=== PATIENT | male | born 1940 | race Caucasian/White ===

== ENCOUNTER 2018-06-19 18:31 | Inpatient (IN) | payer OTHER, BC ==
--- OUTSIDE RECORDS SUMMARY | 2018-06-19 18:34 | XMS REPORT | Clinical Summary ---
:1940 Author Organization [facility] Address [address] [place] [address] Care Team Providers Name Role Phone Asked, No Pcp Primary Care Provider Unavailable Allergies Active Allergy Reactions Severity Noted Date Comments Clindamycin Penicillins Current Medications Prescription Sig. Disp. Refills Start Date End Date Status lisinopril-hydrochlorot PRN Active hiazide (PRINZIDE,ZESTORETIC) 20-12.5 mg per tablet traMADol (ULTRAM) 50 mg tramadol 50 mg tablet Active tablet gabapentin (NEURONTIN) TAKE ONE (1) 2 03/31/2018 Active 300 mg capsule CAPSULE(S) BY MOUTH ONCE A DAY FOR 3 DAYS, THEN INCREASE TO 1 CAPSULE BY MOUTH TWICE A DAY. terbinafine HCl terbinafine HCl 250 Active (LamiSIL) 250 mg tablet mg tablet glimepiride (AMARYL) 4 glimepiride 4 mg Active MG tablet tablet atorvastatin (LIPITOR) atorvastatin 80 mg Active 80 MG tablet tablet lisinopril TAKE ONE (1) 0 12/30/2017 Active (PRINIVIL,ZESTRIL) 40 TABLET(S) BY MOUTH mg tablet ONCE A DAY. riFAMpin (RIFADIN) 300 rifampin 300 mg Active MG capsule capsule metoprolol tartrate metoprolol tartrate Active (LOPRESSOR) 50 mg 50 mg tablet tablet difluprednate (DUREZOL) Durezol 0.05 % eye Active 0.05 % drops drops keTOROlac (ACULAR) 0.5 ketorolac 0.5 % eye Active % ophthalmic solution drops pentoxifylline TAKE ONE (1) 6 03/17/2018 Active (TRENTal) 400 mg CR TABLET(S) BY MOUTH tablet TWICE A DAY WITH MEALS. Active Problems Not on file Encounters Date Type Specialty Care Team Description 04/28/2018 Telephone Cardiovascular AUTUMN Her (peripheral artery Thalia, RN disease) (Primary Dx) 04/23/2018 Office Visit Cardiovascular Gavin Nova, PAD (peripheral artery disease) (Primary Dx); Lymphedema of both lower extremities; Venous insufficiency (chronic) (peripheral) 04/23/2018 Hospital Encounter Radiology Thomas Ferguson, Symptomatic varicose veins of both lower extremities; Symptomatic varicose veins of left lower extremity 04/23/2018 Hospital Encounter Radiology Thomas Ferguson, Symptomatic varicose veins of both lower extremities; Symptomatic varicose veins of left lower extremity 04/14/2018 Transcribe Orders Access Thomas Ferguson, Symptomatic varicose veins of both lower extremities (Primary Dx); Symptomatic varicose veins of left lower extremity 04/02/2018 Office Visit Cardiovascular Gavin Nova, Venous ulcer of both lower extremities with varicose veins (Primary Dx); Bilateral leg pain; Thomas Ferguson, Varicose veins of leg with swelling, bilateral; PAD (peripheral artery disease) after 06/18/2017 Social History Tobacco Use Types Packs/Day Years Used Date Never Smoker Smokeless Tobacco: Never Used Alcohol Use Drinks/Week oz/Week Comments Defer Sex Assigned at Date Recorded Not on file Last Filed Vital Signs Vital Sign Reading Time Taken Blood Pressure 156/84 04/23/2018 11:24 AM CDT Pulse 51 04/23/2018 11:24 AM CDT Temperature 37 C (98.6 F) 04/23/2018 11:24 AM CDT Respiratory Rate 19 04/23/2018 11:24 AM CDT Oxygen Saturation 96% 04/23/2018 11:24 AM CDT Inhaled Oxygen Concentration - - Weight 85.3 kg (188 lb) 04/23/2018 11:24 AM CDT Height 167.6 cm (5' 6") 04/23/2018 11:24 AM CDT Body Mass Index 30.34 04/23/2018 11:24 AM CDT Plan of Treatment Health Maintenance Due Date Last Done Comments SHINGRIX VACCINE (#1) 1990 ZOSTER VACCINE 2000 PNEUMOCOCCAL POLYSACCHARIDE VACCINE AGE 65 AND OVER 2005 PNEUMOCOCCAL-13 2005 INFLUENZA VACCINE 04/07/2018 Procedures Procedure Name Priority Date/Time Associated Diagnosis Comments US DUPLEX VENOUS Routine 04/23/2018 11:30 AM Symptomatic varicose Results for this LOWER EXTREMITY CDT veins of both lower procedure are in REFLUX BILATERAL extremities the results Symptomatic varicose section. veins of left lower extremity US DUPLEX ARTERIAL Routine 04/23/2018 9:30 AM Symptomatic varicose Results for this LOWER EXTREMITY CDT veins of both lower procedure are in BILATERAL extremities the results Symptomatic varicose section. veins of left lower extremity after 06/18/2017 Results Pv duplex venous lower extremity reflux (04/23/2018 11:30 AM) Narrative Performed At EXAM:Bilateral lower extremity venous reflux evaluation [facility] HISTORY:Venous insufficiency TECHNIQUE:Real-time as well as pulsed and color Doppler evaluation of the deep and superficial system of the right and left legs was performed. There is no prior study available for comparison. COMPARISON: None available IMPRESSION: 1.No deep venous or saphenous vein thrombus is present in either lower extremity. The right and left common femoral, profunda femoral, superficial femoral, popliteal, posterior tibial, peroneal, greater saphenous, and short saphenous veins are patent with no visible thrombus. 2.Varicose veins extend from the bilateral greater saphenous veins into the calf regions. 3.No incompetent magazine designer veins are present in either lower extremity. REFLUX EVALUATION *Abnormal reflux criteria: > or equal to 0.5 seconds DEEP VEINS RIGHT LEG CFV: Normal Femoral:0.6 seconds reflux Profunda: Normal Popliteal: Normal PT (prox): Normal PT (dist): Normal LEFT LEG CFV: Normal Femoral:Normal Profunda: Normal Popliteal: Normal PT (prox): Normal PT (dist): Normal SUPERFICIAL VEINS RIGHT LEG GSV junction: 0.8 seconds reflux GSV (prox above knee): Normal GSV (prox below knee): Normal SSV:Normal LEFT LEG GSV junction: Normal GSV (prox above knee): Normal GSV (prox below knee): 1.7 seconds reflux SSV:Normal VEIN MAPPING GSV -- SIZE (mm) -- DEPTH FROM SKIN (mm) RIGHT LEG: Saphenofemoral junction -- 7 -- 26 Upper thigh --N/A -- Mid thigh --N/A-- Distal thigh --2-- 24 Knee ---2- 6 Upper calf --2-- 14 Mid calf ---- 3-- 6 Distal calf ---2-- 6 LEFT LEG: Saphenofemoral junction -- 8 -- 32 Upper thigh --4-- 21 Mid thigh --N/A-- Distal thigh --N/A-- Knee --3-- 8 Upper calf -- 3-- 6 Mid calf --3-- 6 Distal calf -- 3 -- 5 SSV -- SIZE (mm) -- DEPTH FROM SKIN (mm) RIGHT LEG: Upper Calf -- 4-- 9 Mid Calf ---2-- 16 Distal Calf --2-- 12 LEFT LEG: Upper Calf --3-- 12 Mid Calf --2-- 10 Distal Calf -- 2 --8 [id number] Procedure Note Hm Interface, Radiology Results Incoming - 04/23/2018 5:07 PM CDT EXAM: Bilateral lower extremity venous reflux evaluation HISTORY: Venous insufficiency TECHNIQUE: Real-time as well as pulsed and color Doppler evaluation of the deep and superficial system of the right and left legs was performed. There is no prior study available for comparison. COMPARISON: None available IMPRESSION: 1. No deep venous or saphenous vein thrombus is present in either lower extremity. The right and left common femoral, profunda femoral, superficial femoral, popliteal, posterior tibial, peroneal, greater saphenous, and short saphenous veins are patent with no visible thrombus. 2. Varicose veins extend from the bilateral greater saphenous veins into the calf regions. 3. No incompetent magazine designer veins are present in either lower extremity. REFLUX EVALUATION *Abnormal reflux criteria: > or equal to 0.5 seconds DEEP VEINS RIGHT LEG CFV: Normal Femoral: 0.6 seconds reflux Profunda: Normal Popliteal: Normal PT (prox): Normal PT (dist): Normal LEFT LEG CFV: Normal Femoral: Normal Profunda: Normal Popliteal: Normal PT (prox): Normal PT (dist): Normal SUPERFICIAL VEINS RIGHT LEG GSV junction: 0.8 seconds reflux GSV (prox above knee): Normal GSV (prox below knee): Normal SSV: Normal LEFT LEG GSV junction: Normal GSV (prox above knee): Normal GSV (prox below knee): 1.7 seconds reflux SSV: Normal VEIN MAPPING GSV -- SIZE (mm) -- DEPTH FROM SKIN (mm) RIGHT LEG: Saphenofemoral junction -- 7 -- 26 Upper thigh -- N/A -- Mid thigh -- N/A-- Distal thigh -- 2-- 24 Knee -- -2- 6 Upper calf -- 2-- 14 Mid calf -- -- 3 -- 6 Distal calf -- -2-- 6 LEFT LEG: Saphenofemoral junction -- 8 -- 32 Upper thigh -- 4-- 21 Mid thigh -- N/A-- Distal thigh -- N/A-- Knee -- 3-- 8 Upper calf -- 3-- 6 Mid calf -- 3-- 6 Distal calf -- 3 -- 5 SSV -- SIZE (mm) -- DEPTH FROM SKIN (mm) RIGHT LEG: Upper Calf -- 4-- 9 Mid Calf -- -2-- 16 Distal Calf -- 2-- 12 LEFT LEG: Upper Calf -- 3-- 12 Mid Calf -- 2-- 10 Distal Calf -- 2 --8 [id number] Performing Organization Address City/State/Zipcode Phone Number [facility] [address] [place] [address] duplex arterial lower extremity (04/23/2018 9:30 AM) Narrative Performed At EXAM: US DUPLEX ARTERIAL LOWER EXTREMITY BILATERAL [facility] HISTORY: Peripheral arterial disease. Bilateral lower extremity pain. TECHNIQUE: Real-time as well as pulsed and color Doppler evaluation of bilateral common femoral, femoral, popliteal, posterior tibial, anterior tibial, and dorsalis pedis arteries are evaluated. The examination includes a full duplex Doppler scan of the blood vessels (real-time P mode grayscale, Doppler spectral analysis, and Doppler color flow imaging). COMPARISON: None. IMPRESSION: 1.Sequela of at least moderate bilateral peripheral vascular disease. Biphasic waveforms beginning with the MEASURING MACHINE OPERATOR suggest hemodynamically significant inflow disease bilaterally. 2.Monophasic waveforms beginning with the mid left SFA and extending distally suggest a hemodynamically significant stenosis at the proximal left SFA. 3.Irregular systolic waveform interval, compatible with irregular heart rate. If indicated this may further evaluated by cardiology. 4.[place] right SFA is occluded. Patent right femoral-popliteal graft. 5.Mid to distal left SFA is stented with the distal stent appearing occluded. 6.There is retrograde flow within a left popliteal collateral vessel which likely supplies the left popliteal artery. 7.These findings may be further evaluated with catheter directed or CT angiography with runoff. RIGHT LEG: PEAK SYSTOLIC VELOCITIES ARE FOLLOWS: COMMON FEMORAL:74 cm/s FEMORAL: Proximal: Absent Mid: Absent Distal:8 1.38 cm/s POPLITEAL: Proximal:91.35 cm/s Mid: 82.29 cm/s Distal: 84.88 cm/s POSTERIOR TIBIAL: Proximal: 74.30 cm/s Mid: 100.68 cm/s Distal:6 8.04 cm/s ANTERIOR TIBIAL: Proximal: 25.23 cm/s Mid: 34.31 cm/s Distal:2 7.19 cm/s DORSALIS PEDIS: 17.51 cm/s DOPPLER WAVEFORMS: COMMON FEMORAL: Biphasic FEMORAL Proximal: Absent Mid: Absent Distal: Monophasic POPLITEAL Proximal: Biphasic Mid: Biphasic Distal: Biphasic POSTERIOR TIBIAL Proximal: Biphasic Mid: Triphasic Distal: Triphasic ANTERIOR TIBIAL Proximal: Biphasic Mid: Biphasic Distal: Monophasic DORSALIS PEDIS: Monophasic LEFT LEG: PEAK SYSTOLIC VELOCITIES ARE FOLLOWS: COMMON FEMORAL:83.93 cm/s FEMORAL: Proximal: 35.78 cm/s Mid: 39.17 cm/s Distal:4 7.89 cm/s POPLITEAL: Proximal: 30.27 cm/s Mid: 49.68 cm/s Distal: 20.06 cm/s POSTERIOR TIBIAL: Proximal: 29.72 cm/s Mid: 29.72 cm/s Distal:3 0.56 cm/s ANTERIOR TIBIAL: Proximal:17.76 cm/s Mid: 23.10 cm/s Distal: 13.84 cm/s DORSALIS PEDIS:7.08 cm/s DOPPLER WAVEFORMS: COMMON FEMORAL: Biphasic FEMORAL Proximal: Biphasic Mid: Monophasic Distal: Monophasic POPLITEAL Proximal: Monophasic Mid: Monophasic Distal: Monophasic POSTERIOR TIBIAL Proximal: Monophasic Mid: Monophasic Distal: Monophasic ANTERIOR TIBIAL Proximal: Monophasic Mid: Monophasic Distal: Monophasic DORSALIS PEDIS: Monophasic [id number] Procedure Note Hm Interface, Radiology Results Incoming - 04/23/2018 12:31 PM CDT EXAM: US DUPLEX ARTERIAL LOWER EXTREMITY BILATERAL HISTORY: Peripheral arterial disease. Bilateral lower extremity pain. TECHNIQUE: Real-time as well as pulsed and color Doppler evaluation of bilateral common femoral, femoral, popliteal, posterior tibial, anterior tibial , and dorsalis pedis arteries are evaluated. The examination includes a full duplex Doppler scan of the blood vessels (real-time P mode grayscale, Doppler spectral analysis, and Doppler color flow imaging). COMPARISON: None. IMPRESSION: 1. Sequela of at least moderate bilateral peripheral vascular disease. Biphasic waveforms beginning with the MEASURING MACHINE OPERATOR suggest hemodynamically significant inflow disease bilaterally. 2. Monophasic waveforms beginning with the mid left SFA and extending distally suggest a hemodynamically significant stenosis at the proximal left SFA. 3. Irregular systolic waveform interval, compatible with irregular heart rate. If indicated this may further evaluated by cardiology. 4. [place] right SFA is occluded. Patent right femoral-popliteal graft. 5. Mid to distal left SFA is stented with the distal stent appearing occluded. 6. There is retrograde flow within a left popliteal collateral vessel which likely supplies the left popliteal artery. 7. These findings may be further evaluated with catheter directed or CT angiography with runoff. RIGHT LEG: PEAK SYSTOLIC VELOCITIES ARE FOLLOWS: COMMON FEMORAL: 74 cm/s FEMORAL: Proximal: Absent Mid: Absent Distal: 81.38 cm/s POPLITEAL: Proximal: 91.35 cm/s Mid: 82.29 cm/s Distal: 84.88 cm/s POSTERIOR TIBIAL: Proximal: 74.30 cm/s Mid: 100.68 cm/s Distal: 68.04 cm/s ANTERIOR TIBIAL: Proximal: 25.23 cm/s Mid: 34.31 cm/s Distal: 27.19 cm/s DORSALIS PEDIS: 17.51 cm/s DOPPLER WAVEFORMS: COMMON FEMORAL: Biphasic FEMORAL Proximal: Absent Mid: Absent Distal: Monophasic POPLITEAL Proximal: Biphasic Mid: Biphasic Distal: Biphasic POSTERIOR TIBIAL Proximal: Biphasic Mid: Triphasic Distal: Triphasic ANTERIOR TIBIAL Proximal: Biphasic Mid: Biphasic Distal: Monophasic DORSALIS PEDIS: Monophasic LEFT LEG: PEAK SYSTOLIC VELOCITIES ARE FOLLOWS: COMMON FEMORAL: 83.93 cm/s FEMORAL: Proximal: 35.78 cm/s Mid: 39.17 cm/s Distal: 47.89 cm/s POPLITEAL: Proximal: 30.27 cm/s Mid: 49.68 cm/s Distal: 20.06 cm/s POSTERIOR TIBIAL: Proximal: 29.72 cm/s Mid: 29.72 cm/s Distal: 30.56 cm/s ANTERIOR TIBIAL: Proximal: 17.76 cm/s Mid: 23.10 cm/s Distal: 13.84 cm/s DORSALIS PEDIS: 7.08 cm/s DOPPLER WAVEFORMS: COMMON FEMORAL: Biphasic FEMORAL Proximal: Biphasic Mid: Monophasic Distal: Monophasic POPLITEAL Proximal: Monophasic Mid: Monophasic Distal: Monophasic POSTERIOR TIBIAL Proximal: Monophasic Mid: Monophasic Distal: Monophasic ANTERIOR TIBIAL Proximal: Monophasic Mid: Monophasic Distal: Monophasic DORSALIS PEDIS: Monophasic [id number] Performing Organization Address City/State/Zipcode Phone Number [facility] [address] [place] [address] after 06/18/2017 Insurance Payer Benefit Plan / Group Subscriber ID Type Phone Address MEDICARE MEDICARE PART A AND B xxxxxxxxxx Medicare [place], [place] BCBS BCBS CHOICE PPO/FEDERAL EMPL PPO xxxxxxxxxxxx PPO Home: Adi SAHA [phone] [address]
[2018-06-19 19:29] LABS: Arterial Blood Carboxyhemoglob 1.5 % (0-1.5); Blood Gas Oxyhemoglobin 94.8 % (94-97); Blood O2 Saturation 97.1 % (92-98.5)
[2018-06-19 19:42] LABS: Absolute Lymphocytes (CBC) 0.6 K/uL (0.7-4.9); Absolute Monocytes 0.7 K/uL (0.1-1.3); Basophils % 1.3 % (0-1.3); Eosinophils % 1.3 % (0-4.4); Hematocrit 43.9 % (39.6-49.0); Lymphocytes % 10.4 % (15.3-44.8); MCH 31.6 pg (27.0-35.0); MCV 93.6 fL (80-100); Monocytes % 13.3 % (3.3-12.3); RBC Red Blood Cell Count 4.69 M/uL (4.33-5.43)
[2018-06-19 19:44] LABS: Protime INR 1.39
[2018-06-19] MEDS ORDERED: FUROSEMIDE 20 MG/ 2ML VIAL ONE (19:54)
[2018-06-19 20:01] LABS: Albumin 3.5 g/dL (3.4-5.0); Bilirubin Direct 0.5 mg/dL (0-0.2); Bilirubin Total 1.2 mg/dL (0.2-1.0); Magnesium 2.3 mg/dL (1.8-2.4); Protein, Total 7.6 g/dL (6.4-8.2); Troponin (Emerg Dept Use Only) 0.02 ng/mL (0.0-0.045)
--- NOTE | 2018-06-19 20:08 | RAD REPORT ---
EXAM DESCRIPTION: RAD - Chest Single View - 06/19/2018 7:24 pm CLINICAL HISTORY: Dyspnea COMPARISON: December 2016 TECHNIQUE: AP portable chest image was obtained 1918 hours . FINDINGS: Lung volumes are low. No peripheral mass or consolidation. Cardiomegaly is present not sub stantially different from comparison. Sternotomy wires in place. Calcified granuloma in the right jessica g field. Interstitial markings are mildly prominent. No measurable pleural effusion and no pneumothor ax. No acute bony abnormality seen. No acute aortic findings suspected. IMPRESSION: Shallow inspiration portable imaging with mild interstitial prominence and cardiomegaly. Findings are not substantially different from comparison. Minimal interstitial edema or infiltrate ca n be masked.
--- NOTE | 2018-06-19 20:56 | EDPHYS ---
Physician Documentation [facility] Name: Wayne Jaimes Age: 77 yrs Sex: Male : 1940 Arrival Date: 06/19/2018 Time: 18:34 Bed 18 Private MD: ED Physician Yogesh Rdz HPI: 06/19 18:53 This 77 yrs old Male presents to ER via Wheelchair with complaints of jmm Breathing Difficulty. 18:53 The patient has shortness of breath at rest. Onset: The symptoms/episode began/occurred jmm gradually, 3 day(s) ago. Duration: The symptoms are continuous. The patient's shortness of breath is aggravated by light activity, walking. Associated signs and symptoms: Pertinent negatives: chest pain. 18:53 This is a 77 year old male with a history of CHF, DM that presents to the ED with jmm progressively worsening shortness of breath beginning approx 3 days ago. states the patient has had multiple falls which the patient attributes to shortness of breath and nausea. Denies vomiting, denies abdominal pain, denies chest pain. . Historical: - Allergies: 19:07 Erythromycin; iw 19:07 PENICILLINS; iw - Home Meds: 19:07 clotrimazole-betamethasone 1-0.05 % Topical crea 2 times per day [Active]; furosemide iw 80 mg Oral tab once daily [Active]; Humulin 70/30 100 unit/mL (70-30) Sub-Q susp take 32 units in the morning and 18 units at night [Active]; ketoconazole 2 % Topical crea 2 times per day [Active]; lisinopril 20 mg Oral tab once daily [Active]; metoprolol tartrate 50 mg Oral tab 1 tab 2 times per day [Active]; mupirocin 2 % Topical oint [Active]; triamcinolone acetonide 0.1 % Topical oint 2 times per day [Active]; - PMHx: 19:07 Diabetes - IDDM; CHF; iw - Immunization history:: Adult Immunizations up to date. - Ebola Screening: : No symptoms or risks identified at this time. - Social history:: Smoking status: Patient/guardian denies using tobacco. ROS: 18:53 Constitutional: Negative for fever, chills, and weight loss, Eyes: Negative for injury, jmm pain, redness, and discharge, ENT: Negative for injury, pain, and discharge, Cardiovascular: Negative for chest pain, palpitations, and edema. 18:53 MS/Extremity: Negative for injury and deformity, Skin: Negative for injury, rash, and discoloration. 18:53 Respiratory: Positive for shortness of breath. 18:53 Abdomen/GI: Positive for nausea. 18:53 Neuro: Positive for weakness. 18:53 All other systems are negative. Exam: 18:53 Head/Face: atraumatic. Eyes: EOMI, no conjunctival erythema appreciated Chest/axilla: jmm Normal chest wall appearance and motion. Cardiovascular: Regular rate and rhythm. No edema appreciated Respiratory: Normal respirations, no respiratory distress appreciated Abdomen/GI: Non distended, soft Back: Normal ROM Skin: General appearance color normal MS/ Extremity: Moves all extremities, no obvious deformities appreciated, no edema noted to the lower extremities 18:53 Constitutional: The patient appears in no acute distress, alert, awake. 18:53 Respiratory: mild respiratory distress is noted, Respirations: normal, Breath sounds: rhonchi, that are moderate. 18:53 Neuro: Orientation: is normal, Mentation: is normal, Memory: is normal. 18:53 Psych: Behavior/mood is pleasant, cooperative. 18:53 Musculoskeletal/extremity: ROM: intact in all extremities, Mild erythema and swelling jmm noted to the lower legs bilaterally. . Vital Signs: 19:11 BP 163 / 95; Pulse 84; Resp 22 S; Temp 99.6(O); Pulse Ox 88% on R/A; Weight 84.82 kg; iw Height 5 ft. 6 in. (167.64 cm); Pain 0/10; 19:15 Pulse Ox 91% on R/A; lp1 19:30 BP 170 / 93; Pulse 82; Resp 21; Pulse Ox 99% on 2 lpm NC; lp1 20:00 BP 162 / 93; Pulse 81; Resp 24; Pulse Ox 98% on 2 lpm NC; lp1 21:00 BP 154 / 94; Pulse 83; Resp 21; Pulse Ox 94% on 2 lpm NC; lp1 22:00 BP 168 / 89; Pulse 82; Resp 21; Pulse Ox 97% on 2 lpm NC; lp1 19:11 Body Mass Index 30.18 (84.82 kg, 167.64 cm) iw MDM: 18:53 Patient medically screened. [facility] 20:54 Data reviewed: vital signs, nurses notes, lab test result(s), radiologic studies, plain [facility] films. ED course: I discussed the patient with Dr. Ugarte whom accepted admission. . 06/19 18:52 Order name: Basic Metabolic Panel; Complete Time: 20:04 [facility] 06/19 18:52 Order name: CBC with Diff; Complete Time: 20:04 [facility] 06/19 18:52 Order name: LFT's; Complete Time: 20:04 [facility] 06/19 18:52 Order name: Magnesium; Complete Time: 20:04 [facility] 06/19 18:52 Order name: NT PRO-BNP; Complete Time: 20:04 [facility] 06/19 18:52 Order name: PT-INR; Complete Time: 20:04 [facility] 06/19 18:52 Order name: Troponin (emerg Dept Use Only); Complete Time: 20:04 [facility] 06/19 18:52 Order name: XRAY Chest (1 view); Complete Time: 20:12 [facility] 06/19 18:52 Order name: Lipase; Complete Time: 20:04 [facility] 06/19 18:52 Order name: Urine Culture [facility] 06/19 18:52 Order name: Blood Culture Adult (2) [facility] 06/19 19:13 Order name: ABG; Complete Time: 20:[address] [facility] 06/19 20:47 Order name: Urine Dipstick--Ancillary (enter results); Complete Time: 21:44 [place] 06/19 18:52 Order name: EKG; Complete Time: 18:53 [facility] 06/19 18:52 Order name: Cardiac monitoring; Complete Time: 19:40 [facility] 06/19 18:52 Order name: EKG - Nurse/Tech; Complete Time: 19:40 [facility] 06/19 18:52 Order name: IV Saline Lock; Complete Time: 19:40 [facility] 06/19 18:52 Order name: Labs collected and sent; Complete Time: 19:40 [facility] 06/19 18:52 Order name: O2 Per Protocol; Complete Time: 19:40 [facility] 06/19 18:52 Order name: O2 Sat Monitoring; Complete Time: 19:41 [facility] 06/19 18:52 Order name: Urine Dipstick-Ancillary (obtain specimen); Complete Time: 20:29 [facility] Administered Medications: 20:00 Drug: Lasix 20 mg Route: IVP; Site: left antecubital; lp1 20:56 Follow up: Response: No adverse reaction lp1 20:09 Not Given (Physician Discretion): NS 0.9% 1000 ml IV at 75 ml/hr continuous lp1 Point of Care Testing: Blood Glucose: 19:32 Blood Glucose: 328 mg/dL; lp1 Ranges: Critical Glucose Levels:Adult <50 mg/dl or >400 mg/dl <40 mg/dl or >180 mg/dl Disposition: 06/19/18 20:55 Hospitalization ordered by Liz Ugarte for Inpatient Admission. Preliminary diagnosis is CHF Exacerbation. - Bed requested for Telemetry/MedSurg (Inpatient). - Status is Inpatient Admission. lp1 - Condition is Stable. - Problem is new. - Symptoms have worsened. UTI on Admission? No Addendum: 06/21/2018 07:12 Co-signature as Attending Physician, Yogesh Rdz MD I agree with the assessment and c aguilar plan of care. Signatures: Dispatcher [employer] [facility] Yogesh Rdz MD MD cha Mickail, Joel, PA PA Sakina Meredith, RN RN Melody Silvestre ms, Laura, GUERA RN lp1 Corrections: (The following items were deleted from the chart) 06/19 19:12 19:08 BiPap ([employer] Only)+[email or web address] ordered. [facility] 22:10 20:55 Hospitalization Ordered by Liz Ugarte MD for Inpatient Admission. Preliminary ms diagnosis is CHF Exacerbation. Bed requested for Telemetry/MedSurg (Inpatient). Status is Inpatient Admission. Condition is Stable. Problem is new. Symptoms have worsened. UTI on Admission? No. [facility] 22:42 22:10 06/19/2018 20:55 Hospitalization Ordered by Liz Ugarte MD for Inpatient lp1 Admission. Preliminary diagnosis is CHF Exacerbation. Bed requested for Telemetry/MedSurg (Inpatient). Status is Inpatient Admission. Condition is Stable. Problem is new. Symptoms have worsened. UTI on Admission? No. ms
--- NOTE | 2018-06-19 20:56 | ER ---
Nurse's Notes [facility] Name: Wayne Jaimes Age: 77 yrs Sex: Male : 1940 Arrival Date: 06/19/2018 Time: 18:34 Bed 18 Private MD: Diagnosis: CHF Exacerbation Presentation: 06/19 19:04 Presenting complaint: Presenting complaint: states: pt has been having increasing iw SOB and weakness over past few days, states pt fell a few days ago and fell again today, was to weak to get up on his own, pt has hx of CHF on Lasix also has open ulcers on BLE. 19:07 Transition of care: patient was not received from another setting of care. Onset of iw symptoms was June 17, 2018. Risk Assessment: Do you want to hurt yourself or someone else? Patient reports no desire to harm self or others. Initial Sepsis Screen: Does the patient meet any 2 criteria? No. Patient's initial sepsis screen is negative. Does the patient have a suspected source of infection? No. Patient's initial sepsis screen is negative. Care prior to arrival: None. 19:07 Method Of Arrival: Wheelchair iw 19:07 Acuity: ROSEMARY 2 iw Historical: - Allergies: 19:07 Erythromycin; iw 19:07 PENICILLINS; iw - Home Meds: 19:07 clotrimazole-betamethasone 1-0.05 % Topical crea 2 times per day [Active]; furosemide iw 80 mg Oral tab once daily [Active]; Humulin 70/30 100 unit/mL (70-30) Sub-Q susp take 32 units in the morning and 18 units at night [Active]; ketoconazole 2 % Topical crea 2 times per day [Active]; lisinopril 20 mg Oral tab once daily [Active]; metoprolol tartrate 50 mg Oral tab 1 tab 2 times per day [Active]; mupirocin 2 % Topical oint [Active]; triamcinolone acetonide 0.1 % Topical oint 2 times per day [Active]; - PMHx: 19:07 Diabetes - IDDM; CHF; iw - Immunization history:: Adult Immunizations up to date. - Ebola Screening: : No symptoms or risks identified at this time. - Social history:: Smoking status: Patient/guardian denies using tobacco. Screenin:22 Abuse screen: Denies threats or abuse. Denies injuries from another. Nutritional lp1 screening: No deficits noted. Tuberculosis screening: No symptoms or risk factors identified. Fall Risk Total Thrasher Fall Scale indicates High Risk Score (45 or more points). Fall prevention measures have been instituted. Side Rails Up X 2 Family Present and informed to notify staff if the need to leave the bedside As available patient and family educated on Fall Prevention Program and Strategies. Assessment: 19:20 General: Appears in no apparent distress. Behavior is drowsy. Pain: Denies pain. Neuro: lp1 Level of Consciousness is lethargic, Oriented to person, place, situation. Cardiovascular: Patient's skin is warm and dry. Edema pitting to left foot and right foot Rhythm is sinus rhythm. Respiratory: Reports shortness of breath Airway is patent Trachea midline Respiratory effort is even, shallow, Respiratory pattern is tachypnea Breath sounds are diminished bilaterally. Onset: The symptoms/episode began/occurred gradually, the patient has moderate shortness of breath Parent/caregiver reports the patient having shortness of breath on exertion cough that is persistent. GI: Abdomen is non-distended. : No signs and/or symptoms were reported regarding the genitourinary system. EENT: No signs and/or symptoms were reported regarding the EENT system. Derm: Skin is intact, Skin is dry, Wound noted Other: Wounds to bilateral lower legs, dressings clean, dry; done by Wound Care. Musculoskeletal: Circulation, motion, and sensation intact. 20:20 Reassessment: Patient appears in no apparent distress at this time. Patient resting, lp1 eyes closed; family at bedside. 20:55 Reassessment: Patient with large void at this time, linens and gown changed. lp1 22:15 Reassessment: Patient and family aware of pending admission. General: Appears in no lp1 apparent distress. Neuro: Level of Consciousness is awake, alert, obeys commands, Oriented to person, place, situation. Respiratory: Respiratory effort is even, Respiratory pattern is tachypnea. Vital Signs: 19:11 BP 163 / 95; Pulse 84; Resp 22 S; Temp 99.6(O); Pulse Ox 88% on R/A; Weight 84.82 kg; iw Height 5 ft. 6 in. (167.64 cm); Pain 0/10; 19:15 Pulse Ox 91% on R/A; lp1 19:30 BP 170 / 93; Pulse 82; Resp 21; Pulse Ox 99% on 2 lpm NC; lp1 20:00 BP 162 / 93; Pulse 81; Resp 24; Pulse Ox 98% on 2 lpm NC; lp1 21:00 BP 154 / 94; Pulse 83; Resp 21; Pulse Ox 94% on 2 lpm NC; lp1 22:00 BP 168 / 89; Pulse 82; Resp 21; Pulse Ox 97% on 2 lpm NC; lp1 19:11 Body Mass Index 30.18 (84.82 kg, 167.64 cm) iw ED Course: 18:34 Patient arrived in ED. tw3 18:54 Charlie Sanchez PA is PHCP. jmm 18:54 Yogesh Rdz MD is Attending Physician. jmm 19:08 Kayla Faith RN is Primary Nurse. lp1 19:11 Triage completed. iw 19:13 Arm band placed on. iw 19:24 XRAY Chest (1 view) In Process Unspecified. EDMS 19:25 Missed attempt(s): 20 gauge in right antecubital area. Inserted saline lock: 20 gauge lp1 in left antecubital area, using aseptic technique. Blood collected. 19:30 Patient has correct armband on for positive identification. Placed in gown. Bed in low lp1 position. Call light in reach. Side rails up X2. automation control integrator on. Pulse ox on. NIBP on. 20:55 Liz Ugarte MD is Hospitalizing Provider. [facility] 22:17 No provider procedures requiring assistance completed. Patient admitted, IV remains in lp1 place. Administered Medications: 20:00 Drug: Lasix 20 mg Route: IVP; Site: left antecubital; lp1 20:56 Follow up: Response: No adverse reaction lp1 20:09 Not Given (Physician Discretion): NS 0.9% 1000 ml IV at 75 ml/hr continuous lp1 Point of Care Testing: Blood Glucose: 19:32 Blood Glucose: 328 mg/dL; lp1 Ranges: Outcome: 20:55 Decision to Hospitalize by Provider. jmm 22:17 Admitted to Tele accompanied by tech, via wheelchair, room 405, with oxygen, with lp1 chart, Report called to GUERA Pierson 22:17 Condition: stable 22:17 Instructed on the need for admit. 22:42 Patient left the ED. lp1 Signatures: Dispatcher [employer] EDMS Charlie Sanchez PA PA jmm Williams, Irene, RN RN iw Kayla Faith RN RN lp1 Sharon Olmos tw3 Corrections: (The following items were deleted from the chart) 19:11 19:04 Presenting complaint: iw iw 20:23 19:20 Respiratory: Reports shortness of breath Airway is patent Trachea midline lp1 Respiratory effort is even, shallow, Respiratory pattern is tachypnea Breath sounds are diminished bilaterally. Parent/caregiver reports the patient having shortness of breath on exertion cough that is persistent lp1 22:42 19:20 Cardiovascular: Patient's skin is warm and dry. Rhythm is sinus rhythm lp1 lp1
[2018-06-19 21:03] LABS: Urine Blood 2+ (NEG); Urine Glucose 3+ (NEG); Urine Protein 2+ (NEG)
[2018-06-19] MEDS ORDERED: MAGNESIUM HYDROXIDE 8% 30 ML PO PRN (21:20)
[2018-06-19] MEDS ORDERED: ACETAMINOPHEN 500 MG TAB PO PRN (21:20)
[2018-06-19] MEDS ORDERED: ONDANSETRON 4 MG/2 ML VIAL IV PRN (21:20)
[2018-06-20 06:00] LABS: Absolute Neutrophil 4.3 K/uL (1.8-8.0); Basophils % 1.2 % (0-1.3); Eosinophils % 0.3 % (0-4.4); Lymphocytes % 15.1 % (15.3-44.8); MCH 31.8 pg (27.0-35.0); MCV 92.7 fL (80-100); MPV 8.1 fL (7.6-11.3); Monocytes % 15.7 % (3.3-12.3); RBC Red Blood Cell Count 4.64 M/uL (4.33-5.43)
[2018-06-20 06:15] LABS: Albumin 3.3 g/dL (3.4-5.0); Bilirubin Total 1.2 mg/dL (0.2-1.0); Magnesium 2.1 mg/dL (1.8-2.4); Phosphorus 3.2 mg/dL (2.5-4.9); Potassium 4.2 mmol/L (3.5-5.1); Protein, Total 6.8 g/dL (6.4-8.2)
[2018-06-20] MEDS: METOPROLOL TAR 25 MG TAB PO SCH ×2 (06:38→17:14)
[2018-06-20] MEDS ORDERED: ALBUMIN HUMAN 25% 100 ML IV ONE (07:00)
--- NOTE | 2018-06-20 07:02 | P.HP ---
Certification for Inpatient Patient admitted to: Observation With expected LOS: <2 Midnights Patient will require the following post-hospital care: None Practitioner: I am a practitioner with admitting privileges, knowledge of patient current condition, hospital course, and medical plan of care. Services: Services provided to patient in accordance with Admission requirements found in Title 42 Section 412.3 of the Code of Federal Regulations Patient History Date of Service: 06/19/18 Reason for admission: CHF exacerbation History of Present Illness: Patient is a 77-year-old gentleman who came into the hospital short of breath. Patient has history of congestive heart failure. 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 He states he had workup done about a month ago and was told there was nothing wrong with his heart. But shortly after this he tells me that he was told that he has congestive heart failure. He does not know the degree or what type of heart failure. He has had significant cardiology procedures. He has had bypass surgery and stent placement. He states he came into the hospital because he was having a hard time breathing in his lower extremities were edematous. He has also had orthopnea. He has wounds to the lower extremities because of the significant edema. He has follows up in wound healing Center and sees Dr. Calvo for wound care. His primary care provider is a nurse practitioner at Dr. Valdes's office. At this time, patient will be admitted to the hospital for further workup for congestive heart failure exacerbation. Allergies Penicillins Adverse Reaction (Verified 04/23/15 08:08) Itching/Hives/Rash Erythromycin Allergy (Uncoded 03/03/16 09:09) Unknown Mycins Adverse Reaction (Uncoded 04/23/15 08:09) Itching/Hives/Rash Home Medications: Metoprolol Tartrate [Lopressor*] 50 mg PO BID 04/23/15 Furosemide [Lasix] 80 mg PO DAILY 12/11/16 Insulin NPH Hum/Reg Insulin Hm [Humulin 70-30 Vial] 18 unit SQ BEDTIME 12/11/16 Insulin NPH Hum/Reg Insulin Hm [Humulin 70-30 Vial] 32 unit SQ AC 12/11/16 Clopidogrel Bisulfate [Plavix*] 75 mg PO DAILY tablet 12/12/16 Lisinopril [Prinivil*] 40 mg PO DAILY #30 tab 12/12/16 Atorvastatin Calcium [Lipitor] 80 mg PO BEDTIME 01/18/18 Gabapentin [Gralise] 300 mg PO DAILY 01/18/18 - Past Medical/Surgical History Has patient received pneumonia vaccine in the past: Yes Diabetic: Yes -: IDDM -: HTN -: CHF -: Hyperlipidemia -: Lymphedema -: Neuropathy -: acoustic neuroma -: Brain tumor removal -: CABG x 3 -: R knee replacement - Family History Mother Medical History: Diabetes Father Medical History: Heart disease - Social History Smoking Status: Never smoker Alcohol use: Yes CD- Drugs: No Caffeine use: Yes Place of Residence: Home Review of Systems 10-point ROS is otherwise unremarkable Physical Examination - Vital Signs Temperature: 98 F Blood Pressure: 167/88 Pulse: 53 Respirations: 24 Pulse Ox (%): 98 - Physical Exam General: Alert, In no apparent distress, Oriented x3 HEENT: Atraumatic, PERRLA, Mucous membr. moist/pink, EOMI, Sclerae nonicteric Neck: Supple, 2+ carotid pulse no bruit, Without JVD or thyroid abnormality, JVD distended Respiratory: Diminished, Crackles/rales Cardiovascular: Regular rate/rhythm, Normal S1 S2, Systolic murmur Gastrointestinal: Normal bowel sounds, Soft and benign, Non-distended, No tenderness Musculoskeletal: No clubbing, Swelling, Erythema, Tenderness, Warmth Integumentary: Venous stasis ulcer Neurological: Normal gait, Normal speech, Normal tone, Sensation intact, Cranial nerves 3-12 intact, Normal affect, Abnormal strength Lymphatics: No axilla or inguinal lymphadenopathy - Studies Laboratory Data (last 24 hrs) 06/19/18 19:25: PT 16.4 H, INR 1.39 06/19/18 19:25: WBC 5.5, Hgb 14.8, Hct 43.9, Plt Count 173 06/19/18 19:25: Sodium 133 L, Potassium 5.0, BUN 29 H, Creatinine 1.60 H, Glucose 325 H, Magnesium 2.3, Total Bilirubin 1.2 H, AST 45 H, ALT 52, Alkaline Phosphatase 238 H, Lipase 263 Assessment & Plan - Problems (Diagnosis) (1) Systolic CHF, acute Current Visit: Yes Status: Acute (2) Arterial insufficiency with ischemic ulcer Current Visit: No Status: Acute (3) Bilateral edema of lower extremity Onset Date: 12/11/16 Current Visit: No Status: Acute (4) CAD (coronary artery disease) Current Visit: No Status: Acute (5) Diabetes Current Visit: No Status: Acute (6) Dyspnea Onset Date: 12/11/16 Current Visit: No Status: Acute (7) HTN (hypertension) Current Visit: No Status: Acute (8) Hx of CABG Current Visit: No Status: Acute (9) Lymphedema Current Visit: No Status: Acute (10) CKD (chronic kidney disease) Current Visit: Yes Status: Acute - Plan 1. Echocardiogram to evaluate left ventricle ejection fraction as well as to evaluate relaxation 2. Start a low-dose angiotensin receptor yoli 3. Continue on a Beta yoli 4. Cardiology consultation 5. Aggressive diuresis 6. Strict I's and O's, and monitor renal function closely; also check BNP level in a.m. 7. Repeat CXR 8. Daily weights 9. Education regarding diet and treatment of congestive heart failure Discharge Plan: Home Plan to discharge in: Greater than 2 days - Advance Directives Does patient have a Living Will: No Does patient have a Durable POA for Healthcare: No - Code Status/Comfort Care Code Status Assessed: Yes Code Status: Full Code Critical Care: No Time Spent Managing PTS Care (In Minutes): 60
[2018-06-20] MEDS: FUROSEMIDE 40 MG/4 ML VIAL IV SCH ×3 (08:48→17:15)
[2018-06-20] MEDS: ENOXAPARIN 40 MG/0.4 ML SQ SCH (08:48)
[2018-06-20] MEDS: LOSARTAN POTASSIUM 50 MG TABLET PO SCH (08:49)
[2018-06-20] MEDS: ASPIRIN EC 81 MG TAB PO SCH (08:49)
[2018-06-20] MEDS ORDERED: FUROSEMIDE 40 MG/4 ML VIAL IV SCH (09:00)
--- NOTE | 2018-06-20 13:07 | RAD REPORT ---
EXAM DESCRIPTION: CT - Abdomen Pelvis Wo Contrast - 06/20/2018 12:41 pm CLINICAL HISTORY: Abdominal pain. hepatic mets COMPARISON: Abdomen Pelvis W Contrast dated 09/18/2016; Chest Single View dated 06/19/2018 TECHNIQUE: CT imaging of the abdomen and pelvis was performed without contrast. Solid organ and vasc ular assessment is limited due to lack of IV contrast. All CT scans are performed using dose optimization technique as appropriate and may include automated exposure control or mA/KV adjustment according to patient size. FINDINGS: The lower lung rossi are clear. The liver, spleen, pancreas, adrenal glands and kidneys are within normal limits for a limited non-co ntrast examination.Small benign 14 mm left renal cortical cyst. No bowel obstruction, free air, free fluid or abscess. The appendix is normal. The osseous structures are within normal limits.Mild inflammatory changes is noted in the right ingui nal region. IMPRESSION: No acute or aggressive intra-abdominal or pelvic findings. A limited non-contrast examination was performed as detailed.
--- NOTE | 2018-06-20 16:23 | CON ---
CARDIOLOGY CONSULT History Of Present Illness: Mr. Jaimes is 77. He has a previous history of peripheral vascular dise ase with stents, coronary heart disease with stents and bypass surgery. He recently has been [facility] seeing Dr. Calvo, getting treatment for bilateral alcocer wounds. He is getting more edema tous, the legs are getting red, and for several days he was unable to stand up, he would fall and the n be unable to get up, sometimes lying in bed, he was unable to hold himself up. He felt lightheaded . When he came to the emergency room, he was not found to be hypotensive, nor did he have an elevate d white blood cell count, nor any fever. His legs do have the appearance of cellulitis. One of his temperatures was 99.6. His laboratory exam is interesting for worsening renal failure, glucose running of control, had evide nce of hepatic problems with a total bilirubin of 1.2, elevated alkaline phosphatase, and terminal pr oBNP is also pretty elevated. I am suspicious that at least part of Mr. Jaimes's problem is cellulit is and urosepsis. We do not have a procalcitonin level, perhaps it would be useful, perhaps not. Hi s pH was normal. He has a normal white blood cell count, but I think antibiotics will be helpful. I need to get some more information about his liver. I think doing a CAT scan without contrast might reveal something, usually when alkaline phosphatase is very elevated and bilirubin mildly elevated, i t is a sign of metastasis. The patient does not have any known malignancy. I would be in favor of t reating him with antibiotics, getting local wound care, getting some hepatic studies, and of course w e need to do an echocardiogram to see if his cardiac function has really deteriorated and arterial st udies on his legs to see if he has adequate circulation to have any hope to heal the wounds. BERNADETTE/ERNESTO Voice ID: [id number] Report ID: [id number]
[2018-06-20] MEDS ORDERED: D50W 25 GM/50 ML SYRINGE IV PRN ×2 (16:31→19:32)
[2018-06-20] MEDS ORDERED: GLUCAGON 1 MG/VIAL IM PRN ×2 (16:31→19:32)
[2018-06-20] MEDS: INSULIN -REGULAR HUMAN 50 UNIT/0.5 ML ML SQ SCH ×2 (16:41→21:00)
[2018-06-20] MEDS: CLINDAMYCIN PHOSPHATE 600 MG in NA CHLORIDE 0.9% 50 ML IV SCH ×2 (17:32→23:42)
--- NOTE | 2018-06-20 19:11 | RAD REPORT ---
EXAM DESCRIPTION: RAD - Chest Pa And Lat (2 Views) - 06/20/2018 7:05 pm CLINICAL HISTORY: Eval of CHF after diuresis Chest pain. COMPARISON: Chest Single View dated 06/19/2018; Chest Pa And Lat (2 Views) dated 12/10/2016 FINDINGS: Small calcified granuloma seen in the right lower lobe. The lungs are clear of acute infil trate. The heart is upper limit normal in size. No displaced fractures. Sternotomy wires are present. IMPRESSION: Grossly clear lungs.
--- NOTE | 2018-06-20 19:37 | P.PN ---
Subjective Date of Service: 06/20/18 Chief Complaint: CHF exacerbation Patient seen and examined at bedside. at bedside. Patient's reports improvement in symptoms. No new concerns or complaints today Review of Systems 10-point ROS is otherwise unremarkable Physical Examination - Vital Signs Temperature: 97.1 F Blood Pressure: 161/80 Pulse: 83 Respirations: 20 Pulse Ox (%): 95 - Physical Exam General: Alert, In no apparent distress HEENT: Atraumatic, PERRLA, EOMI Neck: Supple, JVD not distended Respiratory: Normal air movement, Crackles/rales Cardiovascular: Regular rate/rhythm, Normal S1 S2 Gastrointestinal: Normal bowel sounds, No tenderness Integumentary: No rashes Neurological: Normal speech, Normal tone, Normal affect Lymphatics: No axilla or inguinal lymphadenopathy - Studies Laboratory Data (last 24 hrs) 06/19/18 19:25: PT 16.4 H, INR 1.39 06/19/18 19:25: WBC 5.5, Hgb 14.8, Hct 43.9, Plt Count 173 06/19/18 19:25: Sodium 133 L, Potassium 5.0, BUN 29 H, Creatinine 1.60 H, Glucose 325 H, Magnesium 2.3, Total Bilirubin 1.2 H, AST 45 H, ALT 52, Alkaline Phosphatase 238 H, Lipase 263 Medications List Reviewed: Yes Assessment And Plan - Plan 1. Echocardiogram to evaluate left ventricle ejection fraction as well as to evaluate relaxation, pending 2. Start a low-dose angiotensin receptor yoli 3. Continue on a Beta yoli 4. Cardiology consultation 5. Aggressive diuresis 6. Strict I's and O's, and monitor renal function closely; also check BNP level in a.m. 7. Repeat CXR 8. Daily weights 9. Education regarding diet and treatment of congestive heart failure
[2018-06-20] MEDS: ATORVASTATIN 80 MG TAB PO SCH (20:48)
[2018-06-20] MEDS: GABAPENTIN 300 MG CAP PO SCH (20:48)
[2018-06-20] MEDS: METOPROLOL TAR 50 MG TAB PO SCH (20:48)
[2018-06-20] MEDS: PENTOXIFYLLINE ER 400 MG TAB PO SCH (20:49)
[2018-06-20] MEDS ORDERED: INSULIN 70/30 100 UNITS/ML SQ SCH (21:00)
[2018-06-20] MEDS: INSULIN 70/30 100 UNITS/ML SQ SCH (21:32)
[2018-06-21] MEDS: CLINDAMYCIN PHOSPHATE 600 MG in NA CHLORIDE 0.9% 50 ML IV SCH ×3 (05:32→18:12)
[2018-06-21] MEDS ORDERED: INSULIN 70/30 100 UNITS/ML SQ SCH ×2 (07:30)
[2018-06-21] MEDS: INSULIN -REGULAR HUMAN 50 UNIT/0.5 ML ML SQ SCH ×4 (07:30→20:49)
[2018-06-21] MEDS ORDERED: LISINOPRIL 20 MG TAB PO SCH (09:00)
[2018-06-21] MEDS: ENOXAPARIN 40 MG/0.4 ML SQ SCH (09:14)
[2018-06-21] MEDS: METOPROLOL TAR 50 MG TAB PO SCH ×2 (09:15→20:47)
[2018-06-21] MEDS: GABAPENTIN 300 MG CAP PO SCH ×2 (09:15→20:47)
[2018-06-21] MEDS: LOSARTAN POTASSIUM 50 MG TABLET PO SCH (09:15)
[2018-06-21] MEDS: FUROSEMIDE 40 MG/4 ML VIAL IV SCH ×2 (09:15→18:12)
[2018-06-21] MEDS: CLOPIDOGREL 75 MG TABLET PO SCH (09:15)
[2018-06-21] MEDS: ASPIRIN EC 81 MG TAB PO SCH (09:15)
[2018-06-21] MEDS: PENTOXIFYLLINE ER 400 MG TAB PO SCH ×2 (09:16→20:47)
--- NOTE | 2018-06-21 10:11 | EKG ---
Test Date: 2018-06-19 Test Time: 19:35:53 Link And Link Knitting Machine Operator: JESÚS MEASUREMENT RESULTS: Intervals: Rate: 83 AK: 128 QRSD: 132 QT: 420 QTc: 493 Talmage: P: 47 AK: 128 QRS: 151 T: -8 INTERPRETIVE STATEMENTS: Sinus rhythm with frequent premature ventricular complexes and premature atrial complexes Right bundle branch block T wave abnormality, consider inferior ischemia Abnormal ECG Compared to ECG 12/10/2016 19:20:54 Ventricular premature complex(es) now present T-wave abnormality now present Possible ischemia now present Sinus bradycardia no longer present Electronically Signed On 06-21-18 10:10:55 CDT by Aidan Weston
[2018-06-21] MEDS ORDERED: PANTOPRAZOLE 40MG TABLET PO ONE (11:10)
[2018-06-21] MEDS: GUAIFENESIN/CODEINE 5ML UCUP PO PRN (11:35)
--- NOTE | 2018-06-21 12:42 | P.PN ---
Subjective Date of Service: 06/21/18 Chief Complaint: CHF exacerbation Patient seen and examined at bedside. at bedside. Patient's reports improvement in symptoms. No new concerns or complaints today Review of Systems 10-point ROS is otherwise unremarkable Physical Examination - Vital Signs Temperature: 97.3 F Blood Pressure: 145/70 Pulse: 57 Respirations: 18 Pulse Ox (%): 96 - Physical Exam General: Alert, In no apparent distress HEENT: Atraumatic, PERRLA, EOMI Neck: Supple, JVD not distended Respiratory: Clear to auscultation bilaterally, Normal air movement Cardiovascular: Regular rate/rhythm, Normal S1 S2 Gastrointestinal: Normal bowel sounds, No tenderness Musculoskeletal: No tenderness Integumentary: Rash(es) (B/L LE, located on shins bilaterally with redness/ slight warmth, present prior to admission, ), Skin breakdown, Erythema, Warmth Neurological: Normal speech, Normal tone, Normal affect Lymphatics: No axilla or inguinal lymphadenopathy - Studies Microbiology Data (last 24 hrs): 06/19/18 19:25 Blood - Blood Anaerobic Blood Culture - Final Medications List Reviewed: Yes Assessment And Plan - Current Problems (Diagnosis) (1) Cellulitis Current Visit: Yes Status: Acute Plan: Pt w/ wound in bilateral LE, possibility of overlying cellulitis Continue clindamycin BCx NGTD, pro-calcitonin pending Continue wound care Qualifiers: Site of cellulitis: extremity Site of cellulitis of extremity: lower extremity (2) Elevated LFTs Current Visit: Yes Status: Acute Plan: w/ elevated Alk phos and Total Bili. Will evaluate further with Hepatitis panel, liver studies and iron studies May get RUQ ultrasound for further evaluation (3) CKD (chronic kidney disease) Current Visit: Yes Status: Acute Plan: Creatinine improved and stable. Monitor (4) Systolic CHF, acute Current Visit: Yes Status: Acute Plan: Symptomatic improvement Card consulted, recommendations appreciated. ECHO pending Continue diuresis w/ lasix 40 IV BID (5) Arterial insufficiency with ischemic ulcer Current Visit: No Status: Acute Plan: Arterial studies of LE pending Continue pentoxyfiline Continue wound care on LE wound, likely 2/2 arterial insufficiency (6) CAD (coronary artery disease) Current Visit: No Status: Acute Plan: Stable Continue BB, ACEI, ASA/Plavix, Discharge Plan: Home (pending symptomatic improvement and test results.)
[2018-06-21 13:25] LABS: Absolute Lymphocytes (CBC) 0.7 K/uL (0.7-4.9); Absolute Monocytes 0.7 K/uL (0.1-1.3); Absolute Neutrophil 3.4 K/uL (1.8-8.0); Basophils % 0.7 % (0-1.3); Eosinophils % 0.1 % (0-4.4); Hematocrit 42.4 % (39.6-49.0); Lymphocytes % 14.3 % (15.3-44.8); MCV 92.6 fL (80-100); MPV 7.7 fL (7.6-11.3); Monocytes % 13.7 % (3.3-12.3); RBC Red Blood Cell Count 4.58 M/uL (4.33-5.43)
[2018-06-21 13:40] LABS: Albumin 3.1 g/dL (3.4-5.0); Bilirubin Direct 0.6 mg/dL (0-0.2); Bilirubin Total 1.2 mg/dL (0.2-1.0); Protein, Total 6.5 g/dL (6.4-8.2)
--- NOTE | 2018-06-21 14:30 | PN ---
Subjective: Mr. Jaimes is really doing much better. I am not sure what I attributed to his cellulit is on his legs. It does look better, and his procalcitonin was only mildly elevated, so I am not ca e about the whole concept of sepsis. He was never orthostatic, but he feels much better. An echocar diogram is pending. He has had a lot of recent vascular interventions by Dr. Nova at [facility] in cluding ultrasounds and angiogram, so I do not think we need to redo that. I am still confused as to why his liver function tests were elevated like they were. We will look at an echocardiogram and se e if we think we are under good therapy for his congestive heart failure. BERNADETTE/MODL Voice ID: [id number] Report ID: [id number]
--- NOTE | 2018-06-21 15:36 | ECHO ---
HEIGHT: 5 ft 6 in WEIGHT: 190 lb 9.6 oz DATE OF STUDY: 06/21/[address]: Liz Ugarte MD 2-DIMENSIONAL: YES M.MODE: YES DOPPLER: YES COLOR FLOW: YES TDS: NO PORTABLE: NO DEFINITY: NO BUBBLE STUDY: NO DIAGNOSIS: CONGESTIVE HEART FAILURE CARDIAC HISTORY: CATHERIZATION: YES SURGERY: NO PROSTHETIC VALVE: NO PACEMAKER: NO MEASUREMENTS (cm) DIASTOLIC (NORMALS) SYSTOLIC (NORMALS) IVSd 1.1 (0.6-1.2) LA Diam 6.0 (1.9-4.0) LVEF 55% LVIDd 5.2 (3.5-5.7) LVIDs 3.7 (2.0-3.5) %FS 29% LVPWd 1.1 (0.6-1.2) Ao Diam 3.0 (2.0-3.7) 2 DIMENSIONAL ASSESSMENT: RIGHT ATRIUM: NORMAL LEFT ATRIUM: DILATED RIGHT VENTRICLE: NORMAL LEFT VENTRICLE: NORMAL TRICUSPID VALVE: NORMAL MITRAL VALVE: NORMAL PULMONIC VALVE: NORMAL AORTIC VALVE: NORMAL PERICARDIAL EFFUSION: NONE AORTIC ROOT: NORMAL LEFT VENTRICULAR WALL MOTION: NORMAL DOPPLER/COLOR FLOW: MILD MITRAL AND TRICUSPID REGURGITATION. MODERATE PULMONARY HYPERTENSION. ESTIMATED RIGHT VENTRICULAR SYSTOLIC PRESSURE 50 mmHg. COMMENTS: NORMAL LEFT VENTRICULAR EJECTION FRACTION. DILATED LEFT ATRIUM. MILD MITRAL AND TRICUSPID REGURGITATION. MODERATE PULMONARY HYPERTENSION. TECHNOLOGIST: Brandon LAYTON
[2018-06-21] MEDS: PROMOD 30 ML DOSE PO SCH (20:46)
[2018-06-21] MEDS: ATORVASTATIN 80 MG TAB PO SCH (20:47)
[2018-06-21] MEDS: INSULIN 70/30 100 UNITS/ML SQ SCH (20:48)
[2018-06-22] MEDS: CLINDAMYCIN PHOSPHATE 600 MG in NA CHLORIDE 0.9% 50 ML IV SCH ×4 (00:47→17:28)
[2018-06-22] MEDS ORDERED: PANTOPRAZOLE 40MG TABLET PO SCH (06:30)
[2018-06-22] MEDS: INSULIN -REGULAR HUMAN 50 UNIT/0.5 ML ML SQ SCH ×3 (07:30→17:24)
[2018-06-22] MEDS: GUAIFENESIN/CODEINE 5ML UCUP PO PRN (07:38)
[2018-06-22] MEDS: CLOPIDOGREL 75 MG TABLET PO SCH (08:50)
[2018-06-22] MEDS: ASPIRIN EC 81 MG TAB PO SCH (08:50)
[2018-06-22] MEDS: PENTOXIFYLLINE ER 400 MG TAB PO SCH (08:50)
[2018-06-22] MEDS: PROMOD 30 ML DOSE PO SCH (08:51)
[2018-06-22] MEDS: ENOXAPARIN 40 MG/0.4 ML SQ SCH (08:51)
[2018-06-22] MEDS: GABAPENTIN 300 MG CAP PO SCH (08:51)
[2018-06-22] MEDS: FUROSEMIDE 40 MG/4 ML VIAL IV SCH ×2 (08:51→17:25)
[2018-06-22] MEDS ORDERED: METOPROLOL TAR 50 MG TAB PO SCH (09:00)
[2018-06-22] MEDS ORDERED: LOSARTAN POTASSIUM 50 MG TABLET PO SCH (09:00)
[2018-06-22] MEDS ORDERED: ALBUTEROL 2.5 MG/3 ML NEB SOL NEB ONE ×2 (10:52→17:00)
[2018-06-22 13:12] LABS: Absolute Lymphocytes (CBC) 1.3 K/uL (0.7-4.9); Absolute Monocytes 0.7 K/uL (0.1-1.3); Absolute Neutrophil 2.9 K/uL (1.8-8.0); Basophils % 1.4 % (0-1.3); Eosinophils % 1.7 % (0-4.4); Hematocrit 43.1 % (39.6-49.0); Lymphocytes % 25.7 % (15.3-44.8); MCH 31.7 pg (27.0-35.0); MCV 92.8 fL (80-100); MPV 8.1 fL (7.6-11.3); Monocytes % 13.2 % (3.3-12.3); RBC Red Blood Cell Count 4.64 M/uL (4.33-5.43)
[2018-06-22 13:28] LABS: Albumin 3.1 g/dL (3.4-5.0); Magnesium 2.2 mg/dL (1.8-2.4); Phosphorus 3.1 mg/dL (2.5-4.9); Potassium 3.5 mmol/L (3.5-5.1); Protein, Total 6.6 g/dL (6.4-8.2)
[2018-06-22 14:25] VITALS: BMI 29.9
[2018-06-22 16:27] VITALS: BP 129/65; TEMP 97.6
[2018-06-22 16:41] VITALS: O2SAT 95
--- NOTE | 2018-06-22 17:22 | P.DS ---
Admission Date: 06/22/18 Discharge Date: 06/22/18 Disposition: ROUTINE DISCHARGE Discharge Condition: GOOD Reason for Admission: CHF exacerbation Consultations: Cardiology, Dr. Weston. - Problems (1) Cellulitis Current Visit: Yes Status: Acute Qualifiers: Site of cellulitis: extremity Site of cellulitis of extremity: lower extremity (2) Elevated LFTs Current Visit: Yes Status: Acute (3) CKD (chronic kidney disease) Current Visit: Yes Status: Acute (4) Systolic CHF, acute Current Visit: Yes Status: Acute (5) Arterial insufficiency with ischemic ulcer Current Visit: No Status: Acute (6) CAD (coronary artery disease) Current Visit: No Status: Acute Brief History of Present Illness: Patient is a 77-year-old gentleman who came into the hospital short of breath. Patient has history of congestive heart failure. He seeing a adding machine mechanic in [place]. He states he had workup done about a month ago and was told there was nothing wrong with his heart. But shortly after this he tells me that he was told that he has congestive heart failure. He does not know the degree or what type of heart failure. He has had significant cardiology procedures. He has had bypass surgery and stent placement. He states he came into the hospital because he was having a hard time breathing in his lower extremities were edematous. He has also had orthopnea. He has wounds to the lower extremities because of the significant edema. He has follows up in wound healing Center and sees Dr. Calvo for wound care. His primary care provider is a nurse practitioner at Dr. Valdes's office. At this time, patient will be admitted to the hospital for further workup for congestive heart failure exacerbation Hospital Course: (1) Systolic CHF, acute He was aggressively diuresed with IV Lasix 40 b.i.d., his beta-yoli was continued, he was started on a low-dose angiotensin receptor yoli. An echocardiogram was ordered. Cardiology was consulted. His ins and outs were strictly monitored and his weight was measured. After diuresis, patient's breathing symptoms improved. His echocardiogram showed 55% ejection fraction with moderate pulmonary hypertension. Per cardiology, this is stable from his last echocardiogram. (2) Arterial insufficiency with ischemic ulcer Wound care was consulted and patient had daily wound care dressing changes. He was shown how to change dressings along with his . Home health was sent instructions on how to change wound care dressings. He was instructed to follow up with the wound care center every Thursday like he previously was doing. He was given a dose of antibiotics while he was here for cellulitis. At the time of discharge, patient's bilateral lower extremities without any evidence of cellulitis. No need for outpatient antibiotics. (3) Bilateral edema of lower extremity: Likely secondary to arterial insufficiency, and heart failure. (4) CAD (coronary artery disease) Continue previous home medications (5) Diabetes remained stable throughout hospitalization on sliding scale insulin. At time of discharge, will restart home medications. (6) Dyspnea: After diuresis, patient's symptoms of dyspnea improved. He was also given breathing treatment here in the hospital which he believes really helped him. At the time of discharge prescriptions were sent for nebulizer machine and albuterol nebulize treatment to his pharmacy. (7) HTN (hypertension) remained stable throughout the hospitalization on his home medications. (8) CKD (chronic kidney disease): Remained stable throughout the hospitalization Vital Signs/Physical Exam: Temp Pulse Resp BP Pulse Ox 97.6 F 57 16 129/65 94 06/22/18 16:00 06/22/18 16:00 06/22/18 16:00 06/22/18 16:00 06/22/18 16:00 General: Alert, In no apparent distress HEENT: Atraumatic, PERRLA, EOMI Neck: Supple, JVD not distended Respiratory: Clear to auscultation bilaterally, Normal air movement Cardiovascular: Regular rate/rhythm, Normal S1 S2 Gastrointestinal: Normal bowel sounds, No tenderness Musculoskeletal: No tenderness, No warmth Integumentary: No tenderness/swelling, No erythema, No warmth, Skin lesion ( Bilateral lower extremity, alcocer area) Neurological: Normal speech, Normal tone, Normal affect Lymphatics: No axilla or inguinal lymphadenopathy Laboratory Data at Discharge: WBC 5.0 K/uL (4.3-10.9) 06/22/18 12:50 Hgb 14.7 g/dL (13.6-17.9) 06/22/18 12:50 Hct 43.1 % (39.6-49.0) 06/22/18 12:50 Plt Count 158 K/uL (152-406) 06/22/18 12:50 PT 16.4 SECONDS (9.5-12.5) H 06/19/18 19:25 INR 1.39 06/19/18 19:25 Sodium 137 mmol/L (136-145) 06/22/18 12:50 Potassium 3.5 mmol/L (3.5-5.1) 06/22/18 12:50 BUN 30 mg/dL (7-18) H 06/22/18 12:50 Creatinine 1.30 mg/dL (0.55-1.3) 06/22/18 12:50 Glucose 199 mg/dL (74-106) H 06/22/18 12:50 Phosphorus 3.1 mg/dL (2.5-4.9) 06/22/18 12:50 Magnesium 2.2 mg/dL (1.8-2.4) 06/22/18 12:50 Total Bilirubin 1.0 mg/dL (0.2-1.0) 06/22/18 12:50 AST 78 U/L (15-37) H 06/22/18 12:50 ALT 63 U/L (12-78) 06/22/18 12:50 Alkaline Phosphatase 164 U/L (45-117) H 06/22/18 12:50 Lipase 263 U/L (73-393) 06/19/18 19:25 Home Medications: Metoprolol Tartrate [Lopressor*] 50 mg PO BID 04/23/15 Furosemide [Lasix] 80 mg PO DAILY 12/11/16 Insulin NPH Hum/Reg Insulin Hm [Humulin 70-30 Vial] 18 unit SQ BEDTIME 12/11/16 Insulin NPH Hum/Reg Insulin Hm [Humulin 70-30 Vial] 32 unit SQ AC 12/11/16 Clopidogrel Bisulfate [Plavix*] 75 mg PO DAILY tablet 12/12/16 Atorvastatin Calcium [Lipitor] 80 mg PO BEDTIME 01/18/18 Gabapentin [Gralise] 300 mg PO BID 01/18/18 Pentoxifylline 1 tab PO BID 06/20/18 Potassium Chloride [Klor-Con 10] 2 tab PO DAILY 06/20/18 Albuterol Neb [Proventil 0.083% Neb Soln] 2.5 mg IH Q4HP PRN #7 amp 06/22/18 Losartan Potassium [Cozaar*] 100 mg PO DAILY #30 tablet 06/22/18 Nebulizer Accessories [Mouthpiece] 1 each 1X #1 each 06/22/18 Nebulizer Accessories [Sootheneb [id number] Adult Mask] 1 each MC 1X #1 each Nebulizer and Compressor [Portable Nebulizer System] 1 each MC 1X #1 each New Medications: Albuterol Neb [Proventil 0.083% Neb Soln] 2.5 mg IH Q4HP PRN #7 amp PRN Reason: Shortness Of Breath Losartan Potassium [Cozaar*] 100 mg PO DAILY #30 tablet Nebulizer Accessories [Sootheneb [id number] Adult Mask] 1 each MC 1X #1 each Nebulizer Accessories [Mouthpiece] 1 each MC 1X #1 each Nebulizer and Compressor [Portable Nebulizer System] 1 each MC 1X #1 each Patient Discharge Instructions: Please follow up with the primary care physician in 1 week. Please follow up with the adding machine mechanic in 1-2 weeks. Please follow up with wound care on Thursday06/28/18. Please follow wound care instructions given to you. by your nurse. Diet: AHA Activity: Ad saleem Followup: Arleth Guerrero, PAC [ALLIED HEALTH PROFESSIONAL] - Chaparro Dailey MD [ACTIVE - CAN ADMIT] -
--- NOTE | 2018-06-23 11:40 | PN ---
Date of Progress Note: 06/22/2018 Mr. Jaimes has been in the hospital since then 06/19/2018. He came in for congestive heart failure, cellulitis, peripheral vascular disease issues. An echocardiogram that was done on him showed modera te pulmonary hypertension with an ejection fraction of 55%, which is his baseline. He is feeling muc h better from a breathing standpoint. The wounds in his leg are getting better. A CT of the abdomen that was done for elevated liver function tests was normal. He remains on antibiotics. Arterial Do ppler was not done because he just had some done by Dr. Nova at [facility]. I am comforta ble with him going home on antibiotics. Continue his home medication. Follow up with us and with Dr Susan Nova as an outpatient. TERRY/ERNESTO Voice ID: [id number] Report ID: [id number]
[2018-06-23 18:37] LABS: HBsAG Nonreactive (Nonreactive); Hepatitis A IgM Antibody Nonreactive
== END 2018-06-22 18:36 | disposition home health service (06) | DRG 291 ==
LOC: ER 18:31 → ERHOLD 20:57 → 4TH 22:28 → OBSVTOIN 06-22 07:31
PROVIDERS: ADMIT Hospitalist; ATTEND Family Medicine
DX: I13.0 Hypertensive heart and chronic kidney disease with heart failure and stage 1 through stage 4 chronic kidney disease, or unspecified chronic kidney disease (principal); I50.23 Acute on chronic systolic (congestive) heart failure; L03.116 Cellulitis of left lower limb; I25.810 Atherosclerosis of coronary artery bypass graft(s) without angina pectoris; L97.829 Non-pressure chronic ulcer of other part of left lower leg with unspecified severity; L97.819 Non-pressure chronic ulcer of other part of right lower leg with unspecified severity; L03.115 Cellulitis of right lower limb; Z95.1 Presence of aortocoronary bypass graft; Z95.5 Presence of coronary angioplasty implant and graft; Z79.4 Long term (current) use of insulin; Z88.0 Allergy status to penicillin; E78.5 Hyperlipidemia, unspecified; Z96.651 Presence of right artificial knee joint; E11.40 Type 2 diabetes mellitus with diabetic neuropathy, unspecified; R60.9 Edema, unspecified; I73.89 Other specified peripheral vascular diseases; N18.9 Chronic kidney disease, unspecified; E11.22 Type 2 diabetes mellitus with diabetic chronic kidney disease; I27.20 Pulmonary hypertension, unspecified
CPT/HCPCS: 36415; 71045; 71046; 74176; 80048; 80053; 80074; 80076; 81003; 82248; 82805; 82962; 83540; 83690; 83735; 83880; 84100; 84145; 84466; 84484; 85025; 85610; 87040; 87086; 87088; 93005; 93306; 94640; 96374; 99285; G0378; J1650; J1940; P9047; S0077

== ENCOUNTER 2019-11-17 09:17 | Emergency (ER) | payer OTHER, BC ==
[2019-11-17] MEDS ORDERED: LIDOCAINE VISCOUS 2% SOLN 15 ML UDC ONE (10:24)
--- NOTE | 2019-11-17 10:53 | RAD REPORT ---
EXAM DESCRIPTION: CT - CTHCSPWOC - 11/17/2019 10:35 am CLINICAL HISTORY: PAINfall with left-sided head and face trauma, neck pain COMPARISON: Head C Spine Mpr Wo Con dated 12/10/2016 TECHNIQUE: Axial 5 mm thick images of the head were obtained. Axial 2 mm thick images of the cervic al spine were obtained with sagittal and coronal reconstruction images generated and reviewed. All CT scans are performed using dose optimization technique as appropriate and may include automated exposure control or mA/KV adjustment according to patient size. FINDINGS: No intracranial hemorrhage, mass, edema or acute intracranial finding. No acute cortical b ased infarction. No cortical edema or sulcal effacement. Atrophy and chronic ischemic changes match t 2017 study. Ventricles are in proportion. Mastoid air cells are clear. Facial bones, orbits and si nuses are separately detailed. Posterior fossa assessment is inherently limited. Postsurgical changes are present in the left occipital bone. Cervical body height and alignment are normal. C5-6 and C6-7 level shows disc space narrowing with po sterior endplate spurring and disc bulge changes. C6-7 is borderline central spinal stenosis. No frac ture or acute bony abnormality. Central canal detail is inherently limited. No paraspinal mass or hematoma. IMPRESSION: Atrophy and chronic ischemic changes similar to comparison. No acute intracranial findin g. Cervical spine degenerative change similar to comparison. No acute finding. Central canal detail is inherently limited. Facial bones, orbits and sinuses are separately detailed.
--- NOTE | 2019-11-17 10:55 | RAD REPORT ---
EXAM DESCRIPTION: CT - Facial Bones W/ Mpr - 11/17/2019 10:36 am CLINICAL HISTORY: Fall, left-sided facial trauma COMPARISON: December 2016 CT facial bones TECHNIQUE: Axial 2 millimeter thick images of the facial bones were obtained with sagittal and coron al reconstruction imaging. All CT scans are performed using dose optimization technique as appropriate and may include automated exposure control or mA/KV adjustment according to patient size. FINDINGS: No fracture of the mandible. Condyles are normally positioned. Mastoid air cells and middl e ears are clear. Paranasal sinuses are clear. No facial bone fracture is identified. No globe or orb ital content injury seen. Contusion and edema changes are seen in the soft tissues overlying the left frontal bone left periorbital region and the left maxilla region. No air or foreign body. IMPRESSION: Left-sided facial soft tissue injury present. No facial bone fracture, acute sinus finding or acute orbital finding.
--- NOTE | 2019-11-17 11:37 | RAD REPORT ---
EXAM DESCRIPTION: RAD - Wrist Right 3 View - 11/17/2019 11:07 am CLINICAL HISTORY: PAINfall, wrist pain COMPARISON: No comparisons FINDINGS: No fracture is identified. There is no dislocation or periosteal reaction noted. Advanced degenerative changes are present at the trapezii M first metacarpal articulation. Less significant de generative changes finn the scaphoid articulation with the trapezii M and trapezoid bones. No foreig n body or other soft tissue abnormality. IMPRESSION: Right wrist degenerative changes are present but no acute fracture found.
--- NOTE | 2019-11-17 11:38 | RAD REPORT ---
EXAM DESCRIPTION: RAD - Hand Right 3 View - 11/17/2019 11:07 am CLINICAL HISTORY: PAIN, fall with hand pain COMPARISON: No comparisons FINDINGS: No fracture is identified. There is no dislocation or periosteal reaction noted. Bandagin g surrounds the right thumb. No foreign body or air in the soft tissues. Patient has prominent right thumb IP joint degenerative change. Patient has significant degenerative changes in the second- fifth IP joints. There is advanced degenerative change at the trapezial first metacarpal articulation. IMPRESSION: Soft tissue injury of the right thumb is evident but no retained foreign body seen and n o air in the soft tissues. Right hand degenerative changes are present without fracture.
--- NOTE | 2019-11-17 12:11 | EDPHYS ---
Physician Documentation [facility] Name: Wayne Jaimes Age: 79 yrs Sex: Male : 1940 Arrival Date: 11/17/2019 Time: 09:19 Bed 26 Private MD: ED Physician Perez Ames HPI: 11/16 12:16 This 79 yrs old Male presents to ER via Wheelchair with complaints of Fall kdr Injury, Head Injury-Adult. 10:21 Details of fall: The patient fell from an upright position, while walking. Onset: The kdr symptoms/episode began/occurred acutely, just prior to arrival. Associated injuries: The patient sustained injury to the head, Left face/sandra-orbital, right hand and wrist. Severity of symptoms: At their worst the symptoms were mild, moderate, just prior to arrival. The patient has not experienced similar symptoms in the past. The patient has not recently seen a physician. Historical: - Allergies: 10:16 Erythromycin; jl7 10:16 PENICILLINS; jl7 - Home Meds: 10:16 clopidogrel oral oral [Active]; jl7 - PMHx: 10:16 CHF; Diabetes - IDDM; jl7 - Immunization history: Last tetanus immunization: unknown. ROS: 10:21 Constitutional: Negative for fever, chills, and weight loss, Eyes: Negative for injury, kdr pain, redness, and discharge, Neck: Negative for injury, pain, and swelling, Cardiovascular: Negative for chest pain, palpitations, and edema, Respiratory: Negative for shortness of breath, cough, wheezing, and pleuritic chest pain, Abdomen/GI: Negative for abdominal pain, nausea, vomiting, diarrhea, and constipation, Back: Negative for injury and pain, : Negative for injury, bleeding, discharge, and swelling, Neuro: Negative for headache, weakness, numbness, tingling, and seizure activity. Psych: Negative for depression, anxiety, suicide ideation, homicidal ideation, and hallucinations. 10:21 Skin: Positive for The patient has degloved portions of his right thenar eminence and thumb. 10:21 Skin: Positive for abrasion(s). Exam: 10:38 Constitutional: This is a well developed, well nourished patient who is awake, alert, kdr and in no acute distress. ENT: Nares patent. No nasal discharge, no septal abnormalities noted. Tympanic membranes are normal and external auditory canals are clear. Oropharynx with no redness, swelling, or masses, exudates, or evidence of obstruction, uvula midline. Mucous membranes moist. Neck: Trachea midline, no thyromegaly or masses palpated, and no cervical lymphadenopathy. Supple, full range of motion without nuchal rigidity, or vertebral point tenderness. No Meningismus. Chest/axilla: Normal chest wall appearance and motion. Nontender with no deformity. No lesions are appreciated. Cardiovascular: Regular rate and rhythm with a normal S1 and S2. No gallops, murmurs, or rubs. Normal PMI, no JVD. No pulse deficits. Respiratory: Lungs have equal breath sounds bilaterally, clear to auscultation and percussion. No rales, rhonchi or wheezes noted. No increased work of breathing, no retractions or nasal flaring. Abdomen/GI: Soft, non-tender, with normal bowel sounds. No distension or tympany. No guarding or rebound. No evidence of tenderness throughout. Back: No spinal tenderness. No costovertebral tenderness. Full range of motion. Neuro: Awake and alert, GCS 15, oriented to person, place, time, and situation. Cranial nerves II-XII grossly intact. Motor strength 5/5 in all extremities. Sensory grossly intact. Cerebellar exam normal. Normal gait. Psych: Awake, alert, with orientation to person, place and time. Behavior, mood, and affect are within normal limits. 10:38 Head/face: Noted is abrasion(s), that are moderate, contusion, ecchymosis, hematoma, swelling, that is mild, of the left eye. 10:38 Musculoskeletal/extremity: Extremities: The is significnat degloving/abrasion to the right hand - thenar eminence and medical aspect of distal thumb. Vital Signs: 10:15 BP 153 / 99; Pulse 90; Resp 16; Temp 98.1; Pulse Ox 95% ; Weight 83.91 kg; Height 5 ft. jl7 6 in. (167.64 cm); Pain 5/10; 11:18 BP 184 / 104; Pulse 87; Resp 18; Pulse Ox 95% on R/A; aj1 13:02 BP 168 / 103; Pulse 88; Resp 18; Pulse Ox 97% on R/A; aj1 10:15 Body Mass Index 29.86 (83.91 kg, 167.64 cm) jl7 Jennifer Coma Score: 10:10 Eye Response: spontaneous(4). Verbal Response: oriented(5). Motor Response: obeys jl7 commands(6). Total: 15. 13:02 Eye Response: spontaneous(4). Verbal Response: oriented(5). Motor Response: obeys aj1 commands(6). Total: 15. Trauma Score (Adult): 10:10 Eye Response: spontaneous(1); Verbal Response: oriented(1); Motor Response: obeys jl7 commands(2); Systolic BP: > 89 mm Hg(4); Respiratory Rate: 10 to 29 per min(4); Concord Score: 15; Trauma Score: 12 11:18 Eye Response: spontaneous(1); Verbal Response: oriented(1); Motor Response: obeys aj1 commands(2); Systolic BP: > 89 mm Hg(4); Respiratory Rate: 10 to 29 per min(4); Concord Score: 15; Trauma Score: 12 MDM: 10:38 Data reviewed: vital signs, nurses notes, lab test result(s), radiologic studies. kdr Counseling: I had a detailed discussion with the patient and/or guardian regarding: the historical points, exam findings, and any diagnostic results supporting the discharge/admit diagnosis, radiology results. 12:11 Patient medically screened. [facility] 11/16 10:20 Order name: CT Head C Spine; Complete Time: 12:09 kdr 11/16 10:20 Order name: CT Facial Bones W/O Con; Complete Time: 12:09 kdr 11/16 10:20 Order name: Hand Right 3 View XRAY; Complete Time: 12:09 kdr 11/16 10:20 Order name: Wrist Right 3 View XRAY; Complete Time: 12:09 kdr 11/16 12:18 Order name: Misc. Order: Clean and dress wounds; Complete Time: 13:07 kdr Administered Medications: 12:44 Drug: E[place] 5 mg-325 mg 1 tabs Route: PO; aj 13:07 Follow up: Response: No adverse reaction aj1 12:45 Drug: Tetanus-Diphtheria Toxoid Adult 0.5 ml {Resident Services Supervisor: Clinc!. Exp: aj09/22/2021. Lot #: [id number]. } Route: IM; Site: right deltoid; 13:07 Follow up: Response: No adverse reaction aj1 Disposition: 11/17/19 12:11 Discharged to Home. Impression: Other slipping, tripping and stumbling and falls, Facial contusions, right and abrasions and contusions. - Condition is Stable. - Discharge Instructions: Hand Contusion, [id number]-Mavd, Contusion, [id number], Abrasion, Ajpy-ep-Ulac, Facial or Scalp Contusion, [id number]-[id number]. - Prescriptions for Tylenol- Codeine #3 300-30 mg Oral Tablet - take 2 tablets by ORAL route every 6 hours As needed; 12 tablet. Bactrim DS 800- 160 mg Oral Tablet - take 1 tablet by ORAL route every 12 hours for 3 days; 6 tablet. - Medication Reconciliation Form, Thank You Letter, Antibiotic Education, Prescription Opioid Use form. - Follow up: Private Physician; When: 2 - 3 days; Reason: If symptoms return, Further diagnostic work-up, Recheck today's complaints, Continuance of care, Re-evaluation by your physician. - Problem is new. - Symptoms have improved. Signatures: Dispatcher [employer] EDMS Jeny Mora RN RN aj1 Perez Ames MD MD kdr Leena Borden RN RN jl7 Corrections: (The following items were deleted from the chart) 13:09 12:11 11/17/2019 12:11 Discharged to Home. Impression: Other slipping, tripping and aj1 stumbling and falls; Facial contusions, right and abrasions and contusions. Condition is Stable. Forms are Medication Reconciliation Form, Thank You Letter, Antibiotic Education, Prescription Opioid Use. Follow up: Private Physician; When: 2 - 3 days; Reason: If symptoms return, Further diagnostic work-up, Recheck today's complaints, Continuance of care, Re-evaluation by your physician. Problem is new. Symptoms have improved. kdr
--- NOTE | 2019-11-17 12:11 | ER ---
Nurse's Notes [facility] Name: Wayne Jaimes Age: 79 yrs Sex: Male : 1940 Arrival Date: 11/17/2019 Time: 09:19 Bed 26 Private MD: Diagnosis: Other slipping, tripping and stumbling and falls;Facial contusions, right and abrasions and contusions Presentation: 11/16 10:10 Chief complaint: Patient states: Left knee gave out, fell and hit left side of face and jl7 right thumb/ hand with large skin tear. Care prior to arrival: None. Mechanism of Injury: Fall from standing position. Trauma event details: Injury occurred in the [facility], Injury occurred: at home. Injury occurred: November 17, 2019 Injury occurred at: 05:30. 10:10 Acuity: ROSEMARY 2 jl7 10:10 Method Of Arrival: Wheelchair jl7 10:15 Coronavirus screen: The patient has NOT traveled to a country currently being monitored jl7 by the [facility] within the last 14 days. Proceed with normal triage procedures. Ebola Screen: No symptoms or risks identified at this time. Initial Sepsis Screen: Does the patient meet any 2 criteria? No. Patient's initial sepsis screen is negative. Does the patient have a suspected source of infection? No. Patient's initial sepsis screen is negative. Risk Assessment: Do you want to hurt yourself or someone else? Patient reports no desire to harm self or others. Historical: - Allergies: 10:16 Erythromycin; jl7 10:16 PENICILLINS; jl7 - Home Meds: 10:16 clopidogrel oral oral [Active]; jl7 - PMHx: 10:16 CHF; Diabetes - IDDM; jl7 - Immunization history: Last tetanus immunization: unknown. Screenin:10 Abuse screen: Denies threats or abuse. Denies injuries from another. Tuberculosis jl7 screening: No symptoms or risk factors identified. 13:04 Nutritional screening: No deficits noted. Fall Risk Fall in past 12 months (25 points). aj1 No secondary diagnosis (0 pts). No IV (0 pts). Ambulatory Aid- None/Bed Rest/Nurse Assist (0 pts). Gait- Impaired (20 pts.). Mental Status- Oriented to own ability (0 pts). Total Thrasher Fall Scale indicates High Risk Score (45 or more points). As available patient and family educated on Fall Prevention Program and Strategies. Primary Survey: 10:10 NO uncontrolled hemorrhage observed. Breathing/Chest: Respiratory pattern: regular, jl7 Respiratory effort: spontaneous, unlabored, Chest inspection: symmetrical rise and fall of the chest. Circulation: Skin color: pink. Disability Alert. Exposure/Environment: There is no evidence of uncontrolled external bleeding. Obvious injury(ies) are noted at this time: swelling to left facial cheek. 11:10 Reassessment Airway Airway Patent Breathing/Chest Respiratory pattern Regular aj1 Circulation Color [place] Disability Alert. Assessment: 10:13 General: Appears in no apparent distress. uncomfortable, Behavior is calm, cooperative, jl7 appropriate for age. Pain: Complains of pain in right thumb and left side of face. Neuro: Level of Consciousness is awake, alert, obeys commands. Cardiovascular: Patient's skin is warm and dry. Respiratory: Airway is patent Respiratory effort is even, unlabored, Respiratory pattern is regular, symmetrical. Derm: Skin is pink, warm \T\ dry. Musculoskeletal: Swelling present in left cheek. 11:18 Reassessment: Patient appears in no apparent distress at this time. No changes from aj1 previously documented assessment. Patient and/or family updated on plan of care and expected duration. Pain level reassessed. Patient is alert, oriented x 3, equal unlabored respirations, skin warm/dry/pink. 12:15 Reassessment: Patient appears in no apparent distress at this time. No changes from aj1 previously documented assessment. Patient and/or family updated on plan of care and expected duration. Pain level reassessed. Patient is alert, oriented x 3, equal unlabored respirations, skin warm/dry/pink. Vital Signs: 10:15 BP 153 / 99; Pulse 90; Resp 16; Temp 98.1; Pulse Ox 95% ; Weight 83.91 kg; Height 5 ft. jl7 6 in. (167.64 cm); Pain 5/10; 11:18 BP 184 / 104; Pulse 87; Resp 18; Pulse Ox 95% on R/A; aj1 13:02 BP 168 / 103; Pulse 88; Resp 18; Pulse Ox 97% on R/A; aj1 10:15 Body Mass Index 29.86 (83.91 kg, 167.64 cm) jl7 Island Coma Score: 10:10 Eye Response: spontaneous(4). Verbal Response: oriented(5). Motor Response: obeys jl7 commands(6). Total: 15. 13:02 Eye Response: spontaneous(4). Verbal Response: oriented(5). Motor Response: obeys aj1 commands(6). Total: 15. Trauma Score (Adult): 10:10 Eye Response: spontaneous(1); Verbal Response: oriented(1); Motor Response: obeys jl7 commands(2); Systolic BP: > 89 mm Hg(4); Respiratory Rate: 10 to 29 per min(4); Island Score: 15; Trauma Score: 12 11:18 Eye Response: spontaneous(1); Verbal Response: oriented(1); Motor Response: obeys aj1 commands(2); Systolic BP: > 89 mm Hg(4); Respiratory Rate: 10 to 29 per min(4); Island Score: 15; Trauma Score: 12 ED Course: 09:19 Patient arrived in ED. ag5 10:12 Triage completed. jl7 10:12 Perez Ames MD is Attending Physician. kdr 10:16 Arm band placed on right wrist. jl7 10:28 Initial lab(s) drawn, sent to lab. Inserted saline lock: 20 gauge in left antecubital dm5 area, using aseptic technique. Blood collected. 10:33 CT completed. Patient tolerated procedure well. Patient moved to CT via stretcher. Patient moved back from CT. 10:39 CT Head C Spine In Process Unspecified. EDMS 10:39 CT Facial Bones W/O Con In Process Unspecified. EDMS 10:58 Jeny Mora, RN is Primary Nurse. aj1 11:10 Hand Right 3 View XRAY In Process Unspecified. EDMS 11:10 Wrist Right 3 View XRAY In Process Unspecified. EDMS 13:03 No provider procedures requiring assistance completed. IV discontinued, intact, aj1 bleeding controlled, No redness/swelling at site. Pressure dressing applied. 13:06 Patient has correct armband on for positive identification. Bed in low position. Call aj1 light in reach. 13:06 Patient maintains SpO2 saturation greater than 95% on room air. Thermoregulation: warm aj1 blanket given to patient. Administered Medications: 12:44 Drug: [place] 5 mg-325 mg 1 tabs Route: PO; aj1 13:07 Follow up: Response: No adverse reaction aj1 12:45 Drug: Tetanus-Diphtheria Toxoid Adult 0.5 ml {Thermodynamicist: [employer]. Exp: aj1 09/22/2021. Lot #: [id number]. } Route: IM; Site: right deltoid; 13:07 Follow up: Response: No adverse reaction aj1 Outcome: 12:11 Discharge ordered by . kdr 13:08 Discharged to home via wheelchair, with family. aj1 13:08 Condition: good 13:08 Discharge instructions given to patient, family, Instructed on discharge instructions, follow up and referral plans. no drinking with medication, no driving heavy equipment, medication usage, Demonstrated understanding of instructions, follow-up care, medications, Prescriptions given X 2. 13:09 Patient left the ED. aj1 Signatures: Dispatcher [employer] EDJeny Dejesus, RN RN aj1 Juany Pizarro RN RN dm5 Perez Ames MD MD kdr Jones, Susan sj Leal, Jahala, RN RN jl7 Paulette Holden [facility]
[2019-11-17 14:23] VITALS: TEMP 98.1
[2019-11-17 14:26] VITALS: BP 168/103; O2SAT 97
--- NOTE | 2019-11-18 12:33 | EKG ---
Test Date: 2019-11-17 Test Time: 12:03:47 Butcher Helper: RAFAEL MEASUREMENT RESULTS: Intervals: Rate: 80 AR: 134 QRSD: 136 QT: 462 QTc: 532 [place]: P: 31 AR: 134 QRS: 117 T: -6 INTERPRETIVE STATEMENTS: Sinus rhythm with occasional premature ventricular complexes Right bundle branch block Abnormal ECG Compared to ECG 06/19/2018 19:35:53 Atrial premature complex(es) no longer present T-wave abnormality no longer present Possible ischemia no longer present Electronically Signed On 11-18-19 12:31:00 CDT by Chaparro Dailey
== END 2019-11-17 13:09 | disposition home or self-care (01) ==
LOC: ER 09:17
DX: S00.81XA Abrasion of other part of head, initial encounter (principal); S60.511A Abrasion of right hand, initial encounter; W01.0XXA Fall on same level from slipping, tripping and stumbling without subsequent striking against object, initial encounter; Y93.01 Activity, walking, marching and hiking; Y92.9 Unspecified place or not applicable; Z23 Encounter for immunization; Z88.0 Allergy status to penicillin; Z88.3 Allergy status to other anti-infective agents; E11.9 Type 2 diabetes mellitus without complications; I50.9 Heart failure, unspecified
CPT/HCPCS: 70450; 70486; 72125; 76377; 90471; 90714; 93005; 99285

== ENCOUNTER 2020-10-20 17:21 | Emergency (ER) | payer OTHER, BC ==
--- NOTE | 2020-10-20 17:57 | RAD REPORT ---
EXAM DESCRIPTION: CT - CTHCSPWOC - 10/20/2020 5:50 pm CLINICAL HISTORY: Trauma, head and neck injury. abrasion back of head, fall injury COMPARISON: Head C Spine Mpr Wo Con dated 11/17/2019; Head C Spine Mpr Wo Con dated 12/10/2016 TECHNIQUE: Axial 5 mm thick images of the head were obtained. Axial 2 mm thick images of the cervical spine were obtained with sagittal and coronal reconstruction images generated and reviewed. All CT scans are performed using dose optimization technique as appropriate and may include automated exposure control or mA/KV adjustment according to patient size. FINDINGS: CT HEAD WITHOUT CONTRAST: No acute hemorrhage, hydrocephalus or extra-axial collection is identified.Mild generalized brain atr ophy is present with mild periventricular and deep white matter chronic microvascular ischemic change s.No areas of brain edema or midline shift. The paranasal sinuses and mastoids are clear.Evidence of prior right posterior fossa craniectomy. CT CERVICAL SPINE WITHOUT CONTRAST: No fracture or subluxation.Mild multilevel cervical degenerative changes are noted.No prevertebral so ft tissues swelling is identified. Heavy bilateral carotid atherosclerosis. IMPRESSION: No acute intracranial or cervical spine findings.
[2020-10-20 17:58] LABS: Absolute Lymphocytes (CBC) 1.2 K/uL (0.7-4.9); Basophils % 1.4 % (0-1.3); Hematocrit 43.7 % (39.6-49.0); Lymphocytes % 24.6 % (15.3-44.8); RBC Red Blood Cell Count 4.65 M/uL (4.33-5.43)
[2020-10-20 18:23] LABS: Potassium 4.7 mmol/L (3.5-5.1)
[2020-10-20] MEDS ORDERED: INSULIN -REGULAR HUMAN 50 UNIT/0.5 ML ML ONE (18:52)
[2020-10-20] MEDS ORDERED: NA CHLORIDE 0.9% 500 ML ONE (18:52)
--- NOTE | 2020-10-20 19:12 | ER ---
Nurse's Notes [facility] Name: Wayne Jaimes Age: 80 yrs Sex: Male : 1940 Arrival Date: 10/20/2020 Time: 17:22 Bed 2 Private MD: Diagnosis: Fall on same level from slipping, tripping and stumbling;Abrasion of unspecified part of head;Unspecified injury of head;Hyperglycemia, unspecified Presentation: 10/20 17:24 Risk Assessment: Do you want to hurt yourself or someone else? Patient reports no sv desire to harm self or others. Onset of symptoms was October 20, 2020. 17:24 Method Of Arrival: EMS: [facility] sv 17:27 Chief complaint: EMS states: Pt tripped and fell in parking lot, abrasions and hematoma ph to occipital area, denies LOC, does take a blood thinner but is unsure which one. Hx of DM, BGL 550, BP 175/111, hx of HTN, pt states that he did not take home medications today, IV established, approx 250 NS given, pt A\T\O x 4. Care prior to arrival: Medication(s) given: Normal saline infusion, IV initiated. 22 GA, in the right forearm, Glucose check: 550. Mechanism of Injury: Fall from standing position. Trauma event details: Injury occurred in the [facility], Injury occurred: in a public building. Injury occurred: October 20, 2020. 17:27 Acuity: ROSEMARY 2 ph 17:35 Coronavirus screen: Client denies travel out of the [place] in the last 14 days. At this ph time, the client does not indicate any symptoms associated with coronavirus-19. Coronavirus screen:. Ebola Screen: No symptoms or risks identified at this time. Initial Sepsis Screen: Does the patient meet any 2 criteria? No. Patient's initial sepsis screen is negative. Does the patient have a suspected source of infection? No. Patient's initial sepsis screen is negative. Trauma Activation: Alert Physician: ED Physician; Name: Dr Rdz; Notified At: 17:21; Arrived At: Physician: General Surgeon; Name: ; Notified At: 17:21; Arrived At: Physician: Radiology; Name: ; Notified At: 17:21; Arrived At: Physician: Respiratory; Name: ; Notified At: 17:21; Arrived At: Physician: Lab; Name: ; Notified At: 17:21; Arrived At: Historical: - Allergies: 17:24 Erythromycin; sv 17:24 PENICILLINS; sv - PMHx: 17:24 CHF; Diabetes - IDDM; sv - Immunization history:: Adult Immunizations unknown. - Immunization history: Last tetanus immunization: unknown. - Social history:: Smoking status: Patient denies any tobacco usage or history of. Screenin:30 Abuse screen: Denies threats or abuse. Denies injuries from another. Nutritional ph screening: No deficits noted. Tuberculosis screening: No symptoms or risk factors identified. Fall Risk Fall in past 12 months (25 points). No secondary diagnosis (0 pts). IV access (20 points). Ambulatory Aid- None/Bed Rest/Nurse Assist (0 pts). Gait- Normal/Bed Rest/Wheelchair (0 pts) Mental Status- Oriented to own ability (0 pts). Total Thrasher Fall Scale indicates Low Risk Score (25-44 pts). Fall prevention measures have been instituted. Side Rails Up X 2 Placed close to Nursing Station Frequent Obs/Assesments occuring As available Patient and Family Educated on Fall Prevention Program and strategies. Primary Survey: 17:34 NO uncontrolled hemorrhage observed. A: The patient is alert. Airway: patent, No ph supplemental oxygen in use on arrival. Oral cavity: clear, Trachea midline. Breathing/Chest: Respiratory pattern: regular, Respiratory effort: spontaneous, unlabored, Chest inspection: symmetrical rise and fall of the chest. Circulation: Skin color: pink, Skin temperature: warm, dry. Disability Alert. Exposure/Environment: There is no evidence of uncontrolled external bleeding. Obvious injury(ies) are noted at this time: abrasion and hematoma to R parietal. 18:41 Reassessment Airway Airway Patent Breathing/Chest Respiratory pattern Regular ph Respiratory effort Spontaneous Unlabored Circulation Color [address] Temperature Warm Dry Disability Alert. Assessment: 17:35 General: Appears in no apparent distress. comfortable, Behavior is calm, cooperative, ph appropriate for age. Pain: Denies pain. Neuro: Level of Consciousness is awake, alert, obeys commands, Oriented to person, place, time, situation, Denies blurred vision dizziness, headache. Cardiovascular: Capillary refill < 3 seconds in bilateral fingers Patient's skin is warm and dry. Edema is 2+ to left midcalf, left ankle, left foot, right midcalf, right ankle and right foot. Respiratory: GI: No signs and/or symptoms were reported involving the gastrointestinal system. Derm: Skin is pink, warm \T\ dry. Musculoskeletal: Circulation, motion, and sensation intact. Range of motion: intact in all extremities. Injury Description: Abrasion sustained to right parietal area. 18:57 Reassessment: Contact info: [phone], son Aidan [phone]. ph Vital Signs: 17:23 BP 160 / 126; Pulse 96; Resp 16; Pulse Ox 98% ; sv 18:40 BP 155 / 100; Pulse 88; Resp 18; Pulse Ox 99% on R/A; ph 19:52 BP 145 / 95; Pulse 85; Resp 18; Temp 98; Pulse Ox 100% on R/A; mg2 Jennifer Coma Score: 17:23 Eye Response: spontaneous(4). Verbal Response: oriented(5). Motor Response: obeys sv commands(6). Total: 15. 18:41 Eye Response: spontaneous(4). Verbal Response: oriented(5). Motor Response: obeys ph commands(6). Total: 15. 19:53 Eye Response: spontaneous(4). Verbal Response: oriented(5). Motor Response: obeys mg2 commands(6). Total: 15. Trauma Score (Adult): 17:23 Eye Response: spontaneous(1); Verbal Response: oriented(1); Motor Response: obeys sv commands(2); Systolic BP: > 89 mm Hg(4); Respiratory Rate: 10 to 29 per min(4); Leland Score: 15; Trauma Score: 12 18:41 Eye Response: spontaneous(1); Verbal Response: oriented(1); Motor Response: obeys ph commands(2); Systolic BP: > 89 mm Hg(4); Respiratory Rate: 10 to 29 per min(4); Jennifer Score: 15; Trauma Score: 12 19:53 Eye Response: spontaneous(1); Verbal Response: oriented(1); Motor Response: obeys mg2 commands(2); Systolic BP: > 89 mm Hg(4); Respiratory Rate: 10 to 29 per min(4); Jennifer Score: 15; Trauma Score: 12 ED Course: 17:22 Patient arrived in ED. sv 17:24 Arm band placed on. sv 17:27 Leilani Field, RN is Primary Nurse. ph 17:28 patient's on Aidan Jaimes called and requested to leave his home number/ [phone]. eb He says he has given his cell number to the medics and forgot to give the house number. 17:29 Maik Em NP is PHCP. pm1 17:29 Yogesh Rdz MD is Attending Physician. pm1 17:30 Triage completed. ph 17:31 Patient has correct armband on for positive identification. Placed in gown. Bed in low ph position. Call light in reach. Side rails up X 1. Pulse ox on. NIBP on. Door closed. Noise minimized. Warm blanket given. 17:31 Patient maintains SpO2 saturation greater than 95% on room air. Thermoregulation: warm ph blanket given to patient. 17:34 Initial lab(s) drawn, by nj, sent to lab. 3 17:49 CT Head C Spine In Process Unspecified. EDMS 18:15 CBC with Diff Sent. sv 18:15 BMP Sent. sv 19:53 No provider procedures requiring assistance completed. IV discontinued, intact, mg2 bleeding controlled, No redness/swelling at site. Pressure dressing applied. Administered Medications: 18:40 Drug: Insulin Regular Human 5 units {Co-Signature: sv (Lin Rodgers RN).} Route: ph IVP; Site: left forearm; 18:40 Drug: NS 0.9% 500 ml Route: IV; Rate: bolus; Site: left forearm; ph Intake: 17:23 PO: 0ml; Total: 0ml. sv Output: 17:23 Urine: 0ml; Total: 0ml. sv Outcome: 19:12 Discharge ordered by MD. pm1 19:53 Discharged to home via wheelchair. mg2 19:53 Condition: stable 19:53 Discharge instructions given to family, Instructed on discharge instructions, follow up and referral plans. Demonstrated understanding of instructions, follow-up care. 19:53 Patient left the ED. mg2 Signatures: Dispatcher [employer] Lin Oliva RN RN Leilani Field RN RN ph Maik Em NP [facility] pm1 Noelle Kinsey dh3 Marita Smith Michele, RN RN mg2 Lin Rodgers RN sv Corrections: (The following items were deleted from the chart) 17:37 17:34 Exposure/Environment: There is no evidence of uncontrolled external bleeding. ph Obvious injury(ies) are noted at this time: abrasion and hematoma to R occipital area ph
--- NOTE | 2020-10-20 19:13 | EDPHYS ---
Physician Documentation [facility] Name: Wayne Jaimes Age: 80 yrs Sex: Male : 1940 Arrival Date: 10/20/2020 Time: 17:22 Bed 2 Private MD: ED Physician Yogesh Rdz HPI: 10/20 17:36 This 80 yrs old Male presents to ER via EMS with complaints of Fall Injury. pm1 17:36 Details of fall: The patient fell from an upright position, while standing. Onset: The pm1 symptoms/episode began/occurred just prior to arrival. Associated injuries: The patient sustained injury to the head, abrasion. The patient has experienced similar episodes in the past, multiple times. It is unknown whether or not the patient has recently seen a physician. Patient was getting out of his car in the parking lot and reports that he put his can into a hole and fell backwards. Presenting with abrasion to the back of his head. No LOC, neck pain, N/V, back, hip pain. no chest pain or shortness of breath. Historical: - Allergies: 17:24 Erythromycin; sv 17:24 PENICILLINS; sv - PMHx: 17:24 CHF; Diabetes - IDDM; sv - Immunization history:: Adult Immunizations unknown. - Immunization history: Last tetanus immunization: unknown. - Social history:: Smoking status: Patient denies any tobacco usage or history of. ROS: 17:39 Constitutional: Negative for fever, chills, and weight loss, Neck: Negative for injury, pm1 pain, and swelling, Cardiovascular: Negative for chest pain, palpitations, and edema, Respiratory: Negative for shortness of breath, cough, wheezing, and pleuritic chest pain, Abdomen/GI: Negative for abdominal pain, nausea, vomiting, diarrhea, and constipation, Back: Negative for injury and pain, MS/Extremity: Negative for injury and deformity. 17:39 Skin: Positive for abrasion(s), of the scalp, Negative for laceration(s). 17:39 Neuro: Negative for headache, loss of consciousness, numbness, tingling, weakness. Exam: 17:39 Constitutional: This is a well developed, well nourished patient who is awake, alert, pm1 and in no acute distress. 17:39 Chest/axilla: Normal chest wall appearance and motion. Nontender with no deformity. No lesions are appreciated. 17:39 Back: No spinal tenderness. No costovertebral tenderness. Full range of motion. Skin: Warm, dry with normal turgor. Normal color with no rashes and no evidence of cellulitis. MS/ Extremity: Pulses equal, no cyanosis. Neurovascular intact. Full, normal range of motion. 17:39 Head/face: Noted is no obvious of injury or deformity except abrasion(s), that are mild, of the back of head. 17:39 Neck: Exam negative for acute changes, External neck: is normal, C-spine: vertebral tenderness, is not appreciated, ROM/movement: is normal, is supple, without pain, no range of motions limitations, no meningismus, no nuchal rigidity. 17:39 Cardiovascular: Exam negative for acute changes, Rate: normal, Rhythm: regular, Pulses: no pulse deficits are appreciated. 17:39 Respiratory: Exam negative for acute changes, respiratory distress, shortness of breath. 17:39 Neuro: Exam negative for acute changes, Orientation: is normal, Mentation: is normal, Motor: is normal, moves all fours. Vital Signs: 17:23 BP 160 / 126; Pulse 96; Resp 16; Pulse Ox 98% ; sv 18:40 BP 155 / 100; Pulse 88; Resp 18; Pulse Ox 99% on R/A; ph 19:52 BP 145 / 95; Pulse 85; Resp 18; Temp 98; Pulse Ox 100% on R/A; mg2 Jennifer Coma Score: 17:23 Eye Response: spontaneous(4). Verbal Response: oriented(5). Motor Response: obeys sv commands(6). Total: 15. 18:41 Eye Response: spontaneous(4). Verbal Response: oriented(5). Motor Response: obeys ph commands(6). Total: 15. 19:53 Eye Response: spontaneous(4). Verbal Response: oriented(5). Motor Response: obeys mg2 commands(6). Total: 15. Trauma Score (Adult): 17:23 Eye Response: spontaneous(1); Verbal Response: oriented(1); Motor Response: obeys sv commands(2); Systolic BP: > 89 mm Hg(4); Respiratory Rate: 10 to 29 per min(4); Jennifer Score: 15; Trauma Score: 12 18:41 Eye Response: spontaneous(1); Verbal Response: oriented(1); Motor Response: obeys ph commands(2); Systolic BP: > 89 mm Hg(4); Respiratory Rate: 10 to 29 per min(4); Jennifer Score: 15; Trauma Score: 12 19:53 Eye Response: spontaneous(1); Verbal Response: oriented(1); Motor Response: obeys mg2 commands(2); Systolic BP: > 89 mm Hg(4); Respiratory Rate: 10 to 29 per min(4); [place] Score: 15; Trauma Score: 12 MDM: 17:33 Patient medically screened. pm1 19:09 Counseling: I had a detailed discussion with the patient and/or guardian regarding: the pm1 historical points, exam findings, and any diagnostic results supporting the discharge/admit diagnosis, lab results, radiology results. 19:09 ED course: Patient said that he is ready to go home and does not want to wait for his pm1 repeat glucose reading or for hyperglycemia improvement. He is not surprised by the hyperglycemia because he did not take any of his medications today. 19:09 Counseling: I had a detailed discussion with the patient and/or guardian regarding: the pm1 need for outpatient follow up, to return to the emergency department if symptoms worsen or persist or if there are any questions or concerns that arise at home. 19:49 Data reviewed: vital signs. pm1 10/20 17:34 Order name: BMP pm1 10/20 17:34 Order name: CBC with Diff pm1 10/20 17:34 Order name: Basic Metabolic Panel; Complete Time: 18:28 EDMS 10/20 17:34 Order name: CBC with Automated Diff; Complete Time: 18:19 EDMS 10/20 17:51 Order name: Glucose, Ancillary Testing; Complete Time: 18:19 EDMS 10/20 19:48 Order name: Glucose, Ancillary Testing; Complete Time: 19:49 EDMS 10/20 17:34 Order name: CT Head C Spine; Complete Time: 18:19 pm1 Administered Medications: 18:40 Drug: Insulin Regular Human 5 units {Co-Signature: sv (Lin Rodgers RN).} Route: ph IVP; Site: left forearm; 18:40 Drug: NS 0.9% 500 ml Route: IV; Rate: bolus; Site: left forearm; ph Disposition: 10/21 14:39 Co-signature as Attending Physician, Yogesh Rdz MD I agree with the assessment and luiza plan of care. Disposition: 10/20/20 19:12 Discharged to Home. Impression: Fall on same level from slipping, tripping and stumbling, Abrasion of unspecified part of head, Unspecified injury of head, Hyperglycemia, unspecified. - Condition is Stable. - Discharge Instructions: Abrasion, Head Injury, Adult, Fall Prevention in the Home, Hyperglycemia. - Medication Reconciliation Form, Thank You Letter, Antibiotic Education, Prescription Opioid Use form. - Follow up: Emergency Department; When: As needed; Reason: Worsening of condition. Follow up: Private Physician; When: 2 - 3 days; Reason: Recheck today's complaints, Continuance of care, Re-evaluation by your physician. - Problem is new. - Symptoms have improved. Signatures: Dispatcher [employer] EDLin Paredes RN RN sv Yogesh Rdz MD MD cha Hall, Patricia RN RN Maik Em, ELECTRONIC ENGRAVER ELECTRONIC ENGRAVER pm1 Devon Brown RN RN mg2 Lin Rodgers RN Corrections: (The following items were deleted from the chart) 10/20 19:13 19:12 10/20/2020 19:12 Discharged to Home. Impression: Fall on same level from pm1 slipping, tripping and stumbling; Abrasion of unspecified part of head; Unspecified injury of head. Condition is Stable. Forms are Medication Reconciliation Form, Thank You Letter, Antibiotic Education, Prescription Opioid Use. Follow up: Emergency Department; When: As needed; Reason: Worsening of condition. Follow up: Private Physician; When: 2 - 3 days; Reason: Recheck today's complaints, Continuance of care, Re-evaluation by your physician. Problem is new. Symptoms have improved. pm1 19:53 19:13 10/20/2020 19:12 Discharged to Home. Impression: Fall on same level from mg2 slipping, tripping and stumbling; Abrasion of unspecified part of head; Unspecified injury of head; Hyperglycemia, unspecified. Condition is Stable. Discharge Instructions: Abrasion, Head Injury, Adult, Fall Prevention in the Home, Hyperglycemia. Forms are Medication Reconciliation Form, Thank You Letter, Antibiotic Education, Prescription Opioid Use. Follow up: Emergency Department; When: As needed; Reason: Worsening of condition. Follow up: Private Physician; When: 2 - 3 days; Reason: Recheck today's complaints, Continuance of care, Re-evaluation by your physician. Problem is new. Symptoms have improved. pm1
[2020-10-20 20:04] VITALS: BP 145/95; TEMP 98; O2SAT 100
== END 2020-10-20 19:53 | disposition home or self-care (01) ==
LOC: ER 17:21
DX: S00.81XA Abrasion of other part of head, initial encounter (principal); E11.65 Type 2 diabetes mellitus with hyperglycemia; W01.0XXA Fall on same level from slipping, tripping and stumbling without subsequent striking against object, initial encounter; Y93.89 Activity, other specified; Y92.481 Parking lot as the place of occurrence of the external cause; Z88.0 Allergy status to penicillin; Z88.3 Allergy status to other anti-infective agents
CPT/HCPCS: 85025; 80048; 36415; 82947 ×2; 70450; 72125; 96374; 99284; J7040; G0390

== ENCOUNTER 2020-11-09 04:09 | Emergency (ER) | payer OTHER, BC ==
--- OUTSIDE RECORDS SUMMARY | 2020-11-09 04:12 | XMS REPORT | Continuity of Care Document ---
:1940 Author Organization [facility] t Address [address] [place] [address] Care Team Providers Name Role Phone Damien Valdes MD Primary Care Physician Brendan JOSEPH Attending Clinician Unavailable La Ferguson MD Attending Clinician Son RAGSDALE Attending Clinician Don LYNNE Attending Clinician Unavailable New JOSEPH Attending Clinician Unavailable Miguelina Herrmann RN Attending Clinician Arden LYNNE Attending Clinician Unavailable SON Admitting Clinician Unavailable OZ Admitting Clinician Unavailable Payers Payer Name Policy Type Policy Effective Date Expiration Date Sour ce Number MEDICAREMEDICARE PART [id number] 2005 Alek Villar AND 00:00:00 Yarsanism [id number] 2004 [place] BCBS COMMERCIALBCBS [id number] 2009 [place] MEDICARE 1 00:00:00 Yarsanism [id number] 2008-[facility] ercial Problems Condition Condition Condition Status Onset Resolution Last Treating Co mments Source Name Details Category Date Date Treatment Clinician Date 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 : [place] rosis of rosis of 0-01 Added Method [facility] [place] 00:00: automatic st artery of artery of 00 ally from left lower left lower request extremity extremity for with with surgery intermitte intermitte [id number] nt nt claudicati claudicati on on CAD in CAD in Disease Active [place] 2-15 Methodi artery artery 00:00: st 00 Acute on Acute on Disease Active [place] chronic chronic 1-08 Methodi congestive congestive 00:00: st heart heart 00 failure failure Allergies, Adverse Reactions, Alerts Allergy Allergy Status Severity Reaction(s) Onset Inactive Treating Comm ents Source Name Type Date Date Clinician Dameon Noyola Active Swelling [place] ty to Methodi adverse st reaction s to drug Penicill Propensi Active Swelling [place] ins ty to Methodi adverse st reaction s to drug Family History Family Member Diagnosis Comments Start Date Stop Date Source Natural father Heart disease Ontiveros Yarsanism Social History Social Habit Start Date Stop Date Quantity Comments Source Sex Assigned At [facility] ethodist Exposure to Not sure [place] Metho dist SARS-CoV-2 (event) Tobacco use and 2020-10-18 2020-10-18 Never used [facility] ethodist exposure 00:00:00 00:00:00 Alcohol intake 2020-10-18 2020-10-18 Current drinker of Alek sandoval Yarsanism 00:00:00 00:00:00 alcohol (finding) Alcohol Comment 2018-09-14 2018-09-14 very occasional Christopher rodriguez Yarsanism 00:00:00 00:00:00 Smoking Status Start Date Stop Date Source Never smoker Ontiveros Guerita solo Medications Ordered Filled Start Stop Current Ordering Indication Dosage Frequency Signature Comments Components Source Medication Medication Date Date Medication? Clinician (SIG) Name Name clopidogrel Yes 75mg QD Take 75 mg [place] (PLAVIX) 75 2-11 by mouth Meth taina mg tablet 10:03: daily. st 51 insulin NPH Yes 35U Q24H Inject 35 [place] hum/reg 2-11 Units Methodi insulin hm 10:03: under the st (HUMULIN 51 skin daily 70/30 U-100 as needed KWIKPEN (Only if SUBQ) BS > 150). insulin NPH Yes 24U QD Inject 24 [place] hum/reg 2-11 Units Methodi insulin hm 10:03: under the st (HUMULIN 51 skin 70/30 U-100 nightly as KWIKPEN needed SUBQ) (high BS). ibuprofen Yes 400mg Q24H Take 400 Joce ston (ADVIL,MOTR 2-11 mg by Methodi IN) 200 MG 10:03: mouth st tablet 51 daily as needed for mild pain. Takes 200 mg 2 TABS. (400 mg) tamsulosin 0 Yes .4mg QD Take 0.4 Joce ston (FLOMAX) 2-11 mg by Methodi 0.4 mg 10:03: mouth st capsule 51 daily. sacubitril- Yes 1{tbl} Q.5D Take 1 [place] valsartan 2-11 tablet by Metho di (ENTRESTO) 10:03: mouth 2 st 24-26 mg 51 (two) tablet per times a tablet day. carvedilol Yes 25mg Q.5D Take 25 mg [place] (COREG) 25 2-11 by mouth 2 Met hodi MG tablet 10:03: (two) st 51 times a day. furosemide Yes 40mg Q.5D Take 40 mg [place] (LASIX) 40 2-11 by mouth 2 Met hodi mg tablet 10:03: (two) st 51 times a day. atorvastati Yes 40mg QD Take 40 mg Ontiveros n (LIPITOR) 2-11 by mouth Meth taina 40 MG 10:03: daily. st tablet 51 aspirin Yes 81mg QD Take 81 mg [place] (ECOTRIN) 2-11 by mouth Method i 81 MG 10:03: daily. st enteric 51 coated tablet metOLazone Yes Take by [place] (ZAROXOLYN) 2-11 mouth. Method i 2.5 MG 10:03: st tablet 51 potassium 2020- No 10meq Q.5D Take 10 Joce ston chloride 2 02-02 mEq by Methodi (K-DUR) 10 08:22: 00:[address] MEQ CR 48 :00 (two) tablet times a day. metoprolol 2020- No 50mg Q.5D Take 50 mg Ontiveros tartrate 10-09 02-02 by mouth 2 Meth taina (LOPRESSOR) 08:22: 00:00 (two) st 50 mg 27 :00 times a tablet day. lisinopriL 2020- No 40mg QD Take 40 mg Ontiveros (PRINIVIL) 10-09 by mouth Meth taina 40 mg 08:22: 00:[address] tablet 10 :00 gabapentin 2020- No 300mg Q.[id number] Take 300 [place] (NEURONTIN) 10-09 [id number] mg by Methodi 300 mg 08:21: 00:[address] capsule 12 :00 (three) times a day. FINASTERIDE 2020- No Take by Alek ashton ORAL 10-09 mouth. Methodi 08:20: 00:00 st 57 :00 silver 2018-09 Yes Wound of [place] sulfadiazin 1-21 left lower Me thodi e 16:30: extremity, st (SILVADENE) 00 initial 1 % cream encounter pentoxifyll Yes TAKE ONE Alek sandoval ine 7-11 (1) Methodi (TRENTal) 00:00: TABLET(S) st 400 mg CR 00 BY MOUTH tablet TWO TIMES A DAY WITH MEAL. Vital Signs Vital Name Observation Time Observation Value Comments Source Systolic blood 2020-10-18 09:58:00 156 mm[Hg] Berto n Yarsanism pressure Diastolic blood 2020-10-18 09:58:00 74 mm[Hg] [place] on Yarsanism pressure Heart rate 2020-10-18 09:58:00 89 /min Weston Mcgee Body temperature 2020-10-18 09:58:00 36.56 Kenyatta Christopher Mcgee Body height 2020-10-18 09:58:00 167.6 cm Weston Mcgee Body weight 2020-10-18 09:58:00 77.474 kg Weston Mcgee BMI 2020-10-18 09:58:00 27.57 kg/m2 Weston Mcgee Oxygen saturation in 2020-10-18 09:58:00 97 /min Weston Mcgee Arterial blood by Pulse oximetry Respiratory rate 2020-10-09 17:45:00 18 /min Christopher Mcgee Procedures Procedure Date / Time Performed Performing Clinician Sourc e POC GLUCOSE 2020-10-09 11:54:00 Franki Peterson odist CV DIRECTOR OF PLANT OPERATIONS PROCEDURE 2020-10-09 10:34:41 Arnulfo Topeteist POC GLUCOSE 2020-10-09 08:11:00 Franki Peterson odbella ESTIMATED GFR 2020-10-08 13:27:00 Franki Peterson odist COVID-19 QUALITATIVE PCR 2020-10-08 13:27:00 Franki Peterson HC COMPLETE BLD COUNT 2020-10-08 13:27:00 Franki Peterson W/AUTO DIFF BASIC METABOLIC PANEL 2020-10-08 13:27:00 Franki Peterson PROTHROMBIN TIME WITH 2020-10-08 13:27:00 Franki Peterson INR TYPE AND SCREEN 2020-10-08 13:27:00 Franki Peterson US DUPLEX ARTERIAL LOWER 2020-07-11 13:00:00 Thomas Ferguson EXTREMITY BILATERAL Ferguson-Hsi US ANKLE BRACHIAL INDEX 2020-07-11 13:00:00 Thomas Ferguson Ferguson-Hsi US CAROTID DUPLEX 2020-07-11 12:00:00 Thomas Ferguson Me thodist BILATERAL Ferguson-Hsi US DUPLEX ARTERIAL LOWER 2020-02-01 11:40:00 Thomas Ferguson EXTREMITY BILATERAL Ferguson-Hsi US ANKLE BRACHIAL INDEX 2020-02-01 11:40:00 Thomas Ferguson Ferguson-Hsi Plan of Care Planned Activity Planned Date Details Comments Source Future Scheduled 2020-11-06 COVID-19 VACCINE (2 of H carissa Yarsanism Test 00:00:00 2 - Pfizer series) [code = COVID-19 VACCINE (2 of 2 - Pfizer series)] Future Scheduled 2020-04-07 INFLUENZA VACCINE Christopherto jatinder Yarsanism Test 00:00:00 [code = INFLUENZA VACCINE] Future Scheduled 2005 65+ PNEUMOCOCCAL [place] Yarsanism Test 00:00:00 VACCINE (1 of 1 - PPSV23) [code = 65+ PNEUMOCOCCAL VACCINE (1 of 1 - PPSV23)] Future Scheduled 1990 SHINGLES VACCINES (#1) H carissa Yarsanism Test 00:00:00 [code = SHINGLES VACCINES (#1)] Future Scheduled 1950 DIABETES: RETINAL EYE Ho jaime Yarsanism Test 00:00:00 EXAM [code = DIABETES: RETINAL EYE EXAM] Future Scheduled 1950 DIABETIC FOOT EXAM [place] Yarsanism Test 00:00:00 [code = DIABETIC FOOT EXAM] Encounters Start End Encounter Admission Attending Care Care Encounter Source Date/Time Date/Time Type Type Clinicians Facility Department ID 2020-10-18 2020-10-18 [id number] [place] 00:00:00 00:00:00 THOMAS 448 Method i 2020-10-09 2020-10-09 [id number] [place] 00:00:00 00:00:00 FRANKI 815 Method i 2020-10-08 2020-10-08 Outpatient [facility] [id number] [place] 00:00:00 00:00:00 FRANKI 483 Method i 2020-09-19 2020-09-19 Outpatient [facility] [id number] [facility] 00:00:00 00:00:00 Kenny Estrella ent Clinics 2020-07-11 2020-07-11 Outpatient [facility] [id number] [place] 00:00:00 00:00:00 064 Method i 2020-07-11 2020-07-11 Outpatient [facility] [id number] [place] 00:00:00 00:00:00 716 Method i 2020-07-11 2020-07-11 Outpatient OZ [facility] [id number] [place] 00:00:00 00:00:00 THOMAS 173 Method i 2020-02-01 2020-02-01 Outpatient [facility] [id number] [place] 00:00:00 00:00:00 287 Method i 2020-02-01 2020-02-01 Outpatient OZ [facility] [id number] [place] 00:00:00 00:00:00 THOMAS 489 Method i 2019-11-03 2019-11-03 Outpatient [facility] [id number] [place] 00:00:00 00:00:00 066 Method i 2019-11-03 2019-11-03 Outpatient OZ [facility] [id number] [place] 00:00:00 00:00:00 THOMAS 266 Method i 2019-06-13 2019-06-13 [id number] [place] 00:00:00 00:00:00 THOMAS Alyson Method i st 2019-06-06 2019-06-06 [id number] [place] 00:00:00 00:00:00 FRANKI [address] Results Test Description Test Time Test Comments Results Result Sourc e Comments laboratory sampler 2020-10-17 CV LEFT HEART [place] procedure 21:19:08 CATH LV GRAM WITH Methodi st CORSModerate Sedation Tolerated procedure well Condition: stableComplicatio ns: None; patient tolerated the procedure well.Findings: LM is large vessel giving rise to LAD and lCXLAD is occluded Proximally TOBAR TO LAD is patent with DIAZ 3 flow SVG to OM 1 graft is widely patent with minimal disease RCA is large vessel giving rise to PDA and FRANCINE. Distal RCA and PDA have severe diffuse disease unchanged as compared to last cath Patent proximal to mid RCA stents LVEDP 12-14 mm of hg Right femoral Angiogram done Attempted Angioseal Device by me and Dr Thomas Ferguson Unable to advance Recommend Manual Hold for 45 minutes Continue medical management POC glucose 2020-10-09 11:56:12 Test Item Value Reference Range Interpretation Comme nts POC glucose (test code = 318 mg/dL 65-99 H Ope rator Name: Albin Pat 41336-2) ID: [id number] beka: RN Notified Lab Interpretation (test code = Abnormal 90443-6) [place] MethodistCOVID-19 qualitative [id number] 02:48:43 Test Item Value Reference Range Interpretation Comments Interpretation (test Negative results do code = 9289686) not preclude 2019-nCoV infection and should not be used as the sole basis for treatment or other patient management decisions. Negative results must be combined with clinical observations, patient history, and epidemiological information. COVID-19 qualitative Not-Detected Not-Detected PCR result (test code = 04087-9) COVID-19 qualitative See link below for C ase Number: PCR (test code = PDF Lab Report [id number]) [place] MethodistBasic metabolic [id number] 15:52:38 Test Item Value Reference Range Interpretation Comments Sodium (test code = 130 See_Comment L [Automa klever message] 7601-2) The system [employer] generated this result transmit klever reference range : 135 - 148 mEq/L. Th e reference range was not used to interpret this result as normal/abnormal . Potassium (test code = 4.7 See_Comment [Aut omated message] 8733-3) The system [employer] generated this result transmit klever reference range : 3.5 - 5.0 mEq/L. Th e reference range was not used to interpret this result as normal/abnormal . Chloride (test code = 96 See_Comment L [Auto mated message] ) The system [employer] generated this result transmit klever reference range : 98 - 112 mEq/L. Th e reference range was not used to interpret this result as normal/abnormal . CO2 (test code = 27 See_Comment [Automated message] 2028-05) The system [employer] generated this result transmit klever reference range : 24 - 31 mEq/L. The reference range was not used to interpret this result as normal/abnormal . Anion gap (test code = 7@ANIO See_Comment [Aut omated message] 80778-9) The system [employer] generated this result transmit klever reference range : 7 - 15 mEq/L. The reference range was not used to interpret this result as normal/abnormal . BUN (test code = 30 mg/dL 8-23 H 3094-0) Creatinine (test code = 0.82 mg/dL 0.7-1.2 2160-0) Glucose (test code = 533 mg/dL 65-99 HH Final r esults called 2345-7) to and read judy k by Bren winter10/08/2020 15: 52 slmb Calcium (test code = 9.5 mg/dL 8.8-10.2 04771-0) Lab Interpretation Abnormal (test code = 13772-2) [facility] MethodistType and [id number] 15:22:00 Test Item Value Reference Range Interpretation Comments ABO grouping (test code = 883-9) B Rh type (test code = 51714-8) POS Antibody screen (gel) (test code = NEG 890-4) [place] MethodistEstimated [id number] 14:58:38 Test Item Value Reference Range Interpretation Comments Estimated GFR (test 83 mL/min/1.73 m2 [facility] Units code = 5488) InterpretationG 1 >=90 Normal or highG2 60-89 Mildly ppfayffhmZ2w 45-59 Mildly to mode rately lovodlmueG0l 30-44 Moderately to severely decreasedG4 15-29 Severely decre asedG5 <15 Kidn ey failureThe eGFR was calculated melvin nash the Chronic Kidney Disease Epidemiology Co llaboration (CKD-EPI) equat ion. Interpretation is based on recommendations of the National Kidney Foundation-Kidn ey Disease Outcomes Qualit y Initiative (NKF-KDOQI) pub lished in 2014. [place] [facility] and [id number] 14:50:23 Test Item Value Reference Range Interpretation Comments WBC (test code = 5.9 See_Comment [Automated message] 90632-0) The system [employer] generated this result transmit klever reference range : 4.5 - 11.0 k/uL. Th e reference range was not used to interpret this result as normal/abnormal . RBC (test code = 4.85 m/uL 4.4-6 10582-4) HGB (test code = 718-7) 15.1 g/dL 14-18 HCT (test code = 4544-3) 46.6 % 41-51 MCV (test code = 787-2) 96.1 fL 82-100 MCH (test code = 785-6) 31.1 pg 27-34 MCHC (test code = 786-4) 32.4 g/dL 31-37 RDW - SD (test code = 51.2 fL 37-55 81763-6) MPV (test code = 10.2 fL 6.9-11 05712-6) Platelet count (test 141 K/uL 150-400 L code = 04033-2) Nucleated RBC (test code 0.00 See_Comment [A utomated message] = 03622-5) The system [employer] generated this result transmit klever reference range : /100 WBC. The reference range was not used to interpret this result as normal/abnormal . Neutrophils (test code = 67.3 % 39-69 51798-0) Lymphocytes (test code = 19.5 % 25-45 L 26955-0) Monocytes (test code = 8.5 % 0-10 23701-1) Eosinophils (test code = 2.9 % 0-5 67100-8) Basophils (test code = 0.8 % 0-1 65763-2) Immature granulocytes 1.0 % 0-1 (test code = 63132-2) Lab Interpretation (test Abnormal code = 81302-8) Weston McgeeProthrombin time with [id number] 14:45:39 Test Item Value Reference Range Interpretation Comments Prothrombin time (test 14.8 See_Comment H [Aut omated message] code = 5902-2) The system idiag generated this result transmitted ref erence range: 11.5 - 1 4.5 sec. The refere nce range was not u sed to interpret this result as normal/abnor mal. INR (test code = 1.2 [facility] 50938-7) Normalized Rati o (INR) is a therapeuti c monitoring tool for patients who ar e stable on oral anticoagulant t herapy. An INR of 2.0-3 .0 is suggested for d eep vein thrombosis/pulm onary embolism. Lab Interpretation Abnormal (test code = 07470-7) Weston Mcgee
[2020-11-09 04:47] LABS: Absolute Lymphocytes (CBC) 1.4 K/uL (0.7-4.9); Basophils % 1.4 % (0-1.3); Hematocrit 47.8 % (39.6-49.0); MPV 8.2 fL (7.6-11.3)
[2020-11-09 04:53] LABS: Protime INR 1.14
[2020-11-09] MEDS ORDERED: INSULIN GLARGINE 100 UNITS/ML SQ ONE (04:54)
[2020-11-09] MEDS ORDERED: INSULIN -REGULAR HUMAN 50 UNIT/0.5 ML ML ONE (04:55)
[2020-11-09] MEDS ORDERED: NA CHLORIDE 0.9% 1,000 ML ONE (04:55)
[2020-11-09] MEDS ORDERED: ACETAMINOPHEN 325 MG TABLET ONE (04:55)
[2020-11-09 05:02] LABS: ALT/SGPT 49 U/L (12-78); AST/SGOT 30 U/L (15-37); Alkaline Phosphatase 454 U/L (45-117); BUN Blood Urea Nitrogen 33 mg/dL (7-18); Bicarbonate 27 mmol/L (21-32); Bilirubin Direct 0.5 mg/dL (0-0.2); Glucose Level 396 mg/dL (74-106); Magnesium 2.3 mg/dL (1.8-2.4); NT PRO-BNP 9612 pg/mL (<450); Potassium 4.8 mmol/L (3.5-5.1); Protein, Total 7.3 g/dL (6.4-8.2); Sodium Level 136 mmol/L (136-145); Troponin (Emerg Dept Use Only) < 0.02 ng/mL (0.0-0.045)
--- NOTE | 2020-11-09 05:55 | EDPHYS ---
Physician Documentation [facility] Name: Wayne Jaimes Age: 80 yrs Sex: Male : 1940 Arrival Date: 11/09/2020 Time: 04:17 Bed 7 Private MD: ED Physician Yogesh Rdz HPI: 11/09 04:34 This 80 yrs old Male presents to ER via EMS with complaints of Fall Injury. luiza 04:34 Details of fall: The patient fell from an upright position, while walking. luiza Historical: - Allergies: 04:24 Erythromycin; mg2 04:24 PENICILLINS; mg2 - Home Meds: 04:24 clopidogrel Oral [Active]; furosemide 80 mg Oral tab once daily [Active]; mg2 - PMHx: 04:24 CHF; Diabetes - IDDM; neuropathy; mg2 - Immunization history: Last tetanus immunization: unknown. - Social history:: Smoking status: unknown. ROS: 04:35 Constitutional: Negative for fever, chills, and weight loss, Eyes: Negative for injury, luiza pain, redness, and discharge, ENT: Negative for injury, pain, and discharge, Neck: Negative for injury, pain, and swelling, Cardiovascular: Negative for chest pain, palpitations, and edema, Respiratory: Negative for shortness of breath, cough, wheezing, and pleuritic chest pain, : Negative for injury, bleeding, discharge, and swelling, MS/Extremity: Negative for injury and deformity, Skin: Negative for injury, rash, and discoloration, Psych: Negative for depression, anxiety, suicide ideation, homicidal ideation, and hallucinations, Allergy/Immunology: Negative for hives, rash, and allergies, Endocrine: Negative for neck swelling, polydipsia, polyuria, polyphagia, and marked weight changes, Hematologic/Lymphatic: Negative for swollen nodes, abnormal bleeding, and unusual bruising. 04:35 Abdomen/GI: Positive for abdominal pain, of the right upper quadrant, left upper quadrant, right lower quadrant and left lower quadrant. 04:35 MS/extremity: Positive for pain, swelling. 04:35 Neuro: Positive for headache. Exam: 04:35 Constitutional: This is a well developed, well nourished patient who is awake, alert, luiza and in no acute distress. Head/Face: Normocephalic, atraumatic. Eyes: Pupils equal round and reactive to light, extra-ocular motions intact. Lids and lashes normal. Conjunctiva and sclera are non-icteric and not injected. Cornea within normal limits. Periorbital areas with no swelling, redness, or edema. ENT: Nares patent. No nasal discharge, no septal abnormalities noted. Tympanic membranes are normal and external auditory canals are clear. Oropharynx with no redness, swelling, or masses, exudates, or evidence of obstruction, uvula midline. Mucous membranes moist. Neck: Trachea midline, no thyromegaly or masses palpated, and no cervical lymphadenopathy. Supple, full range of motion without nuchal rigidity, or vertebral point tenderness. No Meningismus. Chest/axilla: Normal chest wall appearance and motion. Nontender with no deformity. No lesions are appreciated. Cardiovascular: Regular rate and rhythm with a normal S1 and S2. No gallops, murmurs, or rubs. Normal PMI, no JVD. No pulse deficits. Respiratory: Lungs have equal breath sounds bilaterally, clear to auscultation and percussion. No rales, rhonchi or wheezes noted. No increased work of breathing, no retractions or nasal flaring. Abdomen/GI: Soft, non-tender, with normal bowel sounds. No distension or tympany. No guarding or rebound. No evidence of tenderness throughout. Back: No spinal tenderness. No costovertebral tenderness. Full range of motion. Male : Normal genitalia with no discharge or lesions. 04:35 Skin: Appearance: Color: normal in color, Temperature: normal temperature, Moisture: normal moisture, petechiae, not noted, ecchymosis, not noted, abscess, not appreciated, cellulitis, is not appreciated, LONG STANDING venous stasis changes bilateral lower ext. 04:46 ECG was reviewed by the Attending Physician. luiza Vital Signs: 04:25 BP 180 / 120; Pulse 85; Resp 18; Temp 97.7; Pulse Ox 95% on R/A; Weight 77.11 kg; mg2 05:52 BP 158 / 100; Pulse 78; Resp 18; Pulse Ox 95% on R/A; wh [place] Coma Score: 04:25 Eye Response: spontaneous(4). Verbal Response: oriented(5). Motor Response: obeys mg2 commands(6). Total: 15. 06:13 Eye Response: spontaneous(4). Verbal Response: oriented(5). Motor Response: obeys mg2 commands(6). Total: 15. Trauma Score (Adult): 04:25 Eye Response: spontaneous(1); Verbal Response: oriented(1); Motor Response: obeys mg2 commands(2); Systolic BP: > 89 mm Hg(4); Respiratory Rate: 10 to 29 per min(4); [place] Score: 15; Trauma Score: 12 06:13 Eye Response: spontaneous(1); Verbal Response: oriented(1); Motor Response: obeys mg2 commands(2); Systolic BP: > 89 mm Hg(4); Respiratory Rate: 10 to 29 per min(4); [place] Score: 15; Trauma Score: 12 MDM: 04:26 Patient medically screened. luiza 04:38 Differential diagnosis: closed head injury, contusion, multiple trauma, sprain. Data luiza reviewed: vital signs, nurses notes, lab test result(s), EKG, radiologic studies, CT scan, plain films. Data interpreted: hall monitor: rate is 85 beats/min, rhythm is regular. Test interpretation: by ED physician or midlevel provider: ECG, plain radiologic studies. 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 11/09 04:23 Order name: Basic Metabolic Panel mg2 11/09 04:23 Order name: CBC with Diff mg2 11/09 04:23 Order name: LFT's mg2 11/09 04:23 Order name: Magnesium; Complete Time: 05:40 mg2 11/09 04:23 Order name: NT PRO-BNP; Complete Time: 05:40 mg2 / 04:23 Order name: PT-INR; Complete Time: 05:40 mg2 11/09 04:23 Order name: Troponin (emerg Dept Use Only); Complete Time: 05:40 mg2 11/09 04:23 Order name: XRAY Chest (1 view) mg2 11/09 04:24 Order name: Basic Metabolic Panel; Complete Time: 05:31 EDMS 11/09 04:24 Order name: CBC with Automated Diff; Complete Time: 05:40 EDMS 11/09 04:24 Order name: Liver (Hepatic) Function; Complete Time: 05:40 EDMS 11/09 04:35 Order name: CT Traumagram (Head C Spine CAP wo con) [facility] 11/09 04:50 Order name: Glucose, Ancillary Testing; Complete Time: 05:40 EDMS 11/09 06:10 Order name: Glucose, Ancillary Testing EDMS 11/09 04:23 Order name: EKG; Complete Time: 04:24 mg2 11/09 04:23 Order name: Cardiac monitoring; Complete Time: 04:39 mg2 11/09 04:23 Order name: EKG - Nurse/Tech; Complete Time: 04:39 mg2 11/09 04:23 Order name: IV Saline Lock; Complete Time: 04:39 mg2 11/09 04:23 Order name: Labs collected and sent; Complete Time: 04:39 mg2 11/09 04:23 Order name: O2 Per Protocol; Complete Time: 04:39 mg2 11/09 04:23 Order name: O2 Sat Monitoring; Complete Time: 04:39 mg2 11/09 05:50 Order name: Vital Signs; Complete Time: 05:52 [facility] EC:46 Rate is 85 beats/min. Rhythm is regular. QRS [place] is Normal. DE interval is normal. QRS luiza interval is prolonged at 144 msec. QT interval is normal. No Q waves. T waves are Normal. No ST changes noted. Clinical impression: NSR w/ Non-specific ST/T Changes and No evidence of ischemia. Interpreted by me. Reviewed by me. Administered Medications: 04:38 Drug: NS 0.9% 250 ml Route: IV; Rate: bolus; Site: left antecubital; mg2 05:18 Follow up: Response: No adverse reaction; IV Status: Completed infusion; IV Intake: mg2 250ml 04:38 Drug: Tylenol 650 mg Route: PO; mg2 05:18 Follow up: Response: No adverse reaction mg2 04:40 Drug: NS 0.9% 1000 ml Route: IV; Rate: 125 ml/hr; Site: left antecubital; mg2 06:01 Follow up: IV Status: Order to discontinue infusion mg2 04:40 Drug: Insulin Regular Human 7 units {Co-Signature: mg2 (Devon Brown RN).} Route: wh IVP; Site: left antecubital; 06:01 Follow up: Response: No adverse reaction; Blood sugar is lowered mg2 04:40 Drug: LanTUS 30 units Route: Sub-Q; Site: right upper arm; 06:01 Follow up: Response: No adverse reaction; Blood sugar is lowered mg2 Disposition: 11/09/20 05:54 Discharged to Home. Impression: Fall due to bumping against object, Type 1 diabetes mellitus, Edema, unspecified - venous stasis, Unspecified combined systolic (congestive) and diastolic (congestive) heart failure, Pleural condition, unspecified. - Condition is Stable. - Discharge Instructions: Heart Failure, Type 1 Diabetes Mellitus, Diagnosis, Adult, Edema, Head Injury, Adult, Fall Prevention in the Home, Pleural Effusion, Edema, Ooys-kb-[id number], Diabetes Mellitus and Food, Fall Prevention in the Home, Gqlw-xu-Pgyd, Head Injury, Adult, Gkjn-hu-Cpew, Type 1 Diabetes Mellitus, Self Care, Adult, Type 1 Diabetes Mellitus, Diagnosis, Adult, Rxwo-kw-Lajr, Type 1 Diabetes Mellitus, Self Care, Adult, Diwm-pm-Sbrd, Peripheral Edema. - Medication Reconciliation Form, Thank You Letter, Antibiotic Education, Prescription Opioid Use form. - Follow up: Private Physician; When: 2 - 3 days; Reason: Recheck today's complaints, Continuance of care, Re-evaluation by your physician. - Problem is new. - Symptoms have improved. Signatures: Dispatcher [employer] EDMS Yogesh Rzd MD MD cha Attema, Lee, [employer] COLLECTION CLERK-C [employer] B[employer] COLLECTION CLERK-Cla1 Sheri Velasco, GUERA RN Devon Brown RN RN mg2 Devon Brown RN mg2 Corrections: (The following items were deleted from the chart) 06:14 05:54 11/09/2020 05:54 Discharged to Home. Impression: Fall due to bumping against mg2 object; Type 1 diabetes mellitus; Edema, unspecified - venous stasis; Unspecified combined systolic (congestive) and diastolic (congestive) heart failure; Pleural condition, unspecified. Condition is Stable. Discharge Instructions: Heart Failure, Type 1 Diabetes Mellitus, Diagnosis, Adult, Edema, Head Injury, Adult, Fall Prevention in the Home, Edema, Ngcn-zi-Quhq, Diabetes Mellitus and Food, Fall Prevention in the Home, Gulq-xw-Iafn, Head Injury, Adult, Rtvc-qs-Zqnv, Type 1 Diabetes Mellitus, Self Care, Adult, Type 1 Diabetes Mellitus, Diagnosis, Adult, Qbji-rn-Qddj, Type 1 Diabetes Mellitus, Self Care, Adult, Gyhf-rr-Tcpl, Peripheral Edema. Forms are Medication Reconciliation Form, Thank You Letter, Antibiotic Education, Prescription Opioid Use. Follow up: Private Physician; When: 2 - 3 days; Reason: Recheck today's complaints, Continuance of care, Re-evaluation by your physician. Problem is new. Symptoms have improved. luiza
--- NOTE | 2020-11-09 05:55 | ER ---
Nurse's Notes [facility] Name: Wayne Jaimes Age: 80 yrs Sex: Male : 1940 Arrival Date: 11/09/2020 Time: 04:17 Bed 7 Private MD: Diagnosis: Fall due to bumping against object;Type 1 diabetes mellitus;Edema, unspecified-venous stasis;Unspecified combined systolic (congestive) and diastolic (congestive) heart failure;Pleural condition, unspecified Presentation: 11/09 04:17 Chief complaint: EMS states: he was getting up from his recliner then he got dizzy, mg2 fell and hit his head on the floor, denies LOC. BGL- 421 mg/dl. BP - 194/120. he sustained pain at the back of his head. Care prior to arrival: None. Mechanism of Injury: Fall from standing position. Trauma event details: Injury occurred in the [facility], Injury occurred: at home. Injury occurred: November 09, 2020. 04:17 Acuity: ROSEMARY 2 mg2 04:17 Method Of Arrival: EMS: [facility] mg2 04:27 Coronavirus screen: Client denies travel out of the [place] in the last 14 days. At this mg2 time, the client does not indicate any symptoms associated with coronavirus-19. Ebola Screen: No symptoms or risks identified at this time. Initial Sepsis Screen: Does the patient meet any 2 criteria? No. Patient's initial sepsis screen is negative. Does the patient have a suspected source of infection? No. Patient's initial sepsis screen is negative. Risk Assessment: Do you want to hurt yourself or someone else? Patient reports no desire to harm self or others. Onset of symptoms was November 09, 2020. Trauma Activation: Alert Physician: ED Physician; Name: ; Notified At: ; Arrived At: Physician: General Surgeon; Name: ; Notified At: ; Arrived At: Physician: Radiology; Name: ; Notified At: ; Arrived At: Physician: Respiratory; Name: ; Notified At: ; Arrived At: Physician: Lab; Name: ; Notified At: ; Arrived At: Trauma Activation: Alert Physician: ED Physician; Name: Dr Rdz; Notified At: 04:06; Arrived At: 04:06 Physician: General Surgeon; Name: ; Notified At: 04:06; Arrived At: Physician: Radiology; Name: Gabino Schwab; Notified At: 04:06; Arrived At: 04:06 Physician: Respiratory; Name: ; Notified At: 04:06; Arrived At: Physician: Lab; Name: ; Notified At: 04:06; Arrived At: Historical: - Allergies: 04:24 Erythromycin; mg2 04:24 PENICILLINS; mg2 - Home Meds: 04:24 clopidogrel Oral [Active]; furosemide 80 mg Oral tab once daily [Active]; mg2 - PMHx: 04:24 CHF; Diabetes - IDDM; neuropathy; mg2 - Immunization history: Last tetanus immunization: unknown. - Social history:: Smoking status: unknown. Screenin:26 Abuse screen: Denies threats or abuse. Denies injuries from another. Nutritional mg2 screening: No deficits noted. Tuberculosis screening: No symptoms or risk factors identified. 04:41 Fall Risk Fall in past 12 months (25 points). IV access (20 points). Gait- Weak (10 mg2 pts.). Primary Survey: 04:24 NO uncontrolled hemorrhage observed. A: The patient is alert. Breathing/Chest: mg2 Respiratory pattern: regular, Respiratory effort: spontaneous, unlabored, Chest inspection: symmetrical rise and fall of the chest. Circulation: Skin color: pink. Disability Alert. Exposure/Environment: All clothing and personal items were removed. Forensic evidence collection is not deemed to be indicated at this time. Items placed in patient belonging bag. There is no evidence of uncontrolled external bleeding. No obvious injuries are noted at this time. A warming method has been applied: A warm blanket has been provided to the patient. 05:51 Reassessment Breathing/Chest Respiratory pattern Regular Respiratory effort Spontaneous wh Unlabored Chest inspection Symmetrical Circulation Color [place] Disability Alert. Secondary Survey: 04:25 HEENT: Head Other mild swelling in the occipital area. Gastrointestinal: No deficits mg2 noted. : No deficits noted. Musculoskeletal: Circulation, motion, and sensation intact. Capillary refill < 3 seconds. Assessment: 04:21 General: Appears in no apparent distress. comfortable, Behavior is calm, cooperative. mg2 Pain: Complains of pain in head. Neuro: Level of Consciousness is awake, alert, obeys commands, Oriented to person, place, time, situation. EENT: No signs and/or symptoms were reported regarding the EENT system. Cardiovascular: Capillary refill < 3 seconds Patient's skin is warm and dry. Respiratory: Airway is patent Respiratory effort is even, unlabored, Respiratory pattern is regular, symmetrical. GI: No signs and/or symptoms were reported involving the gastrointestinal system. : No signs and/or symptoms were reported regarding the genitourinary system. Derm: Skin old wound in the right leg and right arm. Musculoskeletal: Circulation, motion, and sensation intact. Capillary refill < 3 seconds. Musculoskeletal: Swelling present in right leg and left leg. 05:51 Reassessment: Patient appears in no apparent distress at this time. No changes from previously documented assessment. Patient and/or family updated on plan of care and expected duration. Pain level reassessed. Patient is alert, oriented x 3, equal unlabored respirations, skin warm/dry/pink. 06:01 Reassessment: Kirsty- contacted and she is coming to pick the patient up- [id number]. mg2 Vital Signs: 04:25 BP 180 / 120; Pulse 85; Resp 18; Temp 97.7; Pulse Ox 95% on R/A; Weight 77.11 kg; mg2 05:52 BP 158 / 100; Pulse 78; Resp 18; Pulse Ox 95% on R/A; [place] Coma Score: 04:25 Eye Response: spontaneous(4). Verbal Response: oriented(5). Motor Response: obeys mg2 commands(6). Total: 15. 06:13 Eye Response: spontaneous(4). Verbal Response: oriented(5). Motor Response: obeys mg2 commands(6). Total: 15. Trauma Score (Adult): 04:25 Eye Response: spontaneous(1); Verbal Response: oriented(1); Motor Response: obeys mg2 commands(2); Systolic BP: > 89 mm Hg(4); Respiratory Rate: 10 to 29 per min(4); [place] Score: 15; Trauma Score: 12 06:13 Eye Response: spontaneous(1); Verbal Response: oriented(1); Motor Response: obeys mg2 commands(2); Systolic BP: > 89 mm Hg(4); Respiratory Rate: 10 to 29 per min(4); [place] Score: 15; Trauma Score: 12 ED Course: 04:17 Patient arrived in ED. bb 04:17 Devon Brown, RN is Primary Nurse. mg2 04:21 Triage completed. mg2 04:26 Yogesh Rdz MD is Attending Physician. luiza 04:26 Patient has correct armband on for positive identification. mg2 04:27 No provider procedures requiring assistance completed. mg2 04:30 Inserted saline lock: 20 gauge in left antecubital area, using aseptic technique. Blood mg2 collected. 04:41 Door closed. Warm blanket given. mg2 04:41 Patient maintains SpO2 saturation greater than 95% on room air. Thermoregulation: warm mg2 blanket given to patient. 04:42 Arm band placed on. mg2 06:13 IV discontinued, intact, bleeding controlled, No redness/swelling at site. Pressure mg2 dressing applied. 09:49 CT Traumagram (Head C Spine CAP wo con) In Process Unspecified. EDMS Administered Medications: 04:38 Drug: NS 0.9% 250 ml Route: IV; Rate: bolus; Site: left antecubital; mg2 05:18 Follow up: Response: No adverse reaction; IV Status: Completed infusion; IV Intake: mg2 250ml 04:38 Drug: Tylenol 650 mg Route: PO; mg2 05:18 Follow up: Response: No adverse reaction mg2 04:40 Drug: NS 0.9% 1000 ml Route: IV; Rate: 125 ml/hr; Site: left antecubital; mg2 06:01 Follow up: IV Status: Order to discontinue infusion mg2 04:40 Drug: Insulin Regular Human 7 units {Co-Signature: mg2 (Devon Brown RN).} Route: wh IVP; Site: left antecubital; 06:01 Follow up: Response: No adverse reaction; Blood sugar is lowered mg2 04:40 Drug: LanTUS 30 units Route: Sub-Q; Site: right upper arm; wh 06:01 Follow up: Response: No adverse reaction; Blood sugar is lowered mg2 Intake: 04:25 PO: 0ml; Total: 0ml. mg2 05:18 IV: 250ml; Total: 250ml. mg2 Outcome: 05:54 Discharge ordered by . luiza 06:14 Discharged to home via wheelchair. mg2 06:14 Condition: stable 06:14 Discharge instructions given to patient, Instructed on discharge instructions, follow up and referral plans. Demonstrated understanding of instructions, follow-up care. 06:14 Patient's length of stay was not longer than 2 hours. mg2 06:14 Patient left the ED. mg2 Signatures: Dispatcher [employer] Yogesh Amin MD MD cha Ballard, Brenda, RN RN Sheri Coleman RN RN Devon Brown RN RN mg2 Devon Brown RN mg2
[2020-11-09 06:22] VITALS: TEMP 97.7; O2SAT 95
[2020-11-09 06:23] VITALS: BP 158/100
--- NOTE | 2020-11-09 08:42 | RAD REPORT ---
EXAM DESCRIPTION: RAD - Chest Single View - 11/09/2020 4:56 am CLINICAL HISTORY: TRAUMA, fall, chest pain COMPARISON: June 2018 TECHNIQUE: AP portable chest image was obtained 11/09/2020 4:56 am . FINDINGS: Lung volumes are low. Patchy interstitial and alveolar opacities are present. Cardiomegaly is present with vascular engorgement. Sternotomy wires are in place. Patient has numerous granulomat ous calcifications in the lung parenchyma. No measurable pleural effusion and no pneumothorax. No acu te bony abnormality seen. No acute aortic findings suspected. IMPRESSION: Mild CHF/volume overload findings.
--- NOTE | 2020-11-09 11:15 | RAD REPORT ---
EXAM DESCRIPTION: CT - Head C Spine Cap Wo Con - 11/09/2020 6:55 am COMPARISON: None. TECHNIQUE: CT HEAD CERVICAL SPINE CHEST ABDOMEN PELVIS WITHOUT IV CONTRAST on 11/09/2020 4:[address] This exam was performed according to our departmental dose-optimization program, which includes autom ated exposure control, adjustment of the mA and/or kV according to patient size and/or use of iterati ve reconstruction technique. FINDINGS: Brain: There is no acute hemorrhage, mass effect or midline shift. Tafoya-white differentiat ion is preserved. There is no hydrocephalus. There is no significant volume loss for age. There is likely a chronic defect within the posterolateral right cerebellar calvarium. Orbits and vick bes are unremarkable. There is mild thickening of the left sphenoid sinus. Mastoid air cells are sarah r. Cervical Spine: There is no acute fracture. Alignment is anatomic. There is mild to moderate narrowing of the C5-6 and C6-7 discs. Vertebral body heights are preserved. Soft tissues are unremarkable. Chest: The heart is mildly enlarged following sternotomy. There is no pericardial effusion. Intrathor acic lymph nodes are not enlarged. There are moderate bilateral pleural effusions. Central airways are patent. There are several calcifi ed granulomas in the right upper lobe. Abdomen: The liver is normal in appearance. There is no biliary dilatation. Spleen contains multiple calcified granulomas. Pancreas is unremarkable. There is extensive body wall anasarca. The adrenal gl ands and kidneys are unremarkable. Abdominal aorta is normal in course and caliber without aneurysm. There is no free air. There is no r etroperitoneal adenopathy. Pelvis: There is no bowel obstruction. Urinary bladder is unremarkable. There is no free fluid. Appen ama is not seen. Skeleton: There are no acute osseous findings. No suspicious bony lesions. IMPRESSION: No definite posttraumatic findings. Electronically signed by: Buck Batres MD 11/09/2020 5:[address] Due to temporary technical issues with the PACS/Fluency reporting system, reports are being signed by the in house radiologist without review as a courtesy to ensure prompt reporting. The interpreting r adiologist is fully responsible for the content of the report.
== END 2020-11-09 06:14 | disposition home or self-care (01) ==
LOC: ER 04:09
DX: R10.9 Unspecified abdominal pain (principal); R60.9 Edema, unspecified; E10.9 Type 1 diabetes mellitus without complications; I50.9 Heart failure, unspecified; W18.30XA Fall on same level, unspecified, initial encounter; Y93.01 Activity, walking, marching and hiking; Y92.009 Unspecified place in unspecified non-institutional (private) residence as the place of occurrence of the external cause; Z88.0 Allergy status to penicillin; Z88.3 Allergy status to other anti-infective agents
CPT/HCPCS: 96365; 96361; 93005; 85025; 80048; 36415; 83735; 85610; 82947 ×2; 80076; 84484; 83880; 70450; 71250; 72125; 71045; 96375; 96372; 99284; J7030; G0390; J1815

== ENCOUNTER 2020-12-25 15:33 | Emergency (ER) | payer OTHER, BC ==
--- OUTSIDE RECORDS SUMMARY | 2020-12-25 15:37 | XMS REPORT | Continuity of Care Document ---
:1940 Author Organization [facility] t Address [address] [place] [address] Care Team Providers Name Role Phone Damien Valdes MD Primary Care Physician Denise RAGSDALE Attending Clinician Brendan JOSEPH Attending Clinician Unavailable Marty RAGSDALE, La Attending Clinician Son RAGSDALE Attending Clinician Don RN Attending Clinician Unavailable New JOSEPH Attending Clinician Unavailable Montez LYNNE, Miguelina Attending Clinician Arden LYNNE Attending Clinician Unavailable SON Admitting Clinician Unavailable MARTY Admitting Clinician Unavailable Payers Payer Name Policy Type Policy Effective Date Expiration Date Sour ce Number MEDICAREMEDICARE PART [id number] Alek sandoval A AND 00:00:00 Christian [id number] 2004 [place] [facility] [place] COMMERCIALBCBS [id number] [place] MEDICARE 1 00:00:00 Christian [id number] [facility] Condition Condition Condition Status Onset Resolution Last Treating Co mments Source Name Details Category Date Date Treatment Clinician Date 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 nt nt Added claudicati claudicati automatic on on ally from request for surgery [id number] CAD in CAD in Disease Active Ontiveros shoshone[place]bannock shoshone-bannock 2-15 Methodi artery artery 00:00: st 00 Acute on Acute on Disease Active [place] chronic chronic 1-08 Methodi congestive congestive 00:00: st heart heart 00 failure failure Allergies, Adverse Reactions, Alerts Allergy Allergy Status Severity Reaction(s) Onset Inactive Treating Comm ents Source Name Type Date Date Clinician Clinrebeca Propensi Active Swelling [place] ty to Methodi adverse st reaction s to drug Penicill Propensi Active Swelling [place] ins ty to Methodi adverse st reaction s to drug Family History Family Member Diagnosis Comments Start Date Stop Date Source Natural father Heart disease Weston Mcgee Social History Social Habit Start Date Stop Date Quantity Comments Source Tobacco use and 2020-10-18 2020-10-18 Never used Weston De La Garza ethodist exposure 00:00:00 00:00:00 Alcohol intake 2020-10-18 2020-10-18 Current drinker of Alek Mcgee 00:00:00 00:00:00 alcohol (finding) Alcohol Comment 2018-09-14 2018-09-14 very occasional Christopher rodriguez Christian 00:00:00 00:00:00 Sex Ass[birth year] At [birth year] Weston villalobosodist 00:00:00 00:00:00 Smoking Status Start Date Stop Date Source Never smoker Weston Zelayamagaly t Medications Ordered Filled Start Stop Current Ordering Indication Dosage Frequency Signature Comments Components Source Medication Medication Date Date Medication? Clinician (SIG) Name Name clopidogrel Yes 75mg QD Take 75 mg Ontiveros (PLAVIX) 75 2-11 by mouth Meth taina [...] 200 mg 2 TABS. (400 mg) tamsulosin Yes .4mg QD Take 0.4 Joce ston [...] 10meq Q.5D Take 10 Joce ston chloride 2- 02-02 mEq by Methodi (K-DUR) 10 08:22: 00:[address] MEQ CR 48 :00 (two) tablet times a day. metoprolol 2020- No 50mg Q.5D Take 50 mg Ontiveros tartrate 10-09 02-02 by mouth 2 Meth taina (LOPRESSOR) 08:22: 00:00 (two) st 50 mg 27 :00 times a tablet day. lisinopriL No 40mg QD Take 40 mg Ontiveros (PRINIVIL) 10-09 by mouth Meth taina 40 mg 08:22: 00:[address] tablet 10 :00 gabapentin 2020- No 300mg Q.[id number] Take 300 Ontiveros (NEURONTIN) 10-09 [id number] mg by Methodi 300 mg 08:21: 00:[address] capsule 12 :00 (three) times a day. FINASTERIDE 2020- No Take by Alek ashton ORAL 10-09 mouth. Methodi 08:20: 00:00 st 57 :00 silver 2018- Yes Wound of [place] sulfadiazin 1-21 left lower Me thodi e 16:30: extremity, st (SILVADENE) 00 initial 1 % cream encounter pentoxifyll Yes TAKE ONE Alek sandoval ine 7-11 (1) Methodi (TRENTal) 00:00: TABLET(S) st 400 mg CR 00 BY MOUTH tablet TWO TIMES A DAY WITH MEAL. Vital Signs Vital Name Observation Time Observation Value Comments Source Systolic blood 2020-10-18 09:58:00 156 mm[Hg] Berto n Christian pressure Diastolic blood 2020-10-18 09:58:00 74 mm[Hg] Mansoor murrell Christian pressure Heart rate 2020-10-18 09:58:00 89 /min [...] Sourc e POC GLUCOSE 2020-10-09 11:54:00 Franki Cline Meth odist CV VISION THERAPIST PROCEDURE 2020-10-09 10:34:41 Arnulfo Topete Christopher Mcgee POC GLUCOSE 2020-10-09 08:11:00 Franki Cline COVID-19 QUALITATIVE PCR 2020-10-08 13:27:00 Franki Cline HC COMPLETE BLD COUNT 2020-10-08 13:27:00 Franki Cline W/AUTO DIFF BASIC METABOLIC PANEL 2020-10-08 13:27:00 Franki Cline PROTHROMBIN TIME WITH 2020-10-08 13:27:00 Franki Cline INR TYPE AND SCREEN 2020-10-08 13:27:00 Franki Cline ESTIMATED GFR 2020-10-08 13:27:00 Franki Cline US DUPLEX ARTERIAL LOWER 2020-07-11 13:00:00 Thomas Ferguson EXTREMITY BILATERAL Ferguson-Hsi US ANKLE BRACHIAL INDEX 2020-07-11 13:00:00 Thomas Ferguson Ferguson-Hsi US CAROTID DUPLEX 2020-07-11 12:00:00 Thomas Ferguson Me thodist BILATERAL Ferguson-Hsi US ANKLE BRACHIAL INDEX 2020-02-01 11:40:00 Thomas Ferguson Ferguson-Hsi US DUPLEX ARTERIAL LOWER 2020-02-01 11:40:00 Thomas Ferguson EXTREMITY BILATERAL Ferguson-Hsi Plan of Care Planned Activity Planned Date Details Comments Source Future Scheduled 2021-04-07 INFLUENZA VACCINE Berto Mcgee Test 00:00:00 [code = INFLUENZA VACCINE] Future Scheduled 2020-11-06 COVID-19 VACCINE (2 - Ho jaime Christian Test 00:00:00 Pfizer 2-dose series) [code = COVID-19 VACCINE (2 - Pfizer 2-dose series)] Future Scheduled 1990 SHINGLES VACCINES (#1) Kang Mcgee Test 00:00:00 [code = SHINGLES VACCINES (#1)] Future Scheduled 1950 DIABETES: RETINAL EYE Ho jaime Zelayaist Test 00:00:00 EXAM [code = DIABETES: RETINAL EYE EXAM] Future Scheduled 1950 DIABETIC FOOT EXAM [place] Christian Test 00:00:00 [code = DIABETIC FOOT EXAM] Future Scheduled 1946 65+ PNEUMOCOCCAL Ontiveros Christian Test 00:00:00 VACCINE (1 of 2 - PPSV23) [code = 65+ PNEUMOCOCCAL VACCINE (1 of 2 - PPSV23)] Encounters Start End Encounter Admission Attending Care Care Encounter Source Date/Time Date/Time Type Type Clinicians Facility Department ID 2020-12-11 2020-12-11 Outpatient [facility] [id number] VARSHA Arredondo 00:00:00 00[facility]00:[facility] 2020-10-18 2020-10-18 [facility] [id number] [place] 00:00:00 00:00:00 THOMAS [address] 2020-10-09 2020-10-09 Outpatient [facility] [id number] [place] 00:00:00 00:00:00 FRANKI [address] 2020-10-08 2020-10-08 [facility] [id number] [place] 00:00:00 00:00:00 FRANKI [address] 2020-09-19 2020-09-19 [facility] [id number] VARSHA Arredondo 00:00:00 [facility]00:00 [facility] 2020-07-11 2020-07-11 Outpatient [facility] [id number] [place] 00:00:00 00:00:[address] 2020-07-11 2020-07-11 [facility] [id number] [place] 00:00:00 00:00:00 THOMAS [address] 2020-07-11 2020-07-11 Outpatient [facility] [id number] [place] 00:00:00 00:00:[address] 2020-02-01 2020-02-01 Outpatient [facility] [id number] [place] 00:00:00 00:00:[address] 2020-02-01 2020-02-01 [facility] [id number] [place] 00:00:00 00:00:00 THOMAS [address] 2019-11-03 2019-11-03 Outpatient [facility] [id number] [place] 00:00:00 00:00:[address] 2019-11-03 2019-11-03 Outpatient MARTY [facility] [id number] [place] 00:00:00 00:00:00 THOMAS [address] 2019-06-13 2019-06-13 [id number] [place] 00:00:00 00:00:00 THOMAS [address] 2019-06-06 2019-06-06 Outpatient SON[facility] [id number] [place] 00:00:00 00:00:00 FRANKI [address] Results Test Description Test Time Test Comments Results Result 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
--- NOTE | 2020-12-25 16:52 | RAD REPORT ---
EXAM DESCRIPTION: CT - CTHCSPWOC - 12/25/2020 4:31 pm CLINICAL HISTORY: Trauma, head and neck injury. PAIN COMPARISON: Head C Spine Mpr Wo Con dated 10/20/2020; Head C Spine Mpr Wo Con dated 11/17/2019 TECHNIQUE: Axial 5 mm thick images of the head were obtained. Axial 2 mm thick images of the cervical spine were obtained with sagittal and coronal reconstruction images generated and reviewed. All CT scans are performed using dose optimization technique as appropriate and may include automated exposure control or mA/KV adjustment according to patient size. FINDINGS: CT HEAD WITHOUT CONTRAST: There is a right-sided subdural hematoma present measuring 15 mm in maximum thickness.The hematoma aguilar s largely subacute and acute components.There is minimal right to left midline shift present. There i s a large right scalp hematoma posteriorly measuring 14 mm. Mild fluid is seen in the sphenoid sinus. The paranasal sinuses and mastoids are otherwise clear.Old right posterior fossa craniotomy. CT CERVICAL SPINE WITHOUT CONTRAST: No fracture or subluxation.Mild to moderate lower cervical degenerative changes.No prevertebral soft tissues swelling is identified. Carotid atherosclerosis. IMPRESSION: Right-sided acute and subacute subdural hematoma measuring 15 mm in maximum thickness is present.Minimal right to left midline shift is present. The findings were discussed with Dr. Moy in the ER On 12/25/2020 at 4:50 p.m. by telephone.
--- NOTE | 2020-12-25 16:55 | RAD REPORT ---
EXAM DESCRIPTION: RAD - Pelvis - 12/25/2020 4:29 pm CLINICAL HISTORY: fall Fall, trauma, hip pain COMPARISON: No comparisons FINDINGS: No evidence of acute fracture or dislocation.
--- NOTE | 2020-12-25 17:13 | EDPHYS ---
Physician Documentation [facility] Name: Wayne Jaimes Age: 80 yrs Sex: Male : 1940 Arrival Date: 12/25/2020 Time: 16:11 Bed 6 Private MD: ED Physician Gian Moy HPI: 12/25 16:15 This 80 yrs old Male presents to ER via EMS with complaints of Fall Injury. jmm 16:15 Details of fall: The patient fell from an upright position, while walking. Onset: The jmm symptoms/episode began/occurred acutely, just prior to arrival. Associated injuries: The patient sustained injury to the head. This is an 80 year old male with a history of CHF, DM that presents to the ED after a fall which occurred just prior to arrival. patient tripped on his shoe. Also complains of right hip pain. . Historical: - Allergies: 16:24 Erythromycin; jl7 16:24 PENICILLINS; jl7 - Home Meds: 16:24 clopidogrel Oral [Active]; furosemide 80 mg Oral tab once daily [Active]; Humulin 70/30 jl7 100 unit/mL (70-30) Sub-Q susp take 32 units in the morning and 18 units at night [Active]; lisinopril 20 mg Oral tab once daily [Active]; metoprolol tartrate 50 mg Oral tab 1 tab 2 times per day [Active]; triamcinolone acetonide 0.1 % Topical oint 2 times per day [Active]; clotrimazole-betamethasone 1-0.05 % Topical crea 2 times per day [Active]; - PMHx: 16:24 CHF; Diabetes - IDDM; neuropathy; jl7 - Social history:: Smoking status: unknown. - Immunization history: Last tetanus immunization: - up to date. < 5 years ago November 25, 2019. ROS: 16:15 Constitutional: Negative for fever, chills, and weight loss, Cardiovascular: Negative jmm for chest pain, palpitations, and edema, Respiratory: Negative for shortness of breath, cough, wheezing, and pleuritic chest pain. 16:15 MS/extremity: Positive for pain. 16:15 Neuro: Positive for headache. 16:15 All other systems are negative. Exam: 16:15 Constitutional: This is a well developed, well nourished patient who is awake, alert, jmm and in no acute distress. Head/Face: atraumatic. Eyes: EOMI, no conjunctival erythema appreciated ENT: Moist Mucus Membranes Neck: Trachea midline, Supple Chest/axilla: Normal chest wall appearance and motion. Cardiovascular: Regular rate and rhythm. No edema appreciated Respiratory: Normal respirations, no respiratory distress appreciated Abdomen/GI: Non distended, soft Back: Normal ROM Skin: General appearance color normal 16:15 Musculoskeletal/extremity: ROM: painful rom. 16:15 Skin: Appearance: Color: normal in color. 16:15 Neuro: Orientation: is normal, Mentation: is normal, Memory: is normal. 16:15 Psych: Behavior/mood is pleasant, cooperative. Vital Signs: 16:12 BP 133 / 84; Pulse 74; Resp 15; Temp 98; Pulse Ox 95% ; Weight 79.38 kg; Height 5 ft. 6 jl7 in. (167.64 cm); Pain 7/10; 16:45 BP 129 / 53; Pulse 73; Resp 17; Pulse Ox 96% ; jl7 17:15 BP 116 / 93; Pulse 74; Resp 16; Pulse Ox 95% ; jl7 17:30 BP 136 / 68; Pulse 72; Resp 15; Pulse Ox 95% ; jl7 18:00 BP 134 / 65; Pulse 73; Resp 15; Pulse Ox 95% ; jl7 16:12 Body Mass Index 28.25 (79.38 kg, 167.64 cm) jl7 Jennifer Coma Score: 16:12 Eye Response: spontaneous(4). Verbal Response: oriented(5). Motor Response: obeys jl7 commands(6). Total: 15. 16:45 Eye Response: spontaneous(4). Verbal Response: oriented(5). Motor Response: obeys jl7 commands(6). Total: 15. 17:30 Eye Response: spontaneous(4). Verbal Response: oriented(5). Motor Response: obeys jl7 commands(6). Total: 15. 18:00 Eye Response: spontaneous(4). Verbal Response: oriented(5). Motor Response: obeys jl7 commands(6). Total: 15. Trauma Score (Adult): 16:12 Eye Response: spontaneous(1); Verbal Response: oriented(1); Motor Response: obeys jl7 commands(2); Systolic BP: > 89 mm Hg(4); Respiratory Rate: 10 to 29 per min(4); Jennifer Score: 15; Trauma Score: 12 MDM: 16:15 Patient medically screened. [facility] 17:10 Data reviewed: vital signs, nurses notes. Counseling: I had a detailed discussion with [facility] the patient and/or guardian regarding: the historical points, exam findings, and any diagnostic results supporting the discharge/admit diagnosis, lab results, radiology results, the need to transfer to another facility. ED course: I discussed the patient with [facility] whom accepted the patient for transfer. . 12/25 16:47 Order name: CBC with Diff [facility] 12/25 16:47 Order name: CMP [facility] 12/25 16:47 Order name: PT-INR [facility] 12/25 16:48 Order name: Troponin (emerg Dept Use Only); Complete Time: 18:16 [facility] 12/25 16:48 Order name: Type And Screen; Complete Time: 18:31 [facility] 12/25 16:48 Order name: CBC with Automated Diff; Complete Time: 17:49 [facility] 12/25 16:18 Order name: Pelvis XRAY; Complete Time: 16:56 [facility] 12/25 16:18 Order name: CT Head C Spine; Complete Time: 16:55 [facility] 12/25 16:47 Order name: Saline Lock; Complete Time: 17:44 [facility] 12/25 16:48 Order name: Comprehensive Metabolic Panel; Complete Time: 18:16 [facility] 12/25 16:48 Order name: Protime (+INR); Complete Time: 18:04 EDAL Administered Medications: No medications were administered Disposition: 18:55 Co-signature as Attending Physician, Gian Moy MD. rn Disposition: 12/25/20 17:13 Transfer ordered to [facility]. Diagnosis is Right Subdural Hematoma. - Reason for transfer: Higher level of care. - Accepting physician is Chrystal. - Condition is Stable. - Problem is new. - Symptoms are unchanged. Signatures: Dispatcher [employer] EDMS Charlie Sanchez PA PA Gian Sheriff MD MD rn Leal, Jahala, RN RN jl7 Corrections: (The following items were deleted from the chart) 18:33 17:13 12/25/2020 17:13 Transfer ordered to [facility]. jl7 Diagnosis is Right Subdural Hematoma. Reason for transfer: Higher level of care. Accepting physician is Chrystal. Condition is Stable. Problem is new. Symptoms are unchanged. dodie
--- NOTE | 2020-12-25 17:13 | ER ---
Nurse's Notes [facility] Name: Wayne Jaimes Age: 80 yrs Sex: Male : 1940 Arrival Date: 12/25/2020 Time: 16:11 Bed 6 Private MD: Diagnosis: Right Subdural Hematoma Presentation: 12/25 16:12 Chief complaint: EMS states: Mechanical fall from standing, hit the right back side of jl7 the head, denies LOC, c/o right hip pain. Care prior to arrival: None. Mechanism of Injury: Fall from standing position. Trauma event details: Injury occurred in the [facility], Injury occurred: at home. Injury occurred: December 25, 2020 Injury occurred at: 15:30. 16:12 Acuity: ROSEMARY 2 jl7 16:12 Method Of Arrival: EMS: [facility] jl7 16:23 Coronavirus screen: Client denies travel out of the [place] in the last 14 days. At this jl7 time, the client does not indicate any symptoms associated with coronavirus-19. Ebola Screen: No symptoms or risks identified at this time. Initial Sepsis Screen: Does the patient meet any 2 criteria? No. Patient's initial sepsis screen is negative. Does the patient have a suspected source of infection? No. Patient's initial sepsis screen is negative. Risk Assessment: Do you want to hurt yourself or someone else? Patient reports no desire to harm self or others. Onset of symptoms was December 25, 2020 at 15:45. Trauma Activation: Physician: ED Physician; Name: Farzaneh; Notified At: 16:04; Arrived At: 16:04 Physician: General Surgeon; Name: ; Notified At: 16:04; Arrived At: Physician: Radiology; Name: Paco; Notified At: 16:04; Arrived At: Physician: Respiratory; Name: Lisa; Notified At: 16:04; Arrived At: Physician: Lab; Name: ; Notified At: 16:04; Arrived At: Historical: - Allergies: 16:24 Erythromycin; jl7 16:24 PENICILLINS; jl7 - Home Meds: 16:24 clopidogrel Oral [Active]; furosemide 80 mg Oral tab once daily [Active]; Humulin 70/30 jl7 100 unit/mL (70-30) Sub-Q susp take 32 units in the morning and 18 units at night [Active]; lisinopril 20 mg Oral tab once daily [Active]; metoprolol tartrate 50 mg Oral tab 1 tab 2 times per day [Active]; triamcinolone acetonide 0.1 % Topical oint 2 times per day [Active]; clotrimazole-betamethasone 1-0.05 % Topical crea 2 times per day [Active]; - PMHx: 16:24 CHF; Diabetes - IDDM; neuropathy; jl7 - Social history:: Smoking status: unknown. - Immunization history: Last tetanus immunization: - up to date. < 5 years ago November 25, 2019. Screenin:12 Abuse screen: Denies threats or abuse. Denies injuries from another. Tuberculosis jl7 screening: No symptoms or risk factors identified. 16:25 Nutritional screening: No deficits noted. Fall Risk IV access (20 points). Total Thrasher jl7 Fall Scale indicates No Risk (0-24 pts). Primary Survey: 16:12 NO uncontrolled hemorrhage observed. Breathing/Chest: Respiratory pattern: regular, jl7 Respiratory effort: spontaneous, unlabored, Chest inspection: symmetrical rise and fall of the chest. Circulation: Heart tones present. Pulses: palpable right radial artery and left radial artery. Skin color: pink, Skin temperature: warm. Disability Alert. Exposure/Environment: There is no evidence of uncontrolled external bleeding. A warming method has been applied: A warm blanket has been provided to the patient. 16:40 Reassessment Airway Airway Patent Breathing/Chest Respiratory pattern Regular jl7 Respiratory effort Spontaneous Unlabored Chest inspection Symmetrical Circulation Color [place] Temperature Warm Disability Alert. Secondary Survey: 16:15 HEENT: Head Other Hematoma noted to right posterior scalp. jl7 Assessment: 16:12 General: Appears in no apparent distress. uncomfortable, Behavior is calm, cooperative, jl7 appropriate for age. Pain: Complains of pain in right parietal area and right hip Pain currently is 7 out of 10 on a pain scale. Neuro: Level of Consciousness is awake, alert, obeys commands, Oriented to person, place, time, situation. Cardiovascular: Denies chest pain, Patient's skin is warm and dry. Respiratory: Airway is patent Respiratory effort is even, unlabored, Respiratory pattern is regular, symmetrical, Denies shortness of breath. Derm: Skin is pink, warm \T\ dry. Musculoskeletal: Tenderness present in right hip Pelvis is stable. 17:30 Reassessment: Patient appears in no apparent distress at this time. No changes from jl7 previously documented assessment. Patient and/or family updated on plan of care and expected duration. Pain level reassessed. Patient is alert, oriented x 3, equal unlabored respirations, skin warm/dry/pink. 18:15 Reassessment: [facility] at bedside to transfer pt. [facility] Vital Signs: 16:12 BP 133 / 84; Pulse 74; Resp 15; Temp 98; Pulse Ox 95% ; Weight 79.38 kg; Height 5 ft. 6 jl7 in. (167.64 cm); Pain 7/10; 16:45 BP 129 / 53; Pulse 73; Resp 17; Pulse Ox 96% ; jl7 17:15 BP 116 / 93; Pulse 74; Resp 16; Pulse Ox 95% ; jl7 17:30 BP 136 / 68; Pulse 72; Resp 15; Pulse Ox 95% ; jl7 18:00 BP 134 / 65; Pulse 73; Resp 15; Pulse Ox 95% ; jl7 16:12 Body Mass Index 28.25 (79.38 kg, 167.64 cm) jl7 [place] Coma Score: 16:12 Eye Response: spontaneous(4). Verbal Response: oriented(5). Motor Response: obeys jl7 commands(6). Total: 15. 16:45 Eye Response: spontaneous(4). Verbal Response: oriented(5). Motor Response: obeys jl7 commands(6). Total: 15. 17:30 Eye Response: spontaneous(4). Verbal Response: oriented(5). Motor Response: obeys jl7 commands(6). Total: 15. 18:00 Eye Response: spontaneous(4). Verbal Response: oriented(5). Motor Response: obeys jl7 commands(6). Total: 15. Trauma Score (Adult): 16:12 Eye Response: spontaneous(1); Verbal Response: oriented(1); Motor Response: obeys jl7 commands(2); Systolic BP: > 89 mm Hg(4); Respiratory Rate: 10 to 29 per min(4); Jennifer Score: 15; Trauma Score: 12 ED Course: 16:11 Patient arrived in ED. jl7 16:12 Patient has correct armband on for positive identification. Placed in gown. Bed in low jl7 position. Call light in reach. Side rails up X 1. 16:12 Patient maintains SpO2 saturation greater than 95% on room air. Thermoregulation: warm jl7 blanket given to patient. 16:13 Triage completed. jl7 16:15 Charlie Sanchez PA is PHCP. [facility] 16:15 Gian Moy MD is Attending Physician. jmm 16:24 Arm band placed on right wrist. jl7 16:25 compliance monitor on. Pulse ox on. NIBP on. Warm blanket given. jl7 16:29 Pelvis XRAY In Process Unspecified. EDMS 16:31 CT Head C Spine In Process Unspecified. EDMS 17:10 Leena Borden, GUERA is Primary Nurse. jl7 18:00 Initial lab(s) drawn, by ga, sent to lab. Inserted saline lock: 20 gauge in right jl7 wrist, using aseptic technique. Blood collected. 18:31 No provider procedures requiring assistance completed. Patient transferred, IV remains jl7 in place. intact, No redness/swelling at site. Administered Medications: No medications were administered Intake: 18:33 PO: 0ml; IV: 0ml; Tubes: 0ml (); Total: 0ml. jl7 Output: 18:33 Urine: 0ml; Gastric: 0ml; Stool: 0; EBL: 0ml; Drainage: 0ml; Other: 0; Total: 0ml. jl7 Outcome: 17:13 ER care complete, transfer ordered by . dodie 18:32 Transferred by ground EMS to [facility], Transfer form completed. X-rays sent jl7 w/ patient. 18:32 Condition: stable 18:32 Discharge instructions given to patient, Instructed on the need for transfer, Demonstrated understanding of instructions. 18:33 Patient's length of stay was not longer than 2 hours. jl7 18:33 Patient left the ED. jl7 Signatures: Dispatcher [employer] EDMS Charlie Sanchez PA PA jmm Leal, Jahala, RN RN jl
[2020-12-25 17:46] LABS: Absolute Lymphocytes (CBC) 1.1 K/uL (0.7-4.9); Basophils % 0.3 % (0-1.3); Hematocrit 38.2 % (39.6-49.0); Lymphocytes % 24.8 % (15.3-44.8); RBC Red Blood Cell Count 3.98 M/uL (4.33-5.43)
[2020-12-25 18:01] LABS: Protime INR 1.07
[2020-12-25 18:08] LABS: Albumin 2.7 g/dL (3.4-5.0); BUN Blood Urea Nitrogen 35 mg/dL (7-18); Bicarbonate 32 mmol/L (21-32); Potassium 4.5 mmol/L (3.5-5.1); Sodium Level 136 mmol/L (136-145)
[2020-12-25 18:10] LABS: Glucose Level 443 mg/dL (74-106)
[2020-12-25 18:14] LABS: ALT/SGPT 30 U/L (12-78); AST/SGOT 21 U/L (15-37); Alkaline Phosphatase 467 U/L (45-117); Bilirubin Total 0.7 mg/dL (0.2-1.0); Protein, Total 6.8 g/dL (6.4-8.2); Troponin (Emerg Dept Use Only) < 0.02 ng/mL (0.0-0.045)
[2020-12-25 18:39] VITALS: TEMP 98
[2020-12-25 18:41] VITALS: O2SAT 95
[2020-12-25 18:45] VITALS: BP 134/65
== END 2020-12-25 18:33 | disposition short-term general hospital (02) ==
LOC: ER 15:33
DX: S06.5X0A Traumatic subdural hemorrhage without loss of consciousness, initial encounter (principal); W01.0XXA Fall on same level from slipping, tripping and stumbling without subsequent striking against object, initial encounter; Y93.01 Activity, walking, marching and hiking; Y92.9 Unspecified place or not applicable; Z88.0 Allergy status to penicillin; Z88.3 Allergy status to other anti-infective agents; Z79.4 Long term (current) use of insulin; E11.9 Type 2 diabetes mellitus without complications; I50.9 Heart failure, unspecified
CPT/HCPCS: 36415; 70450; 72125; 72170; 80053; 84484; 85025; 85610; 86850; 86900; 86901; 99285

== ENCOUNTER 2021-01-02 04:03 | Emergency (ER) | payer OTHER, BC ==
--- OUTSIDE RECORDS SUMMARY | 2021-01-02 04:07 | XMS REPORT | Continuity of Care Document ---
:1940 Author Organization [facility] t Address 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 nt nt Added claudicati claudicati automatic on on ally from request for surgery [id number] CAD in CAD in Disease Active [place] 2-15 [facility] artery artery 00:00: st 00 [...] Comment 2018-09-14 2018-09-14 very occasional Christopher rodriguez Pentecostal 00:00:00 00:00:00 Sex Ass[birth year] At [birth year] [...] tablet 10 :00 gabapentin 2020- No 300mg [id number] Take 300 [facility] (NEURONTIN) 10-09 [id number] mg by [facility] 300 mg 08:21: 00:[address] capsule 12 :00 (three) times a day. FINASTERIDE 2020- No Take by Alek ashton ORAL 10-09 mouth. [facility] 08:20: 00:00 st 57 :00 silver 2018- Yes Wound of [place] sulfadiazin 1-21 left lower Me thodi e 16:30: extremity, st (SILVADENE) 00 initial 1 % cream encounter pentoxifyll Yes TAKE ONE Alek sandoval ine 7-11 (1) [facility] (TRENTal) 00:00: TABLET(S) st 400 mg CR 00 BY MOUTH tablet TWO TIMES A DAY WITH MEAL. Vital Signs Vital Name Observation Time Observation Value Comments Source Systolic blood 2020-10-18 09:58:00 156 mm[Hg] Berto n Pentecostal pressure Diastolic blood 2020-10-18 09:58:00 74 mm[Hg] Mansoor murrell Pentecostal pressure Heart rate 2020-10-18 09:58:00 89 /min Weston Mcgee Body temperature 2020-10-18 09:58:00 36.56 Kenyatta Christopher Mcege Body height 2020-10-18 09:58:00 167.6 cm Weston Mcgee Body weight 2020-10-18 09:58:00 77.474 kg W[place]on Mcgee BMI 2020-10-18 09:58:00 27.57 kg/m2 Weston Mcgee Oxygen saturation in 2020-10-18 09:58:00 97 /min Weston Mcgee Arterial blood by Pulse oximetry Respiratory rate 2020-10-09 17:45:00 18 /min Christopher Mcgee Procedures Procedure Date / Time Performed Performing Clinician Sourc e POC GLUCOSE 2020-10-09 11:54:00 Franki Cline 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 2020-10-09 10:34:41 Arnulfo Topete Christopher Mcgee [...] 2020-11-06 COVID-19 VACCINE (2 - Ho jaime Pentecostal Test 00:00:00 Pfizer 2-dose series) [code = COVID-19 VACCINE (2 - Pfizer 2-dose series)] Future Scheduled 1990 SHINGLES VACCINES (#1) Kang Mcgee Test 00:00:00 [code = SHINGLES VACCINES (#1)] Future Scheduled 1950 DIABETES: RETINAL EYE Ho jaime Zelayaist Test 00:00:00 EXAM [code = DIABETES: RETINAL EYE EXAM] Future Scheduled 1950 DIABETIC FOOT EXAM [place] [facility]al Test 00:00:00 [code = DIABETIC FOOT EXAM] Future Scheduled 1946 65+ PNEUMOCOCCAL Ontiveros Pentecostal Test 00:00:00 VACCINE (1 of 2 - PPSV23) [code = 65+ PNEUMOCOCCAL VACCINE (1 of 2 - PPSV23)] Encounters Start End Encounter Admission Attending Care Care Encounter Source Date/Time Date/Time Type Type Clinicians Facility Department ID 2020-12-11 2020-12-11 Outpatient [facility] [id number] VARSHA Arredondo 00:00:00 00[facility]00:[facility] 2020-10-18 2020-10-18 [id number] [place] 00:00:00 00:00:00 THOMAS [address] 2020-10-09 2020-10-09 [facility]patient [facility] [id number] [place] 00:00:00 00:00:00 FRANKI [address] 2020-10-08 2020-10-08 [facility] [id number] [place] 00:00:00 00:00:00 FRANKI [address] 2020-09-19 2020-09-19 Outpatient [facility] [id number] VARSHA Arredondo 00:00:00 [facility]00:00 [facility] 2020-07-11 2020-07-11 Outpatient [facility] [id number] [place] 00:00:00 00:00:[address] 2020-07-11 2020-07-11 [facility] [id number] [place] 00:00:00 00:00:00 THOMAS [address] 2020-07-11 2020-07-11 Outpatient [facility] [id number] [place] 00:00:00 00:00:[address] 2020-02-01 2020-02-01 Outpatient [facility] [id number] [place] 00:00:00 00:00:[address] 2020-02-01 2020-02-01 [facility] [id number] [place] 00:00:00 00:00:00 THOMAS [address] 2019-11-03 2019-11-03 Outpatient [facility] [id number] [place] 00:00:00 00:00:[address] 2019-11-03 2019-11-03 Outpatient MARTY [facility] [id number] [place] 00:00:00 00:00:00 THOMAS [address] 2019-06-13 2019-06-13 [id number] [place] 00:00:00 00:00:00 THOMAS [address] 2019-06-06 2019-06-06 Outpatient SON, [facility] [id number] [place] 00:00:00 00:00:00 FRANKI [address] Results Test Description Test Time Test Comments Results Result 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
[2021-01-02 04:34] LABS: Absolute Lymphocytes (CBC) 1.1 K/uL (0.7-4.9); Basophils % 1.7 % (0-1.3); Hematocrit 39.4 % (39.6-49.0); Lymphocytes % 16.2 % (15.3-44.8); MPV 7.2 fL (7.6-11.3); RBC Red Blood Cell Count 4.16 M/uL (4.33-5.43)
[2021-01-02] MEDS ORDERED: D50W 50 ML IV ONE (04:34)
[2021-01-02 04:39] LABS: Urine Blood 1+ (Negative); Urine Glucose Negative (Negative); Urine Protein 2+ (Negative); Urine pH 7.5 (5.0-7.0)
[2021-01-02 04:47] LABS: Protime INR 1.04
[2021-01-02 05:19] LABS: Potassium 3.9 mmol/L (3.5-5.1)
[2021-01-02 06:03] LABS: Urine Bacteria <20 /HPF (NONE SEEN); Urine RBC <5 /HPF (NONE SEEN); Urine Urothelial Cells <5 /HPF (NONE SEEN)
[2021-01-02] MEDS ORDERED: HYDROCORTISONE SUC 100 MG INJ ONE (06:53)
--- NOTE | 2021-01-02 07:00 | ER ---
Nurse's Notes [facility] Name: Wayne Jaimes Age: 80 yrs Sex: Male : 1940 Arrival Date: 01/02/2021 Time: 04:10 Bed 15 Private MD: Diagnosis: Hypoglycemia, unspecified;Abrasion of forearm;Abrasion of right elbow;Stable chronic subdural hematoma Presentation: 01/02 04:00 Chief complaint: EMS states: He was here last week for falling. They found a subdural jb4 hematoma and he was transferred. He was at home after recently being released from the hospital. He fell again tonight. His bgl upon arrival to the scene was 40. We gave oral glucagon. Upon arriving to the ED it was 43. His thinks he took too much insulin. 04:00 Method Of Arrival: EMS: [facility] jb4 04:00 Coronavirus screen: Client denies travel out of the [place] in the last 14 days. At this jb4 time, the client does not indicate any symptoms associated with coronavirus-19. Ebola Screen: No symptoms or risks identified at this time. Initial Sepsis Screen: Does the patient meet any 2 criteria? No. Patient's initial sepsis screen is negative. Does the patient have a suspected source of infection? No. Patient's initial sepsis screen is negative. Risk Assessment: Do you want to hurt yourself or someone else? Patient reports no desire to harm self or others. Onset of symptoms was January 02, 2021. Transition of care: patient was not received from another setting of care. 04:00 Acuity: ROSEMARY 2 jb4 Triage Assessment: 04:00 General: Appears in no apparent distress. uncomfortable, Behavior is calm, cooperative. jb4 Pain: Denies pain. EENT: No signs and/or symptoms were reported regarding the EENT system. Neuro: Level of Consciousness is awake, alert, obeys commands, Oriented to person, place, time, situation. Cardiovascular: Patient's skin is warm and dry. Respiratory: Airway is patent Respiratory effort is even, unlabored, Respiratory pattern is regular, symmetrical. GI: No signs and/or symptoms were reported involving the gastrointestinal system. : No signs and/or symptoms were reported regarding the genitourinary system. Derm: Skin is pink, warm \T\ dry. Musculoskeletal: Circulation, motion, and sensation intact. Range of motion: intact in all extremities. Injury Description: skin tears noted to the right forearm, right hand, and left elbow. Historical: - Allergies: 04:00 Erythromycin; jb4 04:00 PENICILLINS; jb4 - Home Meds: 04:00 clopidogrel Oral [Active]; clotrimazole-betamethasone 1-0.05 % Topical crea 2 times per jb4 day [Active]; furosemide 80 mg Oral tab once daily [Active]; Humulin 70/30 100 unit/mL (70-30) Sub-Q susp take 32 units in the morning and 18 units at night [Active]; ketoconazole 2 % Topical crea 2 times per day [Active]; lisinopril 20 mg Oral tab once daily [Active]; metoprolol tartrate 50 mg Oral tab 1 tab 2 times per day [Active]; mupirocin 2 % Topical oint [Active]; triamcinolone acetonide 0.1 % Topical oint 2 times per day [Active]; - PMHx: 04:00 CHF; Diabetes - IDDM; neuropathy; jb4 - Immunization history:: Adult Immunizations up to date. - Social history:: Smoking status: unknown. - Family history:: not pertinent. - Hospitalizations: : No recent hospitalization is reported. Screenin:00 Abuse screen: Denies threats or abuse. Nutritional screening: No deficits noted. jb4 Tuberculosis screening: No symptoms or risk factors identified. 04:00 Fall Risk Fall in past 12 months (25 points). IV access (20 points). Total Thrasher Fall jb4 Scale indicates High Risk Score (45 or more points). Fall prevention measures have been instituted. Side Rails Up X 2 Placed Close to Nursing Station Frequent Obs/Assessments Occuring As available patient and family educated on Fall Prevention Program and Strategies. Primary Survey: 04:00 NO uncontrolled hemorrhage observed. A: The patient is alert. Airway: patent, No jb4 supplemental oxygen in use on arrival. Oral cavity: clear, gag reflex present. Breathing/Chest: Respiratory pattern: regular, Respiratory effort: spontaneous, unlabored. Circulation: Skin color: pink, Skin temperature: warm, dry. Disability Alert. Exposure/Environment: All clothing and personal items were removed. Forensic evidence collection is not deemed to be indicated at this time. Items placed in patient belonging bag. A warming method has been applied: A warm blanket has been provided to the patient. 05:00 Reassessment Airway Airway Patent Oxygen No O2 Oral cavity Clear +Gag reflex jb4 Breathing/Chest Respiratory pattern Regular Respiratory effort Spontaneous Unlabored Chest inspection Symmetrical Circulation Color [place] Temperature Warm Dry Disability Alert. Assessment: 04:00 General: see triage note.. jb4 05:00 Reassessment: Patient appears in no apparent distress at this time. Patient and/or jb4 family updated on plan of care and expected duration. Pain level reassessed. Patient is alert, oriented x 3, equal unlabored respirations, skin warm/dry/pink. 07:17 Reassessment: Patient appears in no apparent distress at this time. Patient and/or tw2 family updated on plan of care and expected duration. Pain level reassessed. Patient is alert, oriented x 3, equal unlabored respirations, skin warm/dry/pink. 07:46 Reassessment: Patient appears in no apparent distress at this time. Patient and/or tw2 family updated on plan of care and expected duration. Pain level reassessed. Patient is alert, oriented x 3, equal unlabored respirations, skin warm/dry/pink. Vital Signs: 04:00 BP 150 / 97; Pulse 64; Resp 16; Temp 98.0; Pulse Ox 98% on R/A; Weight 90.72 kg (R); jb4 Height 5 ft. 8 in. (172.72 cm) (R); Pain 0/10; 05:15 BP 152 / 95; Pulse 70; Resp 16; Pulse Ox 99% on R/A; jb4 07:17 BP 157 / 94; Pulse 68; Resp 17; Pulse Ox 100% on R/A; tw2 04:00 Body Mass Index 30.41 (90.72 kg, 172.72 cm) jb4 Jennifer Coma Score: 04:00 Eye Response: spontaneous(4). Verbal Response: oriented(5). Motor Response: obeys jb4 commands(6). Total: 15. 05:00 Eye Response: spontaneous(4). Verbal Response: oriented(5). Motor Response: obeys jb4 commands(6). Total: 15. 06:00 Eye Response: spontaneous(4). Verbal Response: oriented(5). Motor Response: obeys jb4 commands(6). Total: 15. Trauma Score (Adult): 04:00 Eye Response: spontaneous(1); Verbal Response: oriented(1); Motor Response: obeys jb4 commands(2); Systolic BP: > 89 mm Hg(4); Respiratory Rate: 10 to 29 per min(4); Jennifer Score: 15; Trauma Score: 12 05:00 Eye Response: spontaneous(1); Verbal Response: oriented(1); Motor Response: obeys jb4 commands(2); Systolic BP: > 89 mm Hg(4); Respiratory Rate: 10 to 29 per min(4); Jennifer Score: 15; Trauma Score: 12 06:00 Eye Response: spontaneous(1); Verbal Response: oriented(1); Motor Response: obeys jb4 commands(2); Systolic BP: > 89 mm Hg(4); Respiratory Rate: 10 to 29 per min(4); [place] Score: 15; Trauma Score: 12 ED Course: 04:00 Arm band placed on left wrist. jb4 04:00 Patient has correct armband on for positive identification. Placed in gown. Bed in low jb4 position. Call light in reach. Side rails up X 1. warp dresser on. Pulse ox on. NIBP on. 04:00 Patient maintains SpO2 saturation greater than 95% on room air. Thermoregulation: warm jb4 blanket given to patient. 04:10 Patient arrived in ED. rn 04:13 Gian Moy MD is Attending Physician. rn 04:15 Initial lab(s) drawn, by ar, sent to lab. Inserted saline lock: 18 gauge in left jb4 antecubital area, using aseptic technique. Blood collected. 04:26 Michael Palma, RN is Primary Nurse. jb4 04:29 Triage completed. jb4 04:35 CT Head C Spine In Process Unspecified. EDMS 05:52 XRAY Pelvis In Process Unspecified. EDMS 05:52 XRAY Hip RIGHT 2 view In Process Unspecified. EDMS 05:52 XRAY Wrist RIGHT 3 view In Process Unspecified. EDMS 07:01 Primary Nurse role handed off by Michael Palma, RN bd 07:12 Lexi Carter, GUERA is Primary Nurse. tw2 07:13 Awaiting transportation. tw2 07:45 No provider procedures requiring assistance completed. IV discontinued, intact, tw2 bleeding controlled, No redness/swelling at site. Pressure dressing applied. Administered Medications: 04:20 Drug: D50W 50 ml Route: IVP; Site: left antecubital; jb4 05:00 Follow up: Response: No adverse reaction; Marked relief of symptoms; Blood sugar is jb4 elevated 06:38 Drug: HydroCORTISONE 50 mg Route: IVP; Site: left antecubital; rr5 Intake: 06:00 PO: 480ml (Juice); Total: 480ml. jb4 Output: 06:00 Urine: 800ml (Voided); Total: 800ml. jb4 Outcome: 06:59 Discharge ordered by . rn 07:45 Discharged to home via wheelchair, with significant other. tw2 07:45 Condition: stable 07:45 Discharge instructions given to patient, significant other, Instructed on discharge instructions, follow up and referral plans. Demonstrated understanding of instructions, follow-up care. 07:46 Patient left the ED. tw2 Signatures: Dispatcher [employer] EDMS Carmencita Castillo Roman, MD MD rn Wise, Tara, RN RN tw2 Michael Palma RN RN jb4 Nnamdi Frazier, RN RN rr5
--- NOTE | 2021-01-02 07:00 | EDPHYS ---
Physician Documentation [facility] Name: Wayne Jaimes Age: 80 yrs Sex: Male : 1940 Arrival Date: 01/02/2021 Time: 04:10 Bed 15 Private MD: ED Physician Gian Moy HPI: 01/02 04:27 This 80 yrs old Male presents to ER via Unassigned with complaints of fall, rn low blood sugar. 04:27 Details of fall: The patient fell from an upright position. Onset: The symptoms/episode rn began/occurred just prior to arrival. Associated injuries: The patient sustained arms, right hip. Severity of symptoms: At their worst the symptoms were moderate, in the emergency department the symptoms have improved. The patient has experienced similar episodes in the past. The patient has been recently seen by a physician:. Reports fall, thinks was in living room trying to go to bathroom, doesn't remember events, states fell asleep and felt ok. Reports nothing feels broken but both arms hurt and right hip hurts. + recurrent falls and episodes of hypoglycemia, was 40s for EMS, given glucagon. Seen here recently for fall and had subdural hematoma, transferred to [place]. States no intervention at that time. Doesn't think hit head tonight on fall. . Historical: - Allergies: 04:00 Erythromycin; jb4 04:00 PENICILLINS; jb4 - Home Meds: 04:00 clopidogrel Oral [Active]; clotrimazole-betamethasone 1-0.05 % Topical crea 2 times per jb4 day [Active]; furosemide 80 mg Oral tab once daily [Active]; Humulin 70/30 100 unit/mL (70-30) Sub-Q susp take 32 units in the morning and 18 units at night [Active]; ketoconazole 2 % Topical crea 2 times per day [Active]; lisinopril 20 mg Oral tab once daily [Active]; metoprolol tartrate 50 mg Oral tab 1 tab 2 times per day [Active]; mupirocin 2 % Topical oint [Active]; triamcinolone acetonide 0.1 % Topical oint 2 times per day [Active]; - PMHx: 04:00 CHF; Diabetes - IDDM; neuropathy; jb4 - Immunization history:: Adult Immunizations up to date. - Social history:: Smoking status: unknown. - Family history:: not pertinent. - Hospitalizations: : No recent hospitalization is reported. ROS: 04:27 Constitutional: Negative for fever, chills, and weight loss, Eyes: Negative for injury, rn pain, redness, and discharge, Neck: Negative for injury, pain, and swelling, Cardiovascular: Negative for chest pain, palpitations, and edema, Respiratory: Negative for shortness of breath, cough, wheezing, and pleuritic chest pain, Abdomen/GI: Negative for abdominal pain, nausea, vomiting, diarrhea, and constipation, Back: Negative for injury and pain, MS/Extremity: + abrasions to arms and pain to right hip Skin: + abrasions to arms Neuro: Negative for headache, numbness, tingling, and seizure. Exam: 04:31 Constitutional: This is a well developed, well nourished patient who is awake, alert, rn and in no acute distress. Head/Face: Normocephalic, small hematoma right occiput Eyes: Pupils equal round and reactive to light, extra-ocular motions intact. Neck: No midline tenderness Chest/axilla: Normal chest wall appearance and motion. Nontender with no deformity. No lesions are appreciated. Cardiovascular: Regular rate and rhythm. No pulse deficits. Respiratory: No increased work of breathing, no retractions or nasal flaring. Abdomen/GI: Soft, non-tender Back: No spinal tenderness. MS/ Extremity: Pulses equal, no cyanosis. Neurovascular intact. Full, normal range of motion. Equal circumference. + multiple skin tears and abrasions to bilateral arms, R>L, no lacerations. Mild tenderness right wrist and mild grimace with ROM right hip. Neuro: Awake and alert, GCS 15, oriented to person, place, time, and situation. Vital Signs: 04:00 BP 150 / 97; Pulse 64; Resp 16; Temp 98.0; Pulse Ox 98% on R/A; Weight 90.72 kg (R); jb4 Height 5 ft. 8 in. (172.72 cm) (R); Pain 0/10; 05:15 BP 152 / 95; Pulse 70; Resp 16; Pulse Ox 99% on R/A; jb4 07:17 BP 157 / 94; Pulse 68; Resp 17; Pulse Ox 100% on R/A; tw2 04:00 Body Mass Index 30.41 (90.72 kg, 172.72 cm) jb4 [place] Coma Score: 04:00 Eye Response: spontaneous(4). Verbal Response: oriented(5). Motor Response: obeys jb4 commands(6). Total: 15. 05:00 Eye Response: spontaneous(4). Verbal Response: oriented(5). Motor Response: obeys jb4 commands(6). Total: 15. 06:00 Eye Response: spontaneous(4). Verbal Response: oriented(5). Motor Response: obeys jb4 commands(6). Total: 15. Trauma Score (Adult): 04:00 Eye Response: spontaneous(1); Verbal Response: oriented(1); Motor Response: obeys jb4 commands(2); Systolic BP: > 89 mm Hg(4); Respiratory Rate: 10 to 29 per min(4); Jennifer Score: 15; Trauma Score: 12 05:00 Eye Response: spontaneous(1); Verbal Response: oriented(1); Motor Response: obeys jb4 commands(2); Systolic BP: > 89 mm Hg(4); Respiratory Rate: 10 to 29 per min(4); Jennifer Score: 15; Trauma Score: 12 06:00 Eye Response: spontaneous(1); Verbal Response: oriented(1); Motor Response: obeys jb4 commands(2); Systolic BP: > 89 mm Hg(4); Respiratory Rate: 10 to 29 per min(4); Jennifer Score: 15; Trauma Score: 12 MDM: 04:13 Patient medically screened. rn 05:08 Differential diagnosis: abrasion, closed head injury, contusion, fracture, sprain, rn strain. Data reviewed: vital signs, nurses notes, radiologic studies, CT scan. ED course: Stable appearing chronic/subacute subdural hematoma compared to last imaging and fall. . 05:31 ED course: NO gross changes in ECG, persistent RBBB and occasional PVC. rn 05:47 Counseling: I had a detailed discussion with the patient and/or guardian regarding: the rn historical points, exam findings, and any diagnostic results supporting the discharge/admit diagnosis, lab results, radiology results, the need for outpatient follow up, to return to the emergency department if symptoms worsen or persist or if there are any questions or concerns that arise at home. Response to treatment: the patient's symptoms have markedly improved after treatment. ED course: Pt improved after D50 and some oral glucose, will feed and recheck glucose. Neg plain films and stable subdural on CT head. Stable vitals, no oxygen requirement, + mild dehydration but on lasix for CHF and peripheral edema so likely always a little dry. No wounds that require sutures. Has been seen for multiple falls and hypoglycemic episodes. Pt states feels better, lives with and son. If glucose stabilizes and shows uptrend, will likely dc home with return precautions. . 06:59 ED course: Glucose 138, stable, will dc home in care of family. Explained all results rn to patient. . 01/02 04:12 Order name: CBC with Diff rn 01/02 04:12 Order name: Basic Metabolic Panel rn 01/02 04:12 Order name: Protime (+inr) rn 01/02 04:12 Order name: Ptt, Activated rn 01/02 04:12 Order name: Urine Microscopic Only rn 01/02 04:13 Order name: CBC with Automated Diff; Complete Time: 05:09 EDMS 01/02 04:13 Order name: Basic Metabolic Panel; Complete Time: 05:28 EDMS 01/02 04:13 Order name: Protime (+INR); Complete Time: 05:09 EDMS 01/02 04:13 Order name: PTT, Activated Partial Thromb; Complete Time: 05:09 EDMS 01/02 04:13 Order name: Urine Microscopic Only EDMO 01/02 04:14 Order name: BNP; Complete Time: 05:28 rn 01/02 04:20 Order name: Glucose, Ancillary Testing; Complete Time: 04:38 EDMS 01/02 04:39 Order name: Urine Dipstick-Ancillary; Complete Time: 05:09 EDMS 01/02 05:09 Order name: Glucose, Ancillary Testing; Complete Time: 05:18 EDMS 01/02 04:12 Order name: CT Head C Spine rn 01/02 04:12 Order name: IV Start; Complete Time: 04:32 rn 01/02 04:12 Order name: Urine Dipstick-Ancillary (obtain specimen); Complete Time: 05:29 rn 01/02 04:12 Order name: Glucose Level; Complete Time: 04:32 rn 01/02 04:12 Order name: EKG; Complete Time: 04:13 rn 01/02 04:12 Order name: EKG - Nurse/Tech; Complete Time: 05:29 rn 01/02 04:13 Order name: XRAY Pelvis rn 01/02 04:13 Order name: XRAY Hip RIGHT 2 view rn 01/02 04:31 Order name: XRAY Wrist RIGHT 3 view rn 01/02 06:41 Order name: Glucose, Ancillary Testing EDMS 01/02 07:07 Order name: Glucose, Ancillary Testing EDMS Administered Medications: 04:20 Drug: D50W 50 ml Route: IVP; Site: left antecubital; jb4 05:00 Follow up: Response: No adverse reaction; Marked relief of symptoms; Blood sugar is jb4 elevated 06:38 Drug: HydroCORTISONE 50 mg Route: IVP; Site: left antecubital; rr5 Disposition: 01/02/21 06:59 Discharged to Home. Impression: Hypoglycemia, unspecified, Abrasion of forearm, Abrasion of right elbow, Stable chronic subdural hematoma. - Condition is Stable. - Discharge Instructions: Abrasion, Hypoglycemia, Skin Tear Care, Blood Glucose Monitoring, Adult. - Medication Reconciliation Form, Thank You Letter, Antibiotic Education, Prescription Opioid Use form. - Follow up: Private Physician; When: 2 - 3 days; Reason: Recheck today's complaints, Re-evaluation by your physician. - Problem is new. - Symptoms have improved. Signatures: Dispatcher [employer] EDMS Gian Moy MD MD rn Wise, Tara RN RN tw2 Michael Palma RN RN jb4 Nnamdi Frazier RN RN rr5 Corrections: (The following items were deleted from the chart) 07:46 06:59 01/02/2021 06:59 Discharged to Home. Impression: Hypoglycemia, unspecified; tw2 Abrasion of forearm; Abrasion of right elbow; Stable chronic subdural hematoma. Condition is Stable. Discharge Instructions: Abrasion, Hypoglycemia, Skin Tear Care, Blood Glucose Monitoring, Adult. Forms are Medication Reconciliation Form, Thank You Letter, Antibiotic Education, Prescription Opioid Use. Follow up: Private Physician; When: 2 - 3 days; Reason: Recheck today's complaints, Re-evaluation by your physician. Problem is new. Symptoms have improved. rn
[2021-01-02 07:52] VITALS: BP 157/94; O2SAT 100
--- NOTE | 2021-01-02 11:09 | RAD REPORT ---
EXAM DESCRIPTION: RAD - Hip Right 2 View - 01/02/2021 5:08 am COMPARISON: None. CLINICAL HISTORY: [facility] MAIN BLUNT TRAUMA FINDINGS: 2 views of the right hip and one view of the pelvis demonstrate no acute fracture or dislo cation. Lumbar spondylosis is present. Bilateral femoral stents and surgical changes are noted. IMPRESSION: No acute findings of the right hip and pelvis. Electronically signed by: Tevin Rico MD 01/02/2021 5:09 AM CDT Due to temporary technical issues with the PACS/Fluency reporting system, reports are being signed by the in house radiologist without review as a courtesy to ensure prompt reporting. The interpreting r adiologist is fully responsible for the content of the report.
--- NOTE | 2021-01-02 11:15 | RAD REPORT ---
EXAM DESCRIPTION: RAD - Pelvis - 01/02/2021 5:02 am COMPARISON: None. CLINICAL HISTORY: [facility] MAIN BLUNT TRAUMA FINDINGS: 2 views of the right hip and one view of the pelvis demonstrate no acute fracture or dislo cation. Lumbar spondylosis is present. Bilateral femoral stents and surgical changes are noted. IMPRESSION: No acute findings of the right hip and pelvis. Electronically signed by: Tevin Rico MD 01/02/2021 5:09 AM CDT Due to temporary technical issues with the PACS/Fluency reporting system, reports are being signed by the in house radiologist without review as a courtesy to ensure prompt reporting. The interpreting r adiologist is fully responsible for the content of the report.
--- NOTE | 2021-01-02 11:17 | RAD REPORT ---
EXAM DESCRIPTION: CT - Head C Spine Mpr Wo Con - 01/02/2021 6:22 am CLINICAL HISTORY: Fall, recent subdural hematoma COMPARISON: 12/25/2020 TECHNIQUE: Axial CT of the head obtained from the skull apex to the skull base without contrast. Axi al CT images of the cervical spine obtained from the skull base through the thoracic inlet. Sagittal and coronal reformatted images available. This exam was performed according to our departmental dose- optimization program, which includes automated exposure control, adjustment of the mA and/or kV accor ding to patient size and/or use of iterative reconstruction technique. FINDINGS: CT head: Redemonstrated is extensive density right lateral convexity extra-axial fluid collection measuring 1. 5 cm in greatest width with local mass effect and 2 mm right to left midline shift. Mild left ventric ular system and sulcal spaces compatible cerebral atrophy. Scattered areas of hypodensity in the supr atentorial white matter are nonspecific and may represent sequela of chronic small vessel ischemic ch edil. The visualized paranasal sinuses and the mastoids are clear. No skull fracture identified. Stable r ight posterior fossa craniotomy. Visualized orbits and globes are unremarkable. Right scalp hematoma. Cervical CT: Alignment of the cervical spine is maintained without evidence of subluxation. The atlantoaxial, at lantodental, and occipitoatlantal intervals are preserved. No acute fracture. Prevertebral soft t issues are unremarkable. [id number] multilevel loss of intervertebral disc height and intervertebral burning and facet a rthropathy. Spurring of the atlantodental articulation. Visualized skull base is intact. Right posterior fossa craniotomy. No fracture of the visualized faci al bones. Visualized mastoid air cells and paranasal sinuses are well aerated. Visualized thyroid is unremarkable. No cervical lymphadenopathy. No pneumothorax in the visualized lung apices. Carotid artery atherosclerosis. IMPRESSION: 1. Stable appearance of acute/subacute on chronic right lateral convexity subdural hemat bonnie measuring 1.5 cm in greatest width with local mass effect and minimal right to left midline shift . 2. No acute cervical spine fracture. 3. Multilevel degenerative change of the cervical spine. Electronically signed by: Lew Davison 01/02/2021 4:49 AM CDT Due to temporary technical issues with the PACS/Fluency reporting system, reports are being signed by the in house radiologist without review as a courtesy to ensure prompt reporting. The interpreting r adiologist is fully responsible for the content of the report.
--- NOTE | 2021-01-02 11:18 | RAD REPORT ---
EXAM DESCRIPTION: RAD - Wrist Right 3 View - 01/02/2021 5:11 am CLINICAL HISTORY: PAIN TECHNIQUE: Frontal, lateral and oblique views of the right wrist. COMPARISON: No relevant prior studies available. FINDINGS: Bones/joints: There is mild to moderate sclerosis and narrowing of the STT and 1st carpo metacarpal joints. No acute fracture. No dislocation. Soft tissues: No abnormality noted. No radiopaque foreign body. Vasculature: There is atherosclerotic calcification. IMPRESSION: Chronic changes as above. No acute disease. Electronically signed by: Carmencita Redmond MD 01/02/2021 5:25 AM CDT Due to temporary technical issues with the PACS/Fluency reporting system, reports are being signed by the in house radiologist without review as a courtesy to ensure prompt reporting. The interpreting r adiologist is fully responsible for the content of the report.
== END 2021-01-02 07:46 | disposition home or self-care (01) ==
LOC: ER 04:03
DX: E11.649 Type 2 diabetes mellitus with hypoglycemia without coma (principal); S50.812A Abrasion of left forearm, initial encounter; S50.811A Abrasion of right forearm, initial encounter; S50.312A Abrasion of left elbow, initial encounter; S50.311A Abrasion of right elbow, initial encounter; I62.03 Nontraumatic chronic subdural hemorrhage; I50.9 Heart failure, unspecified; W18.39XA Other fall on same level, initial encounter; Y93.89 Activity, other specified; Y92.008 Other place in unspecified non-institutional (private) residence as the place of occurrence of the external cause; Z88.0 Allergy status to penicillin; Z88.3 Allergy status to other anti-infective agents; Z79.4 Long term (current) use of insulin
CPT/HCPCS: 93005; 85025; 80048; 36415; 85610; 82947 ×4; 85730; 83880; 70450; 72125; 72170; 73502; 73110; 96375; 96374; 99285; J1720; 81003; 81015

== ENCOUNTER 2021-01-06 23:08 | Inpatient (IN) | payer OTHER, BC ==
--- OUTSIDE RECORDS SUMMARY | 2021-01-06 23:12 | XMS REPORT | Continuity of Care Document ---
:1940 Author Organization [facility] t Address 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 nt nt Added claudicati claudicati automatic on on ally from request for surgery [id number] CAD in CAD in Disease Active Ontiveros kletsel dehe wintun kletsel dehe wintun 2-15 [facility] artery artery 00:00: st 00 [...] Comment 2018-09-14 2018-09-14 very occasional Christopher rodriguez Rastafari 00:00:00 00:00:00 Sex Ass[birth year] At [birth year] [...] tablet 10 :00 gabapentin 2020- No 300mg [id number] Take 300 Ontiveros (NEURONTIN) 10-09 [id number] mg by [facility] 300 mg 08:21: 00:[address] capsule 12 :00 (three) times a day. FINASTERIDE 2020- No Take by Alek ashton ORAL 10-09 mouth. [facility] 08:20: 00:00 st 57 :00 silver 2018- Yes Wound of [place] sulfadiazin 1-21 left lower Me thodi e 16:30: extremity, st (SILVADENE) 00 initial 1 % cream encounter pentoxifyll Yes TAKE ONE Alek sandoval ine 7-11 (1) [facility] (TRENTal) 00:00: TABLET(S) st 400 mg CR 00 BY MOUTH tablet TWO TIMES A DAY WITH MEAL. 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 PROCEDURE 2020-10-09 10:34:41 Arnulfo Topete Christopher Mcgee [...] 2020-11-06 COVID-19 VACCINE (2 - Ho jaime Rastafari Test 00:00:00 Pfizer 2-dose series) [code = COVID-19 VACCINE (2 - Pfizer 2-dose series)] Future Scheduled 1990 SHINGLES VACCINES (#1) Kang Mcgee Test 00:00:00 [code = SHINGLES VACCINES (#1)] Future Scheduled 1950 DIABETES: RETINAL EYE Ho jaime Zelayaist Test 00:00:00 EXAM [code = DIABETES: RETINAL EYE EXAM] Future Scheduled 1950 DIABETIC FOOT EXAM [place] Rastafari Test 00:00:00 [code = DIABETIC FOOT EXAM] Future Scheduled 1946 65+ PNEUMOCOCCAL Ontiveros Rastafari Test 00:00:00 VACCINE (1 of 2 - PPSV23) [code = 65+ PNEUMOCOCCAL VACCINE (1 of 2 - PPSV23)] Encounters Start End Encounter Admission Attending Care Care Encounter Source Date/Time Date/Time Type Type Clinicians Facility Department ID 2020-12-11 2020-12-11 Outpatient [facility] [id number] VARSHA Arredondo 00:00:00 00[facility]00[facility] 2020-10-18 2020-10-18 [id number] [place] 00:00:00 00:00:00 THOMAS [address] 2020-10-09 2020-10-09 Outpatient [facility] [id number] [place] 00:00:00 00:00:00 FRANKI [address] 2020-10-08 2020-10-08 [facility] [id number] [place] 00:00:00 00:00:00 FRANKI [address] 2020-09-19 2020-09-19 [facility] [id number] VARSHA Arredondo 00:00:00 [facility]00:00 [facility] 2020-07-11 2020-07-11 Outpatient [facility] [id number] [place] 00:00:00 00:00:[address] 2020-07-11 2020-07-11 [facility] [id number] 210 [place] 00:00:00 00:00:00 THOMAS [address] 2020-07-11 2020-07-11 Outpatient [facility] [id number] 210 [place] 00:00:00 00:00:[address] 2020-02-01 2020-02-01 Outpatient [facility] [id number] [place] 00:00:00 00:00:[address] 2020-02-01 2020-02-01 [facility] [id number] [place] 00:00:00 00:00:00 THOMAS [address] 2019-11-03 2019-11-03 Outpatient [facility] [id number] [place] 00:00:00 00:00:[address] 2019-11-03 2019-11-03 Outpatient MARTY [facility] [id number] [place] 00:00:00 00:00:00 THOMAS [address] 2019-06-13 2019-06-13 [id number] [place] 00:00:00 00:00:00 THOMAS [address] 2019-06-06 2019-06-06 Outpatient S[facility], [facility] [id number] [place] 00:00:00 00:00:00 FRANKI [address] Results Test Description Test Time Test Comments Results Result Sour e Comments 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
[2021-01-06] MEDS ORDERED: D50W 25 GM/50 ML SYRINGE IV ONE (23:57)
[2021-01-07 00:49] LABS: Urine Blood 1+ (Negative); Urine Glucose Trace (Negative); Urine Protein 2+ (Negative); Urine pH 6.5 (5.0-7.0)
[2021-01-07 00:59] LABS: Absolute Lymphocytes (CBC) 0.6 K/uL (0.7-4.9); Basophils % 0.9 % (0-1.3); Hematocrit 36.8 % (39.6-49.0); Lymphocytes % 8.7 % (15.3-44.8); MPV 7.1 fL (7.6-11.3); Protime INR 1.12; RBC Red Blood Cell Count 3.87 M/uL (4.33-5.43)
[2021-01-07 01:12] LABS: ALT/SGPT 26 U/L (12-78); AST/SGOT 30 U/L (15-37); Albumin 2.5 g/dL (3.4-5.0); Alkaline Phosphatase 385 U/L (45-117); BUN Blood Urea Nitrogen 23 mg/dL (7-18); Bicarbonate 28 mmol/L (21-32); Bilirubin Direct 0.4 mg/dL (0-0.2); Bilirubin Total 0.9 mg/dL (0.2-1.0); Glucose Level 97 mg/dL (74-106); NT PRO-BNP 3476 pg/mL (<450); Potassium 3.7 mmol/L (3.5-5.1); Protein, Total 6.7 g/dL (6.4-8.2); Sodium Level 141 mmol/L (136-145); Troponin (Emerg Dept Use Only) < 0.02 ng/mL (0.0-0.045)
--- NOTE | 2021-01-07 03:37 | EDPHYS ---
Physician Documentation [facility] Name: Wyane Jaimes Age: 80 yrs Sex: Male : 1940 Arrival Date: 01/06/2021 Time: 23:22 Bed 20 Private MD: ED Physician Steve Joe HPI: 01/07 01:10 This 80 yrs old Male presents to ER via EMS with complaints of Hypoglycemia. mh7 01:10 The patient or guardian reports hypoglycemia, that was potentially precipitated by mh7 adjusting medication dose, not eating as much, with the patient's symptoms witnessed by family, Treatment prior to arrival includes: EMS D 10. Onset: The symptoms/episode began/occurred just prior to arrival, today. Associated signs and symptoms: Pertinent negatives: anorexia, constipation, decreased urine output, diaphoresis, diarrhea, dry skin, hair loss, ketones in urine, nausea, polydipsia, polyphagia, polyuria, seizure activity, skin flushing, urinary incontinence, vomiting. Current symptoms: In the emergency department the patient's symptoms have resolved, the patient is alert and fully oriented, has normal speech, has normal responsiveness, has no confusion. Historical: - Allergies: 00:16 Erythromycin; lp1 00:16 PENICILLINS; lp1 - Home Meds: 00:16 clopidogrel Oral [Active]; clotrimazole-betamethasone 1-0.05 % Topical crea 2 times per lp1 day [Active]; furosemide 80 mg Oral tab once daily [Active]; Humulin 70/30 100 unit/mL (70-30) Sub-Q susp take 32 units in the morning and 18 units at night [Active]; ketoconazole 2 % Topical crea 2 times per day [Active]; lisinopril 20 mg Oral tab once daily [Active]; metoprolol tartrate 50 mg Oral tab 1 tab 2 times per day [Active]; mupirocin 2 % Topical oint [Active]; triamcinolone acetonide 0.1 % Topical oint 2 times per day [Active]; - PMHx: 00:16 CHF; Diabetes - IDDM; neuropathy; lp1 - PSHx: 00:16 Heart stents; lp1 - Immunization history:: Adult Immunizations up to date. - Social history:: Smoking status: Patient denies any tobacco usage or history of. ROS: 01:10 Constitutional: Negative for fever, chills, and weight loss, Eyes: Negative for injury, mh7 pain, redness, and discharge, ENT: Negative for injury, pain, and discharge, Neck: Negative for injury, pain, and swelling, Cardiovascular: Negative for chest pain, palpitations, and edema, Respiratory: Negative for shortness of breath, cough, wheezing, and pleuritic chest pain, Abdomen/GI: Negative for abdominal pain, nausea, vomiting, diarrhea, and constipation, Back: Negative for injury and pain, : Negative for injury, bleeding, discharge, and swelling, MS/Extremity: Negative for injury and deformity, Skin: Negative for injury, rash, and discoloration, Neuro: Negative for headache, weakness, numbness, tingling, and seizure, Psych: Negative for depression, anxiety, suicide ideation, homicidal ideation, and hallucinations, Allergy/Immunology: Negative for hives, rash, and allergies, Endocrine: Negative for neck swelling, polydipsia, polyuria, polyphagia, and marked weight changes, Hematologic/Lymphatic: Negative for swollen nodes, abnormal bleeding, and unusual bruising. Exam: 01:13 Constitutional: This is a well developed, well nourished patient who is awake, alert, mh7 and in no acute distress. Head/Face: Normocephalic, atraumatic. Eyes: Pupils equal round and reactive to light, extra-ocular motions intact. Lids and lashes normal. Conjunctiva and sclera are non-icteric and not injected. Cornea within normal limits. Periorbital areas with no swelling, redness, or edema. Neck: Trachea midline, no thyromegaly or masses palpated, and no cervical lymphadenopathy. Supple, full range of motion without nuchal rigidity, or vertebral point tenderness. No Meningismus. Chest/axilla: Normal chest wall appearance and motion. Nontender with no deformity. No lesions are appreciated. Cardiovascular: Regular rate and rhythm with a normal S1 and S2. No gallops, murmurs, or rubs. Normal PMI, no JVD. No pulse deficits. Respiratory: Lungs have equal breath sounds bilaterally, clear to auscultation and percussion. No rales, rhonchi or wheezes noted. No increased work of breathing, no retractions or nasal flaring. Abdomen/GI: Soft, non-tender, with normal bowel sounds. No distension or tympany. No guarding or rebound. No evidence of tenderness throughout. Back: No spinal tenderness. No costovertebral tenderness. Full range of motion. Skin: Warm, dry with normal turgor. Normal color with no rashes, no lesions, and no evidence of cellulitis. MS/ Extremity: Pulses equal, no cyanosis. Neurovascular intact. Full, normal range of motion. Neuro: Awake and alert, GCS 15, oriented to person, place, time, and situation. Cranial nerves II-XII grossly intact. Motor strength 5/5 in all extremities. Sensory grossly intact. Cerebellar exam normal. Normal gait. Psych: Awake, alert, with orientation to person, place and time. Behavior, mood, and affect are within normal limits. Vital Signs: 01/06 23:30 BP 169 / 83; Pulse 90; Resp 20; Temp 98.1(O); Pulse Ox 94% on R/A; Weight 77.11 kg (R); lp1 Height 5 ft. 6 in. (167.64 cm); Pain 8/10; 01/07 00:00 BP 143 / 68; Pulse 88; Resp 20; Pulse Ox 94% on R/A; lp1 01:00 BP 136 / 61; Pulse 82; Resp 20; Pulse Ox 96% on R/A; lp1 02:00 BP 138 / 75; Pulse 80; Resp 18; Pulse Ox 99% on R/A; lp1 03:00 BP 143 / 75; Pulse 77; Resp 20; Pulse Ox 96% on R/A; lp1 04:00 BP 144 / 71; Pulse 79; Resp 20; Pulse Ox 97% on R/A; lp1 01/06 23:30 Body Mass Index 27.44 (77.11 kg, 167.64 cm) lp1 MDM: 03:35 Differential diagnosis: DKA, hypoglycemic episode. Data reviewed: vital signs, nurses [facility] notes, old medical records, lab test result(s), cardiac enzymes, CBC, electrolytes, urinalysis, EKG, radiologic studies, plain films. Data interpreted: Pulse oximetry: on room air is 96 %. Interpretation: normal. Counseling: I had a detailed discussion with the patient and/or guardian regarding: the historical points, exam findings, and any diagnostic results supporting the discharge/admit diagnosis, the presence of at least one elevated blood pressure reading (>120/80) during this emergency department visit, lab results, radiology results, the need for further work-up and treatment in the hospital. Response to treatment: the patient's symptoms have markedly improved after treatment. 03:37 Patient medically screened. [facility] 01/07 00:20 Order name: Glucose, Ancillary Testing; Complete Time: 02:33 [facility] 01/07 00:22 Order name: Glucose, Ancillary Testing [facility] 01/07 00:34 Order name: Basic Metabolic Panel; Complete Time: 02:33 [facility] 01/07 00:34 Order name: CBC with Diff; Complete Time: 02:33 [facility] 01/07 00:34 Order name: LFT's; Complete Time: 02:33 [facility] 01/07 00:34 Order name: Magnesium; Complete Time: 02:33 [facility] 01/07 00:34 Order name: NT PRO-BNP; Complete Time: 01:56 [facility] 01/07 00:34 Order name: PT-INR; Complete Time: 02:33 [facility] 01/07 00:34 Order name: Troponin (emerg Dept Use Only); Complete Time: 02:33 [facility] 01/07 00:49 Order name: Urine Dipstick-Ancillary; Complete Time: 02:33 [facility] 01/07 00:49 Order name: Urine Dipstick-Ancillary [facility] 01/07 02:14 Order name: Glucose, Ancillary Testing; Complete Time: 02:33 [facility] 01/07 03:20 Order name: Glucose, Ancillary Testing; Complete Time: 03:35 [facility] 01/07 05:33 Order name: Glucose, Ancillary Testing [facility] 01/07 00:34 Order name: XRAY Chest (1 view) [facility] 01/07 00:34 Order name: EKG; Complete Time: 00:36 [facility] 01/07 00:34 Order name: Cardiac monitoring; Complete Time: 00:51 [facility] 01/07 00:34 Order name: EKG - Nurse/Tech; Complete Time: 00:51 [facility] 01/07 00:34 Order name: IV Saline Lock; Complete Time: 00:51 [facility] 01/07 05:42 Order name: COVID-19 : Document "Date of Symptom Onset" if Symptomatic. lp1 01/07 05:52 Order name: CORONAVIRUS [facility] 01/07 06:57 Order name: SARS-COV-2 RT PCR [facility] 01/07 08:22 Order name: CT [facility] 01/07 09:17 Order name: Hemoglobin A1c [facility] 01/07 09:43 Order name: Comprehensive Metabolic Panel [facility] 01/07 11:56 Order name: Glucose, Ancillary Testing [facility] 01/07 13:52 Order name: Glucose, Ancillary Testing [facility] 01/07 16:18 Order name: Glucose, Ancillary Testing [facility] 01/07 18:36 Order name: Glucose, Ancillary Testing [facility] 01/07 00:34 Order name: Labs collected and sent; Complete Time: 00:51 mh7 01/07 00:34 Order name: O2 Per Protocol; Complete Time: 00:51 7 01/07 00:34 Order name: O2 Sat Monitoring; Complete Time: 00:51 7 01/07 00:35 Order name: Urine Dipstick-Ancillary (obtain specimen); Complete Time: 00:51 mh7 Administered Medications: 01/06 23:40 Drug: [id number] 50 ml Route: IVP; Site: left antecubital; 1 01/07 00:52 Follow up: Response: Blood sugar is elevated lp1 Disposition: 01/07/21 03:37 Hospitalization ordered by Nnamdi Moy for Observation. Preliminary diagnosis is Hypoglycemia, unspecified. - Bed requested for Telemetry/MedSurg (observation). - Status is Observation. vg1 - Condition is Stable. - Problem is new. - Symptoms have improved. Signatures: Dispatcher [employer] [facility] Carmencita Castillo Kayla Faith RN RN lp1 Parish Banuelos, THERAPEUTIC ACTIVITIES SERVICES WORKER-C THERAPEUTIC ACTIVITIES SERVICES WORKER-[facility] Nikia Murrlel, GUERA LYNNE cg Maria M Murrell RN RN vg1 Steve Joe MD MD 7 Corrections: (The following items were deleted from the chart) 03:56 03:37 Hospitalization Ordered by Nnamdi Moy MD for Observation. Preliminary cg diagnosis is Hypoglycemia, unspecified. Bed requested for Telemetry/MedSurg (observation). Status is Observation. Condition is Stable. Problem is new. Symptoms have improved. 7 18:39 03:56 01/07/2021 03:37 Hospitalization Ordered by Nnamdi Moy MD for Observation. bd Preliminary diagnosis is Hypoglycemia, unspecified. Bed requested for [facility] ER HOLD. Status is Observation. Condition is Stable. Problem is new. Symptoms have improved. cg 20:20 18:39 01/07/2021 03:37 Hospitalization Ordered by Nnamdi Moy MD for Observation. vg1 Preliminary diagnosis is Hypoglycemia, unspecified. Bed requested for Telemetry/MedSurg (observation). Status is Observation. Condition is Stable. Problem is new. Symptoms have improved. bd
--- NOTE | 2021-01-07 03:37 | ER ---
Nurse's Notes [facility] Name: Wayne Jaimes Age: 80 yrs Sex: Male : 1940 Arrival Date: 01/06/2021 Time: 23:22 Bed 20 Private MD: Diagnosis: Hypoglycemia, unspecified Presentation: 01/06 23:30 Chief complaint: EMS states: called for patient with hypoglycemic episode; Per family, lp1 patient was guided to ground, no trauma; Per EMS, glucose of 40, given 100ml of D10 IV; Patient alert and oriented on arrival to ED; Per family, recent subdural hematoma from previous fall. 23:30 Method Of Arrival: EMS: [facility] lp1 23:30 Coronavirus screen: Client denies travel out of the [place] in the last 14 days. At this lp1 time, the client does not indicate any symptoms associated with coronavirus-19. Ebola Screen: No symptoms or risks identified at this time. Initial Sepsis Screen: Does the patient meet any 2 criteria? No. Patient's initial sepsis screen is negative. Does the patient have a suspected source of infection? No. Patient's initial sepsis screen is negative. Risk Assessment: Do you want to hurt yourself or someone else? Patient reports no desire to harm self or others. Onset of symptoms was January 07, 2021. 23:30 Acuity: ROSEMARY 3 lp1 Historical: - Allergies: 01/07 00:16 Erythromycin; lp1 00:16 PENICILLINS; lp1 - Home Meds: 00:16 clopidogrel Oral [Active]; clotrimazole-betamethasone 1-0.05 % Topical crea 2 times per lp1 day [Active]; furosemide 80 mg Oral tab once daily [Active]; Humulin 70/30 100 unit/mL (70-30) Sub-Q susp take 32 units in the morning and 18 units at night [Active]; ketoconazole 2 % Topical crea 2 times per day [Active]; lisinopril 20 mg Oral tab once daily [Active]; metoprolol tartrate 50 mg Oral tab 1 tab 2 times per day [Active]; mupirocin 2 % Topical oint [Active]; triamcinolone acetonide 0.1 % Topical oint 2 times per day [Active]; - PMHx: 00:16 CHF; Diabetes - IDDM; neuropathy; lp1 - PSHx: 00:16 Heart stents; lp1 - Immunization history:: Adult Immunizations up to date. - Social history:: Smoking status: Patient denies any tobacco usage or history of. Screenin:20 Abuse screen: Denies threats or abuse. Denies injuries from another. Nutritional lp1 screening: No deficits noted. Tuberculosis screening: No symptoms or risk factors identified. Fall Risk Total Thrasher Fall Scale indicates High Risk Score (45 or more points). Fall prevention measures have been instituted. Placed Close to Nursing Station Frequent Obs/Assessments Occuring As available patient and family educated on Fall Prevention Program and Strategies. Assessment: 01/06 23:30 General: Appears in no apparent distress. comfortable, Behavior is cooperative. Pain: lp1 Complains of pain in right hip Quality of pain is described as aching. Neuro: Level of Consciousness is awake, alert, obeys commands, Oriented to person, place, situation, Speech is normal, Pupils are PERRLA. Cardiovascular: Patient's skin is warm and dry. Respiratory: Respiratory effort is even, unlabored, Breath sounds are clear bilaterally. GI: Abdomen is non-distended. : No signs and/or symptoms were reported regarding the genitourinary system. EENT: No deficits noted. Derm: Skin is fragile, with poor turgor has skin tears on Multiple small skin tears, abrasions to bilateral forearms, right wrist; Patient reports from previous falls Bruising that is dark purple, on left jaw. Musculoskeletal: Range of motion: intact in all extremities. 23:40 Reassessment: Patient A/O x3, eating turkey and algerian sandwich, drinking cranberry lp1 juice. 01/07 00:49 Reassessment: Assisted patient with brief change after voiding. lp1 02:00 Reassessment: Patient resting, eyes closed, respirations unlabored; Provider notified lp1 of BGL, will check in 1 hour. 03:10 Reassessment: Patient requesting snack at this time; sitting up eating fruit cup and lp1 cranberry juice. 03:45 Reassessment: Parish Banuelos, FORENSIC MANAGER at bedside to discuss plan of care with patient, lp1 demonstrates understanding of pending admission. 03:45 Neuro: Level of Consciousness is awake, alert, obeys commands, Oriented to person, lp1 place, time, situation. Respiratory: Respiratory effort is even, unlabored. Derm: Skin with poor turgor Skin is dry, Skin is normal. 19:09 Reassessment: Attempted to call report. 1 Vital Signs: 01/06 23:30 BP 169 / 83; Pulse 90; Resp 20; Temp 98.1(O); Pulse Ox 94% on R/A; Weight 77.11 kg (R); lp1 Height 5 ft. 6 in. (167.64 cm); Pain 8/10; 01/07 00:00 BP 143 / 68; Pulse 88; Resp 20; Pulse Ox 94% on R/A; lp1 01:00 BP 136 / 61; Pulse 82; Resp 20; Pulse Ox 96% on R/A; lp1 02:00 BP 138 / 75; Pulse 80; Resp 18; Pulse Ox 99% on R/A; lp1 03:00 BP 143 / 75; Pulse 77; Resp 20; Pulse Ox 96% on R/A; lp1 04:00 BP 144 / 71; Pulse 79; Resp 20; Pulse Ox 97% on R/A; lp1 01/06 23:30 Body Mass Index 27.44 (77.11 kg, 167.64 cm) lp1 ED Course: 01/06 23:22 Patient arrived in ED. iw 23:30 Patient has correct armband on for positive identification. Placed in gown. Bed in low lp1 position. Call light in reach. Side rails up X2. panel monitor on. Pulse ox on. NIBP on. 23:30 Arm band placed on right wrist. lp1 23:45 Maintain EMS IV. Dressing intact. Good blood return noted. Site clean \T\ dry. Gauge \T\ lp 1 site: 20g to L AC. 23:50 Steve Joe MD is Attending Physician. 7 01/07 00:13 Kayla Faith, GUERA is Primary Nurse. lp1 00:20 Triage completed. lp1 00:30 Inserted saline lock: 20 gauge in left hand, using aseptic technique. Blood collected. lp1 02:37 XRAY Chest (1 view) In Process Unspecified. EDMS 03:36 nNamdi Moy MD is Hospitalizing Provider. 7 04:30 No provider procedures requiring assistance completed. Patient admitted, IV remains in lp1 place. 07:09 Primary Nurse role handed off by Kayla Faith RN bd 08:49 Diet tray given. em1 09:41 Jr Mukherjee, RN is Primary Nurse. em 14:21 Primary Nurse role handed off by Jr Mukherjee, GUERA vg1 14:21 Maria M Murrell, RN is Primary Nurse. vg1 20:07 Patient admitted, IV remains in place. vg1 20:10 IV is patent, with fluids infusing freely, with good blood return, Flushed left hand vg1 with 5 ml normal saline. Administered Medications: 01/06 23:40 Drug: [id number] 50 ml Route: IVP; Site: left antecubital; lp1 01/07 00:52 Follow up: Response: Blood sugar is elevated lp1 Outcome: 03:37 Decision to Hospitalize by Provider. 7 04:30 Admitted to ER Hold. Please see [facility] for further documentation. lp1 04:30 Condition: stable 04:30 Instructed on the need for admit. 20:07 Admitted to Tele accompanied by tech, via wheelchair, room 206, with chart, Report vg1 called to GUERA Sotelo 20:07 Condition: stable 20:07 Instructed on the need for admit. 20:20 Patient left the ED. vg1 Signatures: Dispatcher [employer] EDMS Carmencita Castillo Jr Mukherjee, Sakina Trejo RN, RN RN iw Martinez, Eric em1 Kayla Faith, GUERA LYNNE lp1 Maria M Murrell RN RN vg1 Steve Joe MD MD [facility]
--- NOTE | 2021-01-07 04:01 | P.HP ---
Certification for Inpatient Patient admitted to: Observation With expected LOS: <2 Midnights Patient will require the following post-hospital care: None Practitioner: I am a practitioner with admitting privileges, knowledge of patient current condition, hospital course, and medical plan of care. Services: Services provided to patient in accordance with Admission requirements found in Title 42 Section 412.3 of the Code of Federal Regulations <Parish Banuelos - Last Filed: 01/07/21 03:55> Patient History Date of Service: 01/07/21 History of Present Illness: 80-year-old male with history of CAD status post CABG, PAD, diabetes mellitus type 2-insulin dependent, hypertension, chronic congestive heart failure presents emergency department for hypoglycemia. Patient reports that he was at home and began feeling like he is going to pass out, patient was assisted to the ground by family members and denies any trauma. Upon arrival to the emergency department patient's blood sugar was in the 40s, patient was given amp of dextrose and blood sugar increased to around 130 but then trended downwards falling to 80 and then 70 in the following hr. Labs otherwise unremarkable aside from elevated BN P ED provider wishes to admit patient under observation for further evaluation and management. - Past Medical/Surgical History Diabetic: Yes -: IDDM -: HTN -: Chronic diastolic congestive heart failure -: Hyperlipidemia -: Lymphedema -: Neuropathy -: acoustic neuroma -: Brain tumor removal -: CABG x 3 -: R knee replacement Psychosocial/ Personal History: Patient is retired, lives at home with his - Family History Mother -: Diabetes Father -: Heart disease - Social History Smoking Status: Never smoker Alcohol use: Yes CD- Drugs: No Caffeine use: Yes Place of Residence: Home <Parish Banuelos - Last Filed: 01/07/21 03:55> Date of Service: 01/07/21 <Nnamdi Moy - Last Filed: 01/07/21 16:50> Allergies Penicillins Adverse Reaction (Verified 01/07/21 06:05) Anaphylaxis Mycins Adverse Reaction (Uncoded 03/21/19 08:19) Itching/Hives/Rash Home Medications: Furosemide [Lasix] 40 mg PO DAILY 12/11/16 Clopidogrel Bisulfate [Plavix*] 75 mg PO DAILY tablet 12/12/16 Atorvastatin Calcium [Lipitor] 40 mg PO BEDTIME 01/18/18 Pentoxifylline 1 tab PO BID 06/20/18 Aspirin [Aspirin EC 81 MG] 81 mg PO DAILY 03/21/19 Insulin NPH Hum/Reg Insulin Hm [Humulin 70/30 Kwikpen] 20 unit SQ DAILY AFTER SUPPER PRN 03/21/19 Insulin NPH Hum/Reg Insulin Hm [Humulin 70/30 Kwikpen] 35 unit SQ DAILYPRN PRN 03/21/19 Sacubitril/Valsartan [Entresto 24 mg-26 mg Tablet] 1 each PO BID 03/21/19 Tamsulosin [Flomax] 0.4 mg PO BEDTIME 03/21/19 Vit C/E/Zn/Coppr/Lutein/Zeaxan [Preservision Areds 2 Softgel] 1 each PO BID 03/21/19 carvediloL [Coreg] 25 mg PO BID 03/21/19 Review of Systems Unremarkable <Parish Banuelos - Last Filed: 01/07/21 03:55> Physical Examination - Physical Exam General: Alert, In no apparent distress, Oriented x3 HEENT: Atraumatic, PERRLA, Mucous membr. moist/pink Neck: Supple, 2+ carotid pulse no bruit, No LAD Respiratory: Clear to auscultation bilaterally, Normal air movement Cardiovascular: Regular rate/rhythm, Normal S1 S2, Edema (1+ nonpitting edema bilateral lower extremities) Gastrointestinal: Normal bowel sounds, No tenderness Musculoskeletal: No tenderness Integumentary: No rashes Neurological: Normal speech, Normal strength at 5/5 x4 extr, Normal tone, Normal affect - Studies Laboratory Data (last 24 hrs) 01/07/21 00:30: PT 12.9 H, INR 1.12 01/07/21 00:30: WBC 7.00, Hgb 12.0 L, Hct 36.8 L, Plt Count 175 01/07/21 00:30: Sodium 141, Potassium 3.7, BUN 23 H, Creatinine 0.89, Glucose 97, Magnesium 2.0, Total Bilirubin 0.9, AST 30, ALT 26, Alkaline Phosphatase 385 H <Parish Banuelos - Last Filed: 01/07/21 03:55> - Studies Laboratory Data (last 24 hrs) 01/07/21 09:05: Sodium 141, Potassium 3.7, BUN 21 H, Creatinine 0.79, Glucose 82, Total Bilirubin 1.1 H, AST 31, ALT 26, Alkaline Phosphatase 409 H 01/07/21 00:30: PT 12.9 H, INR 1.12 01/07/21 00:30: WBC 7.00, Hgb 12.0 L, Hct 36.8 L, Plt Count 175 01/07/21 00:30: Sodium 141, Potassium 3.7, BUN 23 H, Creatinine 0.89, Glucose 97, Magnesium 2.0, Total Bilirubin 0.9, AST 30, ALT 26, Alkaline Phosphatase 385 H <Nnamdi Moy - Last Filed: 01/07/21 16:50> Assessment and Plan - Plan Assessment Diabetes mellitus type 2-insulin dependent complicated with hypoglycemia Chronic diastolic congestive heart failure Recent history of traumatic subdural hemorrhage CAD s/p CABG, Hypertension, hyperlipidemia, PAD Plan Diabetes mellitus type 2-insulin dependent complicated with hypoglycemia: Patient reports that he takes insulin 70/30 30 units in the morning, 30 units at night, 15 units at lunchtime, not sure if he takes any additional anti diabetic agents. Patient does report eating dinner last night. Patient with multiple episodes of hypoglycemia and falls over the course of the last few weeks including a traumatic subdural hemorrhage. Patient likely needs to have doses decreased. Will obtain A1c with morning labs. Q. 2H. Accu-Cheks until blood sugar stabilizes. Regular diet. DVT prophylaxis with SCDs. Chronic diastolic congestive heart failure: Appears stable this time elevated BNP continue Lasix 40 mg p.o. b.i.d.. Last echocardiogram 2018 demonstrates EF of 55%. Recent history of traumatic subdural hemorrhage: Denies any trauma related to being lower to the ground by his family when he passed out from hyperglycemia today, will obtain CT head without contrast to evaluate progression of subdural hemorrhage. No anti coagulation. CAD s/p CABG, Hypertension, hyperlipidemia, PAD: Obtain and continue home medications as appropriate, patient is off of Plavix and other anticoagulant secondary to traumatic subdural hemorrhage. Discharge Plan: Home Plan to discharge in: 24 Hours - Advance Directives Does patient have a Living Will: Yes Does patient have a Durable POA for Healthcare: Yes - Code Status/Comfort Care Code Status Assessed: Yes (Full code) Critical Care: No Time Spent Managing Pts Care (In Minutes): 55 <Parish Banuelos - Last Filed: 01/07/21 03:55> - Plan DM2, insulin dependent with several episodes of hypoglycemia and falls -review of EMR reveals patient is in ER due to similar episode at least once/month, states it occurs more and has gone to other ERs. -significant amount of hypoglycemic episodes. Patient's glucose readings range from 70-480. Unreliable regarding his diet at home, but states he mostly follows it -at this point, insulin 70/30 is too high risk for this patient given the risk profile for hypoglycemia and how many episodes he has had, even leading to a traumatic subdural hemorrhage. -start Lantus 30untis with dinner, and monitor /correct with moderate sliding scale. patient will need close monitoring with this transition in the hospital over the next 1-2 days so that he may be discharged on a safe regimen. he will likely need more than this -saw his PCP this past who is trying to get him back to seeing an [facility] Plastician, but he hasn't heard anything yet -he has been on 70/30 for years now, and has always been uncontrolled, but now falling a lot more often -will need to check insurance coverage / alvares to ensure affordability on discharge <Nnamdi Moy - Last Filed: 01/07/21 16:50>
[2021-01-07] MEDS ORDERED: ONDANSETRON 4 MG/2 ML VIAL IV PRN (05:08)
[2021-01-07 06:01] VITALS: BMI 27.4
--- NOTE | 2021-01-07 08:22 | RAD REPORT ---
EXAM DESCRIPTION: CT - Head Brain Wo Cont - 01/07/2021 6:35 am CLINICAL HISTORY: recent subdural hemorrhage eval Headache, drowsiness COMPARISON: Facial Bones W/ Mpr dated 11/17/2019; Facial Bones W/ Mpr dated 12/10/2016; Head C Spine Mp r Wo Con dated 01/02/2021; Head C Spine Mpr Wo Con dated 12/25/2020 TECHNIQUE: All CT scans are performed using dose optimization technique as appropriate and may inclu de automated exposure control or mA/KV adjustment according to patient size. FINDINGS: 17 mm subdural hematoma along the right convexity is again seen, unchanged. Hematoma samantha cteristics remain acute/ subacute on chronic.Adjacent scalp hematoma has reduced in size moderately.M inimal right to left midline shift is present. The paranasal sinuses and mastoids are clear. Right posterior fossa craniectomy. Mild vertebral ather osclerosis. IMPRESSION: No significant change has occurred in the appearance of the right-sided subdural hematom a since comparative study.
[2021-01-07] MEDS: FUROSEMIDE 40 MG TABLET PO SCH ×2 (09:00→17:00)
--- NOTE | 2021-01-07 09:18 | EKG ---
Test Date: 2021-01-06 Test Time: 23:47:11 Digital Strategist Senior Manager: JESÚS MEASUREMENT RESULTS: Intervals: Rate: 90 WV: QRSD: 156 QT: 460 QTc: 562 [place]: P: 24 WV: QRS: 144 T: -34 INTERPRETIVE STATEMENTS: Sinus tachycardia with 2nd degree AV block (Mobitz I) with frequent and consecutive premature ventricular complexes Right bundle branch block Left posterior fascicular block Bifascicular block T wave abnormality, consider inferior ischemia Abnormal ECG Compared to ECG 01/02/2021 05:21:14 Right bundle-branch block now present Left posterior fascicular block now present Bifascicular block now present Sinus rhythm no longer present Right-axis deviation no longer present Right ventricular hypertrophy no longer present T-wave abnormality still present Possible ischemia still present Electronically Signed On 01-07-21 09:17:08 CDT by Chaparro Dailey
[2021-01-07] MEDS: ACETAMINOPHEN 500 MG TAB PO PRN (09:37)
[2021-01-07 09:43] LABS: ALT/SGPT 26 U/L (12-78); AST/SGOT 31 U/L (15-37); Albumin 2.7 g/dL (3.4-5.0); Alkaline Phosphatase 409 U/L (45-117); BUN Blood Urea Nitrogen 21 mg/dL (7-18); Bicarbonate 29 mmol/L (21-32); Bilirubin Total 1.1 mg/dL (0.2-1.0); Glucose Level 82 mg/dL (74-106); Potassium 3.7 mmol/L (3.5-5.1); Protein, Total 7.1 g/dL (6.4-8.2); Sodium Level 141 mmol/L (136-145)
[2021-01-07] MEDS ORDERED: FUROSEMIDE 20 MG TABLET ONE ×2 (09:47→09:52)
[2021-01-07] MEDS ORDERED: ACETAMINOPHEN 500 MG TAB ONE (09:52)
[2021-01-07] MEDS ORDERED: GLUCAGON 1 MG/VIAL IM PRN (13:50)
[2021-01-07] MEDS ORDERED: D50W 25 GM/50 ML VIAL IV PRN ×2 (14:33→16:01)
--- NOTE | 2021-01-07 16:09 | RAD REPORT ---
EXAM DESCRIPTION: Chest Radiography COMPARISON: Chest radiograph November 09, 2020 report only CLINICAL HISTORY: [facility] MAIN CONGESTION FINDINGS: A single AP view of the chest demonstrates a mildly enlarged cardiomediastinal silhouette with surgical change. No pneumothorax or pleural effusion. Mild bilateral perihilar opacities are present. Calcified granul omas are noted. Osseous structures are intact. IMPRESSION: Mild cardiomegaly. Mild bilateral perihilar opacities favor mild edema. Electronically signed by: Tevin Rico MD 01/07/2021 2:45 AM CDT Due to temporary technical issues with the PACS/Fluency reporting system, reports are being signed by the in house radiologists without review as a courtesy to insure prompt reporting. The interpreting radiologist is fully responsible for the content of the report.
[2021-01-07] MEDS ORDERED: INSULIN -REGULAR HUMAN 50 UNIT/0.5 ML ML ONE (16:30)
[2021-01-07] MEDS ORDERED: INSULIN -REGULAR HUMAN 50 UNIT/0.5 ML ML SQ SCH (16:30)
[2021-01-07] MEDS ORDERED: INSULIN GLARGINE 100 UNITS/ML SQ SCH (17:00)
[2021-01-07] MEDS ORDERED: FUROSEMIDE 40 MG TABLET ONE (18:05)
[2021-01-07] MEDS ORDERED: INSULIN GLARGINE 100 UNITS/ML SQ ONE (18:10)
[2021-01-07] MEDS: INSULIN -REGULAR HUMAN 50 UNIT/0.5 ML ML SQ SCH (22:10)
[2021-01-08 05:31] LABS: Absolute Lymphocytes (CBC) 1.1 K/uL (0.7-4.9); Basophils % 0.9 % (0-1.3); Hematocrit 37.9 % (39.6-49.0); Lymphocytes % 18.2 % (15.3-44.8); MPV 6.6 fL (7.6-11.3); RBC Red Blood Cell Count 4.04 M/uL (4.33-5.43)
[2021-01-08 05:52] LABS: ALT/SGPT 24 U/L (12-78); AST/SGOT 30 U/L (15-37); Albumin 2.4 g/dL (3.4-5.0); Alkaline Phosphatase 364 U/L (45-117); BUN Blood Urea Nitrogen 23 mg/dL (7-18); Bicarbonate 30 mmol/L (21-32); Bilirubin Total 0.9 mg/dL (0.2-1.0); Magnesium 2.3 mg/dL (1.8-2.4); Potassium 3.7 mmol/L (3.5-5.1); Protein, Total 6.8 g/dL (6.4-8.2); Sodium Level 143 mmol/L (136-145)
[2021-01-08 05:54] LABS: Glucose Level 44 mg/dL (74-106)
[2021-01-08] MEDS: INSULIN -REGULAR HUMAN 50 UNIT/0.5 ML ML SQ SCH ×4 (07:30→21:00)
[2021-01-08 07:58] LABS: Urine Appearance CLEAR (Clear); Urine Bilirubin NEGATIVE (Negative); Urine Blood TRACE (Negative); Urine Color YELLOW (Yellow); Urine Glucose NEGATIVE (Negative); Urine Protein 1+ (Negative)
[2021-01-08 08:17] LABS: Urine Microscopic Reflex ORDER UMIC
[2021-01-08 08:33] LABS: Urine Bacteria NONE SEEN /HPF (NONE SEEN); Urine RBC <5 /HPF (NONE SEEN)
[2021-01-08] MEDS: FUROSEMIDE 40 MG TABLET PO SCH ×2 (08:58→16:43)
[2021-01-08] MEDS ORDERED: POTASSIUM CL SA 10 MEQ TAB PO ONE (09:00)
--- NOTE | 2021-01-08 15:13 | P.PN ---
Subjective Date of Service: 01/08/21 Patient was hypoglycemic this morning. He has no other complaint. Physical Examination - Vital Signs Temperature: 97.4 F Blood Pressure: 167/81 Pulse: 88 Respirations: 16 Pulse Ox (%): 95 - Physical Exam General: Alert, In no apparent distress, Oriented x3 HEENT: Mucous membr. moist/pink Neck: Supple, JVD not distended Respiratory: Clear to auscultation bilaterally, Normal air movement Cardiovascular: No edema, Regular rate/rhythm, Normal S1 S2 Gastrointestinal: Normal bowel sounds, Soft and benign, Non-distended, No tenderness Musculoskeletal: No swelling, No tenderness Integumentary: No rashes, No erythema Neurological: Other (No focal motor deficit) Assessment And Plan - Current Problems (Diagnosis) (1) Hypoglycemia associated with type 2 diabetes mellitus Current Visit: Yes Status: Acute (2) CAD (coronary artery disease) Onset Date: 06/23/18 Current Visit: No Status: Acute - Plan Lantus insulin reduced to 50 units daily. Continue pre meal insulin sliding scale. Monitor blood glucose. May need to rely on insulin sliding scale given brittle blood sugar and post prandial hyperglycemia. Continue home medications for coronary artery disease and other chronic medical conditions. Possible discharge in a.m. once blood sugar levels are stable with the current insulin regime.
[2021-01-08] MEDS: INSULIN GLARGINE 100 UNITS/ML SQ SCH (16:42)
[2021-01-09] MEDS: ACETAMINOPHEN 500 MG TAB PO PRN (03:41)
[2021-01-09 05:54] LABS: Absolute Lymphocytes (CBC) 1.4 K/uL (0.7-4.9); Lymphocytes % 18.6 % (15.3-44.8); MPV 6.9 fL (7.6-11.3); RBC Red Blood Cell Count 4.13 M/uL (4.33-5.43)
[2021-01-09 06:16] LABS: BUN Blood Urea Nitrogen 22 mg/dL (7-18); Bicarbonate 28 mmol/L (21-32); Glucose Level 65 mg/dL (74-106); Sodium Level 138 mmol/L (136-145)
[2021-01-09] MEDS: INSULIN -REGULAR HUMAN 50 UNIT/0.5 ML ML SQ SCH ×4 (07:30→21:00)
[2021-01-09] MEDS: FUROSEMIDE 40 MG TABLET PO SCH ×2 (08:16→16:36)
--- NOTE | 2021-01-09 11:09 | P.DS ---
Admission Date: 01/07/21 Discharge Date: 01/10/21 Disposition: DC HOME/HOME HEALTH CARE Discharge Condition: FAIR - Problems (1) Hypoglycemia associated with type 2 diabetes mellitus Status: Acute (2) CAD (coronary artery disease) Onset Date: 06/23/18 Status: Acute Brief History of Present Illness: 8-year-old gentleman with a history of insulin-dependent diabetes mellitus, coronary artery disease, peripheral vascular disease presented to the emergency department due to hypoglycemia. Patient reported that passing out feeling. His blood sugar checked at that time was 40. He was given amps of D50 in the ED brought his blood sugar up but blood sugar level was later trending down. He was subsequently hospitalized for further management. Hospital Course: Patient admitted to the medical floor. His home insulin regimen was held and put on insulin sliding scale. He was also started on Lantus insulin 30 units at bed time. Patient was hypoglycemic in the morning. Lantus insulin was decreased to 15 units but his blood sugar was still borderline low at 65 in the morning. His hemoglobin A1c was 10. Patient require insulin therapy for his blood sugar management and at this point recommending Lantus 10 units daily and premeal insulin sliding scale. He has an appointment to follow up with an endocr inologist to manage blood sugar. He ambulated several feet with physical therapy today. Patient deemed clinically stable for discharge. Vital Signs/Physical Exam: Temp Pulse Resp BP Pulse Ox 97.7 F 86 18 156/76 H 98 01/09/21 08:00 01/09/21 08:16 01/09/21 08:00 01/09/21 08:16 01/09/21 08:00 General: Alert, In no apparent distress, Oriented x3 HEENT: Mucous membr. moist/pink Neck: Supple Respiratory: Clear to auscultation bilaterally, Normal air movement Cardiovascular: No edema, Regular rate/rhythm, Normal S1 S2 Gastrointestinal: Normal bowel sounds, Soft and benign, Non-distended, No tender ness Musculoskeletal: No swelling, No tenderness Integumentary: No rashes Neurological: Normal strength at 5/5 x4 extr, Cranial nerves 3-12 intact Laboratory Data at Discharge: WBC 7.40 K/uL (4.3-10.9) D 01/09/21 05:08 Hgb 12.8 g/dL (13.6-17.9) L 01/09/21 05:08 Hct 39.0 % (39.6-49.0) L 01/09/21 05:08 Plt Count 202 K/uL (152-406) 01/09/21 05:08 PT 12.9 SECONDS (9.5-12.5) H 01/07/21 00:30 INR 1.12 01/07/21 00:30 Sodium 138 mmol/L (136-145) 01/09/21 05:08 Potassium 4.0 mmol/L (3.5-5.1) 01/09/21 05:08 BUN 22 mg/dL (7-18) H 01/09/21 05:08 Creatinine 0.81 mg/dL (0.55-1.3) 01/09/21 05:08 Glucose 65 mg/dL (74-106) L 01/09/21 05:08 Magnesium 2.3 mg/dL (1.8-2.4) 01/08/21 05:13 Total Bilirubin 0.9 mg/dL (0.2-1.0) 01/08/21 05:13 AST 30 U/L (15-37) 01/08/21 05:13 ALT 24 U/L (12-78) 01/08/21 05:13 Alkaline Phosphatase 364 U/L (45-117) H 01/08/21 05:13 Home Medications: Pentoxifylline 1 tab PO BID 06/20/18 Sacubitril/Valsartan [Entresto 49 mg-51 mg Tablet] 1 tab PO BID 01/08/21 Solifenacin Succinate 1 tab PO DAILY 01/08/21 Furosemide [Lasix*] 40 mg PO BIDL #60 tab 01/09/21 Insulin -Regular Human [Novolin -R*] See Protocol SQ ACHS #10 ml 01/09/21 Insulin Glargine,Hum.rec.anlog [Lantus Solostar] 10 unit SQ DAILY #10 ml 01/10/21 New Medications: Insulin Glargine,Hum.rec.anlog [Lantus Solostar] 10 unit SQ DAILY #10 ml Furosemide [Lasix*] 40 mg PO BIDL #60 tab Insulin -Regular Human [Novolin -R*] See Protocol SQ ACHS #10 ml Physician Discharge Instructions: PROBLEM: Hypoglycemia, syncope GOAL: Clear understanding of disease process INSTRUCTIONS: Diet: diabetic Activity: As tolerated If you have any questions regarding your stay call [phone] If your symptoms worsen call 911 or go to the ED. Diet: ADA Activity: Ad saleem Followup: Unknown,U [Primary Care Provider] - 1-2 Weeks Time spent managing pt's care (in minutes): 33
[2021-01-09] MEDS ORDERED: HYDRALAZINE HCL 20 MG/ML VIAL IV ONE (12:08)
--- NOTE | 2021-01-09 12:09 | P.PN ---
Subjective Date of Service: 01/09/21 Blood sugar readings are better this morning but still borderline low. He has no other complaint. Patient needs a lot of assistance for transfer and ambulation. Physical Examination - Vital Signs Temperature: 97.7 F Blood Pressure: 156/76 Pulse: 86 Respirations: 18 Pulse Ox (%): 98 - Physical Exam General: Alert, In no apparent distress HEENT: Mucous membr. moist/pink Neck: JVD not distended Respiratory: Clear to auscultation bilaterally, Normal air movement Cardiovascular: No edema, Regular rate/rhythm, Normal S1 S2 Gastrointestinal: Normal bowel sounds, Soft and benign, Non-distended, No tenderness Musculoskeletal: No swelling Neurological: Normal strength at 5/5 x4 extr Assessment And Plan - Current Problems (Diagnosis) (1) Hypoglycemia associated with type 2 diabetes mellitus Current Visit: Yes Status: Acute (2) CAD (coronary artery disease) Onset Date: 06/23/18 Current Visit: No Status: Acute - Plan Discontinue Lantus insulin Continue pre meal insulin sliding scale. Monitor blood glucose. May need to rely on insulin sliding scale given brittle blood sugar and post prandial hyperglycemia. Continue home medications for coronary artery disease and other chronic medical conditions. Continue Entresto. Will consider resuming Coreg if patient remains persistently hypertensive. Hydralazine IV p.r.n. for BP spikes. Continue PT Disposition to skilled rehab.
[2021-01-09] MEDS: SACUBITRIL/VALSARTAN 49/51 MG TAB PO SCH ×2 (12:32→21:11)
[2021-01-09] MEDS: INSULIN GLARGINE 100 UNITS/ML SQ SCH (16:37)
[2021-01-10] MEDS: FUROSEMIDE 40 MG TABLET PO SCH (07:27)
[2021-01-10] MEDS: SACUBITRIL/VALSARTAN 49/51 MG TAB PO SCH (07:27)
[2021-01-10] MEDS: ACETAMINOPHEN 500 MG TAB PO PRN (07:31)
[2021-01-10 07:38] VITALS: O2SAT 98
[2021-01-10] MEDS: INSULIN -REGULAR HUMAN 50 UNIT/0.5 ML ML SQ SCH ×2 (08:12→12:01)
[2021-01-10 12:35] VITALS: BP 118/58; TEMP 97.8
[2021-01-10] MEDS ORDERED: INSULIN GLARGINE 100 UNITS/ML SQ SCH ×2 (17:00)
== END 2021-01-10 15:18 | disposition home or self-care (01) | DRG 638 ==
LOC: ER 23:08 → ERHOLD 01-07 03:52 → OBSVTOIN 01-07 14:19 → 2ND 01-07 20:13
PROVIDERS: ADMIT Hospitalist; ATTEND Internal Medicine
DX: E11.649 Type 2 diabetes mellitus with hypoglycemia without coma (principal); I50.32 Chronic diastolic (congestive) heart failure; I11.0 Hypertensive heart disease with heart failure; E11.51 Type 2 diabetes mellitus with diabetic peripheral angiopathy without gangrene; E11.40 Type 2 diabetes mellitus with diabetic neuropathy, unspecified; E11.65 Type 2 diabetes mellitus with hyperglycemia; I25.10 Atherosclerotic heart disease of native coronary artery without angina pectoris; Z88.0 Allergy status to penicillin; Z79.02 Long term (current) use of antithrombotics/antiplatelets; Z79.4 Long term (current) use of insulin; Z88.1 Allergy status to other antibiotic agents; Z79.899 Other long term (current) drug therapy; Z95.5 Presence of coronary angioplasty implant and graft; Z95.1 Presence of aortocoronary bypass graft; Z96.651 Presence of right artificial knee joint; Z79.82 Long term (current) use of aspirin; Z20.822 Contact with and (suspected) exposure to COVID-19
CPT/HCPCS: 36415; 70450; 71045; 80048; 80053; 80076; 81003; 81015; 82947; 83036; 83735; 83880; 84484; 85025; 85610; 93005; 96374; 97112; 97116; 97161; 97530; 99285; G0378; J0360; J1815; U0003

== ENCOUNTER 2021-01-11 02:50 | Inpatient (IN) | payer OTHER, BC ==
--- OUTSIDE RECORDS SUMMARY | 2021-01-11 02:54 | XMS REPORT | Continuity of Care Document ---
:1940 Author Organization [facility] t Address [address] [place] [address] Care Team Providers Name Role Phone Damien [...] Expiration Date Sour ce Number MEDICAREMEDICARE PART [id number] 2005 Alek sandoval A AND 00:00:00 [facility] [id number] 2004 [facility] BCBS COMMERCIALBCBS [id number] 2009 [place] MEDICARE 1 00:00:00 [facility] [id number] [facility] Condition Condition Condition Status Onset Resolution Last Treating Co mments Source Name Details Category Date Date Treatment Clinician Date 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 : [place] rosis of rosis of 0-01 Formattin Met hodi wilton wilton 00:00: g of this st artery of artery of 00 note left lower left lower might be extremity extremity different with with from the intermitte intermitte original. nt nt Added claudicati claudicati automatic on on ally from request for surgery [id number] CAD in CAD in Disease Active Ontiveros wilton wilton 2-15 [facility] artery artery 00:00: st 00 [...] Comment 2018-09-14 2018-09-14 very occasional Christopher rodriguez Moravian 00:00:00 00:00:00 Sex Ass[birth year] At [birth year] [...] tablet 10 :00 gabapentin 2020- No 300mg [id number] Take 300 [facility] (NEURONTIN) 10-09 [id number] mg by Method[facility] 300 mg 08:21: 00:[address] capsule 12 :00 (three) times a day. FINASTERIDE 2020- No Take by Alek ashton ORAL 10-09 mouth. [facility] 08:20: 00:00 st 57 :00 silver 2018- Yes Wound of [place] sulfadiazin 1-21 left lower Me thodi e 16:30: extremity, st (SILVADENE) 00 initial 1 % cream encounter pentoxifyll Yes TAKE ONE Alek sandoval ine 7-11 (1) [facility] (TRENTal) 00:00: TABLET(S) st 400 mg CR 00 BY MOUTH tablet TWO TIMES A DAY WITH MEAL. Vital Signs Vital Name Observation Time Observation Value Comments Source Systolic blood 2020-10-18 09:58:00 156 mm[Hg] Berto n [facility] pressure Diastolic blood 2020-10-18 09:58:00 74 mm[Hg] Mansoor murrell [facility] pressure Heart rate 2020-10-18 09:58:00 89 /min [...] 2020-10-09 11:54:00 Franki Cline Meth odist CV APPLIED STATISTICIAN PROCEDURE 2020-10-09 10:34:41 Arnulfo Topete Christopher Mcgee [...] US ANKLE BRACHIAL INDEX 2020-02-01 11:40:00 Thomas Fergusno Ferguson-Hsi US DUPLEX ARTERIAL LOWER 2020-02-01 11:40:00 Thomas Ferguson EXTREMITY BILATERAL Ferguson-Hsi Plan of Care Planned Activity Planned Date Details Comments Source Future Scheduled 2021-04-07 INFLUENZA VACCINE Berto Mcgee Test 00:00:00 [code = INFLUENZA VACCINE] Future Scheduled 2020-11-06 COVID-19 VACCINE (2 - Ho jaime [facility] Test 00:00:00 Pfizer 2-dose series) [code = COVID-19 VACCINE (2 - Pfizer 2-dose series)] Future Scheduled 1990 SHINGLES VACCINES (#1) Kang Mcgee Test 00:00:00 [code = SHINGLES VACCINES (#1)] Future Scheduled 1950 DIABETES: RETINAL EYE Ho jaime Zelayaist Test 00:00:00 EXAM [code = DIABETES: RETINAL EYE EXAM] Future Scheduled 1950 DIABETIC FOOT EXAM [place] [facility] Test 00:00:00 [code = DIABETIC FOOT EXAM] Future Scheduled 1946 65+ PNEUMOCOCCAL Ontiveros [facility] Test 00:00:00 VACCINE (1 of 2 - PPSV23) [code = 65+ PNEUMOCOCCAL VACCINE (1 of 2 - PPSV23)] Encounters Start End Encounter Admission Attending Care Care Encounter Source Date/Time Date/Time Type Type Clinicians Facility Department ID 2020-12-11 2020-12-11 Outpatient [facility] [id number] VARSHA Arredondo 00:00:00 00:00:00 [facility] 2020-10-18 2020-10-18 [facility] [id number] [place] 00:00:00 00:00:00 THOMAS [address] 2020-10-09 2020-10-09 Outpatient [facility] [id number] [place] 00:00:00 00:00:00 FRANKI [address] 2020-10-08 2020-10-08 [facility] [id number] 277 [place] 00:00:00 00:00:00 FRANKI [address] 2020-09-19 2020-09-19 [facility] [id number] VARSHA Arredondo 00:00:00 [facility]00:00 [facility] 2020-07-11 2020-07-11 Outpatient [facility] [id number] 900 [place] 00:00:00 00:00:[address] 2020-07-11 2020-07-11 [facility] [id number] 210 [place] 00:00:00 00:00:00 THOMAS [address] 2020-07-11 2020-07-11 Outpatient [facility] [id number] [place] 00:00:00 00:00:[address] 2020-02-01 2020-02-01 Outpatient [facility] [id number] [place] 00:00:00 00:00:[address] 2020-02-01 2020-02-01 [facility] [id number] [place] 00:00:00 00:00:00 THOMAS [address] 2019-11-03 2019-11-03 Outpatient [facility] [id number] [place] 00:00:00 00:00:[address] 2019-11-03 2019-11-03 Outpatient MARTY [facility] [id number] 782 [place] 00:00:00 00:00:00 THOMAS [address] 2019-06-13 2019-06-13 [id number] [place] 00:00:00 00:00:00 THOMAS [address] 2019-06-06 2019-06-06 Outpatient [facility] [id number] [place] 00:00:00 00:00:00 FRANKI [address] Results Test Description Test Time Test Comments Results Result 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
[2021-01-11 03:20] LABS: Absolute Lymphocytes (CBC) 0.7 K/uL (0.7-4.9); Basophils % 1.4 % (0-1.3); Hematocrit 35.8 % (39.6-49.0); Lymphocytes % 10.7 % (15.3-44.8); MPV 6.9 fL (7.6-11.3); RBC Red Blood Cell Count 3.79 M/uL (4.33-5.43)
[2021-01-11] MEDS ORDERED: D5 0.9 NS 1,000 ML IV ONE (03:21)
[2021-01-11 03:31] LABS: Protime INR 1.15
[2021-01-11 03:42] LABS: AST/SGOT 27 U/L (15-37); BUN Blood Urea Nitrogen 27 mg/dL (7-18); Bicarbonate 29 mmol/L (21-32); Glucose Level 101 mg/dL (74-106); Potassium 3.4 mmol/L (3.5-5.1); Sodium Level 140 mmol/L (136-145)
[2021-01-11 03:43] LABS: ALT/SGPT 22 U/L (12-78); Albumin 2.3 g/dL (3.4-5.0); Alkaline Phosphatase 329 U/L (45-117); Bilirubin Direct 0.4 mg/dL (0-0.2); Bilirubin Total 0.9 mg/dL (0.2-1.0); Magnesium 2.2 mg/dL (1.8-2.4); NT PRO-BNP 1576 pg/mL (<450); Protein, Total 6.5 g/dL (6.4-8.2); Troponin (Emerg Dept Use Only) < 0.02 ng/mL (0.0-0.045)
[2021-01-11] MEDS ORDERED: DEXTROSE 10%-WATER 500 ML IV ONE (04:14)
[2021-01-11] MEDS ORDERED: D50W 25 GM/50 ML SYRINGE IV ONE (04:20)
--- NOTE | 2021-01-11 05:49 | P.HP ---
Certification for Inpatient Patient admitted to: Inpatient With expected LOS: >2 Midnights Patient will require the following post-hospital care: None Practitioner: I am a practitioner with admitting privileges, knowledge of patient current condition, hospital course, and medical plan of care. Services: Services provided to patient in accordance with Admission requirements found in Title 42 Section 412.3 of the Code of Federal Regulations Patient History Date of Service: 01/11/21 Reason for admission: hypoglycemia History of Present Illness: Mr. Jaimes is an 80 yo male with CAD s/p CABG, PAD, T2DM, HTN and CHF here today for episode of hypoglycemia. accidentally gave him 70U of Novolin R instead of 7U. She says later she found him shaking, flailing his arms, and his mouth was moving funny. No nausea or vomiting. He was given an amp of glucose by EMS on arrival. Now at bedside he is resting and AOx4. He was recently discharged from the hospital yesterday for hypoglycemia. K 3.4. Allergies Penicillins Adverse Reaction (Verified 01/07/21 06:05) Anaphylaxis Mycins Adverse Reaction (Uncoded 03/21/19 08:19) Itching/Hives/Rash Home Medications: Pentoxifylline 1 tab PO BID 06/20/18 Sacubitril/Valsartan [Entresto 49 mg-51 mg Tablet] 1 tab PO BID 01/08/21 Solifenacin Succinate 1 tab PO DAILY 01/08/21 Furosemide [Lasix*] 40 mg PO BIDL #60 tab 01/09/21 Insulin -Regular Human [Novolin -R*] See Protocol SQ ACHS #10 ml 01/09/21 Insulin Glargine,Hum.rec.anlog [Lantus Solostar] 10 unit SQ DAILY #10 ml 01/10/21 - Past Medical/Surgical History Diabetic: Yes -: IDDM -: HTN -: Chronic diastolic congestive heart failure -: Hyperlipidemia -: Lymphedema -: Neuropathy -: acoustic neuroma -: Brain tumor removal -: CABG x 3 -: R knee replacement Psychosocial/ Personal History: Patient is retired, lives at home with his - Family History Mother -: Diabetes Father -: Heart disease - Social History Smoking Status: Never smoker Alcohol use: No CD- Drugs: No Caffeine use: Yes Place of Residence: Home Review of Systems General: Unremarkable Eyes: Unremarkable ENT: Unremarkable Respiratory: Unremarkable Cardiovascular: Unremarkable Gastrointestinal: Unremarkable Genitourinary: Unremarkable Musculoskeletal: Unremarkable Integumentary: Unremarkable Neurological: Incoordination, Change in Speech, Confusion, As per HPI Lymphatics: Unremarkable Physical Examination - Physical Exam General: Alert, In no apparent distress, Oriented x3, Cooperative HEENT: Atraumatic, Normocephalic, PERRLA, Mucous membr. moist/pink, EOMI, Sclerae nonicteric Neck: Supple, 2+ carotid pulse no bruit, JVD not distended, No Thyromegaly, No LAD Respiratory: Clear to auscultation bilaterally, Normal air movement Cardiovascular: No edema, Normal pulses, Regular rate/rhythm, Normal S1 S2, No gallops, No rubs, No murmurs Capillary refill: <2 Seconds Gastrointestinal: Normal bowel sounds, Soft and benign, Non-distended, No ascites, No tenderness, No masses, No rebound, No guarding Musculoskeletal: No clubbing, No swelling, No contractures, No erythema, No tenderness, No warmth Integumentary: No rashes, No breakdown, No significant lesion, No tenderness/swelling, No erythema, No warmth, No cyanosis Neurological: Normal strength at 5/5 x4 extr, Normal tone, Sensation intact, Cranial nerves 3-12 intact Lymphatics: No axilla or inguinal lymphadenopathy - Studies Laboratory Data (last 24 hrs) 01/11/21 03:13: PT 13.2 H, INR 1.15 01/11/21 03:13: WBC 6.30 D, Hgb 11.8 L, Hct 35.8 L, Plt Count 196 01/11/21 03:13: Sodium 140, Potassium 3.4 L, BUN 27 H, Creatinine 0.79, Glucose 101, Magnesium 2.2, Total Bilirubin 0.9, AST 27, ALT 22, Alkaline Phosphatase 329 H Assessment and Plan - Problems (Diagnosis) (1) CAD (coronary artery disease) Onset Date: 06/23/18 Current Visit: No Status: Chronic Qualifiers: Coronary Disease-Associated Artery/Lesion type: bypass graft [place] vs. 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: with custodial use Diabetes mellitus complication status: without complication Qualified Code(s): E11.9 - Type 2 diabetes mellitus without complications; Z79.4 - longterm (current) use of insulin (3) HTN (hypertension) Onset Date: 06/23/18 Current Visit: No Status: Chronic Qualifiers: Hypertension type: essential hypertension Qualified Code(s): I10 - Essential (primary) hypertension (4) Hx of CABG Current Visit: No Status: Chronic (5) Hyperlipidemia Current Visit: No Status: Chronic Qualifiers: Hyperlipidemia type: unspecified Qualified Code(s): E78.5 - Hyperlipidemia, unspecified (6) Hypoglycemia associated with type 2 diabetes mellitus Current Visit: No Status: Acute - Plan on hypoglycemia protocol q 2hr BG checks, regular diet insulin sliding scale when BG return to normal SCDs for DVT ppx reconcile and continue home medications 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
--- NOTE | 2021-01-11 05:53 | EDPHYS ---
Physician Documentation [facility] Name: Wayne Jaimes Age: 80 yrs Sex: Male : 1940 Arrival Date: 01/11/2021 Time: 03:00 Bed 8 Private MD: ED Physician Steve Joe HPI: 01/11 03:15 This 80 yrs old Male presents to ER via Unassigned with complaints of Low mh7 Blood Glucose. 03:15 The patient or guardian reports hypoglycemia, that was potentially precipitated by mh7 wrong dose of medications, with the patient's symptoms witnessed by family, Treatment prior to arrival includes: EMS. Onset: The symptoms/episode began/occurred today. Associated signs and symptoms: Pertinent negatives: anorexia, constipation, decreased urine output, diaphoresis, diarrhea, dry skin, hair loss, ketones in urine, nausea, polydipsia, polyphagia, polyuria, seizure activity, skin flushing, urinary incontinence, vomiting. Current symptoms: In the emergency department the patient's symptoms have improved, markedly, is more alert. Historical: - Allergies: 03:00 Erythromycin; jb4 03:00 PENICILLINS; jb4 - Home Meds: 03:00 clopidogrel Oral [Active]; clotrimazole-betamethasone 1-0.05 % Topical crea 2 times per jb4 day [Active]; furosemide 80 mg Oral tab once daily [Active]; Humulin 70/30 100 unit/mL (70-30) Sub-Q susp take 32 units in the morning and 18 units at night [Active]; ketoconazole 2 % Topical crea 2 times per day [Active]; lisinopril 20 mg Oral tab once daily [Active]; metoprolol tartrate 50 mg Oral tab 1 tab 2 times per day [Active]; mupirocin 2 % Topical oint [Active]; triamcinolone acetonide 0.1 % Topical oint 2 times per day [Active]; - PMHx: 03:00 CHF; Diabetes - IDDM; neuropathy; jb4 - PSHx: 03:00 Heart stents; jb4 - Immunization history:: Adult Immunizations up to date. - Social history:: Smoking status: . ROS: 03:15 Constitutional: Negative for fever, chills, and weight loss, Eyes: Negative for injury, mh7 pain, redness, and discharge, ENT: Negative for injury, pain, and discharge, Neck: Negative for injury, pain, and swelling, Cardiovascular: Negative for chest pain, palpitations, and edema, Respiratory: Negative for shortness of breath, cough, wheezing, and pleuritic chest pain, Abdomen/GI: Negative for abdominal pain, nausea, vomiting, diarrhea, and constipation, Back: Negative for injury and pain, : Negative for injury, bleeding, discharge, and swelling, MS/Extremity: Negative for injury and deformity, Skin: Negative for injury, rash, and discoloration, Neuro: Negative for headache, weakness, numbness, tingling, and seizure, Psych: Negative for depression, anxiety, suicide ideation, homicidal ideation, and hallucinations, Allergy/Immunology: Negative for hives, rash, and allergies, Endocrine: Negative for neck swelling, polydipsia, polyuria, polyphagia, and marked weight changes, Hematologic/Lymphatic: Negative for swollen nodes, abnormal bleeding, and unusual bruising. Exam: 03:15 Constitutional: This is a well developed, well nourished patient who is awake, alert, mh7 and in no acute distress. Head/Face: Normocephalic, atraumatic. Eyes: Pupils equal round and reactive to light, extra-ocular motions intact. Lids and lashes normal. Conjunctiva and sclera are non-icteric and not injected. Cornea within normal limits. Periorbital areas with no swelling, redness, or edema. Neck: Trachea midline, no thyromegaly or masses palpated, and no cervical lymphadenopathy. Supple, full range of motion without nuchal rigidity, or vertebral point tenderness. No Meningismus. Chest/axilla: Normal chest wall appearance and motion. Nontender with no deformity. No lesions are appreciated. Cardiovascular: Regular rate and rhythm with a normal S1 and S2. No gallops, murmurs, or rubs. Normal PMI, no JVD. No pulse deficits. Respiratory: Lungs have equal breath sounds bilaterally, clear to auscultation and percussion. No rales, rhonchi or wheezes noted. No increased work of breathing, no retractions or nasal flaring. Abdomen/GI: Soft, non-tender, with normal bowel sounds. No distension or tympany. No guarding or rebound. No evidence of tenderness throughout. Back: No spinal tenderness. No costovertebral tenderness. Full range of motion. Skin: Warm, dry with normal turgor. Normal color with no rashes, no lesions, and no evidence of cellulitis. MS/ Extremity: Pulses equal, no cyanosis. Neurovascular intact. Full, normal range of motion. Neuro: Awake and alert, GCS 15, oriented to person, place, time, and situation. Cranial nerves II-XII grossly intact. Motor strength 5/5 in all extremities. Sensory grossly intact. Cerebellar exam normal. Normal gait. Psych: Awake, alert, with orientation to person, place and time. Behavior, mood, and affect are within normal limits. Vital Signs: 03:00 BP 118 / 64; Pulse 95; Resp 18; Temp 97.6(TE); Pulse Ox 99% on R/A; jb4 04:00 BP 119 / 68; Pulse 90; Resp 16; Pulse Ox 99% on R/A; jb4 05:00 BP 103 / 60; Pulse 83; Resp 18; Pulse Ox 98% on R/A; jb4 06:00 BP 131 / 69; Pulse 87; Resp 16; Pulse Ox 98% on R/A; jb4 07:00 BP 142 / 73; Pulse 76; Resp 17; Pulse Ox 100% on R/A; jb4 MDM: 05:50 Differential diagnosis: hypoglycemic episode. Data reviewed: vital signs, nurses notes, [facility] old medical records, lab test result(s), cardiac enzymes, CBC, electrolytes, urinalysis, EKG. Data interpreted: Pulse oximetry: on room air is 99 %. Interpretation: normal. Counseling: I had a detailed discussion with the patient and/or guardian regarding: the historical points, exam findings, and any diagnostic results supporting the discharge/admit diagnosis, lab results, radiology results, the need for further work-up and treatment in the hospital. Response to treatment: the patient's symptoms have mildly improved after treatment. 05:52 Patient medically screened. [facility] 01/11 03:05 Order name: Basic Metabolic Panel [facility] 01/11 03:05 Order name: CBC with Diff; Complete Time: 04:18 [facility] 01/11 03:05 Order name: LFT's; Complete Time: 04:18 [facility] 01/11 03:05 Order name: Magnesium; Complete Time: 04:18 [facility] 01/11 03:05 Order name: NT PRO-BNP; Complete Time: 04:18 7 01/11 03:05 Order name: PT-INR; Complete Time: 04:18 7 01/11 03:05 Order name: Troponin (emerg Dept Use Only); Complete Time: 04:18 7 01/11 03:06 Order name: Basic Metabolic Panel; Complete Time: 04:18 EDMS 01/11 03:55 Order name: Glucose, Ancillary Testing EDMS 01/11 05:18 Order name: Glucose, Ancillary Testing; Complete Time: 05:50 EDMS 01/11 05:46 Order name: COVID-19 : Document "Date of Symptom Onset" if Symptomatic. tt3 01/11 06:15 Order name: Glucose, Ancillary Testing EDMS 01/11 07:54 Order name: Glucose, Ancillary Testing EDMS 01/11 08:08 Order name: CORONAVIRUS EDMS 01/11 03:05 Order name: XRAY Chest (1 view) [facility] 01/11 03:05 Order name: EKG; Complete Time: 03:06 [facility] 01/11 03:05 Order name: Cardiac monitoring; Complete Time: 03:08 [facility] 01/11 03:05 Order name: EKG - Nurse/Tech; Complete Time: 04:06 7 01/11 03:05 Order name: IV Saline Lock; Complete Time: 03:08 7 01/11 03:05 Order name: Labs collected and sent; Complete Time: 04:06 7 01/11 03:05 Order name: O2 Per Protocol; Complete Time: 03:08 7 01/11 03:05 Order name: O2 Sat Monitoring; Complete Time: 03:08 [facility] 01/11 08:48 Order name: SARS-COV-2 RT PCR EDMS 01/11 09:01 Order name: Hemoglobin A1c EDMS 01/11 09:12 Order name: Glucose, Ancillary Testing EDMS Administered Medications: Discontinued: D5-NS 1000 ml IV at 100 ml/hr continuous 03:00 Drug: D5-NS 1000 ml Route: IV; Rate: 100 ml/hr; Site: right hand; jb4 04:00 Follow up: Response: No adverse reaction; IV Status: Order to discontinue infusion; IV jb4 Intake: 100ml 04:00 Drug: D50W 50 ml Route: IVP; Site: left hand; jb4 04:30 Follow up: Response: No adverse reaction; Marked relief of symptoms; Blood sugar is jb4 elevated 04:00 Drug: d10 500 ml Route: IV; Rate: 75 ml; Site: right antecubital; jm8 Disposition: 01/11/21 05:52 Hospitalization ordered by Hasmukh Shay for Inpatient Admission. Preliminary diagnosis are Hypoglycemia, unspecified, Accidental Insulin Overdose. - Bed requested for Telemetry/MedSurg (Inpatient). - Status is Inpatient Admission. em - Condition is Stable. - Problem is an acute exacerbation. - Symptoms have improved. Signatures: Dispatcher [employer] EDMS Jr Mukherjee, RN RN em Natalya Dugan RN RN tl1 Michael Palma RN RN jb4 Marita Smith Maurice, MD MD 7 Hasmukh Green RN GUERA jm8 Corrections: (The following items were deleted from the chart) 06:07 05:52 Hospitalization Ordered by Hasmukh Shay for Inpatient Admission. Preliminary tl1 diagnosis is Hypoglycemia, unspecified; Accidental Insulin Overdose. Bed requested for Telemetry/MedSurg (Inpatient). Status is Inpatient Admission. Condition is Stable. Problem is an acute exacerbation. Symptoms have improved. 7 08:54 06:07 01/11/2021 05:52 Hospitalization Ordered by Hasmukh Shay for Inpatient eb Admission. Preliminary diagnosis is Hypoglycemia, unspecified; Accidental Insulin Overdose. Bed requested for [facility] ER HOLD. Status is Inpatient Admission. Condition is Stable. Problem is an acute exacerbation. Symptoms have improved. tl1 10:32 08:54 01/11/2021 05:52 Hospitalization Ordered by Hasmukh Shay for Inpatient em Admission. Preliminary diagnosis is Hypoglycemia, unspecified; Accidental Insulin Overdose. Bed requested for Telemetry/MedSurg (Inpatient). Status is Inpatient Admission. Condition is Stable. Problem is an acute exacerbation. Symptoms have improved. eb
--- NOTE | 2021-01-11 05:53 | ER ---
Nurse's Notes [facility] Name: Wayne Jaimes Age: 80 yrs Sex: Male : 1940 Arrival Date: 01/11/2021 Time: 03:00 Bed 8 Private MD: Diagnosis: Hypoglycemia, unspecified;Accidental Insulin Overdose Presentation: 01/11 03:00 Chief complaint: Patient states: Pt recently D/c'ed after being diagnosed with DM. Pt's jb4 accidently administered 90 units of insulin instead of 9 units. Pt give D10 upon arrival, sugar increased to 185, dropped to 70 in less than 5 minutes, given another D10 and placed on D5 NS maintenance fluids. 03:00 Coronavirus screen: Client denies travel out of the [place] in the last 14 days. At this jb4 time, the client does not indicate any symptoms associated with coronavirus-19. Ebola Screen: No symptoms or risks identified at this time. Initial Sepsis Screen: Does the patient meet any 2 criteria? No. Patient's initial sepsis screen is negative. Does the patient have a suspected source of infection? No. Patient's initial sepsis screen is negative. Risk Assessment: Do you want to hurt yourself or someone else? Patient reports no desire to harm self or others. Onset of symptoms was January 11, 2021. Transition of care: patient was not received from another setting of care. 03:00 Method Of Arrival: EMS: [facility] 4 03:00 Acuity: ROSEMARY 1 jb4 Historical: - Allergies: 03:00 Erythromycin; jb4 03:00 PENICILLINS; jb4 - Home Meds: 03:00 clopidogrel Oral [Active]; clotrimazole-betamethasone 1-0.05 % Topical crea 2 times per jb4 day [Active]; furosemide 80 mg Oral tab once daily [Active]; Humulin 70/30 100 unit/mL (70-30) Sub-Q susp take 32 units in the morning and 18 units at night [Active]; ketoconazole 2 % Topical crea 2 times per day [Active]; lisinopril 20 mg Oral tab once daily [Active]; metoprolol tartrate 50 mg Oral tab 1 tab 2 times per day [Active]; mupirocin 2 % Topical oint [Active]; triamcinolone acetonide 0.1 % Topical oint 2 times per day [Active]; - PMHx: 03:00 CHF; Diabetes - IDDM; neuropathy; jb4 - PSHx: 03:00 Heart stents; jb4 - Immunization history:: Adult Immunizations up to date. - Social history:: Smoking status: . Screenin:00 Abuse screen: Denies threats or abuse. Nutritional screening: No deficits noted. jb4 Tuberculosis screening: No symptoms or risk factors identified. Fall Risk None identified. Assessment: 03:00 General: Appears in no apparent distress. comfortable, Behavior is calm, cooperative, jb4 appropriate for age. Pain: Denies pain. Neuro: Level of Consciousness is awake, alert, obeys commands, Oriented to person, place, time, situation. Cardiovascular: Patient's skin is warm and dry. Respiratory: Airway is patent Respiratory effort is even, unlabored, Respiratory pattern is regular, symmetrical. GI: No signs and/or symptoms were reported involving the gastrointestinal system. : No signs and/or symptoms were reported regarding the genitourinary system. EENT: No signs and/or symptoms were reported regarding the EENT system. Derm: Skin is intact, Skin is pink, warm \T\ dry. Musculoskeletal: Circulation, motion, and sensation intact. 04:00 Reassessment: Patient appears in no apparent distress at this time. Patient and/or jb4 family updated on plan of care and expected duration. Pain level reassessed. Patient is alert, oriented x 3, equal unlabored respirations, skin warm/dry/pink. 05:00 Reassessment: Patient appears in no apparent distress at this time. Patient and/or jb4 family updated on plan of care and expected duration. Pain level reassessed. Patient is alert, oriented x 3, equal unlabored respirations, skin warm/dry/pink. 06:00 Reassessment: PT is resting comfortably in bed with eyes closed, respirations are even jb4 and unlabored with no s/s of pain or distress noted. Vital Signs: 03:00 BP 118 / 64; Pulse 95; Resp 18; Temp 97.6(TE); Pulse Ox 99% on R/A; jb4 04:00 BP 119 / 68; Pulse 90; Resp 16; Pulse Ox 99% on R/A; jb4 05:00 BP 103 / 60; Pulse 83; Resp 18; Pulse Ox 98% on R/A; jb4 06:00 BP 131 / 69; Pulse 87; Resp 16; Pulse Ox 98% on R/A; jb4 07:00 BP 142 / 73; Pulse 76; Resp 17; Pulse Ox 100% on R/A; jb4 ED Course: 03:00 Patient arrived in ED. bp1 03:00 Arm band placed on right wrist. jb4 03:05 Steve Joe MD is Attending Physician. mh7 03:14 Maintain EMS IV. Dressing intact. Good blood return noted. Site clean \T\ dry. Gauge \T\ iw site: 20 L wrist . 03:15 Initial lab(s) drawn, by me, sent to lab. iw 03:42 Michael Palma, RN is Primary Nurse. jb4 03:47 Triage completed. jb4 04:25 XRAY Chest (1 view) In Process Unspecified. EDMT 05:51 Hasmukh Shay is Hospitalizing Provider. 7 06:00 No provider procedures requiring assistance completed. Patient admitted, IV remains in jb4 place. Administered Medications: Discontinued: D5-NS 1000 ml IV at 100 ml/hr continuous 03:00 Drug: D5-NS 1000 ml Route: IV; Rate: 100 ml/hr; Site: right hand; jb4 04:00 Follow up: Response: No adverse reaction; IV Status: Order to discontinue infusion; IV jb4 Intake: 100ml 04:00 Drug: D50W 50 ml Route: IVP; Site: left hand; jb4 04:30 Follow up: Response: No adverse reaction; Marked relief of symptoms; Blood sugar is jb4 elevated 04:00 Drug: d10 500 ml Route: IV; Rate: 75 ml; Site: right antecubital; jm8 Intake: 04:00 IV: 100ml; Total: 100ml. jb4 Outcome: 05:52 Decision to Hospitalize by Provider. mh7 10:32 Admitted to Tele accompanied by nurse, via stretcher, room 415, Report called to stephy Frank RN 10:32 Condition: stable 10:32 Instructed on the need for admit, Demonstrated understanding of instructions. 10:32 Patient left the ED. em Signatures: Dispatcher [employer] [facility] [place] Jr Mukherjee RN RN em Williams, Irene, RN RN iw Michael Palma RN RN jb4 Jory Morejon Maurice, MD MD mh7 Hasmukh Green RN RN jm8
[2021-01-11] MEDS ORDERED: ONDANSETRON 4 MG/2 ML VIAL IV PRN (07:06)
[2021-01-11] MEDS ORDERED: D50W 25 GM/50 ML SYRINGE IV PRN (07:06)
[2021-01-11] MEDS ORDERED: KCL 20 MEQ/100 mL IVPB 20 MEQ/100 ML BAG IV SCH (07:06)
[2021-01-11] MEDS ORDERED: ACETAMINOPHEN 500 MG TAB PO PRN (07:06)
[2021-01-11] MEDS ORDERED: GLUCAGON 1 MG/VIAL IM PRN (07:06)
[2021-01-11] MEDS: INSULIN -REGULAR HUMAN 50 UNIT/0.5 ML ML SQ SCH ×4 (07:30→21:37)
--- NOTE | 2021-01-11 07:48 | EKG ---
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: KELSI MEASUREMENT RESULTS: Intervals: Rate: 91 TX: 124 QRSD: 148 QT: 436 QTc: 536 [place]: P: 59 TX: 124 QRS: 123 T: -58 INTERPRETIVE STATEMENTS: Sinus rhythm with frequent premature ventricular complexes Right bundle branch block, plus right ventricular hypertrophy Left posterior fascicular block Bifascicular block T wave abnormality, consider inferior ischemia Abnormal ECG Compared to ECG 01/06/2021 23:47:11 Right ventricular hypertrophy now present Sinus tachycardia no longer present Bifascicular block still present T-wave abnormality still present Possible ischemia still present Electronically Signed On 01-11-21 07:48:10 CDT by Chaparro Dailey
--- NOTE | 2021-01-11 08:11 | RAD REPORT ---
EXAM DESCRIPTION: Dusty Single View01/11/2021 4:25 am CLINICAL HISTORY: Shortness of breath COMPARISON: January 07, 2021 FINDINGS: The lungs appear clear of acute infiltrate. The heart is mildly enlarged. Postsurgical changes involve the chest. IMPRESSION: No acute abnormalities displayed
[2021-01-11] MEDS: SOLIFENACIN SUCCIN 5 MG TAB PO SCH (09:00)
[2021-01-11] MEDS: PENTOXIFYLLINE ER 400 MG TAB PO SCH ×2 (09:00→21:40)
[2021-01-11] MEDS: SACUBITRIL/VALSARTAN 49/51 MG TAB PO SCH ×2 (09:00→21:39)
--- NOTE | 2021-01-11 09:29 | P.PN ---
Subjective Date of Service: 01/11/21 Primary Care Provider: Aditi Chief Complaint: hypoglycemia Patient who is establishing care with me. He has a history of chf, dm2. He has been having frequent falls. His a1c is elevated at 10.8. He was on a complicated insulin scheduled tid. Had 6 falls in the last month. He actually fell and had a subdural hematoma 2 weeks ago. The patient was sent sent home yesterday on Lantus 10 units. However he was given the old 70/30. Was found by his on the floor. He was brought back to the ER. Review of Systems 10-point ROS is otherwise unremarkable Physical Examination - Physical Exam General: Alert, In no apparent distress HEENT: Atraumatic, PERRLA, EOMI Neck: Supple, JVD not distended Respiratory: Clear to auscultation bilaterally, Normal air movement Cardiovascular: Regular rate/rhythm, Normal S1 S2 Gastrointestinal: Normal bowel sounds, No tenderness Musculoskeletal: No tenderness Integumentary: No rashes Neurological: Normal speech, Normal tone, Normal affect Lymphatics: No axilla or inguinal lymphadenopathy - Studies Laboratory Data (last 24 hrs) 01/11/21 03:13: PT 13.2 H, INR 1.15 01/11/21 03:13: WBC 6.30 D, Hgb 11.8 L, Hct 35.8 L, Plt Count 196 01/11/21 03:13: Sodium 140, Potassium 3.4 L, BUN 27 H, Creatinine 0.79, Glucose 101, Magnesium 2.2, Total Bilirubin 0.9, AST 27, ALT 22, Alkaline Phosphatase 329 H Assessment & Plan - Problems (Diagnosis) (1) Hypoglycemia associated with type 2 diabetes mellitus Current Visit: Yes Status: Acute Plan: will stop the insulin on him He is more at risk of falls and the hematoma. consider keeping for 24 hours with accuchecks to make sure there is no hyploglycemia. Will consider a low dose sliding scale. However this would not be advisable at home. (2) CHF (congestive heart failure) Current Visit: No Status: Chronic Plan: he is stable on entresto. Will consider starting farxiga as it would help his chf and diabetes Will need to do this as an outpatient Qualifiers: Heart failure type: systolic (3) Subdural hematoma Current Visit: Yes Status: Chronic Plan: Plan was for him to have a follow up head ct in a week. This will be done in [place]. Will arrange for him to follow up with his neurosurgeon as an outpatient. Currently he is clinically stable and intact neurologically. Discharge Plan: Home Plan to discharge in: 24 Hours - Code Status/Comfort Care Code Status Assessed: No Physician Review: Patient Assessed, Agree with Above Assessment and Plan Critical Care: No Time Spent Managing Pts Care (In Minutes): 20
[2021-01-11] MEDS: FUROSEMIDE 40 MG TABLET PO SCH ×2 (10:52→16:08)
[2021-01-11 10:54] VITALS: BMI 27.4
[2021-01-11] MEDS ORDERED: POTASSIUM CL SA 10 MEQ TAB PO ONE (12:18)
[2021-01-11 14:24] LABS: Urine Appearance CLEAR (Clear); Urine Bilirubin NEGATIVE (Negative); Urine Blood NEGATIVE (Negative); Urine Color YELLOW (Yellow); Urine Glucose 3+ (Negative); Urine Protein 1+ (Negative)
[2021-01-11 14:29] LABS: Urine Microscopic Reflex ORDER UMIC
[2021-01-11 15:51] LABS: Urine Bacteria <20 /HPF (NONE SEEN); Urine RBC <5 /HPF (NONE SEEN)
[2021-01-12 06:32] LABS: Absolute Lymphocytes (CBC) 1.1 K/uL (0.7-4.9); Basophils % 1.3 % (0-1.3); Hematocrit 37.7 % (39.6-49.0); Lymphocytes % 22.5 % (15.3-44.8); MPV 7.1 fL (7.6-11.3); RBC Red Blood Cell Count 3.97 M/uL (4.33-5.43)
[2021-01-12 06:44] LABS: ALT/SGPT 23 U/L (12-78); AST/SGOT 26 U/L (15-37); Albumin 2.3 g/dL (3.4-5.0); Alkaline Phosphatase 348 U/L (45-117); BUN Blood Urea Nitrogen 27 mg/dL (7-18); Bicarbonate 28 mmol/L (21-32); Bilirubin Total 0.8 mg/dL (0.2-1.0); Glucose Level 209 mg/dL (74-106); Magnesium 2.4 mg/dL (1.8-2.4); Phosphorus 3.3 mg/dL (2.5-4.9); Potassium 4.3 mmol/L (3.5-5.1); Protein, Total 6.9 g/dL (6.4-8.2); Sodium Level 140 mmol/L (136-145)
[2021-01-12] MEDS: SACUBITRIL/VALSARTAN 49/51 MG TAB PO SCH (09:19)
[2021-01-12] MEDS: SOLIFENACIN SUCCIN 5 MG TAB PO SCH (09:20)
[2021-01-12] MEDS: PENTOXIFYLLINE ER 400 MG TAB PO SCH (09:20)
[2021-01-12] MEDS: FUROSEMIDE 40 MG TABLET PO SCH (09:20)
[2021-01-12] MEDS: INSULIN -REGULAR HUMAN 50 UNIT/0.5 ML ML SQ SCH ×2 (09:21→12:14)
[2021-01-12] MEDS ORDERED: METFORMIN HCL 500 MG TAB PO SCH (11:25)
--- NOTE | 2021-01-12 11:35 | P.DS ---
Admission Date: 01/11/21 Discharge Date: 01/12/21 Primary Care Provider: Aditi Disposition: ROUTINE DISCHARGE Discharge Condition: GOOD Reason for Admission: hypoglycemia - Problems (1) Hypoglycemia associated with type 2 diabetes mellitus Current Visit: Yes Status: Resolved (2) CHF (congestive heart failure) Current Visit: No Status: Chronic Qualifiers: Heart failure type: systolic Heart failure chronicity: chronic Qualified Code(s): I50.22 - Chronic systolic (congestive) heart failure (3) Subdural hematoma Current Visit: Yes Status: Chronic Brief History of Present Illness: Patient is a elderly gentleman with DM2. has been having a lot of falls and hypoglycemia. Was discharged home on the . Took some of his old 70/30. Then passed out. He was brought in for this. He previously was admitted for a fall resulting in a subdural hematoma. He has a follow up in [place] on for a prognostic ct scan of the head Hospital Course: kept for observation. He had no hypoglycemia. Did not get any insulin his sugars ranged from 200 to 300. Will start him on metformin ER 500mg po. Will have him follow up in the hospital. The patient is going to his follow up on . Vital Signs/Physical Exam: Temp Pulse Resp BP Pulse Ox 97.6 F 89 18 184/92 H 96 01/12/21 08:00 01/12/21 09:20 01/12/21 08:00 01/12/21 09:20 01/12/21 08:00 General: Alert, In no apparent distress HEENT: Atraumatic, PERRLA, EOMI Neck: Supple, JVD not distended Respiratory: Clear to auscultation bilaterally, Normal air movement Cardiovascular: Regular rate/rhythm, Normal S1 S2 Gastrointestinal: Normal bowel sounds, No tenderness Musculoskeletal: No tenderness Integumentary: No rashes Neurological: Normal speech, Normal tone, Normal affect Lymphatics: No axilla or inguinal lymphadenopathy Laboratory Data at Discharge: WBC 5.00 K/uL (4.3-10.9) D 01/12/21 05:06 Hgb 12.6 g/dL (13.6-17.9) L 01/12/21 05:06 Hct 37.7 % (39.6-49.0) L 01/12/21 05:06 Plt Count 214 K/uL (152-406) 01/12/21 05:06 PT 13.2 SECONDS (9.5-12.5) H 01/11/21 03:13 INR 1.15 01/11/21 03:13 Sodium 140 mmol/L (136-145) 01/12/21 05:06 Potassium 4.3 mmol/L (3.5-5.1) 01/12/21 05:06 BUN 27 mg/dL (7-18) H 01/12/21 05:06 Creatinine 0.77 mg/dL (0.55-1.3) 01/12/21 05:06 Glucose 209 mg/dL (74-106) H 01/12/21 05:06 Phosphorus 3.3 mg/dL (2.5-4.9) 01/12/21 05:06 Magnesium 2.4 mg/dL (1.8-2.4) 01/12/21 05:06 Total Bilirubin 0.8 mg/dL (0.2-1.0) 01/12/21 05:06 AST 26 U/L (15-37) 01/12/21 05:06 ALT 23 U/L (12-78) 01/12/21 05:06 Alkaline Phosphatase 348 U/L (45-117) H 01/12/21 05:06 Home Medications: Pentoxifylline 1 tab PO BID 06/20/18 Sacubitril/Valsartan [Entresto 49 mg-51 mg Tablet] 1 tab PO BID 01/08/21 Solifenacin Succinate 1 tab PO DAILY 01/08/21 Furosemide [Lasix*] 40 mg PO BIDL #60 tab 01/09/21 Insulin -Regular Human [Novolin -R*] See Protocol SQ ACHS #10 ml 01/09/21 Insulin Glargine,Hum.rec.anlog [Lantus Solostar] 10 unit SQ DAILY #10 ml 01/10/21 Metformin HCl [Metformin HCl ER] 500 mg PO DAILY 90 Days #90 tab.er.24h 01/12/21 New Medications: Metformin HCl [Metformin HCl ER] 500 mg PO DAILY 90 Days #90 tab.er.24h Diet: ADA Activity: Fall precautions Followup: Uri Pennington MD [ACTIVE - CAN ADMIT] - 1 Week Physician Review: Patient Assessed, Agree with Above Assessment and Plan Time spent managing pt's care (in minutes): 30
[2021-01-12 12:27] VITALS: O2SAT 96
[2021-01-12 12:41] VITALS: BP 134/74; TEMP 97.7
[2021-01-13] MEDS ORDERED: METFORMIN ER 500 MG TAB PO SCH (08:00)
== END 2021-01-12 16:15 | disposition home or self-care (01) | DRG 918 ==
LOC: ER 02:50 → ERHOLD 05:43 → 4TH 10:22
PROVIDERS: ADMIT Internal Medicine; ATTEND Internal Medicine
DX: T38.3X1A Poisoning by insulin and oral hypoglycemic [antidiabetic] drugs, accidental (unintentional), initial encounter (principal); I50.22 Chronic systolic (congestive) heart failure; I25.810 Atherosclerosis of coronary artery bypass graft(s) without angina pectoris; I11.0 Hypertensive heart disease with heart failure; E11.649 Type 2 diabetes mellitus with hypoglycemia without coma; E11.51 Type 2 diabetes mellitus with diabetic peripheral angiopathy without gangrene; E11.40 Type 2 diabetes mellitus with diabetic neuropathy, unspecified; I25.10 Atherosclerotic heart disease of native coronary artery without angina pectoris; E78.5 Hyperlipidemia, unspecified; S06.5X9D Traumatic subdural hemorrhage with loss of consciousness of unspecified duration, subsequent encounter; Z95.1 Presence of aortocoronary bypass graft; Z88.0 Allergy status to penicillin; Z88.1 Allergy status to other antibiotic agents; Z79.4 Long term (current) use of insulin; Z91.81 History of falling; Z79.899 Other long term (current) drug therapy; Z96.651 Presence of right artificial knee joint; Z79.02 Long term (current) use of antithrombotics/antiplatelets; Z95.5 Presence of coronary angioplasty implant and graft; Z20.822 Contact with and (suspected) exposure to COVID-19
CPT/HCPCS: 36415; 71045; 80048; 80053; 80076; 81003; 81015; 82947; 83036; 83735; 83880; 84100; 84132; 84484; 85025; 85610; 93005; 94760; 99291; 99292; J3480; J7042; J7799; U0003

== ENCOUNTER 2021-03-13 11:32 | Emergency (ER) | payer OTHER, BC ==
--- NOTE | 2021-03-13 12:43 | RAD REPORT ---
EXAM DESCRIPTION: CT - Head Brain Wo Cont - 03/13/2021 12:29 pm CLINICAL HISTORY: Alteration of awareness/confusion COMPARISON: January 2021 TECHNIQUE: Computed axial tomography of the head was obtained. IV contrast was not requested. All CT scans are performed using dose optimization technique as appropriate and may include automated exposure control or mA/KV adjustment according to patient size. FINDINGS: The subdural hematoma along right cerebral convexity has decreased size. The width mostly varies from 2-5 millimeters. Along the vertex the width is 12 millimeters. Shift of the midline struc tures is not noted. There has been development of a very small subdural hematoma along the parietal convexity. It has low to intermediate density The ventricles are normal in caliber. No extra-axial fluid collection is noted. Mild low-density areas within periventricular, deep and subcortical white matter likely represent isc hemic changes secondary to small vessel disease. Fluid within the sinuses/ mastoids is not seen. IMPRESSION: The subacute hematoma along the right cerebral convexity has diminished in size since th e prior examination. Development of a very small subacute hematoma along the left parietal convexity
[2021-03-13 13:13] LABS: Urine Blood 2+ (Negative); Urine Glucose 3+ (Negative); Urine Protein Negative (Negative)
[2021-03-13 13:16] LABS: Albumin 2.8 g/dL (3.4-5.0); Bilirubin Direct 0.3 mg/dL (0-0.2); Bilirubin Total 0.6 mg/dL (0.2-1.0); Magnesium 2.3 mg/dL (1.8-2.4); Potassium 3.8 mmol/L (3.5-5.1); Protein, Total 7.4 g/dL (6.4-8.2); Troponin (Emerg Dept Use Only) 0.02 ng/mL (0.0-0.045)
--- NOTE | 2021-03-13 13:16 | RAD REPORT ---
EXAM DESCRIPTION: RAD - Chest Single View - 03/13/2021 1:10 pm CLINICAL HISTORY: weakness COMPARISON: Chest Single View dated 01/11/2021; Chest Single View dated 01/07/2021; Chest Single View da klever 11/09/2020; Chest Pa And Lat (2 Views) dated 06/20/2018 FINDINGS: Calcified right lung nodule. Sternotomy. Similar mild cardiomegaly. The lungs are otherwis e clear. IMPRESSION: No acute cardiopulmonary disease.
[2021-03-13 13:40] LABS: Protime INR 1.01
[2021-03-13 13:47] LABS: Absolute Lymphocytes (CBC) 0.8 K/uL (0.7-4.9); Basophils % 0.2 % (0-1.3); Hematocrit 39.4 % (39.6-49.0); MPV 7.6 fL (7.6-11.3); RBC Red Blood Cell Count 4.44 M/uL (4.33-5.43)
--- NOTE | 2021-03-13 14:34 | ER ---
Nurse's Notes [facility] Name: Wayne Jaimes Age: 80 yrs Sex: Male : 1940 Arrival Date: 03/13/2021 Time: 11:34 Bed 7 Private MD: Diagnosis: Hypo-osmolality and hyponatremia;Traumatic subdural hemorrhage-subacute;Weakness Presentation: 03/13 11:50 Chief complaint: Patient states: Very weak and disoriented throughout the night and ll1 today. On antibiotic since yesterday for UTI. No known fever. R side is very weak and shaky. No appetite. Coronavirus screen: Client denies travel out of the [place] in the last 14 days. At this time, the client does not indicate any symptoms associated with coronavirus-19. Ebola Screen: Patient denies travel to an Ebola-affected area in the 21 days before illness onset. Initial Sepsis Screen: Does the patient meet any 2 criteria? HR > 90 bpm. No. Patient's initial sepsis screen is negative. Does the patient have a suspected source of infection? Yes: Dysuria/Frequency/Urgency/UTI. Risk Assessment: Do you want to hurt yourself or someone else? Patient reports no desire to harm self or others. Onset of symptoms was March 12, 2021. 11:50 Method Of Arrival: Wheelchair ll1 11:50 Acuity: ROSEMARY 3 ll1 Historical: - Allergies: 11:49 Erythromycin; ll1 11:49 PENICILLINS; ll1 - Home Meds: 12:57 Entresto 49-51 mg oral tab 2 times per day [Active]; solifenacin 10 mg oral tab once aa5 daily [Active]; furosemide 40 mg Oral tab 1 tab 2 times per day [Active]; pentoxifylline 400 mg oral TbER 2 times per day [Active]; Bactrim DS 800-160 mg Oral tab twice a day [Active]; 12:57 metformin 500 mg Oral tab once a day [Active]; aa5 - PMHx: 11:49 CHF; Diabetes - IDDM; neuropathy; subdural hematoma 12/2020; ll1 - Immunization history:: Client reports receiving the 2nd dose of the Covid vaccine, Flu vaccine is up to date. - Social history:: Smoking status: Patient denies any tobacco usage or history of. Screenin:00 Abuse screen: No signs of abuse noted. Nutritional screening: No deficits noted. aa5 Tuberculosis screening: No symptoms or risk factors identified. 12:00 Fall Risk Fall in past 12 months (25 points). IV access (20 points). Mental Status- aa5 Overestimates/Forgets Limitations (15 pts.). Total Thrasher Fall Scale indicates High Risk Score (45 or more points). Fall prevention measures have been instituted. Side Rails Up X 2 Placed Close to Nursing Station Frequent Obs/Assessments Occuring Family Present and informed to notify staff if the need to leave the bedside. Assessment: 12:00 General: Appears comfortable, Behavior is calm, cooperative. Pain: Unable to use pain aa5 scale. Does not appear to understand pain scale. Neuro: Level of Consciousness is awake, obeys commands, confused, Oriented to person, place, Back Tender Pulp Drier are weak bilaterally Weakness in bilateral arm(s) leg(s) Speech is normal, Reports Generalized weakness . Cardiovascular: Heart tones S1 S2 present Edema is 1+ to left lower leg is 2+ to right lower leg Redness noted to annalee lower extremities that is at baseline reported by family. Rhythm is irregular. Respiratory: Airway is patent Respiratory effort is even, unlabored, Respiratory pattern is regular, symmetrical, Breath sounds are clear bilaterally. GI: Abdomen is flat, non-distended, Bowel sounds present X 4 quads. Abd is soft and non tender X 4 quads. Parent/caregiver reports the patient having decreased appetite but drinking fluids. : No signs and/or symptoms were reported regarding the genitourinary system. EENT: No signs and/or symptoms were reported regarding the EENT system. Derm: Skin is pink, warm \T\ dry. 12:30 Reassessment: Pt back from CT scan . aa5 13:00 Neuro: Level of Consciousness is awake, obeys commands, confused, Oriented to person, aa5 place. Respiratory: Airway is patent Respiratory effort is even, unlabored, Respiratory pattern is regular, symmetrical. Derm: Skin is pink, warm \T\ dry. 13:02 Reassessment: X-ray at bedside . aa5 14:00 Reassessment: Pt resting in bed with eyes closed, respirations even and unlabored, skin aa5 is pink/warm/dry. . 15:00 Reassessment: Pt resting in bed with eyes closed, respirations even and unlabored, skin aa5 is pink/warm/dry. . 15:22 Reassessment: Reassessment: Dr. Pennington at bedside (pt's PCP). aa5 16:00 Neuro: Level of Consciousness is awake, obeys commands, confused, Oriented to person, aa5 place. Respiratory: Airway is patent Respiratory effort is even, unlabored, Respiratory pattern is regular, symmetrical. Derm: Skin is pink, warm \T\ dry. 16:00 Reassessment: Pt's remains at bedside. . aa5 16:24 Reassessment: Report given to GUERA Fung (at [facility] ER). aa5 16:30 Reassessment: Awaiting EMS for transfer, ETA is 30 minutes, pt's notified. . aa5 17:30 Neuro: Level of Consciousness is awake, obeys commands, confused, Oriented to person, aa5 place. Respiratory: Airway is patent Respiratory effort is even, unlabored, Respiratory pattern is regular, symmetrical. Derm: Skin is pink, warm \T\ dry. Vital Signs: 11:50 BP 134 / 73; Pulse 104; Resp 17; Temp 97.8; Pulse Ox 97% ; Weight 67.13 kg; Height 5 ll1 ft. 6 in. (167.64 cm); Pain 0/10; 12:30 BP 104 / 64; Pulse 92; Resp 14 S; Pulse Ox 98% on R/A; aa5 14:30 BP 130 / 75; Pulse 96; Resp 14 S; Pulse Ox 99% on R/A; aa5 15:15 BP 121 / 78; Pulse 91; Resp 16 S; Pulse Ox 99% on R/A; aa5 15:35 BP 83 / 53; Pulse 92; Resp 18 S; Pulse Ox 98% on R/A; aa5 15:40 BP 87 / 61; Pulse 89; Resp 16 S; Pulse Ox 100% on R/A; aa5 15:55 BP 101 / 55; Pulse 85; Resp 16 S; Temp 97.6(TE); Pulse Ox 100% on R/A; aa5 16:10 BP 106 / 65; Pulse 85; Resp 18 S; Pulse Ox 100% on R/A; aa5 16:40 BP 102 / 76; Pulse 78; Resp 14 S; Pulse Ox 100% on R/A; aa5 17:20 BP 107 / 81; Pulse 84; Resp 16 S; Pulse Ox 100% on R/A; aa5 11:50 Body Mass Index 23.89 (67.13 kg, 167.64 cm) ll1 15:40 MD notified of low BP aa5 ED Course: 11:34 Patient arrived in ED. wm 11:38 Arm band placed on Patient placed in an exam room, on a stretcher. ll1 11:40 Perez Ames MD is Attending Physician. kdr 11:50 Mike Latif, GUERA is Primary Nurse. jd3 11:52 Triage completed. ll1 12:00 Patient has correct armband on for positive identification. Bed in low position. Call aa5 light in reach. Side rails up X2. Adult w/ patient. bus driver/monitor on. Pulse ox on. NIBP on. 12:29 CT Head Brain wo Cont In Process Unspecified. EDMS 12:40 Initial lab(s) drawn, by me, sent to lab. Inserted saline lock: 20 gauge in right aa5 forearm, using aseptic technique. Blood collected. 12:51 EKG done, by ED staff. aa5 12:56 Marycarmen Womack, GUERA is Primary Nurse. aa5 13:10 XRAY Chest (1 view) In Process Unspecified. EDMS 14:29 Dionicio Beach DO is Hospitalizing Provider. kdr 14:32 Uri Pennington MD is Hospitalizing Provider. kdr 15:42 initiated a transfer with Tevin from the [facility]. eb 15:[address] Madrid the neurologist continuity reader for [facility] with Dr. lars Ames for patient transfer consultation. 15:51 administrative approval given by Tevin Luciano Rn/ patient has been accepted to [facility] ER/ Dr. Makenzie Madrid has accepted the patient in transfer/ report to be called to [phone]. 17:30 No provider procedures requiring assistance completed. Patient transferred, IV remains aa5 in place. Administered Medications: 15:19 Drug: NS 0.9% 1000 ml Route: IV; Rate: 75 ml/hr; Site: right forearm; aa5 17:30 Follow up: IV Status: Infusion continued upon transfer aa5 15:19 Drug: Insulin Regular Human 10 units {Co-Signature: bart (Mike Latif RN).} Route: aa5 IVP; Site: right forearm; 16:50 Follow up: Response: No adverse reaction aa5 15:51 Drug: NS 0.9% 500 ml Route: IV; Rate: bolus; Site: right forearm; aa5 16:30 Follow up: IV Status: Completed infusion; IV Intake: 500ml aa5 Intake: 16:30 IV: 500ml; Total: 500ml. aa5 Outcome: 14:33 Decision to Hospitalize by Provider. kdr 15:36 ER care complete, transfer ordered by MD. kdr 17:30 Transferred by ground EMS to [facility], Transfer form completed. X-rays sent aa5 w/ patient. Note: Report given to [facility] staff. 17:30 Condition: stable 17:30 Instructed on the need for transfer, Demonstrated understanding of instructions. 17:37 Patient left the ED. aa5 Signatures: Dispatcher [employer] EDMS Perez Ames MD MD kdr Marycarmen Womack RN RN senait5 Mike Latif RN RN jd3 Marita Smith Lynsay RN RN ll1 Teresa Hansen Mike Latif RN jd3 Corrections: (The following items were deleted from the chart) 13:03 12:57 Home Meds: metformin 500 mg Oral tab; aa5 5 15:26 15:22 Reassessment: aa5 aa5 17:39 17:30 Transferred by ground EMS to [facility], Transfer form completed. aa5 X-rays sent w/ patient. aa5
--- NOTE | 2021-03-13 14:34 | EDPHYS ---
Physician Documentation [facility] Name: Wayne Jaimes Age: 80 yrs Sex: Male : 1940 Arrival Date: 03/13/2021 Time: 11:34 Bed 7 Private MD: ED Physician Perez Ames HPI: 03/13 14:25 This 80 yrs old Male presents to ER via Wheelchair with complaints of General kdr Weakness - DISORIENTED. 14:25 Generally weak and disoriented since last night. has been on abx since yesterday for kdr UTI. No other focal c/o at this time.. Onset: The symptoms/episode began/occurred last night. Severity of symptoms: At their worst the symptoms were mild. The patient has not experienced similar symptoms in the past. The patient has been recently seen by a physician: the patient's primary care provider, Started on abx for UTI yeterday. Historical: - Allergies: 11:49 Erythromycin; ll1 11:49 PENICILLINS; ll1 - Home Meds: 12:57 Entresto 49-51 mg oral tab 2 times per day [Active]; solifenacin 10 mg oral tab once aa5 daily [Active]; furosemide 40 mg Oral tab 1 tab 2 times per day [Active]; pentoxifylline 400 mg oral TbER 2 times per day [Active]; Bactrim DS 800-160 mg Oral tab twice a day [Active]; 12:57 metformin 500 mg Oral tab once a day [Active]; aa5 - PMHx: 11:49 CHF; Diabetes - IDDM; neuropathy; subdural hematoma 12/2020; ll1 - Immunization history:: Client reports receiving the 2nd dose of the Covid vaccine, Flu vaccine is up to date. - Social history:: Smoking status: Patient denies any tobacco usage or history of. ROS: 14:25 Constitutional: Negative for fever, chills, and weight loss, Eyes: Negative for injury, kdr pain, redness, and discharge, ENT: Negative for injury, pain, and discharge, Neck: Negative for injury, pain, and swelling, Cardiovascular: Negative for chest pain, palpitations, and edema, Respiratory: Negative for shortness of breath, cough, wheezing, and pleuritic chest pain, Abdomen/GI: Negative for abdominal pain, nausea, vomiting, diarrhea, and constipation, Back: Negative for injury and pain, : Negative for injury, bleeding, discharge, and swelling, MS/Extremity: Negative for injury and deformity, Skin: Negative for injury, rash, and discoloration, Psych: Negative for depression, anxiety, suicide ideation, homicidal ideation, and hallucinations, Allergy/Immunology: Negative for hives, rash, and allergies, Endocrine: Negative for neck swelling, polydipsia, polyuria, polyphagia, and marked weight changes, Hematologic/Lymphatic: Negative for swollen nodes, abnormal bleeding, and unusual bruising. 14:25 Neuro: Positive for altered mental status, weakness, confused. Exam: 14:25 Constitutional: This is a well developed, well nourished patient who is awake, alert, kdr and in no acute distress. Head/Face: Normocephalic, atraumatic. Eyes: Pupils equal round and reactive to light, extra-ocular motions intact. Lids and lashes normal. Conjunctiva and sclera are non-icteric and not injected. Cornea within normal limits. Periorbital areas with no swelling, redness, or edema. Neck: Trachea midline, no thyromegaly or masses palpated, and no cervical lymphadenopathy. Supple, full range of motion without nuchal rigidity, or vertebral point tenderness. No Meningismus. Chest/axilla: Normal chest wall appearance and motion. Nontender with no deformity. No lesions are appreciated. Cardiovascular: Regular rate and rhythm with a normal S1 and S2. No gallops, murmurs, or rubs. Normal PMI, no JVD. No pulse deficits. Respiratory: Lungs have equal breath sounds bilaterally, clear to auscultation and percussion. No rales, rhonchi or wheezes noted. No increased work of breathing, no retractions or nasal flaring. Abdomen/GI: Soft, non-tender, with normal bowel sounds. No distension or tympany. No guarding or rebound. No evidence of tenderness throughout. Back: No spinal tenderness. No costovertebral tenderness. Full range of motion. Skin: Warm, dry with normal turgor. Normal color with no rashes, no lesions, and no evidence of cellulitis. MS/ Extremity: Pulses equal, no cyanosis. Neurovascular intact. Full, normal range of motion. Neuro: Awake and alert, GCS 15, oriented to person, place, time, and situation. Cranial nerves II-XII grossly intact. Motor strength 5/5 in all extremities. Sensory grossly intact. Cerebellar exam normal. Normal gait. Psych: Awake, alert, with orientation to person, place and time. Behavior, mood, and affect are within normal limits. 15:06 ECG was reviewed by the Attending Physician. kdr Vital Signs: 11:50 BP 134 / 73; Pulse 104; Resp 17; Temp 97.8; Pulse Ox 97% ; Weight 67.13 kg; Height 5 ll1 ft. 6 in. (167.64 cm); Pain 0/10; 12:30 BP 104 / 64; Pulse 92; Resp 14 S; Pulse Ox 98% on R/A; aa5 14:30 BP 130 / 75; Pulse 96; Resp 14 S; Pulse Ox 99% on R/A; aa5 15:15 BP 121 / 78; Pulse 91; Resp 16 S; Pulse Ox 99% on R/A; aa5 15:35 BP 83 / 53; Pulse 92; Resp 18 S; Pulse Ox 98% on R/A; aa5 15:40 BP 87 / 61; Pulse 89; Resp 16 S; Pulse Ox 100% on R/A; aa5 15:55 BP 101 / 55; Pulse 85; Resp 16 S; Temp 97.6(TE); Pulse Ox 100% on R/A; aa5 16:10 BP 106 / 65; Pulse 85; Resp 18 S; Pulse Ox 100% on R/A; aa5 16:40 BP 102 / 76; Pulse 78; Resp 14 S; Pulse Ox 100% on R/A; aa5 17:20 BP 107 / 81; Pulse 84; Resp 16 S; Pulse Ox 100% on R/A; aa5 11:50 Body Mass Index 23.89 (67.13 kg, 167.64 cm) ll1 15:40 MD notified of low BP aa5 MDM: 14:25 Data reviewed: vital signs, nurses notes, lab test result(s), radiologic studies. kdr Counseling: I had a detailed discussion with the patient and/or guardian regarding: the historical points, exam findings, and any diagnostic results supporting the discharge/admit diagnosis, lab results, radiology results, the need for further work-up and treatment in the hospital. 14:33 Patient medically screened. kdr 03/13 12:17 Order name: Basic Metabolic Panel kdr 03/13 12:17 Order name: CBC with Diff [facility] 03/13 12:17 Order name: LFT's kdr 03/13 12:17 Order name: Magnesium; Complete Time: 13:29 [facility] 03/13 12:17 Order name: NT PRO-BNP; Complete Time: 13:29 [facility] 03/13 12:17 Order name: PT-INR; Complete Time: 14:18 [facility] 03/13 12:17 Order name: Troponin (emerg Dept Use Only); Complete Time: 13:29 [facility] 03/13 12:17 Order name: XRAY Chest (1 view); Complete Time: 13:29 [facility] 03/13 12:17 Order name: CT Head Brain wo Cont; Complete Time: 13:29 [facility] 03/13 12:18 Order name: Basic Metabolic Panel; Complete Time: 13:29 EDMS 03/13 12:18 Order name: CBC with Automated Diff; Complete Time: 14:18 EDMS 03/13 12:18 Order name: Liver (Hepatic) Function; Complete Time: 13:29 EDGA 03/13 13:12 Order name: Urine Dipstick-Ancillary; Complete Time: 13:29 EDMS 03/13 16:07 Order name: Glucose, Ancillary Testing EDGA 03/13 12:17 Order name: EKG; Complete Time: 12:18 [facility] 03/13 12:17 Order name: Cardiac monitoring; Complete Time: 12:56 [facility] 03/13 12:17 Order name: EKG - Nurse/Tech; Complete Time: 12:56 [facility] 03/13 12:17 Order name: IV Saline Lock; Complete Time: 12:56 [facility] 03/13 12:17 Order name: Labs collected and sent; Complete Time: 12:56 [facility] 03/13 12:17 Order name: O2 Per Protocol; Complete Time: 12:56 [facility] 03/13 12:17 Order name: O2 Sat Monitoring; Complete Time: 12:56 [facility] 03/13 12:17 Order name: Urine Dipstick-Ancillary (obtain specimen); Complete Time: 13:12 kdr EC:06 Rate is 94 beats/min. Rhythm is regular, Sinus Rhythm with No ectopy, Right bundle kdr branch block. QRS [place] is Normal. DC interval is normal. QRS interval is normal. QT interval is normal. Clinical impression: Abnormal EKG without significant change. Administered Medications: 15:19 Drug: NS 0.9% 1000 ml Route: IV; Rate: 75 ml/hr; Site: right forearm; aa5 17:30 Follow up: IV Status: Infusion continued upon transfer aa5 15:19 Drug: Insulin Regular Human 10 units {Co-Signature: jd3 (Mike Latif RN).} Route: aa5 IVP; Site: right forearm; 16:50 Follow up: Response: No adverse reaction aa5 15:51 Drug: NS 0.9% 500 ml Route: IV; Rate: bolus; Site: right forearm; aa5 16:30 Follow up: IV Status: Completed infusion; IV Intake: 500ml aa5 Disposition Summary: 03/13/21 15:36 Transfer Ordered Transfer Location: [facility] kdr Reason: Higher level of care kdr Condition: Fair(03/13/21 15:36) kdr Problem: new(03/13/21 15:36) kdr Symptoms: are unchanged(03/13/21 15:36) kdr Accepting Physician: Makenzie Calvert(03/13/21 17:37) aa5 Diagnosis - Hypo-osmolality and hyponatremia(03/13/21 15:36) kdr - Traumatic subdural hemorrhage - subacute kdr - Weakness(03/13/21 15:36) kdr Forms: - Medication Reconciliation Form kdr - SBAR form kdr Signatures: Dispatcher [employer] EDMS Perez Ames MD MD kdr Marycarmen Womack, RN RN aa5 Marita Smith Lynsay RN RN ll1 Mike Latif RN jd3 Corrections: (The following items were deleted from the chart) 13:03 12:57 Home Meds: metformin 500 mg Oral tab; aa5 5 15:34 14:33 Observation kdr kdr 15:34 14:33 Uri Pennington kdr kdr 15:34 14:33 Telemetry/MedSurg (observation) kdr kdr 15:34 14:33 Stable kdr kdr 15:34 14:33 new kdr kdr 15:34 14:33 have improved kdr kdr 15:34 14:33 Standard kdr kdr 15:34 14:33 kdr kdr 15:34 14:33 Weakness kdr kdr 15:34 14:33 Hypo-osmolality and hyponatremia kdr kdr 15:34 14:33 Confusion kdr kdr 15:49 15:36 g kdr kdr 16:02 15:49 Dr. Parra/Naeem kdr eb 17:37 16:02 Dr. [place],Y eb aa5
--- OUTSIDE RECORDS SUMMARY | 2021-03-13 15:27 | XMS REPORT | Continuity of Care Document ---
:1940 Author Organization [facility] t Address [address] [place] [address] Care Team Providers Name Role Phone Damien Valdes MD Primary Care Physician Denise RAGSDALE Attending Clinician Brendan JOSEPH Attending Clinician Unavailable Marty RAGSDALE, Marty-i Attending Clinician Son RAGSDALE Attending Clinician MD SON Attending Clinician Unavailable Don LYNNE Attending Clinician Unavailable New JOSEPH Attending Clinician Unavailable Miguelina Herrmann RN Attending Clinician Arden LYNNE Attending Clinician Unavailable SON Admitting Clinician Unavailable MD SON Admitting Clinician Unavailable MARTY Admitting Clinician Unavailable Payers Payer Name Policy Type Policy Effective Date Expiration Date Sour ce Number MEDICAREMEDICARE PART [id number] 2005 Alek jaime A AND 00:00:00 Mu-Ism [id number] 2004 [place] [facility] [place] COMMERCIALBCBS [id number] [facility] MEDICARE 1 00:00:00 Mu-Ism [id number] 2008-PresentComm ercial Problems Condition Condition Condition Status Onset Resolution Last Treating Co mments Source Name Details Category Date Date Treatment Clinician Date 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 Active [facility] [place] 2-15 [facility] artery artery 00:00: st 00 Acute on Acute on Disease Active [place] on chronic chronic 1-08 [facility] congestive congestive 00:00: st heart heart 00 failure failure Allergies, Adverse Reactions, Alerts Allergy Allergy Status Severity Reaction(s) Onset Inactive Treating Comm ents Source Name Type Date Date Clinician Clindamy Propensi Active Swelling [place] ty to Methodi adverse st reaction s to drug Penicill Propensi Active Swelling [place] ty to Methodi adverse st reaction s to drug Family History Family Member Diagnosis Comments Start Date Stop Date Source Natural father Heart disease Ontiveros Mu-Ism Social History Social Habit Start Date Stop Date Quantity Comments Source Tobacco use and 2020-10-18 2020-10-18 Never used Weston De La Garza ethodist exposure 00:00:00 00:00:00 Alcohol intake 2020-10-18 2020-10-18 Current drinker of Alek sandoval Mu-Ism 00:00:00 00:00:00 alcohol (finding) Alcohol Comment 2018-09-14 2018-09-14 very occasional Christopher rodriguez Mu-Ism 00:00:00 00:00:00 Sex Ass[birth year] At [birth year] Weston villalobosodist 00:00:00 00:00:00 Smoking Status Start Date Stop Date Source Never smoker Ontiveros Guerita solo Medications Ordered Filled Start Stop Current Ordering Indication Dosage Frequency Signature Comments Components Source Medication Medication Date Date Medication? Clinician (SIG) Name Name clopidogrel Yes 75mg QD Take 75 mg [place] (PLAVIX) 75 2-11 by mouth Meth taina [...] 1 [place] valsartan 2-11 tablet by Georgetteo di (ENTRESTO) 10:03: mouth 2 st 24-26 [...] 10meq Q.5D Take 10 Joce ston chloride 2-02 mEq by Methodi (K-DUR) 10 08:22: 00:[address] MEQ CR 48 :00 (two) tablet times a day. metoprolol 0 2020- No 50mg Q.5D Take 50 mg Ontiveros tartrate 10-09 by mouth 2 Meth taina (LOPRESSOR) 08:22: 00:00 (two) st 50 mg 27 :00 times a tablet day. lisinopriL No 40mg QD Take 40 mg Weston (PRINIVIL) 10-09 by mouth Meth taina 40 mg 08:22: 00:[address] tablet 10 :00 gabapentin No 300mg Q.[id number] Take 300 Ontiveros (NEURONTIN) 10-09 [id number] mg by Methodi 300 mg 08:21: 00:[address] capsule 12 :00 (three) times a day. FINASTERIDE No Take by Alek sandoval ORAL 10-09 mouth. Methodi 08:20: 00:00 st 57 :00 silver 2018- Yes Wound of [place] sulfadiazin 1-21 left lower Me thodi e 16:30: extremity, st (SILVADENE) 00 initial 1 % cream encounter pentoxifyll Yes TAKE ONE Alek sandoval ine 7-11 (1) [facility] (TRENTal) 00:00: TABLET(S) st 400 mg CR 00 BY MOUTH tablet TWO TIMES A DAY WITH MEAL. Vital Signs Vital Name Observation Time Observation Value Comments Source Systolic blood 2020-10-18 09:58:00 156 mm[Hg] Berto n Mu-Ism pressure Diastolic blood 2020-10-18 09:58:00 74 mm[Hg] Mansoor on Mu-Ism pressure Heart rate 2020-10-18 09:58:00 89 /min Weston Mcgee Body temperature 2020-10-18 09:58:00 36.56 Keny[place] Christopher rodriguez Mu-Ism Body height 2020-10-18 09:58:00 167.6 cm Weston Mcgee Body weight 2020-10-18 09:58:00 77.474 kg Weston Mcgee BMI 2020-10-18 09:58:00 27.57 kg/m2 Weston Mcgee Oxygen saturation in 2020-10-18 09:58:00 97 /min Weston Mcgee Arterial blood by Pulse oximetry Respiratory rate 2020-10-09 17:45:00 18 /min Christopher Mcgee Procedures Procedure Date / Time Performed Performing Clinician Sourc e POC GLUCOSE 2020-10-09 11:54:00 Franki Cline CV SYRUP MIXER ASSISTANT PROCEDURE 2020-10-09 10:34:41 Arnulfo Topete Christopher Mcgee POC GLUCOSE 2020-10-09 08:11:00 Franki Cline COVID-19 QUALITATIVE 2020-10-08 13:27:00 Franki Cline RT-PCR HC COMPLETE BLD COUNT 2020-10-08 13:27:00 Franki [...] US CAROTID DUPLEX 2020-07-11 12:00:00 Thomas Ferguson Wi thodist BILATERAL Ferguson-Hsi Plan of Care Planned Activity Planned Date Details Comments Source Future Scheduled 2021-04-07 INFLUENZA VACCINE Berto tobias Mu-Ism Test 00:00:00 [code = INFLUENZA VACCINE] Future Scheduled 2020-11-06 COVID-19 VACCINE (2 - Ho jaime Mu-Ism Test 00:00:00 Pfizer 2-dose series) [code = COVID-19 VACCINE (2 - Pfizer 2-dose series)] Future Scheduled 1990 SHINGLES VACCINES (#1) H oufiordaliza Mu-Ism Test 00:00:00 [code = SHINGLES VACCINES (#1)] Future Scheduled 1950 DIABETES: RETINAL EYE Ho jaime Mu-Ism Test 00:00:00 EXAM [code = DIABETES: RETINAL EYE EXAM] Future Scheduled 1950 DIABETIC FOOT EXAM Mansoor murrell Mu-Ism Test 00:00:00 [code = DIABETIC FOOT EXAM] Future Scheduled 1946 65+ PNEUMOCOCCAL [place] [facility]m Test 00:00:00 VACCINE (1 of 2 - PPSV23) [code = 65+ PNEUMOCOCCAL VACCINE (1 of 2 - PPSV23)] Encounters Start End Encounter Admission Attending Care Care Encounter Source Date/Time Date/Time Type Type Clinicians Facility Department ID 2021-03-11 2021-03-11 [id number] 2021-03-06 2021-03-06 [facility] [id number] [facility] 2020-12-11 2020-12-11 [facility] [id number] VARSHA Arredondo 00[facility]00:00 00:00:00 [facility] 2020-10-18 2020-10-18 [id number] [place] 00:00:00 [facility]:00:[facility] THOMAS [address] 2020-10-09 2020-10-09 [facility] [id number] [place] 00:00:00 00:00:00 FRANKI [address] 2020-10-08 2020-10-08 [facility] [id number] [place] 00:00:00 00:00:00 FRANKI [address] 2020-09-19 2020-09-19 [facility] [id number] VARSHA [facility]ondo 00:00:00 00[facility]00:00 [facility] 2020-07-11 2020-07-11 [facility] [id number] [place] 00:00:00 00:00:[address] 2020-07-11 2020-07-11 Outpatient [facility] [id number] [place] 00:00:00 00:00:[address] 2020-07-11 2020-07-11 [facility] [id number] [place] 00:00:00 00:00:00 THOMAS [address] 2020-02-01 2020-02-01 Out[facility] [id number] [place] 00:00:00 00:00:[address] 2020-02-01 2020-02-01 Outpatient MARTY, [facility] [id number] [place] 00:00:00 00:00:00 THOMAS [address] [facility] 2019-11-03 2019-11-03 Outpatient [facility] [id number] [place] 00:00:00 00:00:[address] 2019-11-03 2019-11-03 Outpatient MARTY [facility] [id number] [place] 00:00:00 00:00:00 THOMAS [address] 2019-06-13 2019-06-13 [id number] [place] 00:00:00 00:00:00 THOMAS [address] 2019-06-06 2019-06-06 Outpatient SON, [facility] [id number] [place] 00:00:00 00:00:00 FRANKI [address] Results Test Description Test Time Test Comments Results Result Sourc e Comments sugar laboratory assistant 2020-10-17 CV LEFT HEART [place] procedure 21:19:08 CATH LV GRAM WITH Methodi [...] Hold for 45 minutes Continue medical management SARS-CoV-2 (COVID-19) RNA [Presence] in Respiratory sp ecimen by 2020-10-09 02:48:23 BONG with probe detection Test Item Value Reference Range Interpretation Comme nts SARS-CoV-2 (COVID-19) RNA [Presence] in Respiratory Not detected No t-Detected specimen by BONG with probe detection (test code = 27215-0)
[2021-03-13] MEDS ORDERED: INSULIN -REGULAR HUMAN 50 UNIT/0.5 ML ML ONE (15:31)
[2021-03-13] MEDS ORDERED: NA CHLORIDE 0.9% 1,000 ML ONE (15:32)
[2021-03-13] MEDS ORDERED: NA CHLORIDE 0.9% 500 ML ONE (16:10)
--- NOTE | 2021-03-13 16:12 | P.SSS ---
Patient History Date of Service: 03/13/21 Primary Care Provider: Aditi History of Present Illness: Patient comes into the hospital for confusion. The patient is at the bedside. The patient has been having some confusion for the last 2 days. The patient had a fall last week. The patient had a bump on the back of her head the next day. The patient was confused an very week this morning. He was seen by Dr Wright and possible had a UTI. Family brought the patient to the ER. His right sided subdural has improved. he got this in a fall in December. The patient has had follow up in January with Dr. Chang . However there is a new left parietal subdural hematoma. The patient is also hyponatremic. Allergies Penicillins Adverse Reaction (Verified 01/07/21 06:05) Anaphylaxis Mycins Adverse Reaction (Uncoded 03/21/19 08:19) Itching/Hives/Rash Home Medications: Pentoxifylline 1 tab PO BID 06/20/18 Sacubitril/Valsartan [Entresto 49 mg-51 mg Tablet] 1 tab PO BID 01/08/21 Solifenacin Succinate 1 tab PO DAILY 01/08/21 Furosemide [Lasix*] 40 mg PO BIDL #60 tab 01/09/21 Metformin HCl [Metformin HCl ER] 500 mg PO DAILY 90 Days #90 tab.er.24h 01/12/21 - Past Medical/Surgical History Diabetic: Yes -: IDDM -: HTN -: Chronic diastolic congestive heart failure -: Hyperlipidemia -: Lymphedema -: Neuropathy -: acoustic neuroma -: Brain tumor removal -: CABG x 3 -: R knee replacement Psychosocial/ Personal History: Patient is retired, lives at home with his - Family History Mother -: Diabetes Father -: Heart disease - Social History Alcohol use: Yes CD- Drugs: No Caffeine use: No Review of Systems 10-point ROS is otherwise unremarkable General: Weakness Neurological: Weakness, Confusion, Other (tremors in the right hand earlier today. ) Physical Examination - Physical Exam General: Alert, Mild distress HEENT: Atraumatic, PERRLA, Mucous membr. moist/pink, EOMI, Sclerae nonicteric Neck: Supple, 2+ carotid pulse no bruit, No LAD, Without JVD or thyroid abnormality Respiratory: Clear to auscultation bilaterally, Normal air movement Cardiovascular: Regular rate/rhythm, Normal S1 S2 Gastrointestinal: Normal bowel sounds, No tenderness Musculoskeletal: No tenderness Integumentary: No rashes Neurological: Normal gait, Normal speech, Normal strength at 5/5 x4 extr, Normal tone, Normal affect Lymphatics: No axilla or inguinal lymphadenopathy - Studies Laboratory Data (last 24 hrs) 03/13/21 12:40: PT 11.6, INR 1.01 03/13/21 12:40: WBC 10.90, Hgb 13.4 L, Hct 39.4 L, Plt Count 224 03/13/21 12:40: Sodium 125 L, Potassium 3.8, BUN 56 H, Creatinine 1.59 H, Glucose 552 H*, Magnesium 2.3, Total Bilirubin 0.6, AST 12 L, ALT 20, Alkaline Phosphatase 178 H - Diagnosis (Problem(s)) (1) Subdural hematoma, acute Current Visit: Yes Status: Acute Plan: Have discussed the patient with Dr. Andrews. Considering the altered mental status and the hyponatremia a acute brain injury is on the differential. Though we can monitor him here. There is no neurosurgery. Have called Dr. Chang. [facility] Will transfer the patient there. (2) Hyponatremia Current Visit: Yes Status: Acute - Disposition Disposition: ROUTINE DISCHARGE Followup: Uri Pennington MD [Primary Care Provider] - Prvt As Needed Physician Review: Patient Assessed, Agree with Above Assessment and Plan Critical Care: Yes Time Spent Managing Pts Care (In Minutes): 45
[2021-03-13 17:52] VITALS: O2SAT 100
[2021-03-13 17:54] VITALS: TEMP 97.6
[2021-03-13 17:55] VITALS: BP 106/65
--- NOTE | 2021-03-14 08:06 | EKG ---
Test Date: 2021-03-13 Test Time: 12:51:18 Veneer Layer: MURIEL MEASUREMENT RESULTS: Intervals: Rate: 94 NJ: 134 QRSD: 156 QT: 442 QTc: 552 [place]: P: 51 NJ: 134 QRS: 116 T: 19 INTERPRETIVE STATEMENTS: Sinus rhythm with blocked premature atrial complexes with premature supraventricular complexes Right bundle branch block, plus right ventricular hypertrophy Left posterior fascicular block Bifascicular block T wave abnormality, consider inferior ischemia Abnormal ECG Compared to ECG 01/11/2021 03:19:05 Atrial premature complex(es) now present Ventricular premature complex(es) no longer present Bifascicular block still present T-wave abnormality still present Possible ischemia still present Electronically Signed On 03-14-21 08:03:44 CDT by Chaparro Dailey
== END 2021-03-13 17:37 | disposition short-term general hospital (02) ==
LOC: ER 11:32
DX: S06.5X0A Traumatic subdural hemorrhage without loss of consciousness, initial encounter (principal); E87.1 Hypo-osmolality and hyponatremia; E11.40 Type 2 diabetes mellitus with diabetic neuropathy, unspecified; I50.9 Heart failure, unspecified; Z88.0 Allergy status to penicillin; Z88.3 Allergy status to other anti-infective agents
CPT/HCPCS: 96361; 93005; 85025; 80048; 36415; 83735; 85610; 82947; 80076; 81003; 84484; 83880; 70450; 71045; 96374; 99285; J7040; J7030

== ENCOUNTER 2021-04-19 12:47 | Inpatient (IN) | payer OTHER, BC ==
--- OUTSIDE RECORDS SUMMARY | 2021-04-19 12:51 | XMS REPORT | Continuity of Care Document ---
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 00:00: Ho spita heart heart 00 l failure failure Allergies, Adverse Reactions, Alerts Allergy Allergy Status Severity Reaction(s) Onset Inactive Treating Comm ents Source Name Type Date Date Clinician Clindamshamar Propensi Active Swelling Meth taina aurora ty to [facility] adverse Hospita reaction l s to drug Penicill Propensi Active Swelling Meth taina ins ty to st adverse Hospita reaction l s to drug Family History Family Member Diagnosis Comments Start Date Stop Date Source Natural father Heart disease [facility] Social History Social Habit Start Date Stop Date Quantity Comments Source Tobacco use and 2020-10-18 2020-10-18 Never used [facility] exposure 00:00:00 00:00:00 Hospital Alcohol intake 2020-10-18 2020-10-18 Current drinker of [facility] 00:00:00 00:00:00 alcohol (finding) Hospita l Alcohol Comment 2018-09-14 2018-09-14 very occasional Meth odist 00:00:00 00:00:00 Hospital Sex Assigned At [birth year] [facility] 00:00:00 00:00:00 Hospital Smoking Status Start Date Stop Date Source Never smoker [facility] Medications Ordered Filled Start Stop Current Ordering Indication Dosage Frequency Signature Comments Components Source Medication Medication Date Date Medication? Clinician (SIG) Name Name clopidogrel Yes 75mg QD Take 75 mg Methodi (PLAVIX) 75 2-[address] mg tablet 16:03: daily. Hospit a 51 l insulin NPH Yes 35U Q24H Inject 35 M ethodi hum/reg 2-[address] insulin hm 16:03: under the Ho spita (HUMULIN 51 skin daily l 70/30 U-100 as needed KWIKPEN (Only if SUBQ) BS > 150). insulin NPH Yes 24U QD Inject 24 M ethodi hum/reg 2-[address] insulin hm 16:03: under the Ho spita (HUMULIN 51 skin l 70/30 U-100 nightly as KWIKPEN needed SUBQ) (high BS). ibuprofen Yes 400mg Q24H Take 400 Met hodi (ADVIL,MOTR 2-[address] IN) 200 MG 16:03: mouth Hospit a tablet 51 daily as l needed for mild pain. Takes 200 mg 2 TABS. (400 mg) tamsulosin Yes .4mg QD Take 0.4 Met hodi (FLOMAX) 2-[address] 0.4 mg 16:03: mouth Hospita capsule 51 daily. l sacubitril- Yes 1{tbl} Q.5D Take 1 Me thodi valsartan 2-[address] (ENTRESTO) 16:03: mouth 2 Hosp leandro 24-26 mg 51 (two) l tablet per times a tablet day. carvedilol Yes 25mg Q.5D Take 25 mg M ethodi (COREG) 25 2-[address] MG tablet 16:03: (two) Hospita 51 times a l day. furosemide 0 Yes 40mg Q.5D Take 40 mg M ethodi (LASIX) 40 2-[address] mg tablet 16:03: (two) Hospita 51 times a l day. atorvastati Yes 40mg QD Take 40 mg Methodi n (LIPITOR) 2-[address] 40 MG 16:03: daily. Hospita tablet 51 l aspirin 0 Yes 81mg QD Take 81 mg Meth taina (ECOTRIN) 2-[address] 81 MG 16:03: daily. Hospita enteric 51 l coated tablet metOLazone Yes Take by Meth taina (ZAROXOLYN) 2-[address] 2.5 MG 16:03: Hospita tablet 51 l potassium 2020-0 2020- No 10meq Q.5D Take 10 Met hodi chloride 2-02 02-[address] (K-DUR) 10 14:22: 00:00 mouth 2 Hos leah MEQ CR 48 :00 (two) l tablet times a day. metoprolol No 50mg Q.5D Take 50 mg Methodi tartrate 10-[address] (LOPRESSOR) 14:22: 00:00 (two) Hosp leandro 50 mg 27 :00 times a l tablet day. lisinopriL No 40mg QD Take 40 mg Method[facility] (PRINIVIL) 10-[address] 40 mg 14:22: 00:00 daily. Hospita tablet 10 :00 l gabapentin No 300mg Q.[id number] Take 300 Methodi (NEURONTIN) 10-[id number] 300 mg 14:21: 00:00 3D mouth 3 Hospita capsule 12 :00 (three) l times a day. FINASTERIDE Take by Me thodi ORAL 10-[address] 14:20: 00:00 Hospita 57 :00 l silver 2018-09 Yes [id number] Method i sulfadiazin 1- st e 22:30: Hospita (SILVADENE) 00 l 1 % cream pentoxifyll Yes TAKE ONE Me thodi ine 7-11 (1) st (TRENTal) 00:00: TABLET(S) Hos leah 400 mg CR 00 BY MOUTH l tablet TWO TIMES A DAY WITH MEAL. Vital Signs Vital Name Observation Time Observation Value Comments Source Systolic blood 2020-10-18 15:58:00 156 mm[Hg] Method ist [facility] pressure Diastolic blood 2020-10-18 15:58:00 74 mm[Hg] [facility] pressure Heart rate 2020-10-18 15:58:00 89 /min [facility] Body temperature 2020-10-18 15:58:00 36.56 Kenyatta [facility] Body height 2020-10-18 15:58:00 167.6 cm [facility] Body weight 2020-10-18 15:58:00 77.474 kg [facility] BMI 2020-10-18 15:58:00 27.57 kg/m2 [facility] Oxygen saturation in 2020-10-18 15:58:00 97 /min [facility] Arterial blood by Pulse oximetry Respiratory rate 2020-10-09 23:45:00 18 /min [facility] Procedures Procedure Date / Time Performed Performing Clinician Sourgonzalo e POC GLUCOSE 2020-10-09 17:54:00 Franki Peterson spital 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 2020-10-09 16:34:41 Arnulfo Topete [facility] POC GLUCOSE 2020-10-09 14:11:00 [facility]ALITATIVE 2020-10-08 19:27:00 Franki Peterson [facility] RT-PCR HC COMPLETE BLD COUNT 2020-10-08 19:27[facility]FF BASIC METABOLIC PANEL 2020-10-08 19:27:00 [facility] PROTHROMBIN TIME WITH 2020-10-08 19:27:00 [facility] INR TYPE AND SCREEN 2020-10-08 19:27[facility] 2020-10-08 19:27:00 [facility] DUPLEX ARTERIAL 2020-07-11 19:00:00 [facility] LOWER EXTREMITY [facility] BILATERAL US ANKLE BRACHIAL INDEX 2020-07-11 19:00:00 [facility] US CAROTID DUPLEX 2020-07-11 18:00:00 [facility] BILATERAL [facility] Plan of Care Planned Activity Planned Date Details Comments Source Future Scheduled Test 65+ PNEUMOCOCCAL [facility] VACCINE (1 of 2 - PPSV23) [code = 65+ PNEUMOCOCCAL VACCINE (1 of 2 - PPSV23)] Future Scheduled Test DIABETES: RETINAL EYE [facility] EXAM [code = DIABETES: RETINAL EYE EXAM] Future Scheduled Test DIABETIC FOOT EXAM [facility] [code = DIABETIC FOOT EXAM] Future Scheduled Test SHINGLES VACCINES (#1) [facility] [code = SHINGLES VACCINES (#1)] Future Scheduled Test COVID-19 VACCINE ( - [facility] Pfizer 2-dose series) [code = COVID-19 VACCINE (2 - Pfizer 2-dose series)] Future Scheduled Test INFLUENZA VACCINE [code [facility] = INFLUENZA VACCINE] Encounters Start End Encounter Admission Attending Care Care Encounter Source Date/Time Date/Time Type Type Clinicians Facility Department ID 2021-03-11 2021-03-11 [id number] 2021-03-06 2021[facility]03-06 [facility] [id number] 2020-12-11 2020-12-11 [facility] [id number] [facility] 2020-11-15 2020-11-15 Telephone Denise, 1.2.840.1 [id number] Methodi 00:00:00 00:00:[address] 3.430.2.7 Hospit a .3.399604 l .8 2020-11-15 2020-11-15 Travel 1.2.840.1 1.2.580.062 [id number] [facility]i 00:00:00 00:00:[address] 3.430.2.7 0.2.7.3.698 Ho spita .3.561379 084.8 l .8 2020-11-14 2020-11-14 Telephone Denise, 1.2.840.1 [id number] Methodi 00:00:00 00:00:[address] 3.430.2.7 Hospit a .3.928468 l .8 2020-11-08 2020-11-08 Orders Cardona, 1.2.840.1 [id number] Methodi 00:00:00 00:00:00 Only [place] 71670.1.1 620 s t 3.430.2.7 Hospit a .3.195648 l .8 2020-11-02 2020-11-02 Telephone Brednan, 1.2.840.1 [id number] Methodi 00:00:00 00:00:00 [place] 19013.1.1 432 s t 3.430.2.7 Hospit a .3.578917 l .8 2020-10-18 2020-10-18 Office Ferguson, 1.2.840.1 [id number] Methodi 09:57:37 10:41:30 Visit Thomas 58283.1.[address] [facility] 3.430.2.7 Hosp leandro .3.142633 l .8 2020-10-18 2020-10-18 Outpatient [facility] [id number] [address] 00:00:00 00:00:00 THOMAS [address] 2020-10-18 2020-10-18 Travel 1.2.840.1 1.2.392.501 [id number] Methodi 00:00:00 00:00:[address] 3.430.2.7 0.2.7.3.698 Ho spita .3.025666 084.8 l .8 2020-10-09 2020-10-09 [facility], 1.2.840.1 [id number] Methodi 07:43:00 18:37:00 Encounter Franki 95702.1.[address] 3.430.2.7 Hospit a .3.688530 l .8 2020-10-09 2020-10-09 Surgery [facility], 1.2.840.1 [id number] Methodi 09:30:00 10:30:[address] 3.430.2.7 Hospit a .3.649409 l .8 2020-10-09 2020-10-09 Outpatient [facility] [id number] [address] [place] 00:00:00 00:00:00 FRANKI [address] 2020-10-08 2020-10-08 Pre-Admiss Son, 1.2.840.1 [id number] Methodi 13:19:39 14:19:39 ion Franki 60897.1.[address] Testing 3.430.2.7 Hospit a .3.714384 l .8 2020-10-08 2020-10-08 Outpatient [facility] [id number] [address] [place] 00:00:00 00:00:00 FRANKI [address] 2020-10-08 2020-10-08 Travel 1.2.840.1 1.2.198.102 [id number] Methodi 00:00:00 00:00:[address] 3.430.2.7 0.2.7.3.698 Ho spita .3.619417 084.8 l .8 2020-10-05 2020-10-05 Telephone Don, 1.2.840.1 [id number] 2099 [id number] Method[facility] 00:00:00 00:00:[address] 3.430.2.7 Hospit a .3.394648 l .8 2020-10-05 2020-10-05 Telephone Don, 1.2.840.1 [id number] 2099 [id number] Methodi 00:00:00 00:00:[address] 3.430.2.7 Hospit a .3.543278 l .8 2020-10-04 2020-10-04 [facility] Wolff, 1.2.840.1 [id number] 2099 [id number] Methodi 00:00:00 00:00:00 Only Grace 39479.1.[address] 3.430.2.7 Hospit a .3.793600 l .8 2020-09-19 2020-09-19 Outpatient [facility] [id number] Kenny Estrella [facility] Clinics 2020-07-11 2020-07-11 Office Thomas [facility] 1.2.840.1 [id number] Methodi 12:35:24 15:32:57 Visit Sunni Herrmann 96677.1.[address] 3.430.2.7 Hospit a .3.106364 l .8 2020-07-11 2020-07-11 Outpatient [facility] [id number] [address] [place] 00:00:00 00:00:[address] 2020-07-11 2020-07-11 Outpatient [facility] [id number] [address] [place] 00:00:00 00:00:[address] 2020-07-11 2020-07-11 Outpatient FERGUSON, [facility] [id number] [address] [place] 00:00:00 00:00:00 THOMAS [address] 2020-07-11 2020-07-11 Telephone Herrmann, 1.2.840.1 [id number] 2099 [id number] Methodi 00:00:00 00:00:[address] [place] 3.430.2.7 Hosp leandro .3.007176 l .8 2020-07-11 2020-07-11 Orders Wolff, 1.2.840.1 [id number] [id number] Methodi 00:00:00 00:00:00 Only Grace 53368.1.[address] 3.430.2.7 Hospit a .3.970997 l .8 2020-07-11 2020-07-11 Orders Cardona, 1.2.840.1 [id number] [id number] Methodi 00:00:00 00:00:00 Only [place] 65220.1.1 544 s t 3.430.2.7 Hospit a .3.189394 l .8 2020-07-11 2020-07-11 Travel 1.2.840.1 1.2.075.738 [id number] [id number] Methodi 00:00:00 00:00:[address] 3.430.2.7 0.2.7.3.698 Ho spita .3.574018 084.8 l .8 2020-07-11 2020-07-11 Orders Cardona, 1.2.840.1 [id number] Methodi 00:00:00 00:00:00 Only [place] 62298.1.1 052 s t 3.430.2.7 Hospit a .3.396425 l .8 2020-06-28 2020-06-28 Telephone Arden, Juan.2.840.1 [id number] Methodi 00:00:00 00:00:00 Thalia 92475.1.1 910 3.430.2.7 Hospit a .3.247972 l .8 2020-02-01 2020-02-01 Outpatient [facility] [id number] [place] 00:00:00 00:00:[address] 2020-02-01 2020-02-01 [facility] [id number] [place] 00:00:00 00:00:00 THOMAS [address] 2019-11-03 2019-11-03 Outpatient [facility] [id number] [place] 00:00:00 00:00:[address] 2019-11-03 2019-11-03 [facility] [id number] [place] 00:00:00 00:00:00 THOMAS [address] 2019-06-13 2019-06-13 [id number] [id number] [address] [place] 00:00:00 00:00:00 THOMAS [address] 2019-06-06 2019-06-06 [id number] [address] [place] 00:00:00 00:00:00 FRANKI [address] Results Test Description Test Time Test Comments Results Result 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
[2021-04-19 13:24] LABS: Absolute Lymphocytes (CBC) 1.4 K/uL (0.7-4.9); Basophils % 0.8 % (0-1.3); Hematocrit 31.8 % (39.6-49.0); Lymphocytes % 17.8 % (15.3-44.8); MPV 7.4 fL (7.6-11.3)
[2021-04-19 13:25] LABS: Protime INR 1.37
[2021-04-19] MEDS ORDERED: NA CHLORIDE 0.9% 500 ML ONE (13:29)
[2021-04-19] MEDS ORDERED: ONDANSETRON 4 MG/2 ML VIAL ONE ×2 (14:06→17:58)
--- NOTE | 2021-04-19 14:10 | RAD REPORT ---
EXAM DESCRIPTION: RAD - Chest Single View - 04/19/2021 1:58 pm CLINICAL HISTORY: Chest pain;Palpitations COMPARISON: Chest Single View dated 03/13/2021; Chest Single View dated 01/11/2021; Chest Single View da klever 01/07/2021; Chest Single View dated 11/09/2020hest Single View dated 03/13/2021; Chest Single View taqueria ed 01/11/2021; Chest Single View dated 01/07/2021; Chest Single View dated 11/09/2020 FINDINGS: No evidence of edema or pneumonia. Cardiomegaly. Sternotomy. No acute osseous abnormality. No significant pleural effusions or pneumothorax. Calcified right lung nodule. IMPRESSION: No acute cardiopulmonary disease.
--- NOTE | 2021-04-19 14:29 | ER ---
Nurse's Notes [facility] Name: Wayne Jaimes Age: 80 yrs Sex: Male : 1940 Arrival Date: 04/19/2021 Time: 12:48 Bed 25 Private MD: Diagnosis: Unspecified atrial fibrillation;Unspecified combined systolic (congestive) and diastolic (congestive) heart failure Presentation: 04/19 12:58 Chief complaint: Patient states: patient has been experiencing chest pain and zb indigestion for 2 days. + nausea, Increase heart rate. chest pain rated 5/10 on right side denies radiation. no currently on blood thinners. history of a-fib. and triple bypass. Coronavirus screen: At this time, the client does not indicate any symptoms associated with coronavirus-19. Ebola Screen: No symptoms or risks identified at this time. Initial Sepsis Screen: Does the patient meet any 2 criteria? HR > 90 bpm. Does the patient have a suspected source of infection? No. Patient's initial sepsis screen is negative. Risk Assessment: Do you want to hurt yourself or someone else? Patient reports no desire to harm self or others. Onset of symptoms is unknown. 12:58 Acuity: ROSEMARY 2 zb 12:58 Method Of Arrival: EMS: [facility] zb Triage Assessment: 13:17 General: Appears in no apparent distress. Behavior is calm, cooperative. Pain: zb Complains of pain in chest Pain does not radiate. Pain currently is 5 out of 10 on a pain scale. Quality of pain is described as heavy, pressure, Pain began couple of days ago. 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 Cardiovascular: Reports chest pain, nausea, shortness of breath, vomiting, Murmur Pulses are 3+ in right radial artery and left radial artery Edema is 2+ to left midcalf, left ankle, right midcalf and right ankle Rhythm is atrial fibrillation with rapid ventricular response Chest pain is described as mild, quality is indigestion, pressure, is located in right chest wall episodes are continuous is alleviated by burping. Respiratory: Airway is patent Respiratory effort is even, unlabored, Respiratory pattern is regular, symmetrical. GI: Abdomen is round Abd is soft and non tender X 4 quads. Reports nausea, vomiting. Derm: Skin is normal. Historical: - Allergies: 13:15 Erythromycin; zb 13:15 PENICILLINS; zb - Home Meds: 13:15 Humulin 70/30 100 unit/mL (70-30) Sub-Q susp take 32 units in the morning and 18 units zb at night [Active]; furosemide 40 mg Oral tab 1 tab 2 times per day [Active]; lisinopril 20 mg Oral tab once daily [Active]; metformin 500 mg Oral tab once a day [Active]; metoprolol tartrate 50 mg Oral tab 1 tab 2 times per day [Active]; Entresto 49-51 mg Oral tab 2 times per day [Active]; mupirocin 2 % Topical oint [Active]; solifenacin 10 mg Oral tab once daily [Active]; pentoxifylline 400 mg Oral TbER 2 times per day [Active]; - PMHx: 13:15 CHF; Diabetes - IDDM; neuropathy; subdural hematoma 12/2020; zb - PSHx: 13:15 Coronary artery bypass graft; zb - Immunization history:: Adult Immunizations up to date, Client reports receiving the 2nd dose of the Covid vaccine, Date received: November 2020. - Social history:: Smoking status: unknown. Screenin:28 Abuse screen: Denies threats or abuse. Denies injuries from another. Nutritional zb screening: No deficits noted. Tuberculosis screening: No symptoms or risk factors identified. Fall Risk No fall in past 12 months (0 pts). No secondary diagnosis (0 pts). IV access (20 points). Ambulatory Aid- Crutches/Cane/Walker (15 pts). Gait- Normal/Bed Rest/Wheelchair (0 pts) Mental Status- Oriented to own ability (0 pts). Total Thrasher Fall Scale indicates Low Risk Score (25-44 pts). Fall prevention measures have been instituted. Side Rails Up X 2 Placed close to Nursing Station Frequent Obs/Assesments occuring As available Patient and Family Educated on Fall Prevention Program and strategies. Assessment: 13:33 Reassessment: Patient appears in no apparent distress at this time. Patient and/or zb family updated on plan of care and expected duration. Pain level reassessed. Patient is alert, oriented x 3, equal unlabored respirations, skin warm/dry/pink. c/o of nausea. given nausea medication. 14:30 Reassessment: Patient appears in no apparent distress at this time. Patient and/or zb family updated on plan of care and expected duration. Pain level reassessed. Patient is alert, oriented x 3, equal unlabored respirations, skin warm/dry/pink. 15:58 Reassessment: Dr. Ames notified of critical lab values Potassium, AST and ALT. ss 16:25 Reassessment: Patient appears in no apparent distress at this time. Patient and/or zb family updated on plan of care and expected duration. Pain level reassessed. Patient is alert, oriented x 3, equal unlabored respirations, skin warm/dry/pink. IV fluid completed. 17:30 Reassessment: Patient appears in no apparent distress at this time. Patient and/or zb family updated on plan of care and expected duration. Pain level reassessed. Patient is alert, oriented x 3, equal unlabored respirations, skin warm/dry/pink. given urinal 100ml output. 18:57 Reassessment: Patient appears in no apparent distress at this time. Patient and/or zb family updated on plan of care and expected duration. Pain level reassessed. Patient is alert, oriented x 3, equal unlabored respirations, skin warm/dry/pink. Given Po fluid and food. 20:00 Reassessment: Patient appears in no apparent distress at this time. Patient and/or zb family updated on plan of care and expected duration. Pain level reassessed. Patient is alert, oriented x 3, equal unlabored respirations, skin warm/dry/pink. 20:30 Reassessment: notifed EC of heart rated. medication ordered. zb 21:57 Reassessment: Patient appears in no apparent distress at this time. Patient and/or zb family updated on plan of care and expected duration. Pain level reassessed. Patient is alert, oriented x 3, equal unlabored respirations, skin warm/dry/pink. heart rated decrease to 120- 130's. Vital Signs: 12:50 BP 108 / 79; Pulse 140; Resp 16; Pulse Ox 100% on R/A; zb 12:55 BP 98 / 81; Pulse 136; Resp 18; Pulse Ox 97% on R/A; zb 12:58 BP 124 / 94; Pulse 154; Resp 18; Temp 98.1; Pulse Ox 99% on R/A; Weight 74.84 kg; zb Height 5 ft. 6 in. (167.64 cm); Pain 5/10; 13:20 BP 93 / 70; Pulse 128; Resp 16; Pulse Ox 100% on R/A; zb 14:45 BP 93 / 67; Pulse 121; Resp 16; Pulse Ox 100% ; zb 15:30 BP 109 / 93; Pulse 123; Resp 19; Pulse Ox 94% on R/A; zb 16:30 BP 127 / 99; Pulse 123; Resp 18; Pulse Ox 100% on R/A; zb 17:53 BP 115 / 102; Pulse 105; Resp 18; Pulse Ox 99% on R/A; zb 18:58 BP 138 / 106; Pulse 128; Resp 19; Pulse Ox 92% on R/A; zb 19:45 BP 123 / 97; Pulse 166; Resp 16; Pulse Ox 100% on R/A; zb 19:50 BP 145 / 96; Pulse 137; Resp 19; Pulse Ox 96% on R/A; zb 20:30 BP 132 / 92; Pulse 145; Resp 18; Pulse Ox 100% on R/A; zb 21:58 BP 143 / 93; Pulse 131; Resp 18; Pulse Ox 100% on R/A; zb 12:58 Body Mass Index 26.63 (74.84 kg, 167.64 cm) zb ED Course: 12:45 Patient has correct armband on for positive identification. Fall risk band placed. zb Placed in gown. Bed in low position. Call light in reach. Side rails up X 1. Door closed. Noise minimized. 12:45 Maintain EMS IV. Dressing intact. Good blood return noted. Site clean \T\ dry. Gauge \T\ zb site: 18G LAC . 12:48 Patient arrived in ED. ds1 12:53 Perez Ames MD is Attending Physician. kdr 12:55 Inserted saline lock: 20 gauge in right antecubital area, using aseptic technique. zb 12:58 Clau Mejia RN is Primary Nurse. zb 13:15 Triage completed. zb 13:58 XRAY Chest (1 view) In Process Unspecified. EDMS 14:27 Uri Pennington MD is Hospitalizing Provider. kdr 16:28 Arm band placed on. zb 16:29 gambling monitor on. Pulse ox on. NIBP on. zb 22:03 No provider procedures requiring assistance completed. Patient admitted, IV remains in zb place. Administered Medications: 12:44 Drug: Metoprolol 5 mg Route: IVP; Site: left antecubital; zb 12:50 Drug: Metoprolol 5 mg Route: IVP; Site: left antecubital; zb 15:14 Follow up: Response: No adverse reaction; Marked relief of symptoms; Cardiac rhythm zb changed 15:14 Follow up: Response: Cardiac rhythm changed zb 13:00 Drug: NS 0.9% 500 ml Route: IV; Rate: bolus; Site: left antecubital; zb 15:14 Follow up: Response: No adverse reaction; IV Status: Completed infusion; IV Intake: zb 500ml 13:56 Drug: Zofran (Ondansetron) 4 mg Route: IVP; Site: left antecubital; zb 15:14 Follow up: Response: No adverse reaction; Nausea is decreased zb 17:26 Drug: D50W 50 ml Route: IVP; Site: left antecubital; zb 18:56 Follow up: Response: No adverse reaction; Marked relief of symptoms zb 17:26 Drug: Calcium Gluconate 1 grams Route: IVPB; Infused Over: 60 mins; Site: left zb antecubital; 18:56 Follow up: Response: No adverse reaction; IV Status: Completed infusion; IV Intake: zb 100ml 17:27 Drug: Insulin Regular Human 10 units {Co-Signature: bp (Brain Sotomayor RN).} Route: IVP; zb Site: left antecubital; 18:56 Follow up: Response: No adverse reaction zb 17:27 Drug: Digoxin 0.5 mg Route: IVP; Site: left antecubital; zb 18:56 Follow up: Response: No adverse reaction; Cardiac rhythm changed zb 17:48 Drug: Zofran (Ondansetron) 4 mg Route: IVP; Site: right antecubital; zb 18:57 Follow up: Response: Nausea is decreased zb 18:56 Drug: Kayexalate (polystyrene) 30 grams Route: PO; zb 18:57 Follow up: Response: No adverse reaction zb 19:23 Not Given (Other Intervention Used): Albuterol 2.5 mg Inhalation once x2 ss 21:00 Drug: Pepcid (famotidine) 20 mg Route: IVP; Site: left antecubital; zb 22:07 Follow up: Response: No adverse reaction zb 21:07 Drug: Metoprolol 5 mg Route: IVP; Site: right antecubital; zb 21:20 Drug: Metoprolol 5 mg Route: IVP; Site: right antecubital; zb 22:07 Follow up: Response: No adverse reaction zb Intake: 15:14 IV: 500ml; Total: 500ml. zb 18:56 IV: 100ml; Total: 600ml. zb Outcome: 14:28 Decision to Hospitalize by Provider. kdr 22:03 Admitted to Med/surg accompanied by tech, room 201, with chart, Report called to roshan Burton RN 2nd floor 22:03 Condition: stable 22:03 Instructed on the need for admit. 23:27 Patient left the ED. zb Signatures: Dispatcher [employer] EDMS Perez Ames MD MD kdr Nyla Vincent ds1 Christine Doty RN RN ss Botello, Elizabeth eb Brown, Zipporah, RN RN zgenaro Sotomayor RN bp Corrections: (The following items were deleted from the chart) 15:17 14:50 initiated a transfer with Chinedu from the [facility]. lars sousa 15:26 15:14 CORONAVIRUS+MR.LAB.CARLOS drawn and sent. zgenaro EDMS
--- NOTE | 2021-04-19 14:29 | EDPHYS ---
Physician Documentation [facility] Name: Wayne Jaimes Age: 80 yrs Sex: Male : 1940 Arrival Date: 04/19/2021 Time: 12:48 Bed 25 Private MD: ED Physician Perez Ames HPI: 04/19 18:55 This 80 yrs old Male presents to ER via EMS with complaints of Chest pain or kdr nausea. 18:55 The patient or guardian reports chest pain that is located primarily in the anterior kdr chest wall. Onset: gradually, 2 day(s) ago. The pain does not radiate. Associated signs and symptoms: Pertinent positives: diaphoresis, nausea, shortness of breath, Pertinent negatives: abdominal pain, cough, headache, lower extremity pain, lower extremity swelling, lightheadedness, near syncope, palpitations, recent travel. The chest pain is described as aching, dull, Vague. Duration: The patient or guardian reports multiple episodes, that are intermittent, that wax and wane, with no pattern. Severity of pain: At its worst the pain was mild in the emergency department the pain is unchanged. The patient has not experienced similar symptoms in the past. The patient has not recently seen a physician. Historical: - Allergies: 13:15 Erythromycin; zb 13:15 PENICILLINS; zb - Home Meds: 13:15 Humulin 70/30 100 unit/mL (70-30) Sub-Q susp take 32 units in the morning and 18 units zb at night [Active]; furosemide 40 mg Oral tab 1 tab 2 times per day [Active]; lisinopril 20 mg Oral tab once daily [Active]; metformin 500 mg Oral tab once a day [Active]; metoprolol tartrate 50 mg Oral tab 1 tab 2 times per day [Active]; Entresto 49-51 mg Oral tab 2 times per day [Active]; mupirocin 2 % Topical oint [Active]; solifenacin 10 mg Oral tab once daily [Active]; pentoxifylline 400 mg Oral TbER 2 times per day [Active]; - PMHx: 13:15 CHF; Diabetes - IDDM; neuropathy; subdural hematoma 12/2020; zb - PSHx: 13:15 Coronary artery bypass graft; zb - Immunization history:: Adult Immunizations up to date, Client reports receiving the 2nd dose of the Covid vaccine, Date received: November 2020. - Social history:: Smoking status: unknown. ROS: 18:55 Constitutional: Negative for fever, chills, and weight loss, Eyes: Negative for injury, kdr pain, redness, and discharge, Neck: Negative for injury, pain, and swelling, Respiratory: Negative for shortness of breath, cough, wheezing, and pleuritic chest pain, Back: Negative for injury and pain, : Negative for injury, bleeding, discharge, and swelling, MS/Extremity: Negative for injury and deformity, Skin: Negative for injury, rash, and discoloration, Psych: Negative for depression, anxiety, suicide ideation, homicidal ideation, and hallucinations, Allergy/Immunology: Negative for hives, rash, and allergies, Endocrine: Negative for neck swelling, polydipsia, polyuria, polyphagia, and marked weight changes, Hematologic/Lymphatic: Negative for swollen nodes, abnormal bleeding, and unusual bruising. 18:55 Cardiovascular: Positive for chest pain, Negative for edema, orthopnea, palpitations. 18:55 Respiratory: Positive for dyspnea on exertion, shortness of breath. Exam: 18:55 Constitutional: This is a well developed, well nourished patient who is awake, alert, kdr and in no acute distress. Head/Face: Normocephalic, atraumatic. Eyes: Pupils equal round and reactive to light, extra-ocular motions intact. Lids and lashes normal. Conjunctiva and sclera are non-icteric and not injected. Cornea within normal limits. Periorbital areas with no swelling, redness, or edema. Neck: Trachea midline, no thyromegaly or masses palpated, and no cervical lymphadenopathy. Supple, full range of motion without nuchal rigidity, or vertebral point tenderness. No Meningismus. Chest/axilla: Normal chest wall appearance and motion. Nontender with no deformity. No lesions are appreciated. Abdomen/GI: Soft, non-tender, with normal bowel sounds. No distension or tympany. No guarding or rebound. No evidence of tenderness throughout. Back: No spinal tenderness. No costovertebral tenderness. Full range of motion. Skin: Warm, dry with normal turgor. Normal color with no rashes, no lesions, and no evidence of cellulitis. MS/ Extremity: Pulses equal, no cyanosis. Neurovascular intact. Full, normal range of motion. Neuro: Awake and alert, GCS 15, oriented to person, place, time, and situation. Cranial nerves II-XII grossly intact. Motor strength 5/5 in all extremities. Sensory grossly intact. Cerebellar exam normal. Normal gait. Psych: Awake, alert, with orientation to person, place and time. Behavior, mood, and affect are within normal limits. 18:55 Cardiovascular: Rate: tachycardic, Rhythm: regular. 18:55 Respiratory: the patient does not display signs of respiratory distress, Respirations: normal, Breath sounds: Breath sounds are decreased globally. When the patient coughs he sounds very tight. There is a very high-pitched wheezing.. Vital Signs: 12:50 BP 108 / 79; Pulse 140; Resp 16; Pulse Ox 100% on R/A; zb 12:55 BP 98 / 81; Pulse 136; Resp 18; Pulse Ox 97% on R/A; zb 12:58 BP 124 / 94; Pulse 154; Resp 18; Temp 98.1; Pulse Ox 99% on R/A; Weight 74.84 kg; zb Height 5 ft. 6 in. (167.64 cm); Pain 5/10; 13:20 BP 93 / 70; Pulse 128; Resp 16; Pulse Ox 100% on R/A; zb 14:45 BP 93 / 67; Pulse 121; Resp 16; Pulse Ox 100% ; zb 15:30 BP 109 / 93; Pulse 123; Resp 19; Pulse Ox 94% on R/A; zb 16:30 BP 127 / 99; Pulse 123; Resp 18; Pulse Ox 100% on R/A; zb 17:53 BP 115 / 102; Pulse 105; Resp 18; Pulse Ox 99% on R/A; zb 18:58 BP 138 / 106; Pulse 128; Resp 19; Pulse Ox 92% on R/A; zb 19:45 BP 123 / 97; Pulse 166; Resp 16; Pulse Ox 100% on R/A; zb 19:50 BP 145 / 96; Pulse 137; Resp 19; Pulse Ox 96% on R/A; zb 20:30 BP 132 / 92; Pulse 145; Resp 18; Pulse Ox 100% on R/A; zb 21:58 BP 143 / 93; Pulse 131; Resp 18; Pulse Ox 100% on R/A; zb 12:58 Body Mass Index 26.63 (74.84 kg, 167.64 cm) zb MDM: 14:28 Patient medically screened. kdr 18:55 Data reviewed: vital signs, nurses notes, lab test result(s), radiologic studies. [facility] 04/19 12:53 Order name: Basic Metabolic Panel; Complete Time: 16:11 kdr 04/19 12:53 Order name: CBC with Diff; Complete Time: 13:50 kdr 04/19 12:53 Order name: LFT's; Complete Time: 16:11 kdr 04/19 12:53 Order name: Magnesium; Complete Time: 16:11 kdr 04/19 12:53 Order name: NT PRO-BNP; Complete Time: 16:11 [facility] 04/19 12:53 Order name: PT-INR; Complete Time: 13:50 kdr 04/19 12:53 Order name: Troponin (emerg Dept Use Only); Complete Time: 16:11 [facility] 04/19 12:53 Order name: XRAY Chest (1 view); Complete Time: 14:23 [facility] 04/19 16:19 Order name: SARS-COV-2 RT PCR; Complete Time: 16:20 [facility] 04/19 17:26 Order name: Magnesium [facility] 04/19 17:26 Order name: Thyroid Stimulating Hormone [facility] 04/19 17:26 Order name: CBC with Automated Diff [facility] 04/19 17:26 Order name: CBC with Automated Diff [facility] 04/19 12:53 Order name: EKG; Complete Time: 12:54 [facility] 04/19 17:26 Order name: CONS Physician Consult [facility] 04/19 17:38 Order name: Social Service Consult [facility] 04/19 17:39 Order name: Consistent Carb (ADA) 1800 Tariq [facility] 04/19 12:53 Order name: Cardiac monitoring; Complete Time: 13:27 kdr 04/19 12:53 Order name: EKG - Nurse/Tech; Complete Time: 13:27 kdr 04/19 12:53 Order name: IV Saline Lock; Complete Time: 13:27 kdr 04/19 12:53 Order name: Labs collected and sent; Complete Time: 13:27 kdr 04/19 12:53 Order name: O2 Per Protocol; Complete Time: 13:27 kdr 04/19 12:53 Order name: O2 Sat Monitoring; Complete Time: 13:27 kdr Administered Medications: 12:44 Drug: Metoprolol 5 mg Route: IVP; Site: left antecubital; zb 12:50 Drug: Metoprolol 5 mg Route: IVP; Site: left antecubital; zb 15:14 Follow up: Response: No adverse reaction; Marked relief of symptoms; Cardiac rhythm zb changed 15:14 Follow up: Response: Cardiac rhythm changed zb 13:00 Drug: NS 0.9% 500 ml Route: IV; Rate: bolus; Site: left antecubital; zb 15:14 Follow up: Response: No adverse reaction; IV Status: Completed infusion; IV Intake: zb 500ml 13:56 Drug: Zofran (Ondansetron) 4 mg Route: IVP; Site: left antecubital; zb 15:14 Follow up: Response: No adverse reaction; Nausea is decreased zb 17:26 Drug: D50W 50 ml Route: IVP; Site: left antecubital; zb 18:56 Follow up: Response: No adverse reaction; Marked relief of symptoms zb 17:26 Drug: Calcium Gluconate 1 grams Route: IVPB; Infused Over: 60 mins; Site: left zb antecubital; 18:56 Follow up: Response: No adverse reaction; IV Status: Completed infusion; IV Intake: zb 100ml 17:27 Drug: Insulin Regular Human 10 units {Co-Signature: bp (Brain Sotomayor RN).} Route: IVP; zb Site: left antecubital; 18:56 Follow up: Response: No adverse reaction zb 17:27 Drug: Digoxin 0.5 mg Route: IVP; Site: left antecubital; zb 18:56 Follow up: Response: No adverse reaction; Cardiac rhythm changed zb 17:48 Drug: Zofran (Ondansetron) 4 mg Route: IVP; Site: right antecubital; zb 18:57 Follow up: Response: Nausea is decreased zb 18:56 Drug: Kayexalate (polystyrene) 30 grams Route: PO; zb 18:57 Follow up: Response: No adverse reaction zb 19:23 Not Given (Other Intervention Used): Albuterol 2.5 mg Inhalation once x2 ss 21:00 Drug: Pepcid (famotidine) 20 mg Route: IVP; Site: left antecubital; zb 22:07 Follow up: Response: No adverse reaction zb 21:07 Drug: Metoprolol 5 mg Route: IVP; Site: right antecubital; zb 21:20 Drug: Metoprolol 5 mg Route: IVP; Site: right antecubital; zb 22:07 Follow up: Response: No adverse reaction zb Disposition Summary: 04/19/21 14:28 Hospitalization Ordered Hospitalization Status: Inpatient Admission kdr Provider: Uri Pennington Condition: Fair kdr Problem: new kdr Symptoms: have improved kdr Bed/Room Type: Standard kdr Location: Telemetry/MedSurg (Inpatient)(04/19/21 20:48) mw Room Assignment: [facility](04/19/21 20:48) mw Diagnosis - Unspecified atrial fibrillation kdr - Unspecified combined systolic (congestive) and diastolic (congestive) heart failure kdr Forms: - Medication Reconciliation Form kdr - SBAR form kdr Signatures: Dispatcher [employer] EDMS Kailyn Hagan RN RN Perez Ames MD MD kdr Clau Mejia RN RN zb Smirch, Shelby RN ss Brain Sotomayor RN bp Corrections: (The following items were deleted from the chart) 15:26 14:53 CORONAVIRUS+MR.LAB.BRZ ordered. EDMS EDMS 20:29 14:28 Telemetry/MedSurg (Inpatient) kdr mw 20:29 14:28 kdr mw 20:48 20:29 [facility] ER HOLD mw mw 20:48 20:29 ERHOLD- mw mw
[2021-04-19 15:54] LABS: Albumin 3.1 g/dL (3.4-5.0); Bilirubin Direct 0.8 mg/dL (0-0.2); Bilirubin Total 1.3 mg/dL (0.2-1.0); Magnesium 2.4 mg/dL (1.8-2.4); Protein, Total 7.2 g/dL (6.4-8.2); Troponin (Emerg Dept Use Only) 0.24 ng/mL (0.0-0.045)
[2021-04-19 15:57] LABS: Potassium 5.8 mmol/L (3.5-5.1)
[2021-04-19] MEDS ORDERED: ALBUTEROL 2.5 MG/3 ML NEB SOL ONE (17:27)
[2021-04-19] MEDS ORDERED: SOD POLYSTYREN SUL 15 GM/60 ML UCUP ONE (17:28)
[2021-04-19] MEDS ORDERED: DIGOXIN 0.25 MG/ML AMP ONE (17:28)
[2021-04-19] MEDS ORDERED: INSULIN -REGULAR HUMAN 50 UNIT/0.5 ML ML ONE (17:28)
[2021-04-19] MEDS ORDERED: D50W 50 ML IV ONE (17:29)
[2021-04-19] MEDS ORDERED: CALCIUM GLUCONATE 1 GM IVPB 1 GM/50 ML BAG IV ONE (17:29)
--- NOTE | 2021-04-19 17:35 | P.HP ---
Certification for Inpatient Patient admitted to: Inpatient With expected LOS: >2 Midnights Patient will require the following post-hospital care: Home Health Services Practitioner: I am a practitioner with admitting privileges, knowledge of patient current condition, hospital course, and medical plan of care. 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 He has a history of chf. Was recently in [place] for [employer]. Was sent home yesterday. He has been having indigestion for the past few days. He went home and had a visiting home nurse. found he was htn and tachycardic and was sent to the Er. there he was found to be in afib with a rate in the 120-150. The patient was not having much in the way of chest pain. Allergies Penicillins Adverse Reaction (Verified 01/07/21 06:05) Anaphylaxis Mycins Adverse Reaction (Uncoded 03/21/19 08:19) Itching/Hives/Rash Home Medications: Pentoxifylline 1 tab PO BID 06/20/18 Sacubitril/Valsartan [Entresto 49 mg-51 mg Tablet] 1 tab PO BID 01/08/21 Solifenacin Succinate 1 tab PO DAILY 01/08/21 Furosemide [Lasix*] 40 mg PO BIDL #60 tab 01/09/21 Metformin HCl [Metformin HCl ER] 500 mg PO DAILY 90 Days #90 tab.er.24h 01/12/21 - Past Medical/Surgical History Diabetic: Yes -: IDDM -: HTN -: Chronic diastolic congestive heart failure -: Hyperlipidemia -: Lymphedema -: Neuropathy -: acoustic neuroma -: Brain tumor removal -: CABG x 3 -: R knee replacement Psychosocial/ Personal History: Patient is retired, lives at home with his - Family History Mother -: Diabetes Father -: Heart disease - Social History Alcohol use: Yes CD- Drugs: No Caffeine use: No Review of Systems 10-point ROS is otherwise unremarkable Cardiovascular: Palpitations Gastrointestinal: Abdominal Pain Physical Examination - Physical Exam General: Alert, In no apparent distress HEENT: Atraumatic, PERRLA, Mucous membr. moist/pink, EOMI, Sclerae nonicteric Neck: Supple, 2+ carotid pulse no bruit, No LAD, Without JVD or thyroid abnormality Respiratory: Clear to auscultation bilaterally, Normal air movement Cardiovascular: Regular rate/rhythm, Normal S1 S2 Gastrointestinal: Normal bowel sounds, No tenderness Musculoskeletal: No tenderness Integumentary: No rashes Neurological: Normal gait, Normal speech, Normal strength at 5/5 x4 extr, Normal tone, Normal affect Lymphatics: No axilla or inguinal lymphadenopathy - Studies Laboratory Data (last 24 hrs) 04/19/21 13:11: PT 15.8 H, INR 1.37 04/19/21 13:11: WBC 7.90, Hgb 10.7 L, Hct 31.8 L, Plt Count 187 04/19/21 13:11: Sodium 135 L, Potassium 5.8 H*, BUN 50 H, Creatinine 1.27, Glucose 189 H, Magnesium 2.4, Total Bilirubin 1.3 H, AST 544 H*, ALT 507 H*, Alkaline Phosphatase 486 H Assessment and Plan - Problems (Diagnosis) (1) Afib Current Visit: Yes Status: Acute Plan: he is on lopressor and adding digoxin. Will consult Dr. Dailey. Will consider a echocardiogram Qualifiers: Atrial fibrillation type: paroxysmal Qualified Code(s): I48.0 - Paroxysmal atrial fibrillation (2) CHF (congestive heart failure) Current Visit: No Status: Chronic Plan: Will continue his entresto. as stated above consider an echocardiogram Qualifiers: Heart failure type: systolic Heart failure chronicity: chronic Qualified Code(s): I50.22 - Chronic systolic (congestive) heart failure (3) Diabetes Onset Date: 06/23/18 Current Visit: No Status: Chronic Plan: Will hold the metformin. Will start him on a sliding scale and start his home insulin in the morning Qualifiers: Diabetes mellitus type: type 2 Diabetes mellitus jail insulin use: with terminal operator use Diabetes mellitus complication status: without complication Qualified Code(s): E11.9 - Type 2 diabetes mellitus without complications; Z79.4 - skilled nursing (current) use of insulin (4) HTN (hypertension) Onset Date: 06/23/18 Current Visit: No Status: Chronic Plan: will start his home medications and adjust as necessary. Qualifiers: Hypertension type: primary hypertension Qualified Code(s): I10 - Essential (primary) hypertension Discharge Plan: Home Plan to discharge in: Greater than 2 days - Advance Directives Does patient have a Living Will: Yes Does patient have a Durable POA for Healthcare: Yes - Code Status/Comfort Care Code Status Assessed: No Code Status: Full Code Physician Review: Patient Assessed, Agree with Above Assessment and Plan Critical Care: No Time Spent Managing Pts Care (In Minutes): 60
[2021-04-19] MEDS ORDERED: D50W 25 GM/50 ML SYRINGE IV PRN (17:38)
[2021-04-19] MEDS ORDERED: LEVALBUTEROL 0.63 MG/3 ML NEB NEB PRN (17:38)
[2021-04-19] MEDS ORDERED: GLUCAGON 1 MG/VIAL IM PRN (17:38)
[2021-04-19] MEDS ORDERED: ONDANSETRON 4 MG/2 ML VIAL IV PRN (17:39)
[2021-04-19] MEDS ORDERED: FAMOTIDINE 20 MG/2 ML VIAL IV ONE (20:06)
[2021-04-19] MEDS: INSULIN -REGULAR HUMAN 50 UNIT/0.5 ML ML SQ SCH (21:00)
[2021-04-19] MEDS ORDERED: METOPROLOL TARTRATE 5 MG/5 ML INJ IV ONE (22:06)
[2021-04-20] MEDS: SACUBITRIL/VALSARTAN 49/51 MG TAB PO SCH ×3 (00:28→20:46)
[2021-04-20] MEDS: ENOXAPARIN 30 MG/0.3 ML SQ SCH ×2 (00:29→16:33)
[2021-04-20 06:04] LABS: Basophils % 0.7 % (0-1.3); MPV 7.6 fL (7.6-11.3); RBC Red Blood Cell Count 3.46 M/uL (4.33-5.43)
[2021-04-20 06:24] LABS: Magnesium 2.6 mg/dL (1.8-2.4); Thyroid Stimulating Hormone 1.29 uIU/mL (0.360-3.740)
[2021-04-20] MEDS: INSULIN -REGULAR HUMAN 50 UNIT/0.5 ML ML SQ SCH ×4 (07:30→20:47)
[2021-04-20] MEDS: PANTOPRAZOLE 40MG TABLET PO SCH (08:33)
--- NOTE | 2021-04-20 11:01 | P.PN ---
Subjective Date of Service: 04/20/21 Primary Care Provider: Aditi Chief Complaint: atrial fib with RVR Subjective: No new changes Review of Systems 10-point ROS is otherwise unremarkable Physical Examination - Vital Signs Temperature: 97.6 F Blood Pressure: 128/90 Pulse: 149 Respirations: 30 Pulse Ox (%): 99 - Physical Exam General: Alert, In no apparent distress HEENT: Atraumatic, PERRLA, EOMI Neck: Supple, JVD not distended Respiratory: Clear to auscultation bilaterally, Normal air movement Cardiovascular: Regular rate/rhythm, Normal S1 S2 Gastrointestinal: Normal bowel sounds, No tenderness Musculoskeletal: No tenderness Integumentary: No rashes Neurological: Normal speech, Normal tone, Normal affect Lymphatics: No axilla or inguinal lymphadenopathy - Studies Laboratory Data (last 24 hrs) 04/19/21 13:11: PT 15.8 H, INR 1.37 04/19/21 13:11: WBC 7.90, Hgb 10.7 L, Hct 31.8 L, Plt Count 187 04/19/21 13:11: Sodium 135 L, Potassium 5.8 H*, BUN 50 H, Creatinine 1.27, Glucose 189 H, Magnesium 2.4, Total Bilirubin 1.3 H, AST 544 H*, ALT 507 H*, Alkaline Phosphatase 486 H Assessment & Plan - Problems (Diagnosis) (1) Afib Current Visit: Yes Status: Acute Plan: he is on lopressor and adding digoxin. Will consult Dr. Dailey. Will consider a echocardiogram 04/20 Will start a scheduled beta yoli on the patient. If we can control his heart rate we can discharge in the evenning or the morning. The patient is asymptomatic. Will wait for the patient to be seen by cardiology of course. Qualifiers: Atrial fibrillation type: paroxysmal Qualified Code(s): I48.0 - Paroxysmal atrial fibrillation (2) CHF (congestive heart failure) Current Visit: No Status: Chronic Plan: Will continue his entresto. as stated above consider an echocardiogram Qualifiers: Heart failure type: systolic Heart failure chronicity: chronic Qualified Code(s): I50.22 - Chronic systolic (congestive) heart failure (3) Diabetes Onset Date: 06/23/18 Current Visit: No Status: Chronic Plan: Will hold the metformin. 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 Qualifiers: Hypertension type: primary hypertension Qualified Code(s): I10 - Essential (primary) hypertension Discharge Plan: Home Plan to discharge in: 24 Hours - Code Status/Comfort Care Code Status Assessed: No Physician Review: Patient Assessed, Agree with Above Assessment and Plan Critical Care: No Time Spent Managing Pts Care (In Minutes): 20
[2021-04-20] MEDS: carvediloL 6.25 MG TAB PO SCH (20:46)
[2021-04-21 05:54] LABS: Absolute Lymphocytes (CBC) 1.4 K/uL (0.7-4.9); Basophils % 1.2 % (0-1.3); Hematocrit 31.9 % (39.6-49.0); Lymphocytes % 22.2 % (15.3-44.8); MPV 7.2 fL (7.6-11.3); RBC Red Blood Cell Count 3.32 M/uL (4.33-5.43)
[2021-04-21 06:30] LABS: Albumin 2.6 g/dL (3.4-5.0); Bilirubin Total 0.9 mg/dL (0.2-1.0); Potassium 4.2 mmol/L (3.5-5.1); Protein, Total 6.2 g/dL (6.4-8.2)
[2021-04-21] MEDS: D5 0.45 NS 1,000 ML IV SCH (06:58)
[2021-04-21] MEDS: INSULIN -REGULAR HUMAN 50 UNIT/0.5 ML ML SQ SCH ×4 (07:30→20:22)
[2021-04-21] MEDS: SACUBITRIL/VALSARTAN 49/51 MG TAB PO SCH ×2 (08:49→20:20)
[2021-04-21] MEDS: PANTOPRAZOLE 40MG TABLET PO SCH (08:50)
[2021-04-21] MEDS: carvediloL 6.25 MG TAB PO SCH (08:50)
--- NOTE | 2021-04-21 10:08 | P.PN ---
Subjective Date of Service: 04/21/21 Primary Care Provider: Aditi Chief Complaint: atrial fib with RVR Subjective: No new changes Review of Systems 10-point ROS is otherwise unremarkable Physical Examination - Vital Signs Temperature: 97.2 F Blood Pressure: 127/66 Pulse: 85 Respirations: 18 Pulse Ox (%): 97 - Physical Exam General: Alert, In no apparent distress HEENT: Atraumatic, PERRLA, EOMI Neck: Supple, JVD not distended Respiratory: Clear to auscultation bilaterally, Normal air movement Cardiovascular: Regular rate/rhythm, Normal S1 S2 Gastrointestinal: Normal bowel sounds, No tenderness Musculoskeletal: No tenderness Integumentary: No rashes Neurological: Normal speech, Normal tone, Normal affect Lymphatics: No axilla or inguinal lymphadenopathy Assessment & Plan - Problems (Diagnosis) (1) Liver enzyme elevation Current Visit: Yes Status: Acute Plan: Patient will be started on fluids. He was getting tylenol for his knee pain. However this was in a rehab facility and its doubtful they gave the patient more than 3 gms. Will check his liver enzymes and a hepatitis panel. this may be cardiogenic or an embolic. Will try improving is heart function. detention anticoagulation is problematic as he had a subdural hematoma less than a 6 months ago. (2) Afib Current Visit: Yes Status: Acute Plan: he is on lopressor and adding digoxin. Will consult Dr. Dailey. Will consider a echocardiogram 04/21 slight improvement in his heart rate. Will increase his carvedilol to 12.5mg po bid. He is asymptomatic at this time Qualifiers: Atrial fibrillation type: paroxysmal Qualified Code(s): I48.0 - Paroxysmal atrial fibrillation (3) CHF (congestive heart failure) Current Visit: No Status: Chronic Plan: Will continue his entresto. as stated above consider an echocardiogram Qualifiers: Heart failure type: systolic Heart failure chronicity: chronic Qualified Code(s): I50.22 - Chronic systolic (congestive) heart failure (4) Diabetes Onset Date: 06/23/18 Current Visit: No Status: Chronic Plan: Will hold the metformin. 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 Qualifiers: Hypertension type: primary hypertension Qualified Code(s): I10 - Essential (primary) hypertension Discharge Plan: Home Plan to discharge in: 24 Hours - Code Status/Comfort Care Code Status Assessed: No Physician Review: Patient Assessed, Agree with Above Assessment and Plan Critical Care: No Time Spent Managing Pts Care (In Minutes): 30
[2021-04-21 10:43] LABS: Protime INR 1.48
[2021-04-21 10:55] LABS: Albumin 2.8 g/dL (3.4-5.0); Bilirubin Total 1.1 mg/dL (0.2-1.0); Potassium 4.2 mmol/L (3.5-5.1); Protein, Total 6.6 g/dL (6.4-8.2)
--- NOTE | 2021-04-21 16:11 | RAD REPORT ---
EXAM DESCRIPTION: US - Extrem Venous W Compress Vikas - 04/21/2021 3:36 pm CLINICAL HISTORY: Bilateral leg swelling COMPARISON: None. TECHNIQUE: Real-time sonographic evaluation of the bilateral lower extremity deep venous systems was performed. FINDINGS: Normal compressibility, flow augmentation, phasic flow and spontaneous flow is identified in both the left and right lower extremity deep venous systems. No intraluminal filling defects seen. IMPRESSION: No DVT in either lower extremity.
[2021-04-21] MEDS: carvediloL 12.5 MG TAB PO SCH (17:03)
[2021-04-21] MEDS: APIXABAN 5 MG TABLET PO SCH (20:20)
[2021-04-22] MEDS: D5 0.45 NS 1,000 ML IV SCH ×2 (03:00→23:00)
[2021-04-22] MEDS: carvediloL 12.5 MG TAB PO SCH (06:03)
[2021-04-22 06:21] LABS: Absolute Lymphocytes (CBC) 1.3 K/uL (0.7-4.9); Basophils % 1.9 % (0-1.3); Hematocrit 33.5 % (39.6-49.0); Lymphocytes % 22.5 % (15.3-44.8); MPV 6.7 fL (7.6-11.3)
[2021-04-22 06:47] LABS: Albumin 2.5 g/dL (3.4-5.0); Bilirubin Total 0.8 mg/dL (0.2-1.0); Potassium 4.1 mmol/L (3.5-5.1); Protein, Total 6.1 g/dL (6.4-8.2)
[2021-04-22] MEDS: INSULIN -REGULAR HUMAN 50 UNIT/0.5 ML ML SQ SCH ×4 (07:30→20:58)
--- NOTE | 2021-04-22 08:17 | P.PN ---
Subjective Date of Service: 04/22/21 Primary Care Provider: Aditi Chief Complaint: atrial fib with RVR Subjective: Improving (liver enzymes and creatine) Review of Systems 10-point ROS is otherwise unremarkable Physical Examination - Vital Signs Temperature: 97.7 F Blood Pressure: 130/63 Pulse: 102 Respirations: 18 Pulse Ox (%): 98 - Physical Exam General: Alert, In no apparent distress HEENT: Atraumatic, PERRLA, EOMI Neck: Supple, JVD not distended Respiratory: Clear to auscultation bilaterally, Normal air movement Cardiovascular: Regular rate/rhythm, Normal S1 S2 Gastrointestinal: Normal bowel sounds, No tenderness Musculoskeletal: No tenderness Integumentary: No rashes Neurological: Normal speech, Normal tone, Normal affect Lymphatics: No axilla or inguinal lymphadenopathy Assessment & Plan - Problems (Diagnosis) (1) Liver enzyme elevation Current Visit: Yes Status: Acute Plan: Patient will be started on fluids. He was getting tylenol for his knee pain. However this was in a rehab facility and its doubtful they gave the patient more than 3 gms. Will check his liver enzymes and a hepatitis panel. this may be cardiogenic or an embolic. Will try improving is heart function. nursing home anticoagulation is problematic as he had a subdural hematoma less than a 6 months ago. 04/22 Patient enzymes are improving. No blood clot in his legs. This may be cardiogenic rather than a [place] chiari like syndrome. Will consider stopping the eliquis. Will keep him here one more day. Hopefully his lft's will continue to improve. (2) Afib Current Visit: Yes Status: Acute Plan: he is on lopressor and adding digoxin. Will consult Dr. Dailey. Will consider a echocardiogram 04/22 better control. Will restart him on digoxin. Qualifiers: Atrial fibrillation type: paroxysmal Qualified Code(s): I48.0 - Paroxysmal atrial fibrillation (3) CHF (congestive heart failure) Current Visit: No Status: Chronic Plan: Will continue his entresto. as stated above consider an echocardiogram Qualifiers: Heart failure type: systolic Heart failure chronicity: chronic Qualified Code(s): I50.22 - Chronic systolic (congestive) heart failure (4) Diabetes Onset Date: 06/23/18 Current Visit: No Status: Chronic Plan: Will hold the metformin. 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 Qualifiers: Hypertension type: primary hypertension Qualified Code(s): I10 - Essential (primary) hypertension Discharge Plan: Home Plan to discharge in: 24 Hours - Code Status/Comfort Care Code Status Assessed: No Physician Review: Patient Assessed, Agree with Above Assessment and Plan Critical Care: No Time Spent Managing Pts Care (In Minutes): 25
[2021-04-22] MEDS: PANTOPRAZOLE 40MG TABLET PO SCH (08:40)
[2021-04-22] MEDS: DIGOXIN 0.125 MG TABLET PO SCH (08:40)
[2021-04-22] MEDS: APIXABAN 5 MG TABLET PO SCH (08:40)
[2021-04-22] MEDS: SACUBITRIL/VALSARTAN 49/51 MG TAB PO SCH ×2 (08:40→20:58)
[2021-04-22] MEDS: carvediloL 25 MG TAB PO SCH (16:43)
--- NOTE | 2021-04-22 19:39 | RAD REPORT ---
EXAM DESCRIPTION: US - Abdomen Exam Complete - 04/22/2021 6:28 pm CLINICAL HISTORY: elevated liver enzymes COMPARISON: Abdomen Pelvis Wo Contrast dated 06/20/2018 FINDINGS: Gallbladder size is normal. Stones and sludge are present within the normal size gallbladd er. No wall thickening or pericholecystic fluid. Common bile duct is normal with no common duct stone identified. Spleen is poorly visualized due to body habitus and bowel affects. Liver is 17 cm. Liver is partially obscured due to prominent bowel and body habitus affects as well. Coarsened increased echogenicity i s seen typically fatty infiltration. The pancreas is too obscured by bowel gas for assessment. No hydronephrosis or suspicious mass in either kidney. Bilateral renal cysts are present 1.5 cm on th e left and 3.3 cm on the right. Aorta and IVC are mostly obscured as well. Small amount of ascites adjacent to the liver. No bulky ly mphadenopathy. IMPRESSION: Stones and sludge within a normal-sized gallbladder. No wall thickening or pericholecyst ic fluid. No biliary tree abnormality. Fatty infiltration seen in the liver. No focal liver lesion identifiable. Overall exam is limited. Liver is partially obscured. The spleen, pancreas, aorta and IVC are mostly obscured. Follow-up CT imaging can be obtained as clinical findings warrant for better abdominal orga n visualization.
[2021-04-22] MEDS: APIXABAN 2.5 MG TABLET PO SCH (20:58)
[2021-04-23 03:47] VITALS: O2SAT 97
[2021-04-23] MEDS: carvediloL 25 MG TAB PO SCH (05:14)
[2021-04-23 05:56] VITALS: BMI 25.3
[2021-04-23 06:03] LABS: Absolute Lymphocytes (CBC) 1.3 K/uL (0.7-4.9); Basophils % 1.2 % (0-1.3); Hematocrit 35.1 % (39.6-49.0); Lymphocytes % 21.3 % (15.3-44.8); MPV 6.8 fL (7.6-11.3); RBC Red Blood Cell Count 3.61 M/uL (4.33-5.43)
[2021-04-23 06:25] LABS: Albumin 2.7 g/dL (3.4-5.0); Bilirubin Total 0.7 mg/dL (0.2-1.0); Potassium 4.6 mmol/L (3.5-5.1); Protein, Total 6.5 g/dL (6.4-8.2)
[2021-04-23] MEDS: SACUBITRIL/VALSARTAN 49/51 MG TAB PO SCH (08:33)
[2021-04-23] MEDS: DIGOXIN 0.125 MG TABLET PO SCH (08:33)
[2021-04-23] MEDS: APIXABAN 2.5 MG TABLET PO SCH (08:33)
[2021-04-23] MEDS: PANTOPRAZOLE 40MG TABLET PO SCH (08:33)
[2021-04-23] MEDS: INSULIN -REGULAR HUMAN 50 UNIT/0.5 ML ML SQ SCH ×2 (08:34→12:17)
--- NOTE | 2021-04-23 12:39 | P.DS ---
Admission Date: 04/19/21 Discharge Date: 04/23/21 Primary Care Provider: Aditi Disposition: ROUTINE DISCHARGE Discharge Condition: FAIR Reason for Admission: atrial fib with RVR - Problems (1) Liver enzyme elevation Current Visit: Yes Status: Acute (2) Afib Current Visit: Yes Status: Acute Qualifiers: Atrial fibrillation type: paroxysmal Qualified Code(s): I48.0 - Paroxysmal atrial fibrillation (3) CHF (congestive heart failure) Current Visit: No Status: Chronic Qualifiers: Heart failure type: systolic Heart failure chronicity: chronic Qualified Code(s): I50.22 - Chronic systolic (congestive) heart failure (4) Diabetes Onset Date: 06/23/18 Current Visit: No Status: Chronic Qualifiers: Diabetes mellitus type: type 2 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 He has a history of chf. Was recently [place] [email or web address]. Was sent home yesterday. He has been having indigestion for the past few days. He went home and had a visiting home nurse. found he was htn and tachycardic and was sent to the Er. there he was found to be in afib with a rate in the 120-150. The patient was not having much in the way of chest pain. Hospital Course: Patient was admitted with afib and rvr. He has a history of heart failure. while in the hospital he developed some elevation of his liver enzymes. The patient was asymptomatic. Had a fairly benign liver ultrasound. Was started on a low dose eliquis for the afib. This was kept low as he has had a subdural hematoma in the last 6 months. Will have him follow up with Dr. Dailey in a week. Who is considering cardioversion if he is not out of afib. Will continue him on digoxin, carvedilol and eliquis on discharge. Vital Signs/Physical Exam: Temp Pulse Resp BP Pulse Ox 97.2 F 124 H 20 125/63 98 04/23/21 08:00 04/23/21 08:00 04/23/21 08:00 04/23/21 08:00 04/23/21 08:00 General: Alert, In no apparent distress HEENT: Atraumatic, PERRLA, EOMI Neck: Supple, JVD not distended Respiratory: Clear to auscultation bilaterally, Normal air movement Cardiovascular: Regular rate/rhythm, Normal S1 S2 Gastrointestinal: Normal bowel sounds, No tenderness Musculoskeletal: No tenderness Integumentary: No rashes Neurological: Normal speech, Normal tone, Normal affect Lymphatics: No axilla or inguinal lymphadenopathy Laboratory Data at Discharge: WBC 6.00 K/uL (4.3-10.9) 04/23/21 05:42 Hgb 11.8 g/dL (13.6-17.9) L 04/23/21 05:42 Hct 35.1 % (39.6-49.0) L 04/23/21 05:42 Plt Count 204 K/uL (152-406) 04/23/21 05:42 PT 17.1 SECONDS (9.5-12.5) H 04/21/21 10:20 INR 1.48 04/21/21 10:20 APTT 28.4 SECONDS (24.3-36.9) 04/21/21 10:20 Sodium 141 mmol/L (136-145) 04/23/21 05:42 Potassium 4.6 mmol/L (3.5-5.1) 04/23/21 05:42 BUN 31 mg/dL (7-18) H 04/23/21 05:42 Creatinine 1.01 mg/dL (0.55-1.3) 04/23/21 05:42 Glucose 213 mg/dL (74-106) H 04/23/21 05:42 Magnesium 2.6 mg/dL (1.8-2.4) H 04/20/21 05:34 Total Bilirubin 0.7 mg/dL (0.2-1.0) 04/23/21 05:42 AST 328 U/L (15-37) H* D 04/23/21 05:42 ALT 1040 U/L (12-78) H* D 04/23/21 05:42 Alkaline Phosphatase 349 U/L (45-117) H 04/23/21 05:42 Home Medications: Acarbose [Precose] 25 mg PO TIDWM 04/20/21 Furosemide 20 mg PO SEECOM 04/20/21 Furosemide [Lasix] 40 mg PO DAILY 04/20/21 Insulin Glargine Human [Lantus] 15 unit SQ BEDTIME 04/20/21 Metformin HCl [Glucophage*] 500 mg PO BIDWM 04/20/21 Oxybutynin Chloride [Oxybutynin Chloride ER] 5 mg PO DAILY 04/20/21 Pentoxifylline 400 mg PO BIDWM 04/20/21 Potassium Chloride 20 meq PO BID 04/20/21 Sacubitril/Valsartan [Entresto 24 mg-26 mg Tablet] 24 - 26 mg PO BID 04/20/21 Apixaban [Eliquis *] 2.5 mg PO BID 90 Days #180 tablet 04/23/21 carvediloL [Coreg*] 25 mg PO BID 6AM 6PM 90 Days #180 tab 04/23/21 New Medications: carvediloL [Coreg*] 25 mg PO BID 6AM 6PM 90 Days #180 tab Apixaban [Eliquis *] 2.5 mg PO BID 90 Days #180 tablet Diet: AHA Activity: Ad saleem Followup: Uri Pennington MD [Primary Care Provider] - Chaparro Dailey MD [ACTIVE - CAN ADMIT] - Time spent managing pt's care (in minutes): 30
[2021-04-23 13:03] VITALS: BP 120/79; TEMP 98
--- NOTE | 2021-04-24 13:27 | CON ---
Date of Consultation: 04/22/2021 Reason For Consultation: Atrial fibrillation. History Of Present Illness: Mr. an 80-year-old male, who was admitted with chest pain and nausea and atrial fibrillation. His heart rate remained in 102. His chest pain was atypical, left- sided, sharp, stabbing. No vomiting. No diaphoresis. Denied PND, orthopnea, pedal edema, or syncop e. Denied any fever or chills. His workup has been negative so far except for highly elevated liver function test. Past Medical History: Includes congestive heart failure diastolic, normal ejection fraction in 2018 with moderate pulmonary hypertension. He has a history of diabetes. He has a history of neuropathy, subdural hematoma in December 2020 and history of CABG in the past. Allergies: INCLUDE PENICILLIN. Review of Systems: Negative. Social History: Negative. Family History: Noncontributory. Medications: At home include insulin, Entresto, metoprolol, Trental, Lasix, lisinopril, and metformi n. Physical Examination: General: He was very pleasant, asymptomatic. Vital Signs: Atrial fibrillation, rate about 100. HEENT: Negative. Neck: Supple with no bruit. Chest: Clear. Cardiac: Revealed atrial fibrillation with aortic sclerosis murmur. No gallops or rubs. Abdomen: Benign. Extremities: Revealed no clubbing, cyanosis, or edema. Pulses were present bilaterally in the dista l extremities. Neurologic: He was nonfocal. Skin: Dry and intact. Diagnostic Data: EKG showed atrial fibrillation. AST and ALT were highly elevated. Impression And Plan: Atrial fibrillation, well controlled. Heart rate is 100. On carvedilol and El iquis. I agree with the present regimen. I would cut his Eliquis dose to 2.5 mg b.i.d. considering his age and considering that he has had a subdural hematoma 5 months ago. I would obtain an echocard iogram. If his atrial fibrillation becomes a further problem, we can certainly increase beta-yoli and we can switch him to sotalol or even consider amiodarone down the road. I think with his high r isk of falling and subdural hematoma and his atrial fibrillation, I think he will be a good candidate for a Watchman procedure. I will make an arrangement for that later after I see him in the office i f he agrees to it. Case was discussed with Dr. Pennington. His other problems include diastolic congesti ve heart failure, moderate pulmonary hypertension, diabetes, neuropathy, coronary artery disease, sta tus post coronary artery bypass graft. We will see what his echocardiogram shows. The liver functio n enzymes are elevated and I doubt this is related to a cardiac issue, although it is possible. Elizabeth quiñonez, I think an ultrasound of the liver and may be a hepatitis panel is reasonable to obtain. I will continue to follow him along. TERRY/ERNESTO Voice ID: [id number] Report ID: [id number]
--- NOTE | 2021-04-24 13:31 | PN ---
Mr. Jaimes has been followed for atrial fibrillation and elevated liver enzymes. His Coreg was doubl ed yesterday from 12.5 b.i.d. to 25 mg b.i.d. He remained in atrial fibrillation at a rate of 100 to 110 echocardiogram unremarkable. He is on Eliquis. He has increased liver function tests that have shown some improvement. CT of the pelvis and abdomen showed gallstone and sludge in the gallbladder with fatty liver. Hepatitis panel is still pending. I am comfortable with him going home on beta-b lockers and Eliquis and if he does not convert in the next 2 to 3 weeks, we will consider cardioversi on. He will need an outpatient stress test eventually. He has had a subdural hematoma in December 2020 and he should be a good candidate for Watchman with his hematoma history, on Eliquis, and atrial fib rillation and I will bring him up-to-date and discuss that with him further as an outpatient. The ca se was discussed with Dr. Pennington. TERRY/ERNESTO Voice ID: [id number] Report ID: [id number]
== END 2021-04-23 14:10 | disposition home or self-care (01) | DRG 309 ==
LOC: ER 12:47 → SUPCPDRO 12:47 → ERHOLD 17:21 → 2ND 21:21
PROVIDERS: ADMIT Internal Medicine; ATTEND Internal Medicine
DX: I48.0 Paroxysmal atrial fibrillation (principal); I50.22 Chronic systolic (congestive) heart failure; R74.8 Abnormal levels of other serum enzymes; I11.0 Hypertensive heart disease with heart failure; E11.9 Type 2 diabetes mellitus without complications; I27.20 Pulmonary hypertension, unspecified; Z79.4 Long term (current) use of insulin; Z95.1 Presence of aortocoronary bypass graft; Z88.0 Allergy status to penicillin; Z96.651 Presence of right artificial knee joint; Z86.79 Personal history of other diseases of the circulatory system; Z20.822 Contact with and (suspected) exposure to COVID-19
CPT/HCPCS: 36415; 71045; 76700; 80048; 80053; 80076; 82140; 82947; 83735; 83880; 84443; 84484; 85025; 85379; 85610; 85730; 93005; 93970; 97116; 97161; 97530; 99285; J0610; J1160; J1650; J2405; J7040; J7799; U0003

== ENCOUNTER 2021-05-27 17:07 | Inpatient (IN) | payer OTHER, BC ==
[2021-05-27 17:47] LABS: Absolute Lymphocytes (CBC) 1.7 K/uL (0.7-4.9); Basophils % 0.4 % (0-1.3); Hematocrit 38.5 % (39.6-49.0); Lymphocytes % 30.2 % (15.3-44.8); MPV 8.3 fL (7.6-11.3); RBC Red Blood Cell Count 3.95 M/uL (4.33-5.43)
[2021-05-27 17:49] LABS: Protime INR 1.64
[2021-05-27 18:09] LABS: BUN Blood Urea Nitrogen 71 mg/dL (7-18); Bicarbonate 25 mmol/L (21-32); Glucose Level 203 mg/dL (74-106); NT PRO-BNP 4917 pg/mL (<450); Potassium 5.2 mmol/L (3.5-5.1); Sodium Level 139 mmol/L (136-145); Troponin (Emerg Dept Use Only) < 0.02 ng/mL (0.0-0.045)
--- NOTE | 2021-05-27 18:11 | RAD REPORT ---
EXAM DESCRIPTION: RAD - Chest Single View - 05/27/2021 5:54 pm CLINICAL HISTORY: PALPITATIONS COMPARISON: Chest Single View dated 04/19/2021; Chest Single View dated 03/13/2021; Chest Single View d ated 01/11/2021; Chest Single View dated 01/07/2021 FINDINGS: Lines: None. Lungs: No evidence of edema or pneumonia. Calcified right lower lobe nodule. Pleural: No significant pleural effusions or pneumothorax. Cardiac: Cardiomegaly. Sternotomy. Bones: No acute fractures. Other: IMPRESSION: No acute cardiopulmonary disease.
[2021-05-27] MEDS ORDERED: METOPROLOL TAR 25 MG TAB ONE (18:14)
[2021-05-27] MEDS ORDERED: METOPROLOL TARTRATE 5 MG/5 ML INJ IV ONE (18:14)
[2021-05-27] MEDS ORDERED: NA CHLORIDE 0.9% 250 ML ONE ×2 (18:15→19:21)
[2021-05-27] MEDS ORDERED: MAGNESIUM SULFATE 1 gm IVPB 1 GM/100 ML BAG IV ONE (18:15)
[2021-05-27 18:42] LABS: Blood Morphology Comment NOTED (NOT SEEN); Platelet Estimate DECR; Poikilocytosis 2+; White Blood Cell Scan OK (OK)
--- NOTE | 2021-05-27 18:43 | ER ---
Nurse's Notes [facility] Name: Wayne Jaimes Age: 80 yrs Sex: Male : 1940 Arrival Date: 05/27/2021 Time: 17:17 Bed 2 Private MD: Diagnosis: Persistent atrial fibrillation;Dehydration Presentation: 05/27 17:17 Chief complaint: EMS states: Sudden palpitations and SOB, called Dr. Dailey's office hb and was instructed to go to ED. On scene BP 108/62, HR 110-150s, denied pain/SOB. Coronavirus screen: At this time, the client does not indicate any symptoms associated with coronavirus-19. Ebola Screen: No symptoms or risks identified at this time. Initial Sepsis Screen: Does the patient meet any 2 criteria? No. Patient's initial sepsis screen is negative. Does the patient have a suspected source of infection? No. Patient's initial sepsis screen is negative. Risk Assessment: Do you want to hurt yourself or someone else? Patient reports no desire to harm self or others. Onset of symptoms was May 27, 2021. 17:17 Method Of Arrival: EMS: [facility] 17:17 Acuity: ROSEMARY 2 hb Triage Assessment: 18:33 General: Appears uncomfortable. General: Behavior is calm, cooperative, KOI. Pain: tc5 Denies pain. Historical: - Allergies: 17:23 Erythromycin; hb 17:23 PENICILLINS; hb - Home Meds: 17:23 Entresto 49-51 mg Oral tab 2 times per day [Active]; furosemide 40 mg Oral tab 1 tab 2 hb times per day [Active]; Humulin 70/30 100 unit/mL (70-30) Sub-Q susp take 32 units in the morning and 18 units at night [Active]; lisinopril 20 mg Oral tab once daily [Active]; metformin 500 mg Oral tab once a day [Active]; metoprolol tartrate 50 mg Oral tab 1 tab 2 times per day [Active]; mupirocin 2 % Topical oint [Active]; pentoxifylline 400 mg Oral TbER 2 times per day [Active]; solifenacin 10 mg Oral tab once daily [Active]; - PMHx: 17:23 CHF; Diabetes - IDDM; neuropathy; subdural hematoma 12/2020; hb - PSHx: 17:23 Coronary artery bypass graft; hb - Immunization history:: Client reports receiving the 2nd dose of the Covid vaccine, Flu vaccine is up to date. - Social history:: Smoking status: Patient denies any tobacco usage or history of. - Family history:: not pertinent. - Hospitalizations: : No recent hospitalization is reported. Screenin:32 Abuse screen: Denies threats or abuse. Nutritional screening: No deficits noted. tc5 Tuberculosis screening: No symptoms or risk factors identified. Fall Risk IV access (20 points). Vital Signs: 17:17 BP 95 / 79; Pulse 135; Resp 19; Temp 97.8; Pulse Ox 98% on R/A; Weight 74.84 kg; Height hb 5 ft. 6 in. (167.64 cm); Pain 0/10; 19:00 BP 113 / 79; Pulse 141; Resp 18; Temp 98.1; Pulse Ox 96% on R/A; ms4 17:17 Body Mass Index 26.63 (74.84 kg, 167.64 cm) hb ED Course: 17:17 Patient arrived in ED. hb 17:21 Gian Moy MD is Attending Physician. rn 17:22 Triage completed. hb 17:23 Arm band placed on. hb 17:34 Stefany Panchal RN is Primary Nurse. tc5 17:39 Inserted saline lock: 20 gauge in right antecubital area, using aseptic technique. mt Blood collected. 17:54 XRAY Chest (1 view) In Process Unspecified. EDMS 18:35 No provider procedures requiring assistance completed. Inserted saline lock: 20 gauge tc5 in right antecubital area, using aseptic technique. 18:36 Patient has correct armband on for positive identification. Bed in low position. Call tc5 light in reach. Side rails up X 1. 18:42 Uri Pennington MD is Hospitalizing Provider. rn Administered Medications: 18:03 Drug: Metoprolol 12.5 mg Route: PO; tc5 18:03 Drug: Metoprolol 2.5 mg Route: IVP; Site: right antecubital; tc5 18:04 Drug: Magnesium Sulfate 1 grams Route: IVPB; Infused Over: 1 hrs; Site: right tc5 antecubital; 18:04 Drug: NS 0.9% 250 ml Route: IV; Rate: bolus; Site: right antecubital; tc5 18:26 Drug: NS 0.9% 250 ml Route: IV; Rate: calculated rate; Site: right antecubital; tc5 19:04 Drug: NS 0.9% 250 ml Route: IV; Rate: 1 bolus; Site: right antecubital; tc5 19:30 Drug: carvedilol 3.125 mg Route: PO; ms4 Outcome: 18:42 Decision to Hospitalize by Provider. yoshi 05/28 18:06 Patient left the ED. ss Signatures: Dispatcher [employer] EDMS Gian Moy MD MD rn Smirch, Shelby, RN RN ss Sari Lynne RN RN hb Thompson, Moriah mt Stroud, Mikaela, RN RN ms4 Stefany Panchal RN RN tc5
--- NOTE | 2021-05-27 18:43 | EDPHYS ---
Physician Documentation [facility] Name: Wayne Jaimes Age: 80 yrs Sex: Male : 1940 Arrival Date: 05/27/2021 Time: 17:17 Bed 2 Private MD: ED Physician Gian Moy HPI: 05/27 17:34 This 80 yrs old Male presents to ER via EMS with complaints of AFIB w/RVR. rn 17:34 The patient presents with a history of irregular heart beat, heart racing. Context: The rn symptoms occur at rest. Onset: The symptoms/episode began/occurred this morning. Duration: The patient or guardian reports a single episode, that is still ongoing. Modifying factors: The symptoms are aggravated by nothing. The symptoms are alleviated by nothing. Associated signs and symptoms: Pertinent positives: SOB, Pertinent negatives: chest pain, fever, lightheadedness, vomiting. Severity of symptoms: At their worst the symptoms were mild in the emergency department the symptoms are unchanged. The patient has experienced similar episodes in the past. The patient has not recently seen a physician. Patient reports palpitations and irregular heartbeat. Began this morning. States shortness of breath began yesterday. No fever. States takes a blood thinner as well as his heart medication. Call Dr. Galloway office and told to come here instead.. Historical: - Allergies: 17:23 Erythromycin; hb 17:23 PENICILLINS; hb - Home Meds: 17:23 Entresto 49-51 mg Oral tab 2 times per day [Active]; furosemide 40 mg Oral tab 1 tab 2 hb times per day [Active]; Humulin 70/30 100 unit/mL (70-30) Sub-Q susp take 32 units in the morning and 18 units at night [Active]; lisinopril 20 mg Oral tab once daily [Active]; metformin 500 mg Oral tab once a day [Active]; metoprolol tartrate 50 mg Oral tab 1 tab 2 times per day [Active]; mupirocin 2 % Topical oint [Active]; pentoxifylline 400 mg Oral TbER 2 times per day [Active]; solifenacin 10 mg Oral tab once daily [Active]; - PMHx: 17:23 CHF; Diabetes - IDDM; neuropathy; subdural hematoma 12/2020; hb - PSHx: 17:23 Coronary artery bypass graft; hb - Immunization history:: Client reports receiving the 2nd dose of the Covid vaccine, Flu vaccine is up to date. - Social history:: Smoking status: Patient denies any tobacco usage or history of. - Family history:: not pertinent. - Hospitalizations: : No recent hospitalization is reported. ROS: 17:34 Constitutional: Negative for fever, chills, and weight loss, Eyes: Negative for injury, rn pain, redness, and discharge, Neck: Negative for injury, pain, and swelling, Cardiovascular: Negative for chest pain Respiratory: Negative for cough, wheezing, and pleuritic chest pain, Abdomen/GI: Negative for abdominal pain, nausea, vomiting, diarrhea, and constipation, Back: Negative for injury and pain, MS/Extremity: Negative for injury and deformity, Skin: Negative for injury, rash, and discoloration, Neuro: Negative for headache, weakness, numbness, tingling, and seizure. 17:34 All other systems are negative. Exam: 17:34 Constitutional: This is a well developed, well nourished patient who is awake, alert, rn and in no acute distress. Head/Face: Normocephalic, atraumatic. Eyes: Periorbital areas with no swelling, redness, or edema. ENT: Dry mucous membranes Cardiovascular: Tachycardic, irregularly irregular rhythm. No pulse deficits. Respiratory: Mild tachypnea, no retractions Abdomen/GI: Soft, non-tender Skin: Warm, dry MS/ Extremity: Pulses equal, no cyanosis. Neuro: Awake and alert, GCS 15 Vital Signs: 17:17 BP 95 / 79; Pulse 135; Resp 19; Temp 97.8; Pulse Ox 98% on R/A; Weight 74.84 kg; Height hb 5 ft. 6 in. (167.64 cm); Pain 0/10; 19:00 BP 113 / 79; Pulse 141; Resp 18; Temp 98.1; Pulse Ox 96% on R/A; ms4 17:17 Body Mass Index 26.63 (74.84 kg, 167.64 cm) hb Procedures: 05/28 12:45 Intubation: Ventilated with 100% NRB prior to procedure. O2 saturation prior to rn stars was 82 %. Intubated orally using # 4 Maria blade with 7.5 mm ETT. was successful on first attempt. Cricoid pressure applied during procedure. Tube secured with ETT crenshaw at right side of mouth measured 23 cm at teeth. Placement verified by CO2 detector with (+) color change, auscultating bilateral breath sounds, O2 saturation after procedure was 92 %. Patient tolerated well. Central Line: the site was prepped with Betadine, in sterile fashion, a triple lumen catheter was inserted, in the right femoral vein, in 1 attempts. placement was verified, by blood return, the site was dressed with Tegaderm, using sterile technique, the patient tolerated the procedure, well. 13:31 CPR: See CPR flow sheet. Initial patient assessment: unresponsive, pulses present w/ rn compressions, The presenting cardiac rhythm is PEA. respirations assisted with BVM, Compressions: began Meds given: See Meds list. Epinephrine X 1, regained rhythm. MDM: 05/27 17:21 Patient medically screened. rn 18:40 Differential diagnosis: arrythmia, dehydration, afib rvr. Data reviewed: vital signs, rn nurses notes, lab test result(s), EKG, radiologic studies, plain films, and as a result, I will admit patient. Data interpreted: electronic device monitor: rate is 130 beats/min, rhythm is atrial fibrillation, with no ectopy, Interpretation: atrial fibrillation, tachycardia, Pulse oximetry: on room air is 97 %. Interpretation: normal. Counseling: I had a detailed discussion with the patient and/or guardian regarding: the historical points, exam findings, and any diagnostic results supporting the discharge/admit diagnosis, lab results, radiology results, the need for further work-up and treatment in the hospital. Response to treatment: the patient's symptoms have mildly improved after treatment, and as a result, I will admit patient. Admission orders: after a detailed discussion of the patient's condition and case, the admit orders are written by me. ED course: Patient with some improvement and blood pressure holding steady. Clinically is dry will give more fluids to support rate control medication. Consulted with Dr. Pennington and will admit. Request medication change from metoprolol to carvedilol.. 05/28 12:19 ED course: Patient still in the ER awaiting bed, called to bedside for altered mental rn status, patient seems to have eye deviation and partial seizure activity, lasts about 30 seconds, happened twice. Wakes up and does not recall episode. During episode oxygen dropped to the mid 80s and was bagged and given supplemental oxygen. No history of seizures. Keppra ordered for possible seizure activity.. 12:47 ED course: Patient became unresponsive following amiodarone bolus. Patient hypotensive. rn Intubated emergently given unresponsive and not breathing effectively. Central line placed for hypotension. Levophed ordered. Dr. Pennington notified.. 14:12 ED course: Patient has now coded 4 times. Episodes are brief and ACLS protocols have rn been effective thus far. But now maxed out on Levophed and continues to bradycardia down and coded. Spoke with family and they are unsure what to do with the situation. Contacted Dr. Pennington again and will come to ER.. 05/27 17:27 Order name: Basic Metabolic Panel; Complete Time: 18:11 05/27 17:27 Order name: CBC with Diff; Complete Time: 18:45 05/27 17:27 Order name: NT PRO-BNP; Complete Time: 18:11 05/27 17:27 Order name: PT-INR; Complete Time: 18:11 05/27 17:27 Order name: Troponin (emerg Dept Use Only); Complete Time: 18:11 05/27 17:28 Order name: COVID-19 : Document "Date of Symptom Onset" if Symptomatic. 05/27 18:40 Order name: CBC Smear Scan; Complete Time: 18:45 EDMN 05/27 20:02 Order name: SARS-COV-2 RT PCR; Complete Time: 12:46 EDMN 05/28 13:19 Interpretation: Abnormal. rn 05/27 23:21 Order name: Troponin I; Complete Time: 12:46 EDMN 05/28 04:35 Order name: CBC with Automated Diff; Complete Time: 12:46 EDMN 05/28 04:45 Order name: Troponin I; Complete Time: 12:46 EDMN 05/28 05:02 Order name: Basic Metabolic Panel; Complete Time: 12:46 EDMN 05/28 05:02 Order name: Digoxin Level; Complete Time: 12:46 EDMN 05/28 05:02 Order name: Thyroid Stimulating Hormone; Complete Time: 12:46 EDMN 05/27 17:27 Order name: XRAY Chest (1 view); Complete Time: 18:18 rn 05/28 07:50 Order name: Glucose, Ancillary Testing; Complete Time: 12:46 EDMS 05/28 12:08 Order name: Glucose, Ancillary Testing; Complete Time: 12:46 EDMS 05/28 12:50 Order name: CT Head Brain wo Cont rn 05/28 12:54 Order name: XRAY Chest (1 view) rn 05/28 13:27 Order name: RAD EDMS 05/28 14:02 Order name: Glucose, Ancillary Testing EDMN 05/27 17:27 Order name: EKG; Complete Time: 17:28 rn 05/27 17:27 Order name: Cardiac monitoring; Complete Time: 17:40 rn 05/27 17:27 Order name: EKG - Nurse/Tech; Complete Time: 17:40 rn 05/27 17:27 Order name: IV Saline Lock; Complete Time: 17:40 rn 05/27 17:27 Order name: Labs collected and sent; Complete Time: 17:40 rn 05/27 17:27 Order name: O2 Per Protocol; Complete Time: 17:40 rn 05/27 17:27 Order name: O2 Sat Monitoring; Complete Time: 17:40 rn Administered Medications: 05/27 18:03 Drug: Metoprolol 12.5 mg Route: PO; tc5 18:03 Drug: Metoprolol 2.5 mg Route: IVP; Site: right antecubital; tc5 18:04 Drug: Magnesium Sulfate 1 grams Route: IVPB; Infused Over: 1 hrs; Site: right tc5 antecubital; 18:04 Drug: NS 0.9% 250 ml Route: IV; Rate: bolus; Site: right antecubital; tc5 18:26 Drug: NS 0.9% 250 ml Route: IV; Rate: calculated rate; Site: right antecubital; tc5 19:04 Drug: NS 0.9% 250 ml Route: IV; Rate: 1 bolus; Site: right antecubital; tc5 19:30 Drug: carvedilol 3.125 mg Route: PO; ms4 Disposition Summary: 05/27/21 18:42 Hospitalization Ordered Hospitalization Status: Inpatient Admission rn Provider: Uri Pennington rn Condition: Stable rn Problem: new rn Symptoms: have improved rn Bed/Room Type: Standard rn Location: [facility] ER HOLD(05/28/21 12:53) ss Room Assignment: ERHOLD-(05/28/21 12:53) ss Diagnosis - Persistent atrial fibrillation rn - Dehydration rn Forms: - Medication Reconciliation Form rn - SBAR form external auditor time excluding procedures: 18:40 Critical care time: Bedside Care: 30 minutes, Consultation: 5 minutes. Total time: 35 rn minutes Signatures: Dispatcher [employer] EDMN Anna Carmencita Gian Moy MD MD rn Smirch, Shelby, RN RN Nikia Murrell RN RN Sari Lynne RN RN Ирина Naranjo RN RN ms4 Stefany Panchal RN RN tc5 Corrections: (The following items were deleted from the chart) 19: 18:42 Telemetry/MedSurg (Inpatient) rn 19: 18:42 rn 05/28 11:56 05/27 19:07 [facility] ER HOLD [facility] 05/28 11:56 05/27 19:07 ERHOLD- [facility] 05/28 12:53 11:56 Telemetry/MedSurg (Inpatient) [facility] 12:53 11:56 428 [facility]
[2021-05-27] MEDS ORDERED: carvediloL 6.25 MG TAB ONE (19:42)
[2021-05-27 20:45] VITALS: TEMP 98.7
--- NOTE | 2021-05-27 20:59 | P.HP ---
Certification for Inpatient Patient admitted to: Inpatient With expected LOS: >2 Midnights Practitioner: I am a practitioner with admitting privileges, knowledge of patient current condition, hospital course, and medical plan of care. Services: Services provided to patient in accordance with Admission requirements found in Title 42 Section 412.3 of the Code of Federal Regulations Patient History Date of Service: 05/27/21 Primary Care Provider: alessio Reason for admission: svt with rvr History of Present Illness: Patient is an office patient of [employer]. He has a history of afib and a recent subdural hematoma. He was having tachycardia and sob for the last 3 days. Today he told his . Who called ems. The patient was brought to the ER. Found to be in afib. Negative troponins. He has some swelling of his legs. Some signs of inflammation. The patient recieved beta blockers in the ER. He is still tachycardic. No complaints of chest pain Allergies Penicillins Adverse Reaction (Verified 04/20/21 00:26) Anaphylaxis Home Medications: Acarbose [Precose] 25 mg PO TIDWM 04/20/21 Furosemide 20 mg PO SEECOM 04/20/21 Furosemide [Lasix] 40 mg PO DAILY 04/20/21 Insulin Glargine Human [Lantus] 15 unit SQ BEDTIME 04/20/21 Metformin HCl [Glucophage*] 500 mg PO BIDWM 04/20/21 Oxybutynin Chloride [Oxybutynin Chloride ER] 5 mg PO DAILY 04/20/21 Pentoxifylline 400 mg PO BIDWM 04/20/21 Potassium Chloride 20 meq PO BID 04/20/21 Sacubitril/Valsartan [Entresto 24 mg-26 mg Tablet] 24 - 26 mg PO BID 04/20/21 Apixaban [Eliquis *] 2.5 mg PO BID 90 Days #180 tablet 04/23/21 carvediloL [Coreg*] 25 mg PO BID 6AM 6PM 90 Days #180 tab 04/23/21 - Past Medical/Surgical History Diabetic: Yes -: IDDM -: HTN -: Chronic diastolic congestive heart failure -: Hyperlipidemia -: Lymphedema -: Neuropathy -: acoustic neuroma -: Brain tumor removal -: CABG x 3 -: R knee replacement Psychosocial/ Personal History: Patient is retired, lives at home with his - Family History Mother -: Diabetes Father -: Heart disease - Social History Alcohol use: No CD- Drugs: No Caffeine use: Yes Review of Systems 10-point ROS is otherwise unremarkable Respiratory: Shortness of Breath Cardiovascular: Palpitations Physical Examination - Vital Signs Temperature: 98.7 F Blood Pressure: 111/74 Pulse: 121 Respirations: 18 Pulse Ox (%): 94 - Physical Exam General: Alert, In no apparent distress HEENT: Atraumatic, PERRLA, Mucous membr. moist/pink, EOMI, Sclerae nonicteric Neck: Supple, 2+ carotid pulse no bruit, No LAD, Without JVD or thyroid abnormality Respiratory: Clear to auscultation bilaterally, Normal air movement Cardiovascular: Regular rate/rhythm, Normal S1 S2 Gastrointestinal: Normal bowel sounds, No tenderness Musculoskeletal: No tenderness Integumentary: No rashes, Erythema (of the lower extremities. ) Neurological: Normal gait, Normal speech, Normal strength at 5/5 x4 extr, Normal tone, Normal affect Lymphatics: No axilla or inguinal lymphadenopathy - Studies Laboratory Data (last 24 hrs) 05/27/21 17:35: PT 18.9 H, INR 1.64 05/27/21 17:35: WBC 5.70, Hgb 12.5 L, Hct 38.5 L, Plt Count 87 L 05/27/21 17:35: Sodium 139, Potassium 5.2 H, BUN 71 H, Creatinine 1.97 H, Glucose 203 H Assessment and Plan - Problems (Diagnosis) (1) Afib Current Visit: No Status: Chronic Plan: will restart the carvedilol in the am. He has recieved 3 doses of beta yoli in the last 4 hours. Will start him on some digoxin and consult Dr. Dailey. Qualifiers: Atrial fibrillation type: persistent (not longstanding) Qualified Code(s): I48.19 - Other persistent atrial fibrillation; I48.1 - Persistent atrial fibrillation (2) CHF (congestive heart failure) Current Visit: No Status: Chronic Plan: currently not fluid overloaded. Will hold off lasix as he has an acute on chronic renal failure. Qualifiers: Heart failure type: diastolic Heart failure chronicity: chronic Qualified Code(s): I50.32 - Chronic diastolic (congestive) heart failure (3) Diabetes Onset Date: 06/23/18 Current Visit: No Status: Chronic Plan: will restart his insulin in the am. Will keep him on a sliding scale in the am. Qualifiers: Diabetes mellitus type: type 2 Chronic kidney disease stage: stage 3 (moderate) Chronic kidney disease stage 3 subtype: stage 3b (GFR 30-44) (4) HTN (hypertension) Onset Date: 06/23/18 Current Visit: No Status: Chronic Plan: will restart his home medications. Adjust as indicated. Qualifiers: Hypertension type: primary hypertension Qualified Code(s): I10 - Essential (primary) hypertension (5) Bilateral edema of lower extremity Onset Date: 12/11/16 Current Visit: No Status: Chronic Plan: will consider an oral antibiotic. Will hold of lasix at this time. (6) Acute on chronic renal failure Current Visit: Yes Status: Acute Plan: Have given him a few fluid boluses in the ER. Will check his creatine in the morning. His baseline creatine is 1. Currently 1.97. Will consider a nephro consult if there is no improvement. Qualifiers: Chronic kidney disease stage: stage 2 (mild) Discharge Plan: Home Plan to discharge in: Greater than 2 days - Advance Directives Does patient have a Living Will: Yes Does patient have a Durable POA for Healthcare: Yes - Code Status/Comfort Care Code Status Assessed: No Code Status: Full Code Physician Review: Patient Assessed, Agree with Above Assessment and Plan Critical Care: No Time Spent Managing Pts Care (In Minutes): 45
[2021-05-27] MEDS ORDERED: carvediloL 6.25 MG TAB PO SCH (21:00)
[2021-05-27] MEDS ORDERED: GLUCAGON 1 MG/VIAL IM PRN (21:06)
[2021-05-27] MEDS ORDERED: D50W 25 GM/50 ML SYRINGE IV PRN (21:06)
[2021-05-27 23:09] VITALS: BMI 26.4
[2021-05-28 03:48] VITALS: BP 103/85
[2021-05-28 04:32] LABS: Basophils % 1.5 % (0-1.3); Hematocrit 37.7 % (39.6-49.0); Lymphocytes % 33.2 % (15.3-44.8); MPV 8.6 fL (7.6-11.3); RBC Red Blood Cell Count 3.88 M/uL (4.33-5.43)
[2021-05-28 05:02] LABS: Digoxin Level 0.1 ng/mL (0.80-2.00); Potassium 4.9 mmol/L (3.5-5.1); Thyroid Stimulating Hormone 3.57 uIU/mL (0.360-3.740)
[2021-05-28] MEDS ORDERED: INSULIN -REGULAR HUMAN 50 UNIT/0.5 ML ML SQ SCH (07:30)
[2021-05-28] MEDS ORDERED: SMZ./TMP. 800/160 MG TABLET PO SCH (09:00)
[2021-05-28] MEDS ORDERED: OXYBUTYNIN ER 5 MG TAB PO SCH (09:00)
[2021-05-28] MEDS ORDERED: HOME MED 1 EA UNK (Potassium Chloride [Potassium Chloride] 20 MEQ Tab.Er.Prt) PO SCH (09:00)
[2021-05-28] MEDS ORDERED: APIXABAN 2.5 MG TABLET PO SCH (09:00)
[2021-05-28] MEDS ORDERED: DIGOXIN 0.125 MG TABLET PO SCH (09:00)
[2021-05-28] MEDS ORDERED: SACUBITRIL/VALSARTAN 24/26 MG TAB PO SCH (09:00)
[2021-05-28 09:35] VITALS: O2SAT 97
--- NOTE | 2021-05-28 10:24 | EKG ---
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
[2021-05-28] MEDS ORDERED: SMZ./TMP. 800/160 MG TABLET ONE (11:09)
[2021-05-28] MEDS ORDERED: APIXABAN 5 MG TABLET ONE (11:09)
[2021-05-28] MEDS ORDERED: AMIODARONE HCL 150 MG in D5W 100 ML IV STA (11:17)
--- NOTE | 2021-05-28 11:43 | P.PN ---
Subjective Date of Service: 05/28/21 Primary Care Provider: alessio Chief Complaint: svt with rvr Review of Systems 10-point ROS is otherwise unremarkable Physical Examination - Vital Signs Temperature: 98.7 F Blood Pressure: 103/85 Pulse: 134 Respirations: 18 Pulse Ox (%): 95 - Physical Exam General: Alert, In no apparent distress HEENT: Atraumatic, PERRLA, EOMI Neck: Supple, JVD not distended Respiratory: Clear to auscultation bilaterally, Normal air movement Cardiovascular: Regular rate/rhythm, Normal S1 S2 Gastrointestinal: Normal bowel sounds, No tenderness Musculoskeletal: No tenderness Integumentary: No rashes Neurological: Normal speech, Normal tone, Normal affect Lymphatics: No axilla or inguinal lymphadenopathy - Studies Laboratory Data (last 24 hrs) 05/27/21 17:35: PT 18.9 H, INR 1.64 05/27/21 17:35: WBC 5.70, Hgb 12.5 L, Hct 38.5 L, Plt Count 87 L 05/27/21 17:35: Sodium 139, Potassium 5.2 H, BUN 71 H, Creatinine 1.97 H, Glucos e 203 H Assessment & Plan - Problems (Diagnosis) (1) Afib Current Visit: No Status: Chronic Plan: will restart the carvedilol in the am. He has recieved 3 doses of beta yoli in the last 4 hours. Will start him on some digoxin and consult Dr. Dailey. 05/28 Patent has not improved. Dr. Dailey will start him on amiodarone drip. Will continue monitoring the patient. Qualifiers: Atrial fibrillation type: persistent (not longstanding) Qualified Code(s): I48.19 - Other persistent atrial fibrillation; I48.1 - Persistent atrial fibrillation (2) CHF (congestive heart failure) Current Visit: No Status: Chronic Plan: currently not fluid overloaded. Will hold off lasix as he has an acute on chronic renal failure. Qualifiers: Heart failure type: diastolic Heart failure chronicity: chronic Qualified Code(s): I50.32 - Chronic diastolic (congestive) heart failure (3) Diabetes Onset Date: 06/23/18 Current Visit: No Status: Chronic Plan: will restart his insulin in the am. Will keep him on a sliding scale in the am. Qualifiers: Diabetes mellitus type: type 2 Chronic kidney disease stage: stage 3 (moderate) Chronic kidney disease stage 3 subtype: stage 3b (GFR 30-44) (4) HTN (hypertension) Onset Date: 06/23/18 Current Visit: No Status: Chronic Plan: will restart his home medications. Adjust as indicated. Qualifiers: Hypertension type: primary hypertension Qualified Code(s): I10 - Essential (primary) hypertension (5) Bilateral edema of lower extremity Onset Date: 12/11/16 Current Visit: No Status: Chronic Plan: will consider an oral antibiotic. Will hold of lasix at this time. (6) Acute on chronic renal failure Current Visit: Yes Status: Acute Plan: Have given him a few fluid boluses in the ER. Will check his creatine in the morning. His baseline creatine is 1. Currently 1.97. Will consider a nephro consult if there is no improvement. 05/28 very slight improvement. Will start the patient on iv fluids. Will adjust daily Qualifiers: Chronic kidney disease stage: stage 2 (mild) Discharge Plan: Home Plan to discharge in: Greater than 2 days - Code Status/Comfort Care Code Status Assessed: No Physician Review: Patient Assessed, Agree with Above Assessment and Plan Critical Care: No Time Spent Managing Pts Care (In Minutes): 20
[2021-05-28] MEDS ORDERED: AMIODARONE HCL 900 MG in Dextrose 5%-Water 482 ML IV SCH (12:00)
[2021-05-28] MEDS ORDERED: AMIODARONE HCL 450 MG in D5W 241 ML IV SCH (12:00)
[2021-05-28] MEDS ORDERED: NA CHLORIDE 0.9% 1,000 ML IV SCH (12:00)
[2021-05-28] MEDS ORDERED: LORazepam 2 MG/ML VIAL ONE (12:41)
[2021-05-28] MEDS ORDERED: LEVETIRACETAM 500 MG/5 ML VIAL IV ONE ×2 (12:47→12:49)
[2021-05-28] MEDS ORDERED: NA CHLORIDE 0.9% 100 ML ONE (12:50)
[2021-05-28] MEDS ORDERED: RSI MEDICATION KIT IV ONE (12:52)
[2021-05-28] MEDS ORDERED: NOREPINEPHRINE 4mg/D5W 250mL 4 MG/250 ML BAG IV ONE (12:56)
[2021-05-28] MEDS ORDERED: SUCCINYLCHOLINE 20 MG/ML (10 ML) IV ONE ×2 (12:58→17:59)
--- NOTE | 2021-05-28 13:27 | RAD REPORT ---
EXAM DESCRIPTION: RAD - Chest Single View - 05/28/2021 1:08 pm CLINICAL HISTORY: post intubation COMPARISON: May 27 portable TECHNIQUE: AP portable chest image was obtained 05/28/2021 1:08 pm . FINDINGS: Endotracheal tube has been placed. Tip is at the top of the aortic arch and measures 2.8 c m from the irma. Patient supine in lung volumes are low. This crowds the vasculature and interstiti al markings. No diffuse pulmonary edema or focal pneumonia. No evidence for aspiration. Heart size is accentuated by the exam limitations detailed in the report. No significant failure or volume overload. Granulomas are seen. No measurable pleural effusion and no pneumothorax. No acute [place] abnormality seen. No acute aortic finding. Sternotomy wires are in place. Resuscitation paddle ove rlies the lateral right chest. IMPRESSION: Endotracheal tube placement with the tip at the top of the aortic arch measuring 2.8 cm from the irma. No pulmonary edema or acute lung parenchymal process seen.
[2021-05-28] MEDS ORDERED: levETIRAcetam 1,000 MG in NA CHLORIDE 0.9% 100 ML IV ONE (13:45)
--- NOTE | 2021-05-28 14:01 | ECHO ---
HEIGHT: 5 ft 6 in WEIGHT: 164 lb 0 oz DATE OF STUDY: 05/28/[address]: Chaparro Dailey MD 2-DIMENSIONAL: YES M.MODE: YES DOPPLER: YES COLOR FLOW: YES TDS: NO PORTABLE: NO DEFINITY: NO BUBBLE STUDY: NO DIAGNOSIS: CONGESTIVE HEART FAILURE CARDIAC HISTORY: CATHERIZATION: YES SURGERY: YES PROSTHETIC VALVE: NO PACEMAKER: NO MEASUREMENTS (cm) DIASTOLIC (NORMALS) SYSTOLIC (NORMALS) IVSd 0.9 (0.6-1.2) LA Diam 4.0 (1.9-4.0) LVEF 38% LVIDd 5.4 (3.5-5.7) LVIDs 4.4 (2.0-3.5) %FS 18% LVPWd 1.1 (0.6-1.2) Ao Diam 3.2 (2.0-3.7) 2 DIMENSIONAL ASSESSMENT: RIGHT ATRIUM: NORMAL LEFT ATRIUM: NORMAL RIGHT VENTRICLE: NORMAL LEFT VENTRICLE: NORMAL SIZE TRICUSPID VALVE: NORMAL MITRAL VALVE: NORMAL PULMONIC VALVE: NORMAL AORTIC VALVE: NORMAL PERICARDIAL EFFUSION: NONE AORTIC ROOT: NORMAL LEFT VENTRICULAR WALL MOTION: MODERATE GLOBAL HYPOKINESIS. DOPPLER/COLOR FLOW: MODERATE MITRAL AND TRICUSPID REGURGITATION - RIGHT VENTRICULAR SYSTOLIC PRESSURE 39mmHg. COMMENTS: ATRIAL FIBRILLATION. MODERATE GLOBAL HYPOKINESIS. MODERATE MITRAL AND TRICUSPID REGURGITATION. TECHNOLOGIST: NERY WALLER
--- NOTE | 2021-05-28 14:29 | P.DS ---
Admission Date: 05/27/21 Discharge Date: 05/28/21 Primary Care Provider: alessio Disposition: Reason for Admission: svt with rvr - Problems (1) Afib Current Visit: No Status: Chronic Qualifiers: Atrial fibrillation type: persistent (not longstanding) Qualified Code(s): I48.19 - Other persistent atrial fibrillation; I48.1 - Persistent atrial fibrillation (2) CHF (congestive heart failure) Current Visit: No Status: Chronic Qualifiers: Heart failure type: diastolic Heart failure chronicity: chronic Qualified Code(s): I50.32 - Chronic diastolic (congestive) heart failure (3) Diabetes Onset Date: 06/23/18 Current Visit: No Status: Chronic Qualifiers: Diabetes mellitus type: type 2 Chronic kidney disease stage: stage 3 (moderate) Chronic kidney disease stage 3 subtype: stage 3b (GFR 30-44) (4) HTN (hypertension) Onset Date: 06/23/18 Current Visit: No Status: Chronic Qualifiers: Hypertension type: primary hypertension Qualified Code(s): I10 - Essential (primary) hypertension (5) Bilateral edema of lower extremity Onset Date: 12/11/16 Current Visit: No Status: Chronic (6) Acute on chronic renal failure Current Visit: Yes Status: Acute Qualifiers: Chronic kidney disease stage: stage 2 (mild) Brief History of Present Illness: Patient is an office patient of [employer]. He has a history of afib and a recent subdural hematoma. He was having tachycardia and sob for the last 3 days. Today he told his . Who called ems. The patient was brought to the ER. Found to be in afib. Negative troponins. He has some swelling of his legs. Some signs of inflammation. The patient recieved beta blockers in the ER. He is still tachycardic. No complaints of chest pain Hospital Course: Patient was coded 4 times in the last hour Family at the bedside. Agreed to no more codes. He was very bradycardic and slowing. The patient had no discernable pulse or cardiac sounds. approx time of 14:20. Family type proof reproducer arrived and performed last rites. Thank you for allowing me to take part in the patients care. I wish the family my best. Vital Signs/Physical Exam: Temp Pulse Resp BP Pulse Ox 98.7 F 134 H 18 103/85 95 05/28/21 11:43 05/28/21 11:43 05/28/21 11:43 05/28/21 11:43 05/28/21 11:43 General: Alert, In no apparent distress HEENT: Atraumatic, PERRLA, EOMI Neck: Supple, JVD not distended Respiratory: Clear to auscultation bilaterally, Normal air movement Cardiovascular: Regular rate/rhythm, Normal S1 S2 Gastrointestinal: Normal bowel sounds, No tenderness Musculoskeletal: No tenderness Integumentary: No rashes Neurological: Normal speech, Normal tone, Normal affect Lymphatics: No axilla or inguinal lymphadenopathy Laboratory Data at Discharge: WBC 6.00 K/uL (4.3-10.9) 05/28/21 04:20 Hgb 12.3 g/dL (13.6-17.9) L 05/28/21 04:20 Hct 37.7 % (39.6-49.0) L 05/28/21 04:20 Plt Count 88 K/uL (152-406) L 05/28/21 04:20 PT 18.9 SECONDS (9.5-12.5) H 05/27/21 17:35 INR 1.64 05/27/21 17:35 Sodium 141 mmol/L (136-145) 05/28/21 04:20 Potassium 4.9 mmol/L (3.5-5.1) 05/28/21 04:20 BUN 71 mg/dL (7-18) H 05/28/21 04:20 Creatinine 1.87 mg/dL (0.55-1.3) H 05/28/21 04:20 Glucose 173 mg/dL (74-106) H 05/28/21 04:20 Troponin I < 0.02 ng/mL (0.0-0.045) 05/28/21 04:20 Home Medications: Acarbose [Precose] 25 mg PO TIDWM 04/20/21 Furosemide 20 mg PO SEECOM 04/20/21 Furosemide [Lasix] 40 mg PO DAILY 04/20/21 Insulin Glargine Human [Lantus] 15 unit SQ BEDTIME 04/20/21 Metformin HCl [Glucophage*] 500 mg PO BIDWM 04/20/21 Oxybutynin Chloride [Oxybutynin Chloride ER] 5 mg PO DAILY 04/20/21 Pentoxifylline 400 mg PO BIDWM 04/20/21 Potassium Chloride 20 meq PO BID 04/20/21 Sacubitril/Valsartan [Entresto 24 mg-26 mg Tablet] 24 - 26 mg PO BID 04/20/21 Apixaban [Eliquis *] 2.5 mg PO BID 90 Days #180 tablet 04/23/21 carvediloL [Coreg*] 25 mg PO BID 6AM 6PM 90 Days #180 tab 04/23/21 Followup: NONE,NONE [Primary Care Provider] - Physician Review: Patient Assessed, Agree with Above Assessment and Plan (family) Time spent managing pt's care (in minutes): 40
[2021-05-28] MEDS ORDERED: MORPHINE 2 MG/ML SYR ONE (14:44)
[2021-05-28] MEDS ORDERED: MORPHINE 4 MG/ML SYR ONE (14:45)
[2021-05-28] MEDS ORDERED: ATROPINE SULF 1 MG/10 ML SYR IV ONE (17:59)
[2021-05-28] MEDS ORDERED: EPINEPHrine 1 MG/10 ML SYR IV ONE (17:59)
[2021-05-28] MEDS ORDERED: ETOMIDATE 20 MG/10 ML VIAL IV ONE (17:59)
--- NOTE | 2021-05-29 15:49 | CON ---
Date of Consultation: 05/28/2021 Reason For Consultation: Admitted by Dr. Pennington on 05/27/2021 for rapid atrial fibrillation with ches t pain. I saw the patient on 05/28/2021. History Of Present Illness: Mr. Jaimes is an 80-year-old male. He is very well known to me from pre vious office visits and admission. He has had CABG, diabetes, subdural hematoma, neuropathy, congest nic heart failure, and paroxysmal atrial fibrillation. He is taking Coreg, Entresto, Trental, Lasix, insulin, and Eliquis, and metformin. Came in with substernal chest pressure, rapid ventricular resp onse with atrial fibrillation with shortness of breath, PND, orthopnea, pedal edema, palpitations, bu t no syncope. Denied any fever or chills. Past Medical History: As stated above. Allergies: HE IS ALLERGIC TO PENICILLIN. Review of Systems: Negative. Social History: Negative. Family History: Negative. Medications: As listed earlier. Physical Examination: General: Mr. Jaimes appeared to be in [id number] respiratory distress. Vital Signs: Heart rate is 134, atrial fibrillation. HEENT: Negative. Neck: Supple with no bruit. Chest: Revealed some rales at the bases. Cardiac: Revealed rapid atrial fibrillation. No murmurs, gallops, or rubs. Abdomen: Benign. Extremities: Revealed 1+ edema. Diagnostic Data: His EKG showed atrial fibrillation. Creatinine is 0.87, glucose of 203. BNP was 4 917. Impression And Plan: Rapid atrial fibrillation causing chest pain and shortness of breath with worse lila congestive heart failure by clinical examination. I think he needs to have another echocardiogr am done. I think we need to continue the Eliquis and continue his Entresto, Trental, Lasix, insulin, metformin. I would like to switch him from carvedilol to amiodarone for rate control and hopefully cardioversion of his atrial fibrillation. I think with his history of subdural hematoma recently, I had discussed the possibility of him having a Watchman procedure down the road, so we can get him off the Eliquis. We will see what the amiodarone does before making further decisions. His other probl ems seem to be stable at this point. He has some definitely worsening acute on chronic systolic eliezer estive heart failure for which he is being diuresed. I agree with Dr. Pennington's present regimen. I wi ll continue to follow him. TERRY/ERNESTO Voice ID: [id number] Report ID: [id number]
== END 2021-05-28 18:00 | disposition expired | DRG 309 ==
LOC: ER 17:07 → ERHOLD 18:44
PROVIDERS: ADMIT Internal Medicine; ATTEND Internal Medicine
PROC: 0BH17EZ Insertion of Endotracheal Airway into Trachea, Via Natural or Artificial Opening (ICD-10-PCS; principal; 2021-05-28)
PROC: 5A1935Z Respiratory Ventilation, Less than 24 Consecutive Hours (ICD-10-PCS; 2021-05-28)
PROC: 06HY33Z Insertion of Infusion Device into Lower Vein, Percutaneous Approach (ICD-10-PCS; 2021-05-28)
PROC: 5A12012 Performance of Cardiac Output, Single, Manual (ICD-10-PCS; 2021-05-28)
DX: I48.19 Other persistent atrial fibrillation (principal); I13.0 Hypertensive heart and chronic kidney disease with heart failure and stage 1 through stage 4 chronic kidney disease, or unspecified chronic kidney disease; I50.32 Chronic diastolic (congestive) heart failure; N17.9 Acute kidney failure, unspecified; E11.22 Type 2 diabetes mellitus with diabetic chronic kidney disease; N18.32 Chronic kidney disease, stage 3b; Z88.0 Allergy status to penicillin; Z95.1 Presence of aortocoronary bypass graft; Z20.822 Contact with and (suspected) exposure to COVID-19; Z96.651 Presence of right artificial knee joint; Z87.820 Personal history of traumatic brain injury
CPT/HCPCS: 31500; 36415; 71045; 80048; 80162; 82947; 83880; 84443; 84484; 85025; 85610; 92950; 93005; 93306; 94002; 96374; 96375; 99284; J0171; J0282; J0330; J1953; J2270; J3475; J7050; J7060; U0003